=== PATIENT | female | born 1980 | race Caucasian/White ===

== ENCOUNTER 2023-08-22 11:44 | Outpatient (OUT) | payer OTHER, SELFPAY ==
[2023-08-22 12:19] LABS: Basophils Absolute Auto 0.1 10^3/uL (0.0-0.1); Basophils Percent Auto 0.6 % (0.2-2.0); Eosinophils Absolute Auto 0.2 10^3/uL (0.0-0.7); Eosinophils Percent Auto 1.7 % (0.9-7.0); Hematocrit 37.1 % (36.0-48.0); Hemoglobin 11.4 g/dL (12.0-16.0); Immature Granulocytes Abs Auto 0.02 10^3/uL (0.00-0.03); Immature Granulocytes Pct Auto 0.2 % (0.0-0.5); Lymphocytes Absolute Auto 2.8 10^3/uL (1.2-3.8); Lymphocytes Percent Auto 29.9 % (20.5-60.0); Mean Corpuscular HGB Conc 30.7 g/dL (29.9-35.2); Mean Corpuscular Hemoglobin 26.7 pg (26.7-34.0); Mean Corpuscular Volume 86.9 fL (81.0-99.0); Mean Platelet Volume 10.1 fL (9.5-13.5); Monocytes Absolute Auto 0.7 10^3/uL (0.3-0.8); Monocytes Percent Auto 6.9 % (1.7-12.0); Neutrophils Absolute Auto 5.7 10^3/uL (1.4-6.5); Neutrophils Percent Auto 60.7 % (43.0-75.0); Platelet Count 342 10^3/uL (150-450); Red Blood Count 4.27 10^6/uL (4.20-5.40); Red Cell Distribution Width 13.6 % (11.0-15.0); White Blood Count 9.4 10^3/uL (4.0-11.0)
[2023-08-22 13:02] LABS: INR 0.99; Partial Thromboplastin Time 27.8 sec (22.3-36.2); Prothrombin Time 10.5 sec (9.0-11.6)
[2023-08-22 13:21] LABS: Estimated Average Glucose 128 mg/dL; Glycohemoglobin A1C 6.1 % (4.5-6.2)
[2023-08-22 13:33] LABS: HCG Quantitative <1 mIU/mL; Thyroid Stimulating Hormone 1.654 uIU/mL (0.358-3.740)
[2023-08-22 13:54] LABS: Free T4 1.04 ng/dL (0.76-1.46)
== END 2023-08-22 11:45 | disposition home or self-care (01) ==
LOC: LAB 11:47
PROVIDERS: Visit Provider Obstetrics & Gynecology
DX: N92.0 Excessive and frequent menstruation with regular cycle (principal)
CPT/HCPCS: 36415; 83036; 84439; 84443; 84702; 85025; 85610; 85730

== ENCOUNTER 2023-08-27 10:10 | Outpatient (OUT) | payer OTHER, SELFPAY ==
--- OUTSIDE RECORDS SUMMARY | 2023-08-27 10:14 | XMS_ITS | CCD ---
Author Name Unknown Address [address] [place] [address] Organization [facility] Care Team Providers Care Chemical Engineer Name Role Phone Dia Wu Primary Care Physician [phone] TERESA, DR SRIVASTAVA Consulting Unavailable MISC, DR SAINZ Primary Care Unavailable TERESA, DR SRIVASTAVA Admitting Unavailable TERESA, DR SRIVASTAVA Attending Unavailable BELINDA ISLAS Consulting Unavailable SANAZ JEWELL Consulting Unavailable TERESA, DR SRIVASTAVA Admitting Unavailable MISC, DR SAINZ Primary Care Unavailable TERESA, DR SRIVASTAVA Attending Unavailable TERESA, DR SRIVASTAVA Attending Unavailable TERESA, DR SRIVASTAVA Admitting Unavailable MISC, DR SAINZ Primary Care Unavailable TERESA, DR SRIVASTAVA Consulting Unavailable SANAZ BELL Consulting Unavailable TERESA, DR SRIVASTAVA Admitting Unavailable MISC, DR SAINZ Primary Care Unavailable TERESA, DR SRIVASTAVA Attending Unavailable TERESA, DR SRIVASTAVA Consulting Unavailable TERESA, DR SRIVASTAVA Admitting Unavailable MISC, DR SAINZ Primary Care Unavailable TERESA, DR SRIVASTAVA Attending Unavailable TERESA, DR SRIVASTAVA Consulting Unavailable TERESA, DR SRIVASTAVA Consulting Unavailable TERESA, DR SRIVASTAVA Admitting Unavailable TERESA, DR SRIVASTAVA Attending Unavailable REQUEST, NONE LISTED Primary Care Unavaila ble TERESA, DR SRIVASTAVA Consulting Unavailable REQUEST, NONE LISTED Primary Care Unavaila ble TERESA, DR SRIVASTAVA Admitting Unavailable TERESA, DR SRIVASTAVA Attending Unavailable TERSEA, DR SRIVASTAVA Consulting Unavailable TERESA, DR SRIVASTAVA Admitting Unavailable TERESA, DR SRIVASTAVA Attending Unavailable REQUEST, DR NONE LISTED Primary Care Unavaila ble AGUBOSIM, CLARENCE Consulting Unavailable PRIYANK MILLER Consulting Unavailable LUIS Wu Primary Care Provider DO Ernie Vora Emergency Provider Dia Wu Primary Care Unavailable Ernie Vora Attending Unavailable Ernie Vora Admitting Unavailable Michael Jameson Unavailable Allergies Allergy Classification Reported Allergen(s) Allergy Type Date of Onset Reaction(s) Facility (3 sources) Penicillin; Translations: [penicillin] Drug Allergy hives, Unknown [facility] (1 source) Sulfonamides (Antibiotic); Translations: [sulfa drugs] Drug allergy hives [facility] (1 source) Sulfonamides (Antibiotic) Drug allergy (disorder) [facility] (2 sources) Penicillins; Translations: [Penicillins] Allergy to substance 05-28-20 Unknown Reaction [facility] (2 sources) Sulfonamides (Antibiotic); Translations: [Sulfa (Sulfonamide Antibiotics)] Allergy to substance 05-28-20 Unknown Reaction [facility] (1 source) Sulfacetamide Drug Allergy Unknown [facility] Other Medications Current Medications Medication Drug Class(es) Dates Sig (Normalized) Sig (Original) benzonatate 200 mg oral capsule (1 source) Non-narcotic Antitussive Start: 05-26-2022 take 1 capsule by mouth three times daily as needed for cough Benzonatate 200 MG 1 capsule Orally Three times a day as needed for cough for 7 day(s) May, Active Brompheniramine / Pseudoephedrine (1 source) alpha-Adrenergic Agonist Start: 11-20-2021 take 5 mL by mouth four times daily Bromfed DM oral syrup 5 mL, Oral, QID for cold symptoms, 120 mL, Refill(s) 0, [facility], cm, 11/20/21 10:28:00 EDT, Height/Length Dosing, 125, kg, 11/20/21 10:28:00 EDT, Weight Dosing Start Date: 11/20/21 Status: Ordered dicyclomine hydrochloride 10 mg oral capsule (1 source) Anticholinergic Start: 05-28-2022 take 10 mg by mouth twice daily Dicyclomine Active 10 MG PO Twice daily May 28, 2022 12:00am doxycycline hyclate 100 mg oral capsule (1 source) Tetracycline-class Drug Start: 11-20-2021 take 1 capsule by mouth twice daily doxycycline hyclate 100 mg Cap 100 mg = 1 cap(s), Oral, BID, # 20 cap(s), Refills(s) 0, Pharmacy: [facility] [id number], cm, 11/20/21 10:28:00 EDT, Height/Length Dosing, 125, kg, 11/20/21 10:28:00 EDT, Weight Dosing Start Date: 11/20/21 Status: Ordered escitalopram 10 mg oral tablet (2 sources) Serotonin Reuptake Inhibitor Start: 02-10-2021 take 10 mg by mouth once daily Escitalopram Oxalate Active 10 MG PO Daily February 09, 2021 11:00pm fluticasone propionate 0.05 mg/actuat metered dose nasal spray (1 source) Corticosteroid Start: 05-26-2022 take 1 spray(s) nasal route twice daily Fluticasone Propionate 50 MCG/ACT 1 spray in each nostril Nasally Twice a day for 14 days May, Active Hydrocortisone 1% In Absorbase topical ointment (1 source) Start: 10-10-2018 Hydrocortisone 1% In Absorbase topical ointment 1 bartolo, Topical, BID, 110 gram, Refill(s) 0 Start Date: 10/10/18 Status: Ordered irbesartan 75 mg oral tablet (1 source) Angiotensin 2 Receptor Eunice take 1 tablet by mouth every twenty-four hours Irbesartan 75 MG 1 tablet Orally Once a day Active lisinopril 10 mg oral tablet (1 source) Angiotensin Converting Enzyme Inhibitor Start: 02-10-2021 take 10 mg by mouth once daily Lisinopril Active 10 MG PO Daily February 09, 2021 11:00pm metFORMIN hydrochloride 500 mg oral tablet (1 source) Biguanide take 1 tablet by mouth once daily metFORMIN HCl 500 MG 1 tablet with a meal Orally Once a day Active montelukast 10 mg oral tablet (1 source) Leukotriene Receptor Antagonist take 1 tablet by mouth every twenty-four hours Montelukast Sodium 10 MG 1 tablet Orally Once a day Active naproxen 500 mg oral tablet (2 sources) Nonsteroidal Anti-inflammatory Drug Start: 05-07-2019 End: 02-10-2021 take 1 tablet by mouth twice daily as needed for pain Naprosyn 500 mg Tab 500 mg = 1 tab(s), Oral, BID, PRN for pain, # 20 tab(s), Refills(s) 0 Start Date: 12/05/19 Status: Ordered Nasacort Allergy 24HR nasal spray (1 source) Start: 11-20-2021 Nasacort Allergy 24HR nasal spray 1 spray(s), Nasal, Daily, 1 EA, Refill(s) 0, [facility], cm, 11/20/21 10:28:00 EDT, Height/Length Dosing, 125, kg, 11/20/21 10:28:00 EDT, Weight Dosing Start Date: 11/20/21 Status: Ordered omeprazole 20 mg delayed release oral capsule (1 source) Proton Pump Inhibitor take 1 capsule by mouth once daily Omeprazole 20 MG 1 capsule 30 minutes before morning meal Orally Once a day Active ondansetron 4 mg disintegrating oral tablet (1 source) Serotonin-3 Receptor Antagonist Start: 05-28-2022 take 4 mg by mouth every eight hours Ondansetron Active 4 MG PO Q8H 6 May 28, 2022 12:00am predniSONE 20 mg oral tablet (2 sources) Start: 02-10-2021 take 60 mg by mouth once daily Prednisone Active 60 MG PO Daily 12 February 09, 2021 11:00pm Start: 10-10-2018 predniSONE 20 mg Tab See Instructions, 60mg x 3 days 40mg x 3 days 20mg x 3 days then stop, # 18 tab(s), Refills(s) 0 Start Date: 10/10/18 Status: Ordered Problems Active Problems Problem Classification Problem Date Documented Da te Episodic/Chronic Chronic obstructive pulmonary disease and bronchiectasis (1 source) Bronchitis; Translations: [Bronchitis, not specified as acute or chronic] 02-10-2021 Episodic Immunizations and screening for infectious disease (1 source) Encounter for screening for human papillomavirus (HPV); Translations: [ENC SCREENING HUMAN PAPILLOMAVIRUS] Onset: 02-17-2022 Episodic Menstrual disorders (5 sources) Excessive and frequent menstruation with regular cycle; Translations: [EXCESS FREQ MENSTRUATION W/REG CYCL] Onset: 11-24-2021 Chronic Nausea and vomiting (1 source) Nausea; Translations: [Nausea] 05-28-2022 Episodic Other aftercare (1 source) [facility] (current) use of oral hypoglycemic drugs; Translations: [SENIOR NET DEVELOPER USE ORAL HYPOGLYCEMIC DX] Onset: 12-06-2021 Episodic Other aftercare (1 source) 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; Translations: [OTH SENIOR NET DEVELOPER CURRENT DRUG THERAPY] Onset: 12-06-2021 Episodic Other circulatory disease (1 source) Elevated blood-pressure reading, without diagnosis of hypertension Episodic Other connective tissue disease (1 source) Synovial cyst of knee; Translations: [Synovial cyst of popliteal space [[place]], unspecified knee] 05-07-2019 Episodic Other female genital disorders (1 source) Abnormal uterine and vaginal bleeding, unspecified; Translations: [ABNORMAL UTERINE VAGINAL BLEED UNS] Onset: 12-06-2021 Chronic Other gastrointestinal disorders (1 source) Diarrhea; Translations: [Diarrhea, unspecified] 05-28-2022 Episodic Other screening for suspected conditions (not mental disorders or infectious disease) (1 source) Abnormal findings on diagnostic imaging of other specified body structures; Translations: [ABNORML FIND DX IMG OTH BODY STRUC] Onset: 12-06-2021 Chronic Other screening for suspected conditions (not mental disorders or infectious disease) (4 sources) Encounter for screening for malignant neoplasm of cervix; Translations: [ENC SCREENING MALIG NEOPLASM CERV] Onset: 02-16-2022 Episodic Other upper respiratory infections (4 sources) Common cold; Translations: [Acute nasopharyngitis [common cold]] Onset: 11-20-2021 Episodic Unclassified (1 source) Diarrhea, unspecified; Translations: [Diarrhea, unspecified] Onset: 05-28-2022 Past or Other Problems Problem Classification Problem Date Documented Da te Episodic/Chronic Other female genital disorders (1 source) Polyp of corpus uteri; Translations: [POLYP OF CORPUS UTERI] Onset: 11-24-2021 Episodic Unclassified (1 source) Cough R05.9 Results Test Name Value Interpretation Reference Range Facility COVID/FLU RT-PCRon 2 SARS-CoV-2 (COVID-19) RNA EFRAIN+probe Ql (Unsp spec) Negative [facility] Other COVID/FLU RT-PCR Negative [facility] [place] Other Quick Strepon 05-26-2022 S. pyogenes Org specific cx Ql (Throat) Negative I-Pulse [facility] [place] Other Quick Strep [facility] [place] Other PAP ACOG PANEL 2: 30 to 65on 02-23-2022 . . Normal [facility] Comment on above: Result Comment: Perf ormed at: WB Performed By: #### P T, PTT #### [facility] [address] [address] [address] Kimberley Milan Age Gdln ACOG Testing 30-65 [facility] Comment on above: Performed By: #### P T, PTT #### [facility] [address] [address] [address] Kimberley Milan DIAGNOSIS: Comment Normal [facility] Comment on above: Result Comment: NEGA TIVE FOR INTRAEPITHELIAL LESION OR MALIGNANCY. Performed at: WB Performed By: #### P T, PTT #### [facility] [address] [address] [address] Kimberley Milan HPV Aptima Negative Normal Negative [facility] Comment on above: Result Comment: This nucleic acid amplification test detects fourteen high-risk HPV types (16,18,31,33,35,39,45,51,52,56,58,59,66,68) without differentiation. Performed at: =G Performed By: #### P T, PTT #### [facility] [address] [address] [address] Kimberley Milan Methodology: Comment Normal [facility] Comment on above: Result Comment: This liquid based ThinPrep(R) pap test was screened with the use of an image guided system. Performed at: WB Performed By: #### P T, PTT #### [facility] [address] [place] [address] Dr. Kimberley Milan Note: Comment Normal [facility] Comment on above: Result Comment: The Pap smear is a screening test designed to aid in the detection of premalignant and malignant conditions of the uterine cervix. It is not a diagnostic procedure and should not be used as the sole means of detecting cervical cancer. Both false-positive and false-negative reports do occur. . Performed at: WB Performed By: #### P T, PTT #### [facility] [address] [place] [address] Dr. Kimberley Milan Performed by: Comment Normal [facility] Comment on above: Result Comment: Deangelo Bach, Hr Analyst (ASCP) Performed at: WB Performed By: #### P T, PTT #### [facility] [address] [place] [address] Dr. Kimberley Milan Specimen adequacy: Comment Normal [facility] Comment on above: Result Comment: Sati sfactory for evaluation. Endocervical and/or squamous metaplastic cells (endocervical component) are present. Performed at: WB Performed By: #### P T, PTT #### [facility] [address] [place] [address] Dr. Kimberley Milan CBC AUTO DIFFon 12-02-2021 BASO # 0.1 103/ul Normal 0.0-0.1 [facility] Comment on above: Performed By: #### C BC #### [facility] [address] [place] [address] Dr. Kimberley Milan Basophils/100 WBC (Bld) 0.7 % Normal 0.2-2.0 [facility] Comment on above: Performed By: #### C BC #### [facility] [address] [place] [address] Dr. Kimberley Milan EO # 0.4 103/ul Normal 0.0-0.7 [facility] Comment on above: Performed By: #### C BC #### [facility] [address] [place] [address] Dr. Kimberley Milan Eosinophils/100 WBC (Bld) 3.6 % Normal 0.9-7.0 [facility] Comment on above: Performed By: #### C BC #### [facility] [address] [place] [address] Dr. Kimberley Milan Erythrocyte distribution width (RBC) [Ratio] 16.1 % Critically high 11.0-15.0 [facility] Comment on above: Performed By: #### C BC #### [facility] [address] [place] [address] Dr. Kimberley Milan Hematocrit (Bld) [Volume fraction] 33.7 % Critically low 36.0-48.0 [facility] Comment on above: Performed By: #### C BC #### [facility] [address] [place] [address] Dr. Kimberley Milan Hemoglobin (Bld) [Mass/Vol] 10.2 g/dL Critically low 12.0-16.0 [facility] Comment on above: Performed By: #### C BC #### [facility] [address] [place] [address] Dr. Kimberley Milan IG # 0.03 10e3/ul Normal 0.00-0.03 [facility] Comment on above: Performed By: #### C BC #### [facility] [address] [place] [address] Dr. Kimberley Milan IG % 0.3 % Normal 0.0-0.5 [facility] Comment on above: Performed By: #### C BC #### [facility] [address] [place] [address] Dr. Kimberley Milan LYMPH # 2.3 103/ul Normal 1.2-3.8 [facility] Comment on above: Performed By: #### C BC #### [facility] [address] [place] [address] Dr. Kimberley Milan Lymphocytes/100 WBC (Bld) 23.2 % Normal 20.5-60.0 [facility] Comment on above: Performed By: #### C BC #### [facility] [address] [place] [address] Dr. Kimberley Milan MANUAL DIFF REQ NO Normal [facility] Comment on above: Performed By: #### C BC #### [facility] [address] [place] [address] Dr. Kimberley Milan MCH (RBC) [Entitic mass] 24.8 pg Critically low 26.7-34.0 [facility] Comment on above: Performed By: #### C BC #### [facility] [address] [place] [address] Dr. Kimberley Milan MCHC (RBC) [Mass/Vol] 30.3 g/dL Normal 29.9-35.2 [facility] Comment on above: Performed By: #### C BC #### [facility] [address] [place] [address] Dr. Kimberley Milan MCV (RBC) [Entitic vol] 82.0 fL Normal 81.0-99.0 [facility] Comment on above: Performed By: #### C BC #### [facility] [address] [place] [address] Dr. Kimberley Milan MONO # 0.8 103/ul Normal 0.3-0.8 [facility] Comment on above: Performed By: #### C BC #### [facility] [address] [place] [address] Dr. Kimberley Milan Monocytes/100 WBC (Bld) 8.0 % Normal 1.7-12.0 [facility] Comment on above: Performed By: #### C BC #### [facility] [address] [place] [address] Dr. Kimberley Milan NEUT # 6.4 103/ul Normal 1.4-6.5 [facility] Comment on above: Performed By: #### C BC #### [facility] [address] [place] [address] Dr. Kimberley Milan Neutrophils/100 WBC (Bld) 64.2 % Normal 43.0-75.0 [facility] Comment on above: Performed By: #### C BC #### [facility] [address] [place] [address] Dr. Kimberley Milan Platelet mean volume (Bld) [Entitic vol] 9.9 fL Normal 9.5-13.5 [facility] Comment on above: Performed By: #### C BC #### [facility] [address] [place] [address] Dr. Kimberley Milan PLT 297 103/ul Normal 150-450 [facility] Comment on above: Performed By: #### C BC #### [facility] [address] [place] [address] Dr. Kimberley Milan RBC 4.11 106/ul Critically low 4.20-5.40 [facility] Comment on above: Performed By: #### C BC #### [facility] [address] [address] [address] Kimberley Milan WBC 10.0 103/ul Normal 4.0-11.0 [facility] Comment on above: Performed By: #### C BC #### [facility] [address] [address] [address] Kimberley Milan POINT OF CARE GLUCOSEon 11-23-2021 Glucose [Mass/Vol] 117 mg/dL Critically high 74-106 T [facility] Comment on above: Performed By: #### P OCGLUC #### [facility] [address] [place] [address] Dr. Kimberley Milan PREG QUANT HCGon 12-02-2021 HCG QUANT <1 Normal [facility] Comment on above: Performed By: #### P REGQNT #### [facility] [address] [place] [address] Dr. Kimberley Milan HCG RANGE SEE BELOW Normal [facility] Comment on above: Result Comment: 5-50 0-1 WEEK 40-300 1-2 WEEKS 100-1,000 2-3 WEEKS 500-6,000 3-4 WEEKS 5,000-200,000 1-2 MONTHS 10,000-100,000 2-3 MONTHS 3,000-50,000 2ND TRIMESTER 1,000-50,000 3RD TRIMESTER Performed By: #### P REGQNT #### [facility] [address] [place] [address] Dr. Kimberley Milan ED Note-Physicianon 12-02-19 ED Note-Physician Basic Information Time Seen: Dana Wong PA-C 11/20/2021 10:50 Chief Complaint pt states she woke up with a sore throat and stuffy nose yesterday. History of Present Illness This patient presents emergency department with chief complaint of stuffy nose and sore throat. She states this has been going on for the last 24 to 48 hours. She denies any fevers chills or sweats. She has no nausea vomiting. No shortness of breath or chest pain. She is a non-smoker. The patient denies any ear pain. She denies any cough. She has been vaccinated for COVID-19. Review of Systems Constitutional: Denies weight loss, fevers, chills, sweats, malaise Eyes: Denies visual changes, eye pain, double vision, scotomas, floaters ENT: Denies runny nose, epistaxis, sinus pain, ear pain, ringing in ears, tooth ache. +sore throat, pain with swallowing, stuffy nose Cardiovascular: Denies chest pain, shortness of breath, orthopnea, edema, palpitations, loss of consciousness, claudication Respiratory: Denies cough, sputum production, wheezing, hemoptysis, shortness of breath, dyspnea on exertion Gastrointestinal: Denies abdominal pain, unintentional weight loss, difficulty swallowing, indigestion, bloating, cramping, loss of appetite, nausea, vomiting, diarrhea, constipation, hematochezia, melena Genitourinary: Denies any incontinence of urine, dysuria, hematuria, nocturia, polyuria, hesitancy, frequency, urgency, burning Musculoskeletal: Denies joint pain, morning stiffness, joint swelling, decreased range of motion, crepitus Integumentary: Denies any pruritus, rashes, lesions, wounds, petechiae Neurologic: Denies any changes in sight, smell, hearing, taste, seizures, headache, paresthesia, numbness, weakness, balance disturbance Psychiatric denies any depression, change in sleep patterns, anxiety, difficulty concentrating, paranoia, anhedonia, lack of energy, vikas Hematologic/lymphati c: Denies any purpura, petechiae, excessive bleeding, bruising Physical Exam Vitals & Measurements T: 36.5 ?C(Oral) HR: 95(Peripheral) RR: 20 BP: 185/87 SpO2: 98% HT: 162.0 cm HT: 162 cm WT: 125.0 kg WT: 125 kg BMI: 47.63 Vital signs and nursing notes reviewed. General: Awake, alert, NAD. Obese. HEENT: Head is normocephalic, atraumatic. PERRL. EOMI. Sclerae are anicteric. External ears are normal. TMs are intact bilaterally. Canals are clear bilaterally. Nares are congested bilaterally. Oral mucosa is pink and moist. No lesions noted. Tongue protrudes in midline. Posterior pharynx is injected, no exudate. Uvula rises with phonation. Neck is supple, no no palpable adenopathy. No JVD. Trachea is midline. Thorax: Symmetrical rise and fall Lungs: Clear to auscultation throughout all milner, no wheezes, no crackles Heart: Regular rate and rhythm. No murmur, gallop, or rub Abdomen: No tenderness on palpation. Bowel sounds are present active and normal. No organomegaly. No palpable masses. No CVA tenderness. Extremities: Motor sensory pulses intact x4 extremities. No lower extremity edema. Skin: No lesions, rashes, ulcerations. No bruising or petechiae. Color appropriate, warm and dry Neuro: No oriented x3, no focal neuro deficits Psych: Mood and affect are normal Medical Decision Making Viral pharyngitis, bacterial pharyngitis, otitis media, environmental allergies, sinusitis, rhinitis Assessment/Plan 1. Acute rhinitis (J00: Acute nasopharyngitis [common cold]) 2. Pharyngitis (J02.9: Acute pharyngitis, unspecified) Orders: brompheniramine/dext romethorphan/PSE, 5 mL, Oral, QID for cold symptoms, 120 mL, Refill(s) 0, [facility], cm, 11/20/21 10:28:00 EDT, Height/Length Dosing, 125, kg, 11/20/21 10:28:00 EDT, Weight Dosing doxycycline, 100 mg = 1 cap(s), Oral, BID, # 20 cap(s), Refills(s) 0, Pharmacy: [facility], cm, 11/20/21 10:28:00 EDT, Height/Length Dosing, 125, kg, 11/20/21 10:28:00 EDT, Weight Dosing triamcinolone nasal, 1 spray(s), Nasal, Daily, 1 EA, Refill(s) 0, [facility], cm, 11/20/21 10:28:00 EDT, Height/Length Dosing, 125, kg, 11/20/21 10:28:00 EDT, Weight Dosing Patient was interviewed and examined. Rapid strep was negative. I discussed the discharge diagnosis, plan of care, home-going prescriptions. I stressed the need for close follow-up with primary care physician. The patient will be discharged home in stable condition. She is to return to the emergency department for any further problems or concerns. Disposition Plan Patient Discharge Condition Stable Discharge Disposition Home Discharge Prescription List Prescriptions Bromfed DM oral syrup, 5 mL, Oral, QID, PRN doxycycline hyclate 100 mg Cap, 100 mg= 1 cap(s), Oral, BID Nasacort Allergy 24HR nasal spray, 1 spray(s), Nasal, Daily Follow-up With When Contact Information Dia Wu In 3 days 11/23/2021 EDT [address] [place] [phone] Business (1) Additional Instructions: Patient Educatio (more content not included)... Normal [facility] Comment on above: Result Comment: Elec tronically Signed By: Dana Wong PA-C\.br\Date and Time Signed: 11/20/21 11:25 EDT\.br\Electronically Co-Signed By: Raghavendra Rodriguez MD\.br\Date and Time Co-Signed: 12/01/21 07:12 EDT Coding Summary.on 11-29-2021 Coding Summary. [id number] Gh0bWw+PGhlYWQ+PE1FV KIwV53idATmuV7PG0dRR V5JDDSFXOJNVI9JUI3vu OT1RMkrM3IqrfOk DbgsdTJlGW58NHn2TBL0 xUnlAWimqQ3atKBoC5t6 JiSbRD71pE54ZRsiSBOi MnJ3HfNhecbfcJDc W7jzYyOcmGWaQct+PHRh YmxlIHdpZHRoPScxMDAl EiAlnBnhAQ0dId2bXTLc LWNvbGxhcHNlOiBj s4lvHPJxSMvdIF4xoHct V9RobAO9TBQor0m3Sm10 dHI+SWTlRQO8xKfiCDjm z339FlXvs2iaUTJ3 jBQcVYhoZHJ7O74mo8D7 QKRlZXMlLDE5dQJ2pJ8t tPtytppmK4DngMYtEzL0 DDD1cFRzrV6kfCib xodpeN5qSqv+E67RJL4O RYBJYS4HZvg4B2RnMyff dHI+KO77EGZrRJ36kKGx bPRqb4qdaRj6GeBi XJCyBHA6jUsnRUadl2Au ZUCpY17kpSHeh4T4IHTv wNqscMCtBhEbgAK9uS1o WHbwlppvn7arzeoi Pqjcc7ojrz16xT06M55n MArzQPUuQMJ4YBYgVIFy gIupek8drE8tDh3+IDxj j7maw6sspSw1IvVe VPMwonXprCdwQSI1n6Uo Kc55V8WnbIdve8IfPau9 lt36jPEss1P4yNR9HAih CWHgrM6bJHbbIuX6 CLDsEaUwmZ07xVGjCWzy Zv7yvOmgiWgbQK9vRWYe dzsnQHKzkJ8rHBGcmZWi sEffUN5hBEYeygpd k153AbEnPKM2XNPweIOl S1FpmS1eRvKhOGFcVGMn K2YpaZUqJKkyN598UMoy EwO6BMSdebTfH1Qz YDPolUgxByR2y0S8Qj4B b4RfjvlbNSU2XLcqRUA4 TuS1UuHkMnG6H4JfScm7 EVCpzMexUN3oG9We CKZaayivcpnsiQX6EKLj YFZztP76eIAsNIrxSs9x b0X8o530QRPoARKfvU44 Xb7hgGzuUGEdyOLR bL1gqxggc8afnbihCpSz EPVsCYj4XJw2ORTykPta WpVbZQO1YvM0RMH3tEYg bY1ltAndikrjqU9w Oyc+L06anH4oMFX2VCF9 jnqgIMBbulJbRL31ON89 D0VwDrwrvMFnjRC+PGRp lfEmlBbeSZ5iDnJo t3bls6KnODhhL3NeHVUq OHmgNvo3RWAiAXL4zHC4 jP8eCFVnSLqfb1Y2dMM4 Y6AuvzJlvh6od7xy GQUmSIpdO41zgBJqq0A8 ZQBhbPG5ZMJgaAcrPrDu iB90Rtq+XQObeZmyv7Ic Pgxjb1zvw6jhdVx7 IjMwJSIgdmFsaWduPSJ0 s1FsHf69P08tNGyhVNGd GCEaBULmCVAkaGgdma2y bG9tLy2+PGNvbCB3 sWD7sK2vCBMqGmB5EXvn I942PnOesZJiYwrob2ko o6uicRc4XrKxEQScefMe uRgiINL5b5WnHa24 S53uWNlxWAEiNZWaDHGh IENctWolhw1ioT8aCb0+ VL2rg7nlwd70bV42yWZ+ FJPwCRY5gVqhKKar ZFSsnB7oDDypOcT6MPBd GcDtyW82iYBbWSigTi3s xOwiwWsiKK1dRXDkclmr p803DpLyz9lgCNGx jKGaWHeqPTC6E88ju4A3 ABLlJHTkICT0iXC4sT1x bGlnbjogbGVmdDsgdmVy xEycUKzzFIbcP878 IHRvcDsnPlBhdGllbnQg VtDcZWd0C3MtEzu6QORv rJbjUS8gwHNvOJlyIj2j fLvkuKbpIQ0yLSLj ogizq004WvNlh3mfRHKf aGIiMBtbRHZ1X18bd6B8 NCLxEKCyCYK7wNK2aC9o bGlnbjogbGVmdDsg agKntUrgOUifTDrwS361 IHRvcDsnPkJpcnRoIERh fUF0LU31ZO34eBTmj1K9 jMJ8R9BsUREuqepz iwtbaDH2TLBhTIMezO90 Ft6mtBezNr2vUHKsAOP9 SJHuvPWkH8HcdS9fHfCn VCHcSOWdU1OspFEk OIewW961OSgaWgD9MONz olIyP6YbOBBmwLejQpZ4 c1N4Lb0SO8Y5YF43WA84 iAYwb5P5wDG8D8Fi QYZcbjacnzgpnAF7CVYf PXOyfH29Ad5vpVimFz6m JTGeWEG3RQWqtHPcL0Nr aO7fNaBlJQWjVNFm Z9QplZXlCHqtX855WClw HbB7XAOexoHhU4KcIYEn sRzvSgT8v1L3Ct3PKUr7 AI48YP17eGYjv7L3 xND6S0DqGVQkqkzjnjvf wNK2TKSuHREvdK18Nk6z xIdyPv3lIOMcKCJ6KUWf iDIaX1HvwW7yRhAx XETiLJTvB9OfqVZlNOmy I465OEglOmA2TGJzioHs S8OwYWOxtBtsGyV8t0F2 Dy0SGGCtBS96BRD5 cWQ7AA34RZ48D1PkYtig dGFibGU+PHRhYmxlIHdp ZHRoPScxMDAlJyBzdHls IW7dYy8oINWjMMQm qXoulWVyUmCrx8lnZCTy IJajZT7phSkcO5TdsRK0 ULOat4g7Sh14Y85aC8Vq dXA+LKOujOY2cYQ4 zW5sOpZiVtY4USyoE559 AsCmsGVeQgrhz0hsa5en tDe1ZpA7QYThotKetUow DMI0k3KpUq36H72n IHdpZHRoPSIxNSUiIHZh rAcahn9ueZ8eIw5+PGNv sED1bVF9kK7zCzCrTwS1 KUsnQ923KnNvqZLn Gjcul3pya7soaIl7MqIx ZOKoduZbhQhnJUN0d9Of Ry41Q5QccFtyf6NtEpx8 zk24zDCvl3D9hRW3 Z4LlVKBqpxvyyPVfbPzo JH8lPXWrsltfVAUozZ8e WOPvL2q2QlOlXbF0FJkb U9VcrjG0LTTfiDFp MFsqBAR0U88ua5T6JWQs HCAeWMQ4sGO3oY7brBia bjogbGVmdDsgdmVydGlj KQzlJFkkB787MGXm mCeiBXYhsG4cTGEmuSJx dGmjCB2bLMJsfeleJoqV RVNTTUFOLCBTVEVQSEFO SUUgUjwvdGQ+PHRk FJF5oCjfUWisJVOggX8r BMCsL4g3VtLiQtU5CFdz M9IvMDMszxtwSq24tK6e CcMjQhI8ELhbB0Dn jjK0PWGvgIDvHXsjNCX9 R52rw9L3GPMzJWLrDUM3 hXN6hG0uqIdmnykpaFXl dDsgdmVydGljYWwt KCxfR458GMQogQacGoU1 YpE6TwY3Jak5L0QdWfg5 EZIarIulQV5qkPGvTTmy Ws6ofHixtZvgXH3o BEZbxwjjHFCyyJ6nUALn jWWmgDbnEM0iZWRyuuaa w111DbNrEWM5CMJegPCv I5LofK4zHxMrKFLt WTZlU2DplURsOVspL039 YYqaRsZ9CQBtkoMqX7Fi BAVloKxlLuO7b1W3Of24 MiBZZWFyczwvdGQ+ IPLkNIY5fTipXSllCHCw qW0aFUDmR9b4RzQcOlX4 SXqlX5LvQDFdndmuOn66 dO1hCdIeYjL5PQng B3UntoX3TXHgsTPrXLgg MGG1T36cy8R7OYRtZWVt QQE1gIA5fH6ocMuhzvhy bGVmdDsgdmVydGlj RHetRIzsN680MQXkgNhm PkZlbWFsZTwvdGQ+PHRk GEK3kTnyDZwjMZPzmI2b SEJoV7x5HuLjTjH3 PPulU0JtBYJxselfUo86 sO5cOdWkZtV7GLmfW2Kj xfO0KVSqvWEoMCucOWH4 B07al3F0JEBvWHOb DEU9eLL2rG1boEmdkamf bGVmdDsgdmVydGljYWwt ZXcsH784AHEqcMdiSaRl LLJjUO6hwEnuaOC+ SZ55yp16B8GzQjacMzg8 ZDEsOZF9bJF8nI1tDUPp MZpdf6M9kFF9I9OdubIs sm5vg3ynSBXlPYcl T61myGDtj3J3JBFohAD9 SMWqrZocXpUuoS15Eeh+ ZJBpnFinf4YuHpezc8ci g4khpEb2GfUxKPQj kzQlnSwlTKG9y3SlNw94 A40gNDaeBMPoYEAgVOFx ZDZdqAupcr4xdH3pAe2+ WXIuzNB9xGR2nI8w JaWeZyD5GRieF665VoXb aVAdRtqif5vlv8gbsJy4 IjIwJSIgdmFsaWduPSJ0 h4VjFb15C2XnqEpe h2BkCag0ve37iNAgf2Y1 xPN4V6EaXHMoybzxvVOo tPtdGU7iQKQcewehBUPf kB7uNUFtJ6m7EiVb PwJ7KFlfG9AgkbP3EQUe pNLpVDImkLMGmR7qvojs p3fxwsrnAyUsWKEwETj9 TAq1FUOjmSixRtOu YKB4LqA1AKI4wCWmpR1l sMpyslmqfV1rJfy+UGh5 l6muuHVdYO7cqKF7DM89 JH74xROnh3S7aEW3 E6CkERBkmkuztolxbDM7 TFKiIBMksI83Hb0bwQnl Kp2zJZWzOOZ2ZMYveFTr F5NnmC4wMtCqZNFd BYZeZ0CzsNQnFWqvB435 EMzaBrD4TKBbyrTvH3Vp GIDelSmiPtJ4x7B9Uq6L YH57OO63XS19wVKu u2N7gWC7L2LtQVRtbtow vsseyZA1KFRpYTHpwC85 Os4uwBlrVs6cPAWnFMK2 IFCegXGzS6ZtlO3v ZsNtJVIoAGWbU9OhgWNi ZMvkX393WTxmAbO9HDCm haFtP0PiCYKcwHxiQjD4 h1C9Sh4HEi99WW45 JU41dRXke2Q3ySG8S2Ah PRTcbkxmlgbhvVZ7TSSs XQCmpL00Ya0mxLtdFl9c EXZlMDX1ZAQhdTEx F0BucL0iObGmQRVqJGPc C4EtyGWeXZwiE475YDzc MbL6RXEfbnVkS5MvZZNo bJpcBlS2f6V2Nv4L ZEkwobg6U0AxShgrmDJ+ LJ77WEFyKX39dAVimNYm d2uzgDl8MbYzNFOpJEP7 pCrzQPapv2KnLVUj Y29s (more content not included)... Normal [facility] Consent for Treatmenton 10-24 Consent for Treatment [id number] #[id number]:127 Normal [facility] Discharge Instructionson Discharge Instructions [id number]#1.00CD:127 Normal [facility] ED Clinical Summaryon 2021 ED Clinical Summary [address] [address] ED Clinical Summary Person Information Name: DELILAH SANDOVAL [place] Age: 41 Years : 1980 Sex: Female Language: Danish PCP: Dia Wu CNP Marital Status: Single Phone: [phone] Visit Id: Visit Reason: Sinus Pain/Congestion; Throat pain - Adult; SORE THROAT, STUFFY NOSE Speciality: Acuity: 4 Enc Type: Emergency Med Service: Emergency Arrival: 11/20/2021 10:24:38 Discharge: 11/20/2021 11:30:56 LOS: 000 01:06 Checkin: 11/20/2021 10:24:38 Checkout: 11/20/2021 11:30:56 Dispo Type: Home (Routine DC) EVENTS: Event Name Event Status Request Date/Time Start Date/Time Complete Date/Time Arrive Complete 11/20/2021 10:24:38 11/20/2021 10:24:38 11/20/2021 10:24:38 Document Home Meds Request 11/20/2021 10:24:38 Triage Complete 11/20/2021 10:24:38 11/20/2021 10:28:16 11/20/2021 10:28:16 Bed Assign Complete 11/20/2021 10:25:42 11/20/2021 10:25:42 11/20/2021 10:25:42 Dr Exam Complete 11/20/2021 10:25:42 11/20/2021 10:50:49 11/20/2021 10:50:49 RN Exam Complete 11/20/2021 10:25:42 11/20/2021 10:30:15 11/20/2021 10:30:15 Registration Complete 11/20/2021 10:27:39 11/20/2021 10:27:39 11/20/2021 10:27:39 Reg Complete Request 11/20/2021 10:27:39 Reg Bed Request Complete 11/20/2021 10:27:39 11/20/2021 10:27:39 11/20/2021 10:27:39 Patient Care Request 11/20/2021 10:28:17 Patient Isolation Request 11/20/2021 10:28:17 Pending Labs Complete 11/20/2021 10:29:11 11/20/2021 10:43:55 Pending Labs Cancel 11/20/2021 10:43:55 11/20/2021 10:43:55 11/20/2021 10:56:09 Registration Complete 11/20/2021 10:50:49 11/20/2021 11:08:11 11/20/2021 11:08:11 Pending Labs Inlab 11/20/2021 10:56:42 11/20/2021 10:56:42 Lab Inlab 11/20/2021 10:56:42 11/20/2021 10:56:42 Discharge Complete 11/20/2021 11:10:23 11/20/2021 11:31:01 11/20/2021 11:31:01 Transfer Complete 11/20/2021 11:31:01 11/20/2021 11:31:01 11/20/2021 11:31:01 ADDRESS: [address] [place] [address] [address] [facility] [id number] PHYS DOC NOTES: MEDICAL INFORMATION: Prescriptions Given: New Medications [facility], [address] [place], [place] [id number], [phone] brompheniramine/dext romethorphan/PSE (Bromfed DM oral syrup) 5 Milliliter By Mouth 4 times a day as needed for cold symptoms. Refills: 0. doxycycline (doxycycline hyclate 100 mg Cap) 1 Capsules By Mouth 2 times a day. Refills: 0. triamcinolone nasal (Nasacort Allergy 24HR nasal spray) 1 Sprays Nasal Inhalation every day. Refills: 0. Medications to Continue with No Changes Other Medications hydrocortisone topical (Hydrocortisone 1% In Absorbase topical ointment) 1 Application Topical 2 times a day. Refills: 0. naproxen (Naprosyn 500 mg Tab) 1 Tablets By Mouth 2 times a day as needed for pain. Refills: 0. predniSONE (predniSONE 20 mg Tab) 60mg x 3 days 40mg x 3 days 20mg x 3 days then stop. Refills: 0. PATIENT EDUCATION INFORMATION: Instructions: Allergic Rhinitis, Adult, Uilp-uz-Hrqv; Pharyngitis, Aaim-mf-Ofit; Cough, Adult, Ovgm-kn-Aibd; Cool Mist Vaporizer Follow up: With: Address: When: Dia Norton Bert Haley, [facility] C, [facility] [address] [place] [phone] Business (1) In 3 days 11/23/2021 DIAGNOSIS: 1:Acute rhinitis; 2:Pharyngitis Normal [facility] ED Patient Education Noteon 11-20-2021 ED Patient Education Note ENT Allergic Rhinitis, Adult Allergic rhinitis is a reaction to allergens in the air. Allergens are tiny specks (particles) in the air that cause your body to have an allergic reaction. This condition cannot be passed from person to person (is not contagious). Allergic rhinitis cannot be cured, but it can be controlled. There are two types of allergic rhinitis: ? Seasonal. This type is also called hay fever. It happens only during certain times of the year. ? Perennial. This type can happen at any time of the year. What are the causes? This condition may be caused by: ? Pollen from grasses, trees, and weeds. ? House dust mites. ? Pet dander. ? Mold. What are the signs or symptoms? Symptoms of this condition include: ? Sneezing. ? Runny or stuffy nose (nasal congestion). ? A lot of mucus in the back of the throat (postnasal drip). ? Itchy nose. ? Tearing of the eyes. ? Trouble sleeping. ? Being sleepy during day. How is this treated? There is no cure for this condition. You should avoid things that trigger your symptoms (allergens). Treatment can help to relieve symptoms. This may include: ? Medicines that block allergy symptoms, such as antihistamines. These may be given as a shot, nasal spray, or pill. ? Shots that are given until your body becomes less sensitive to the allergen (desensitization). ? Stronger medicines, if all other treatments have not worked. Follow these instructions at home: Avoiding allergens ? Find out what you are allergic to. Common allergens include smoke, dust, and pollen. ? Avoid them if you can. These are some of the things that you can do to avoid allergens: ? Replace carpet with wood, tile, or vinyl jamey. Carpet can trap dander and dust. ? Clean any mold found in the home. ? Do not smoke. Do not allow smoking in your home. ? Change your heating and air conditioning filter at least once a month. ? During allergy season: ? Keep windows closed as much as you can. If possible, use air conditioning when there is a lot of pollen in the air. ? Use a special filter for allergies with your furnace and air conditioner. ? Plan outdoor activities when pollen counts are lowest. This is usually during the medical registrar or evening hours. ? If you do go outdoors when pollen count is high, wear a special mask for people with allergies. ? When you come indoors, take a shower and change your clothes before sitting on furniture or bedding. General instructions ? Do not use fans in your home. ? Do not hang clothes outside to dry. ? Wear sunglasses to keep pollen out of your eyes. ? Wash your hands right away after you touch household pets. ? Take jdnl-fxo-mgzmtke and prescription medicines only as told by your doctor. ? Keep all follow-up visits as told by your doctor. This is important. Contact a doctor if: ? You have a fever. ? You have a cough that does not go away (is persistent). ? You start to make whistling sounds when you breathe (wheeze). ? Your symptoms do not get better with treatment. ? You have thick fluid coming from your nose. ? You start to have nosebleeds. Get help right away if: ? Your tongue or your lips are swollen. ? You have trouble breathing. ? You feel dizzy or you feel like you are going to pass out (faint). ? You have cold sweats. Summary ? Allergic rhinitis is a reaction to allergens in the air. ? This condition may be caused by allergens. These include pollen, dust mites, pet dander, and mold. ? Symptoms include a runny, itchy nose, sneezing, or tearing eyes. You may also have trouble sleeping or feel sleepy during the day. ? Treatment includes taking medicines and avoiding allergens. You may also get shots or take stronger medicines. ? Get help if you have a fever or a cough that does not stop. Get help right away if you are short of breath. This information is not intended to replace advice given to you by your health care provider. Make sure you discuss any questions you have with your health care provider. Document Released: 10/11/2011 Document Revised: 09/30/2019 Document Reviewed: 12/31/2018 [employer] Patient Education ? 2019 [employer] Cough, Adult A cough helps to clear your throat and lungs. A cough may be a sign of an illness or another medical condition. An acute cough may only last 2?3 weeks, while a chronic cough may last 8 or more weeks. Many things can cause a cough. They include: ? Germs (viruses or bacteria) that attack the airway. ? Breathing in things that bother (irritate) your lungs. ? Allergies. ? Asthma. ? Mucus that runs down the back of your throat (postnasal drip). ? Smoking. ? Acid backing up from the stomach into the tube that moves food from the mouth to the stomach (gastroesophageal reflux). ? Some medicines. ? Lung problems. ? Other medical conditions, such as heart failure or a blood clot in the lung ( (more content not included)... Normal [facility] ED Patient Summaryon 022 ED Patient Summary [address] [address] Patient Discharge Instructions Person Information Name: DELILAH SANDOVAL Age: 41 Years Arrival Date: 11/20/2021 10:24:38 Discharge Diagnosis: 1:Acute rhinitis; 2:Pharyngitis Primary Care Physician: Dia Wu CNP Provider Information Primary Provider: Advanced Flying Instructor:None The exam and treatment you received in the Emergency Department were for an urgent problem and are not intended as complete care. It is important that you follow up with a doctor, nurse practitioner, or physician?s habilitation assistant for ongoing care. If your symptoms become worse or you do not improve as expected and you are unable to reach your usual health care provider, you should return to the Emergency Department. We are available 24 hours a day. DELILAH SANDOVAL has been given the following list of patient education materials, prescriptions and follow-up instructions: Follow-up Instructions: With: Address: When: Dia Wu [facility] Harriet Schaefer, [facility] [address] [place] [phone] Business (1) In 3 days 11/23/2021 In the event that this physician does not participate in your insurance network, please consult with your insurance company to find a nearby participating provider. Patient Education Materials: Allergic Rhinitis, Adult, Zesz-uq-Bwrr; Pharyngitis, Uefd-am-Yjwq; Cough, Adult, Oxvx-oj-Rlsq; Cool Mist Vaporizer A MESSAGE TO ALL PATIENTS REGARDING OPIOIDS PRESCRIPTION OPIOIDS: WHAT YOU NEED TO KNOW Prescription opioids can be used to help relieve dspborbp-ds-vhsoyw pain and are often prescribed following a surgery or injury, or for certain health conditions. These medications can be an important part of the treatment but also come with serious risks. It is important to work with your healthcare provider to make sure you are getting the safest, most effective care. WHAT ARE THE RISKS AND SIDE EFFECTS OF OPIOID USE? Prescription opioids carry serious risks of addiction and overdose, especially with prolonged use. An opioid overdose, often marked by slowed breathing, can cause sudden . The use of prescription opioids can have a number of side effects as well, even when taken as directed: ? Tolerance?meaning you might need to take more of the medication for the same pain relief ? Physical dependence?meaning you have symptoms of withdrawal when a medication is stopped ? Increased sensitivity to pain ? Constipation ? Nausea, vomiting, and dry mouth ? Sleepiness and dizziness ? Confusion ? Depression ? Low levels of testosterone that can result in lower sex drive, energy, and strength ? Itching and sweating RISKS ARE GREATER WITH: ? History of drug misuse, substance use disorder, or overdose ? Mental health conditions (such as depression or anxiety) ? Sleep apnea ? Older age (65 years and older) ? Avoid alcohol while taking prescription opioids. Also, unless specifically advised by your health care provider, medications to avoid include: ? Benzodiazepines (such as Xanax or Valium) ? Muscle relaxants (such as Soma or Flexeril) ? Hypnotics (such as Ambien or Lunesta) ? Other prescription opioids KNOW YOUR OPTIONS Talk to your health care provider about ways to manage your pain that don?t involve prescription opioids. Some of these options may actually work better and have fewer risks and side effects. Options may include: ? Pain relievers such as acetaminophen, ibuprofen, and naproxen ? Some medication that are also used for depression or seizures ? Physical therapy and exercise ? Cognitive behavioral therapy, a psychological, goal-directed approach, in which patients learn how to modify physical, behavioral, and emotional triggers of pain and stress. IF YOU ARE PRESCRIBED OPIOIDS FOR PAIN: ? Never take opioids in greater amounts or more often than prescribed. ? Follow up with your primary health care provider. o Work together to create a plan on how to manage your pain. o Talk about ways to help manage your pain that don?t involve prescription opioids. o Talk about any and all concerns and side effects. ? Help prevent misuse and abuse o Never sell or share prescription opioids. o Never use another person?s prescription opioids. ? Store prescription opioids in a secure place and out of reach of others (this may include visitors, children, friends, and family). ? Safely dispose of unused prescription opioids: Find your community drug take-back program or your pharmacy mail-back program, or flush them down the toilet, following guidance from the Food and Drug Administration (www.fda.gov/Drugs/R esourcesForYou). ? Visit www.cdc.gov/drugover dose to learn about the risks of opioids abuse and overdose. ? If you believe you may be struggling with addiction, tell your health children's zoo caretaker and ask fo (more content not included)... Normal [facility] MICRO OTHER TESTSOrdered By: Keyanna Nguyen on 11-20-2021 S. pyogenes Ag IA.rapid Ql (Throat) Negative (11/20/21 10:35 AM) Normal Negative [facility] Sero Rapid Strep w/rfxon 11-21-19 22 S. pyogenes Ag IA.rapid Ql (Throat) Negative Normal Negative [facility] Comment on above: Performed By: #### 2 [id number] ####[facility] [address] [place] [address] CBC AUTO DIFFon 11-18-2021 BASO # 0.1 103/ul Normal 0.0-0.1 [facility] Comment on above: Performed By: #### C BC #### [facility] [address] [place], [place] [address] Dr. Kimberley Milan Basophils/100 WBC (Bld) 0.6 % Normal 0.2-2.0 [facility] Comment on above: Performed By: #### C BC #### [facility] [address] [place] [address] Dr. Kimberley Milan EO # 0.3 103/ul Normal 0.0-0.7 [facility] Comment on above: Performed By: #### C BC #### [facility] [address] [place] [address] Dr. Kimberley Milan Eosinophils/100 WBC (Bld) 3.3 % Normal 0.9-7.0 [facility] Comment on above: Performed By: #### C BC #### [facility] [address] [place] [address] Dr. Kimberley Milan Erythrocyte distribution width (RBC) [Ratio] 16.5 % Critically high 11.0-15.0 [facility] Comment on above: Performed By: #### C BC #### [facility] [address] [place] [address] Dr. Kimberley Milan Hematocrit (Bld) [Volume fraction] 35.7 % Critically low 36.0-48.0 [facility] Comment on above: Performed By: #### C BC #### [facility] [address] [place] [address] Dr. Kimberley Milan Hemoglobin (Bld) [Mass/Vol] 10.7 g/dL Critically low 12.0-16.0 [facility] Comment on above: Performed By: #### C BC #### [facility] [address] [place] [address] Dr. Kimberley Milan IG # 0.02 10e3/ul Normal 0.00-0.03 [facility] Comment on above: Performed By: #### C BC #### [facility] [address] [place] [address] Dr. Kimberley Milan IG % 0.2 % Normal 0.0-0.5 [facility] Comment on above: Performed By: #### C BC #### [facility] [address] [place] [address] Dr. Kimberley Milan LYMPH # 2.2 103/ul Normal 1.2-3.8 [facility] Comment on above: Performed By: #### C BC #### [facility] [address] [place] [address] Dr. Kimberley Milan Lymphocytes/100 WBC (Bld) 27.2 % Normal 20.5-60.0 [facility] Comment on above: Performed By: #### C BC #### [facility] [address] [place] [address] Dr. Kimberley Milan MANUAL DIFF REQ NO Normal [facility] Comment on above: Performed By: #### C BC #### [facility] [address] [place] [address] Dr. Kimberley Milan MCH (RBC) [Entitic mass] 24.9 pg Critically low 26.7-34.0 [facility] Comment on above: Performed By: #### C BC #### [facility] [address] [place] [address] Dr. Kimberley Milan MCHC (RBC) [Mass/Vol] 30.0 g/dL Normal 29.9-35.2 [facility] Comment on above: Performed By: #### C BC #### [facility] [address] [place] [address] Dr. Kimberley Milan MCV (RBC) [Entitic vol] 83.0 fL Normal 81.0-99.0 [facility] Comment on above: Performed By: #### C BC #### [facility] [address] [place] [address] Dr. Kimberley Milan MONO # 0.7 103/ul Normal 0.3-0.8 [facility] Comment on above: Performed By: #### C BC #### [facility] [address] [place] [address] Dr. Kimberley Milan Monocytes/100 WBC (Bld) 8.6 % Normal 1.7-12.0 [facility] Comment on above: Performed By: #### C BC #### [facility] [address] [place] [address] Dr. Kimberley Milan NEUT # 5.0 103/ul Normal 1.4-6.5 [facility] Comment on above: Performed By: #### C BC #### [facility] [address] [place] [address] Dr. Kimberley Milan Neutrophils/100 WBC (Bld) 60.1 % Normal 43.0-75.0 [facility] Comment on above: Performed By: #### C BC #### [facility] [address] [place] [address] Dr. Kimberley Milan Platelet mean volume (Bld) [Entitic vol] 9.9 fL Normal 9.5-13.5 [facility] Comment on above: Performed By: #### C BC #### [facility] [address] [place] [address] Dr. Kimberley Milan PLT 341 103/ul Normal 150-450 [facility] Comment on above: Performed By: #### C BC #### [facility] [address] [place] [address] Dr. Kimberley Milan RBC 4.30 106/ul Normal 4.20-5.40 [facility] Comment on above: Performed By: #### C BC #### [facility] [address] [place] [address] Dr. Kimberley Milan WBC 8.3 103/ul Normal 4.0-11.0 [facility] Comment on above: Performed By: #### C BC #### [facility] [address] [place] [address] Dr. Kimberley Milan POINT OF CARE GLUCOSEon 10-24 Glucose [Mass/Vol] 125 mg/dL Critically high 74-106 T [facility] Comment on above: Performed By: #### P OCGLUC #### [facility] [address] [place] [address] Dr. Kimberley Milan PREG HCG QUALon 11-18-2021 , QUAL Negative Normal NEGATIVE [facility] Comment on above: Performed By: #### P T, PTT #### [facility] [address] [place] [address] Dr. Kimberley Milan US PELVIS TRANSVAGon 022 US PELVIS TRANSVAG EXAM: US PELVIS TRANSVAG HISTORY: Excessive and frequent menstruation COMPARISON: None Available TECHNIQUE: Pelvic sonography was performed utilizing both transabdominal and transvaginal techniques. NOTE: Under distended bladder limits evaluation. FINDINGS: LMP: Unknown per intake form. Anteverted uterus measures 8.9 cm in sagittal diameter x 4.3 cm in anteroposterior diameter x 4.9 cm in transverse diameter. Uterine endometrial stripe measurement appears increased (recorded as 2.4 cm), though endometrial stripe is poorly delineated. Heterogeneous myometrial echotexture. Nonspecific hypoechoic subcentimeter focus within the right uterine body, measuring up to 6 mm. Few nabothian cysts. Right ovary not discretely identified. A candidate left ovary measures 4.4 x 4.3 x 3.1 cm. Vascularity is measured at the peripheral margin of this structure. No sonographic evidence of free fluid within the pelvis. IMPRESSION: 1. Endometrial stripe appears thickened, but is poorly delineated on this exam, and this measurement may be exaggerated. 2. Hypoechoic myometrial focus, likely a subcentimeter intramural leiomyoma of the uterine body. 3. Nonvisualized right ovary. 4. Unremarkable sonographic appearance of the favored left ovary. Electronically authenticated by: SANAZ BELL Date: 2021-09-24 11:58 Normal [facility] CBC W MANUAL DIFFon 09-23-19 22 ATYPICAL LYMPH # Normal [facility] Comment on above: Performed By: #### P T, PTT #### [facility] [address] [place] [address] Dr. Kimberley Milan ATYPICAL LYMPH % Normal [facility] Comment on above: Performed By: #### P T, PTT #### [facility] [address] [place] [address] Dr. Kimberley Milan BAND # 0.0 103/ul Normal 0.0-0.3 [facility] Comment on above: Performed By: #### P T, PTT #### [facility] [address] [address] [address] Kimberley Milan BAND % 0 % Normal 0-5 [facility] Comment on above: Performed By: #### P T, PTT #### [facility] [address] [place] [address] Dr. Kimberley Milan BASOM # 0.00 103/ul Normal 0.00-0.10 [facility] Comment on above: Performed By: #### P T, PTT #### [facility] [address] [place] [address] Dr. Kimberley Milan BASOM % 0.0 % Critically low 0.2-2.0 [facility] Comment on above: Performed By: #### P T, PTT #### [facility] [address] [place] [address] Dr. Kimberley Milan BLAST # Normal [facility] Comment on above: Performed By: #### P T, PTT #### [facility] [address] [place] [address] Dr. Kimberley Milan BLAST % Normal [facility] Comment on above: Performed By: #### P T, PTT #### [facility] [address] [place] [address] Dr. Kimberley Milan CORRECTED WBC Normal 4.0-11.0 [facility] Comment on above: Performed By: #### P T, PTT #### [facility] [address] [place] [address] Dr. Kimberley Milan EOS # 0.12 103/ul Normal 0.00-0.70 [facility] Comment on above: Performed By: #### P T, PTT #### [facility] [address] [place] [address] Dr. Kimberley Milan EOS% 2.0 % Normal 0.9-7.0 [facility] Comment on above: Performed By: #### P T, PTT #### [facility] [address] [place] [address] Dr. Kimberley Milan HCT 33.9 % Critically low 36.0-48.0 [facility] Comment on above: Performed By: #### P T, PTT #### [facility] [address] [place] [address] Dr. Kimebrley Milan HGB 10.2 g/dl Critically low 12.0-16.0 [facility] Comment on above: Performed By: #### P T, PTT #### [facility] [address] [place] [address] Dr. Kimberley Milan LYMPHM # 1.51 103/ul Normal 1.20-3.80 [facility] Comment on above: Performed By: #### P T, PTT #### [facility] [address] [address] [address] Kimberley Milan LYMPHM% 26.0 % Normal 20.5-60.0 [facility] Comment on above: Performed By: #### P T, PTT #### [facility] [address] [address] [address] Kimberley Milan MCH 24.3 pg Critically low 26.7-34.0 [facility] Comment on above: Performed By: #### P T, PTT #### [facility] [address] [place] [address] Dr. Kimberley Milan MCHC 30.1 g/dl Normal 29.9-35.2 [facility] Comment on above: Performed By: #### P T, PTT #### [facility] [address] [place] [address] Dr. Kimberley Milan MCV 80.9 fL Critically low 81.0-99.0 [facility] Comment on above: Performed By: #### P T, PTT #### [facility] [address] [place] [address] Dr. Kimberley Milan METAMYELOCYTE # Normal [facility] Comment on above: Performed By: #### P T, PTT #### [facility] [address] [place] [address] Dr. Kimberley Milan METAMYELOCYTE % Normal [facility] Comment on above: Performed By: #### P T, PTT #### [facility] [address] [place] [address] Dr. Kimberley Milan MONOM# 0.58 103/ul Normal 0.30-0.80 [facility] Comment on above: Performed By: #### P T, PTT #### [facility] [address] [place] [address] Dr. Kimberley Milan MONOM% 10.0 % Normal 1.7-12.0 [facility] Comment on above: Performed By: #### P T, PTT #### [facility] [address] [place] [address] Dr. Kimberley Milan MPV 9.8 fL Normal 9.5-13.5 [facility] Comment on above: Performed By: #### P T, PTT #### [facility] [address] [place] [address] Dr. Kimberley Milan MYELOCYTE # Normal [facility] Comment on above: Performed By: #### P T, PTT #### [facility] [address] [place] [address] Dr. Kimberley Milan MYELOCYTE % Normal [facility] Comment on above: Performed By: #### P T, PTT #### [facility] [address] [place] [address] Dr. Kimberley Milan NRBC Normal [facility] Comment on above: Performed By: #### P T, PTT #### [facility] [address] [place] [address] Dr. Kimberley Milan PLT 346 103/ul Normal 150-450 [facility] Comment on above: Performed By: #### P T, PTT #### [facility] [address] [place] [address] Dr. Kimberley Milan RBC 4.19 106/ul Critically low 4.20-5.40 [facility] Comment on above: Performed By: #### P T, PTT #### [facility] [address] [place] [address] Dr. Kimberley Milan RDW 14.9 % Normal 11.0-15.0 [facility] Comment on above: Performed By: #### P T, PTT #### [facility] [address] [place] [address] Dr. Kimberley Milan SEG # 3.60 103/ul Normal 1.40-6.50 [facility] Comment on above: Performed By: #### P T, PTT #### [facility] [address] [place] [address] Dr. Kimberley Milan SEG % 62.0 % Normal 43.0-75.0 [facility] Comment on above: Performed By: #### P T, PTT #### [facility] [address] [address] [address] Kimberley Milan WBC 5.8 103/ul Normal 4.0-11.0 [facility] Comment on above: Performed By: #### P T, PTT #### [facility] [address] [place] [address] Dr. Kimberley Milan PREG QUANT HCGon 09-22-2021 HCG QUANT <1 Normal [facility] Comment on above: Performed By: #### T SH, PREGQNT #### [facility] [address] [place] [address] Dr. Kimberley Milan HCG RANGE SEE BELOW Normal [facility] Comment on above: Result Comment: 5-50 0-1 WEEK 40-300 1-2 WEEKS 100-1,000 2-3 WEEKS 500-6,000 3-4 WEEKS 5,000-200,000 1-2 MONTHS 10,000-100,000 2-3 MONTHS 3,000-50,000 2ND TRIMESTER 1,000-50,000 3RD TRIMESTER Performed By: #### T SH, PREGQNT #### [facility] [address] [place] [address] Dr. Kimberley Milan PROTIMEon 09-22-2021 INR Coag (PPP) [Relative time] 1.00 {INR} Normal [facility] Comment on above: Performed By: #### P T, PTT #### [facility] [address] [place] [address] Dr. Kimberley Milan INR GUIDELINES SEE BELOW Normal [facility] Comment on above: Result Comment: [place] RED INR: 2.0 - 3.0 CONDITIONS NOT LISTED BELOW 2.5 - 3.5 FOR PROSTHETIC HEART VALVE REPLACEMENT 2.5 - 3.5 RECURRENT THROMBOSIS Performed By: #### P T, PTT #### [facility] [address] [place] [address] Dr. Kimberley Milan PT Coag (PPP) [Time] 10.8 s Normal 9.0-11.6 [facility] Comment on above: Performed By: #### P T, PTT #### [facility] [address] [place] [address] Dr. Kimberley Milan PTTon 09-22-2021 aPTT Coag (Bld) [Time] 24.2 s Normal 22.3-36.2 [facility] Comment on above: Performed By: #### P T, PTT #### [facility] [address] [place] [address] Dr. Kimberley Milan TSHon 09-22-2021 TSH 1.697 uIU/mL Normal 0.470-4.680 [facility] Comment on above: Performed By: #### T SH, PREGQNT #### [facility] [address] [place] [address] Dr. Kimberley Milan TSH RANGE SEE BELOW Normal [facility] Comment on above: Result Comment: <0.3 4 UIU/ml HYPERTHYROID 0.34-5.60 UIU/ml EUTHYROID >5.60 UIU/ml HYPOTHYROID Performed By: #### T SH, PREGQNT #### [facility] [address] [place] [address] Dr. Kimberley Milan Coding Summary.on 06-10-2021 Coding Summary. CD:[id number] Gh0bWw+PGhlYWQ+PE1FV FHlG25grCFhfG9ZY1fCL Z9NDJANDOXPPP6ARF2gj DC8AScfJ7PiyuYe TqdghISnYZ05WSi9OAZ8 fAtkMHbqyN3bnBHlX7p4 FiOnCR37iF88QToaXQPv LsF6IbIdcouzgNPp E3wrTwXdwBNmViq+PHRh YmxlIHdpZHRoPScxMDAl HtVfmUsvGH6tGx5rISYx LWNvbGxhcHNlOiBj c8seBUXlWZeqWR3hpPpv L9VzoAZ5XYOkw3c9Of27 dHI+PAGiURN7yUtkBPfh s655XqNqf0lbUXH0 eGWjPMgbSSM6H51nv3D3 JXUiCDNkUVX3eZW3tU2f hUvrdrldF5YbqZUvKbA3 XRQ8qQDoiN1ndSzt ymkzcM9eFhn+C88LER8M RCRJTD7EMfo7Z4DtWqxy dHI+KC13DKApQM30eINc aUUac8xlpPs5FaTy LFSpHJG4oLsyEGdtv8Bs OAYcK66ctSBqg5B2NSXc vGvraUPkDtZiyFT8mQ5i FWfloevuv0eucynt Eoczn2eids08iD15J03p CDeuNHOxYEN4YKRiLCPq gTyznx6gtP6kVt1+IDxj g3zhg1lceVr0MeMe MYJkayZqxQziYPN3l1Fw Rp93L7JylJtxb4IyRhs3 lb04aWIhj6P0hXX5KKwu ERZezW7bJGqsInW9 RRNlDiIicN03gMBxSBad Qu5ewGofaQeuPR2tVTHa zxgcKQPfdT9cZWMauBPt hCqkNU3cWFIorbei l172SuNqCMH6NHAvbYZk P8ZtfB6uKqCwOZUnRGWh D1GrgEZgZInmH399PNfi SlM7VOAvgsXrL9Wx ZPEhlZjqMlL6m8A7Rb6J n7EruuiaTYE2QYleUJYh CcE8ZdAkAsN7Y2QeWbk9 EDRvyChyBS5nK5Iv MYWcnizbwbxouRG1ESGg JOEkqJ39jHIfVCvaQs7s w2P6a004KKCnGWNfwU35 Mz4vnOmbACTfxYNV fW4ftdbok3izqbidEyDh STEtSTs9YTm1SCEmzFlm FfMpCXQ8JyL3RDU9eATf mF5fbXbjvpuzoI2o Oyc+E61kgR7zJLT3DRN8 gcmwXTTpooTzUA88RH90 G4UrRhnxtPDslCZ+PGRp stJxkLljBB1iQiJf r2yys0IkMUgbX6UoIZOw UBcqJbo9TMXhLZH3iPZ2 kB9iKNRqEMllx8P2gLG1 N9DxidName3ai7kk PXEsENyaL51jsPPpd0P6 UWLubFO5NPIrtPtsKsYp gF26Yzq+QEClmSlkq3Cc Zisix8aiy2kryJb3 IjMwJSIgdmFsaWduPSJ0 s9XxPn73Z98eCAhmJELf URFdWZRhGKDkrWuwya7q nG7pZj4+PGNvbCB3 mYZ7vO4kZALpFqD5AFpz B064BsUazSIiCmicj8ag k5ciaEe3GzDbJVYrudPr kCvlWBK2n8YbLc99 D18fUCztUAEmKYXoWMDc TEXemYdcgu2rqL8vKa2+ WE2ni4biqe59sP31hJO+ VQWgRIU3sCowYRhz MJDriU5sLUzjEhB7GHUl PkYkpL93zBWeZWhwMs2n oFbayOdhLV3eEVPywizd d739QxCix0yzAUKs mWYxHVdiNIE1R73ze1Y1 PMHpCNBgZMH7lOS5lL0q bGlnbjogbGVmdDsgdmVy uDjqTTnhWFnsQ984 IHRvcDsnPlBhdGllbnQg LmNqASg0H7RpApq4LSNl hBbcKI6ynXIuARelTx9z dInroTzuGK5tWJKf jzsgw607XaKle0wcIPZp yUInKUrwWHB5Q22kr2L5 YORiLGQzBMX3vXP1bD5m bGlnbjogbGVmdDsg ufVklNfsWXpvMCcfG102 IHRvcDsnPkJpcnRoIERh zJM4QW66QN80sTCmp2R0 yYT0S9WtTEIeuomu quseuXH6VADiDVHpsP27 Ex4bmRqvUf9tONTxKGX2 VHRhkQUlJ9CvqM0qXhKy WZXmFQRrL5SppLOv HNaoN304FZtvOdS9QYQy yoEqY6YvYXQilMmuPcZ5 p1C0Sb9VN4C5DH10BN11 hQJrz9E3pTK3W0Gt XPUzujvjndasyEL2AZAd DFFhaB38Bz5jpTquDe8f XINnYTG0GDMvxQLuO6Qg sR5wIzMwHPWrPORe X7RloPQmBKmzO851PRdb AkV7DUOjdrFjD5ZmYHBw kPmuKcR9x4A6Uw6NNYg0 QS02UN00vGSzz8V3 oAX0H0CwQSVilvpnwlel oZX6WOEvPKVjmB12Le2k rOfhGj7mEYBnORD1ARSu jAMkY5NkmN3wWmWo NGGhGPScN5PbuLJcRFpj V597MXavInL8VTAjncGf M9KcOPVocFhiIiB9y3I8 Iw1JBHXvEB01TVO6 lZY7EB63DB48V7HdHszx dGFibGU+PHRhYmxlIHdp ZHRoPScxMDAlJyBzdHls MC1uDo8lRXPbPNOh yZnskIVvPwOap6ycVGZw TQhvLL6clWvcG8TrqSV3 JSAxz7w8Oj48O74aY8Jg dXA+GFXdvGM5tGE5 lA7yJdEkXaF5EYghQ740 KbCsaZCdXwzrm3svk9wt sXp1VaN3OLKmzbOvjVmb UVR2u1TxOj70S61j IHdpZHRoPSIxNSUiIHZh iSgopn2ggV3nXl9+PGNv vVA4nGR5qB5lUjFaSvV7 MLqmP945OuZzqQJk Dqvia8bcm9mlgZo8JqBd WWIhkrEecIylMYF3i8Zw Bu35B6HwyPcxa3ItMno7 zh83pNKoi1A1nIY1 A7VnUOJvrtcqtLBeeOhk KO6iPFSgwjlnCFSrdS5h YMIfZ5l3XqAhXdH4YRgz S6NemlX3GIQpjMRy JSipBPN3O92tj5K5EOSx YAIxCRX8lBD6sH9erFhl bjogbGVmdDsgdmVydGlj YTggNCdzT664MAVu qGwdDVBzgZ7fIYAqoYWm uMexLW8pEJPqzaspDeyN RVNTTUFOLCBTVEVQSEFO SUUgUjwvdGQ+PHRk ZPW7mFtdPQndQDZlmU6o PMBkV4y4MqOtCvW8BZtm H9JwQNEiwltvHd39fU7g DfArQjB1JQrtZ0Ey quD2VZIpuLRfSSyxBMM8 X78cb4X2TMRyDSNqNNP8 rJM9lA8ohEqvkxtbmQZw dDsgdmVydGljYWwt LEdcO012RTFvePjpNvL7 TfY3UgY4Tpr1H4ReKoy5 ENCtfAzyWT4bnOHbECcw Yi1syPdahTodRE4u EMTkpmorPKLxgY9wAXKv yJErsKamBA5dTOKrrybe o240TqChXFP8EOUrfIWn J3SdyL4kXjCnXFUu ZOHlQ2EqiPNxCMznU060 RHtlJiK7FXAcgbExE2Rt EUEunMqwNbA9m6N4Lp73 MiBZZWFyczwvdGQ+ XVCtONC4xTuuUEquHFMk aY6kFZRzC0t1IaWhViE2 BDmzS4HfGJUkgcvsRk61 tN0bYtPeViV0NGav B8YdibW7KQNdtBJfTUhn WNM4E40he9P5TDMuOBEe UTL2lBJ3qR5tjTmjcypx bGVmdDsgdmVydGlj FTaaCPfuP997HSXtpQlr PkZlbWFsZTwvdGQ+PHRk OTI9fIxsDPmzMPIapP6i YXRiW9t2WkWeReR5 ROsxY7IjRMVlmyinGr41 iY1hTcJsFxT4PObnB2Fk ezE6QPNnmVGkMDbpZMJ7 K32bh3H6PQXuNSKy UPG3xYN0kH5wmKajhfrt bGVmdDsgdmVydGljYWwt RRloS681QUBprRruKq73 wMWpoDvtewY9O1Gu PjwvdHI+SX36CJAaHF86 dBNumETvo3udkBy4RzYf QCXiANP0tEojWTstn0Sv WHQrA06emALkw3B6 IGNvbGxhcHNlOyBlbXB0 xM8pUKcyxpqjz3dtfpee Zklat4hzwt17uJ88K04r IHdpZHRoPSIzMCUi TBEqrDcyhw8nwC6sAj6+ DLNbnJW2wQV3mY9cYnZm MiP0HQpnF846JdAsgLEc Hrufc6aes0nqfMf0 IjIwJSIgdmFsaWduPSJ0 n1ZmOf72J23pCVzbHRBq XOQmAHTbTKOngMvcny9e kF9iLg9+UL8hn7xq ux19wI38kGL+PHRkIHN0 jCrgJHjbNWDtdO3aHYwl KhW5EOMpHfGbkY95tUMt AUteOv4dwOvemYlg DX1xBVCawcqeh469BsKc p1baSEPqyXTeVCmgBAN4 Y29qb5Z9DWIiWXDfKHW1 xGD3iO9djKxcxruh bGVmdDsgdmVydGljYWwt LUezS279PUYlhIepKtUt vTVxO1ajcxALBA8dTjry dGQ+DJDwDXU3hFle DCyyWDWrhY8aBIHaZ0e0 HgPoUrC2LMviL3VrmyL3 VKKgoMBzTRXtwKWKwS7d wdtqo4rnigavIlGo HOWeGEw0EJj4VTVtqKro PtCrBQN0UiN7MUC7qACb wX1wlDuklkninT5rZtr+ RklOOjwvdGQ+PHRk CYG6jDufBLglICMuxY3n LSSkM1f7PwVmDdD8HJvy N8UwmfZ3LEDpwLPuWVAi eOZTyQ0efaoiu7tv kcsrPyZaXCOaTZj5BKz9 SVLjbJtzSsJfNOW7JrC3 FID7pXWeaV6ryTdynpbi tB2gNse+TVJOOjwv dGQ+ISJyOQB5fYddUOjy PTHwaG7uNNNnR9x6PwPt PoN1SCmwF8StbiC4ESDo rWOfNFNwpGVQkO4x sciva1sqeysjRfZcRMXk RYk0JRj5OKXnlHtzCgKi YWC0ZjM3ZVJ6uJZyuV3k oUzmfvbcdW3rQgy+ WOB4HWS6NY23HE10P7Cx PjwvdGFibGU+PHRhYmxl IHdpZHRoPScxMDAlJyBz lVlyEE8aXl6kQIAc LWNv (more content not included)... Normal [facility] Pulmonary Function Studieson 05-28-2021 Pulmonary Function Studies PULMONARY FUNCTION TESTS: 05/23/2021 REFERRING PHYSICIAN: Dia Wu CNP REASON FOR TESTING: This is a 41-year-old female never smoked and pulmonary function test is performed to evaluate for cough variant asthma. Spirometry results were repeatable and ATS criteria were met. The patient has good effort. Spirometry shows normal FEV1 at 97% predicted, normal FVC at 94% predicted. The FEV1/FVC ratio is normal at 84%. Lung volume testing shows normal total lung capacity at 83% predicted. The residual volume is reduced at 53% predicted. RV/total lung capacity ratio is normal at 21%. The lung diffusion capacity is normal at 90% predicted. IMPRESSION: Spirometry is normal. Lung volume testing is normal. The lung diffusion capacity is normal. If asthma is suspected consider Methacholine challenge test. READ BY: Kenya Owen M.D. lr Dictated: 05/26/2021 [id number] Transcribed: 05/27/2021 cc:Dia Wu, MEDICAL RECORDS CLERK [facility] Comment on above: Result Comment: Elec tronically Signed By: Lexie PADILLA, [place] X\.br\Date and Time Signed: 05/28/21 08:32 EST Consent for Treatmenton 04-26 Consent for Treatment [id number] #1.00CD:127 [facility] Pulmonary Function Testson 07-23-2020 Pulmonary Function Tests [id number]#1.00CD:127 [facility] Physician Orderon 05-06-2021 Physician Order [id number] #1.00CD:127 [facility] Coding Summary.on 04-18-2021 Coding Summary. CD:[id number] Gh0bWw+PGhlYWQ+PE1FV YYdR34lhQWnyH7VT5iOL V5NBYYUIMYHND1MOW6jh NE8YCeyJ6MgbuXy PxenpQHwXI24LDp0HZR8 dIcjPXsgaX4wpVDpV6f3 CyRnGP54vD67TCkcXTJe ZiE9YyZurmpikFKc H7zyOpRdgYRdBws+PHRh YmxlIHdpZHRoPScxMDAl QxIlfHidOG2kCc4cVVXw LWNvbGxhcHNlOiBj c2inRVBtSAcgQG0juLhs Z0TefTN4JEGgn8t2Mv29 dHI+DWQmSGQ4uAvsUEya j738ZxFrl5ymKSB6 tIAfWFlaYXI8M45og7X7 ZFHyUTTrWWQ7zKC9mZ2t hCdfjcerY5JtgULmZhX6 LDA8dAEzbT3oiLpd zhkpcM4qTxl+Q90VOQ7S DRHGWI5QTfq0O9KwIrgk dHI+UG11IGRxTX88sAWw bZEvh5eimJj5HrKc KTGtSFY5xUczQNyzm9Hk PSJhP93maDXqm1V6SLTp zVgcxTLqVaImjVN3kS4r PUxlfgxqm4dcldqk Rdfny0ysqn09rW47A81g AUovNVOgVCM1TZSzSAGx hCbfre6ewW7oMl4+IDxj d2axx3uaaNa1EjRs ZWVjvkMfwTbpUXH1o8Kv Wj36L0FetZlrk4XaKyz9 om36zRUmx6G8nYQ2HKfk OUUtaA0pEBuuWlC2 HFUrNyDisY41vSPyQTsy Og0afQoatQpoSX2bOKLk wmqyNRHiaO1fINIhqERj bHwvEY5dUOKryqlx z749BlNgJHF7FBFvrGLe L7PqfG8gBuYlXKLiPKQw U3SynKScERfuW233ZYap DyN6FHTvtfFjP0Ch FGVjnApcEkZ6g7Y9Nb8Q w9AelejgZGJ0DAvgZRSo LgQ6UkQkIwN9R7DsIzi3 PEAftYopZB2kO7Wn BAQupxgcreiizHD2GNBz BXIclI71qIRrWXysRs4w j2L7r689GKToWZFfrW47 Hd4fgUkmRYKgpZFW kR4plzzdw0ojsulgKkGe GUAoTPy3BCz5QORsbGtg HcVnIIU2CvM3SJK3aISo uS2vcCysiloreW6f Oyc+G56mbY2hEHM3UOV1 nssiHXPggjRtRA54QE17 W0LmMouxlMAbgVD+PGRp tzWonHjhFQ4oPsXt s2ppl3BwMAexL4BiHPRv TLqfUzj9SGNoGVO5kOO6 yP9wEUIgARdmu8D5aMA4 S5AdgfBify9ho7qs BASfLKvtI86ifTWcg3O9 ZIZwzZK4THLcvCryJbIk tX54Kyb+MWVdcGkut5Eu Oafld6zbj8ukmBu9 IjMwJSIgdmFsaWduPSJ0 o6FhLb42O86gJMbjGQXf JDLqHMGfXQVmdDbxdh7y dL1bIu3+PGNvbCB3 sGK7aI5rLPLqPiU2ZHto Q175UrHvcAGhGvmrn9pu l7braIx6CcMaBWNaqdEc dQnuKJW9g2TtHi72 D94dKWenQEEpVTZyMAIh CCJyvIewhl0prL3aFv8+ KQ5ob8orec05hY13lZK+ GZEnHXU6bEpiPRqy YKYojT8vLQldJoL7UTIf JaAseH48wCFxPYtzDk7d oJmyuQzyST3hEJIbmtpc t430CtEdf7ptIJRy lCCiHUzdWRF8W98cd2O6 RSAoFIEsJTK4cSU9xK9r bGlnbjogbGVmdDsgdmVy zQzwJHtpUTjzI989 IHRvcDsnPlBhdGllbnQg EaQvRTs4L1KtTkc6WXJl oHqhIJ2tvEAtEPqeYm4t rWaufFcjAZ5eRANf adrjf839TxUnc8kvZFFa oUUoGRtlRDU0M62zx8B3 LCWrRIFaVDL5nSO5vM7k bGlnbjogbGVmdDsg pjGplCpsRMnyUQrvE961 IHRvcDsnPkJpcnRoIERh rJY5ID43HP09cSOev9L4 iHO6X3SxUBJgrumo yrvbbLS9MRMePUJbsB96 Nb4ksRbhKj7jMZHlENP9 DDYllAJeR2PvuM4cYlNj UJUiASCaQ6ZayEWz PIydR762IGgwJbD7URCy jiVgA4LtLQJewSwaKrQ6 c3X6Bl3GG7E0FK53LL46 yJWip3P3pIV7S5Gh XQVksdcwkztfxBR8HEFs CLGriD11Iu8tyBjzOl3p SPNoETL3BQFtnOIcN6Jy eC1xGkShKPPzHBUe K1HndUZmAZikJ750HOoe EoK7LLFbdsUtJ9DmSAOx dPpjDtJ1q5U4Na2QYGl0 VH29SI57mBKyu6D7 tPM2Z1GbXMRiougkaxmk xCA7TZDoIWYgzL09Ck3u mMqvQm2dHUJiMER8TAHg nOLeO7MgpL2wAtNk LBTaOOPyA3LogUKqPHop D763KMdqGuW8LFZtdqPu J3HbPBHqrPfuCrC0e6N2 Qr6VXXIqIT90DHX3 hNA7UE17LS15I7XqGwbk dGFibGU+PHRhYmxlIHdp ZHRoPScxMDAlJyBzdHls ST8lRw6pJWTiPYUi gIbmgUBtUjVju8neGWIf MZvbAB3klGnvC3ShbHD0 MVIwq6y9Nz20F86pU7Ey dXA+QNEgyLM4vBY0 mH4sGlGxQnF6YWgsT537 OmNoqBYmBawpu0kgp3xv uXo0TsB2ENYpaxFirZps XDR9m9FcOb60H52w IHdpZHRoPSIxNSUiIHZh kKoynn6oaK3oOl9+PGNv oHO9bEH7rD2eEpQiBoC9 JPpdM795LzAggRCc Cedrj4kbz7yruWo6TiGv BBXicjEtfVqrDHJ3b3Ej Tc78P6GajBebz6TfJht0 hk93mDXad8N8pIL8 L1NdHPWzyhktbIIxwOyq TH4aKFJumkmjXLGmkV9q XZGnG7w5WpQbHaZ9AKvg A1RzbxR9MXCgdZPb SFzbYRA5K06ur9D9ZMRs KQAzHKB6aYW2iC5qyGuw bjogbGVmdDsgdmVydGlj MBdkBDqsE321TCUc oJbvYTTvzW7zEYGskSDm mRgoED5dOOPnfbjrLjmZ RVNTTUFOLCBTVEVQSEFO SUUgUjwvdGQ+PHRk FPJ8yEppYVucRUYwoS5d DTRoL5u4KkAkBvA8ZCyn L9FaJLZcykzjQq12nN8f YoPjYcE1XIwwZ9Np pxV6LBLizJVxONgcLRZ2 D10pa1P7DUWwPTVkKCD4 xSY0uO6eiOwmdqgpmNCi dDsgdmVydGljYWwt PWuaZ907GBXjvRzpKqN7 LmD9PrI1Syo0M4EfTns8 UVTguYarYC1elOKfUWst Li2ejNzwjSzmYS5d HEJullvsLCOljX2jMWGr aNImiGykIN7kUPPzosnl u746OnLgDRW4LPUvzIBr T4ZbbC0pSuOrDSKj VVFpG6AwoDHeRRrdZ622 MLcyRmA9AAXzijJoG0Dp RRWdeSvxPlZ9q1I4Ds04 MiBZZWFyczwvdGQ+ JDRcKWP9sUszWUyvTRVg aA6bBTHpU5o0EjKxVgO8 FJsoW8AuHJRahfuyYj95 cK2gElWzDeJ4ZNuh Y3FoewS4AFYdsYCxDYin YXN2J37af0Z1MLKqGCJs CZD5jOD6uV9wqYxylcjv bGVmdDsgdmVydGlj GVjcTOycG656NZItyVuj PkZlbWFsZTwvdGQ+PHRk RSO8rZdzXXoiKSFdiD6w UOSiP4m9SxAaExF3 LMvkI0SpMHLnlzbkDy42 bP3lHsObAcG4VOmhZ1Py ixJ1XAVegDIlFLzlXDE5 G32wk4E0VABiUASu UEJ9gKB2vA5tqUrzngvw bGVmdDsgdmVydGljYWwt VRxqT009OVZjgLpnMb62 sVFpmCtlgmH8Y0Wl PjwvdHI+ZV96GDOiCZ95 wLBexYVeg0wmeBk5BuKj PLJzIHF4sTmgTVvqe6On TCCdK16rgETbp3Q5 IGNvbGxhcHNlOyBlbXB0 wU3rPMjlbewni9yffjdz Ssoxr2ivgd86nF48V41a IHdpZHRoPSIzMCUi EJRmgIifql1gaU0kDn7+ NGPggGU6vXM1vB3xAsJe AmU0XZccS845SsFohWXj Kypvp3lwb1yqgXt4 IjIwJSIgdmFsaWduPSJ0 o8DcZg11Q49tBAzxLMLx ABTsNHGsPAIhzReapf5l qJ8zYd8+WL8fe6fl ov36lH38sSR+PHRkIHN0 cKwjIYktSULjfJ8kETvq LiF8LRYiKdTkmP53kYPi GXvlPu2myVifcTkw TG8dOYUbtlhmq582EbJk z1gnDRYkaBGkSNygRSJ7 U30ei4E6LOKcZRJiYDI6 bLS9pU5ffCtusdqi bGVmdDsgdmVydGljYWwt OPlaG685OUJnjMdmXzKa xBHqP3xgszOFPL2lTmtv dGQ+RTOfDLC3tBsw KEteDKSkdJ2fWQAiB5k0 TxDdUrR1NHbcP5GkfhJ9 GTBrvGGbPXNtvZUDjN8k orlvk3aejkzrDzVv SZTsCIb1WOg4VBTclMvj UrCjJIV4ByN5KJH6yGTv mH6ioNdpaaiuiH2ySxs+ RklOOjwvdGQ+PHRk RVT6eCytIUfiRGZenW2v BVYrZ3g4KsQeHwR1TTsd K2OefyR8PJYfbVEnKPSe eJBNxR0astbvd9ls uqnpNxJjDLMgWQw4ONo4 UBSteCzkTaOeEIO7ApK9 WYY5pRQmkO0igCalyavz sW4jPtq+TVJOOjwv dGQ+EKQeOYS8dJnfELuc ASNmjQ8cWFEtE7x1CvDn DxI9BBwtM6KcpkZ4QDRv kVQwRFNxmPSObE8d hygsz2fnwgpoGiLiHPXp OTn7VCy5AFLyfSdoZiIk ZYR1WkN9CID7yLCzbS1s yVgopmqgzP2bAdx+ HPO7GGP9KP79LO68B9Eb PjwvdGFibGU+PHRhYmxl IHdpZHRoPScxMDAlJyBz mAdhAG3qIi1lATNz LWNv (more content not included)... [facility] Coding Summary.on 04-12-2021 Coding Summary. CD:[id number]:[id number] Gh0bWw+PGhlYWQ+PE1FV SItB54kuKMhmG6JW8sDE T4AEIEQTPTSEI5JIV1vd TG4PWnoF8UxazIj TyhafIDnCR38BUr0TKI5 aJpbDWuxpJ6esFWqS8o5 ZxUoOP95kM26SLhlQTNo HcF2ZxRzugovdVTg I6aaPsOkwQDaYff+PHRh YmxlIHdpZHRoPScxMDAl ZvVtpChsEP0mVs9tGQSg LWNvbGxhcHNlOiBj o4hjLBPyOZqrZG4xcRex U8MshUF3PTGpm1y8Gj68 dHI+UIJtDWF2uAvwMPfx h439XeHtc1qpYNQ2 fSXvAQqnVCT1L24ey9F6 FYHhLVOjJYX2tLY1eU7s gEzedhcaK8RfjGMkOzW2 IHS2rAQspA8okPod qrgqxX4wEka+H42NCR6L FLTURS9HYzp4Q8XyGxjp dHI+JD41ODSfZE28jUYz xVMvo1wibJc0YsVt ANHxAZC8dCchVYoky1Zh BCXlJ62rfGWtv9N3KTXi kDdpcNQmAiNrcJR3zQ5z QXzaevpun2iwfdoz Fqyvl8nbbf62rW86R69m AJceXVPiRTM2KYSdJSSt dZmbmk4kzN6gOi3+IDxj a6dnz6aucOe6AiCb DXLceuMrgLfdXNS4s1Ol Mg24G1VrwGcgj1QtIyr6 qb53dFIvc1D0qBX6JJql RXTnnL2yIJajFmO4 SBUcPiXinL57zQTfJZur Fq9xxPloqWpeOC1zESTa wskmZNMzwJ7zGFFvjZFn wHqzPE6aYKZejocm v306KoTrTAY2IMYawEAz Z6KkpN2gEwAaBQYkMJEn N5LgbCRcXLtxV998CNim OcG4JKCcnqZeA6Yn NPOzeLbgMjM4i8Y8Yx8I p2XkcmofRCB7NGesMLFo SiD5VkDnEiK0C3LsHxh1 NMYhyMzrZV8cY1Vy RSIifjyrdgersFC4WFOo ELKvrG19rIQpLZhfQd8q r2O1b889RJJxYMMewV44 Pf2qpBdlKISnqGWU lQ8wabzcp9rgxyeyAhQg QGPhSJr9MQx0JLBnqHkh CaDlVKX3UdS3FBB4hRTm aQ9xoFkokozjvF3w Oyc+T52ktK8hCYU3LIX3 rmisBPAzqwCbRW70TZ48 N0SwSircgNVanSA+PGRp mwWuoJyjWV2oHzJe w7vxw9BvXYfuD1QqQQKb DUlnBof1NTRjYKM4fZB6 jK8kVNArAKdst6Q9dGT4 L7ClgrVwmk4ov6te NLZzQNrqO75lwBEfq2R3 CXAnmTH6CNAsvUusSyEm yP69Xqh+GNFxwEoyp9Fo Plrtn5coc8ootDa1 IjMwJSIgdmFsaWduPSJ0 j1WdGk75J26eVLseCPPq QBXlPTCdXWNsgRusae1c qT8qFl2+PGNvbCB3 rFO6xY5lGXQmMnN4PUmi L985FqDcgFCeKtfvj3az g2pjhDu6FzRdXXGtblTy eDbxDGM9z8VhPu56 X82cEMasQMJpWBHuKUKl YMBbtNvnjn0pfT2rKf8+ RO4xf8rusr72bP25rWV+ NQEcRFX8qWrkCDdb FHQyjE9xNYpzVtV8BDNp JeLxxA12eSRyXEcaXa1t dXxnwYpuOT8oFZHywure s204WvMah7btBKAw bUJuQGwxYTE9A45ga9A7 FQDmITJdJSS4yYT8bA6s bGlnbjogbGVmdDsgdmVy gLwnVNssMQruM338 IHRvcDsnPlBhdGllbnQg JhLpGHq5W8KqLmg9NLOj fEsrDK1jbGQsIJmeTm2z sZqerVnwJC0qXKEf uvfmj049KvSfd2adJNPp kBVyKFezNGQ6F81tc5H3 ZRFeYVKnVLE3hHV4nH3d bGlnbjogbGVmdDsg xfRwyXmdLYqsCJfvG202 IHRvcDsnPkJpcnRoIERh hJB2OR28CB56gQHqo7V1 cQE6X4TpKMAnkrxp wyofrIS3FEOdOEZvnN54 Uy3jbSpzBn3nLDZsDDE5 FCEgfTRcW0RyjP0jNfJq MPRrSQEcZ1VviFKt ZZpwE397UQpbEaN4VTRl fmNyU9AzPQZxfAtuPsF7 v9J7Uz6AT2P2UG05MV90 kIRfq1F8nFO8A2Kk DHRhsouimsbctDX1OGVl PTGonK41Cv3ggYqdLu3p PKPoZBG4RXGsuJJfI9Zu oZ0zXeKgVSHlPEAk F1GlvSLcWQppR239LXyt JxU9ITVnlrLgL1OxEXSa nXtmOzN2y1M7By4WMOs7 WH48KX47cOCan8Y1 wBQ0F0XuTRYyimezcrie dBK6ARWeCNKijD97Hg4n dKztMu2fMSFbIAR7XDJa rMZxX0CcxO5bPxVs GLKeRGYcT8NjqGVzYUyt O153PXpjFnZ1PNWwqbOp Q7ZbUSEdxXywEqO6v5G1 Nt2ZLNPtST47FNK9 wZN6AG79WW02W7YiUpve dGFibGU+PHRhYmxlIHdp ZHRoPScxMDAlJyBzdHls ON0nWl0zYIZwLSIs fTxfcLXuMsVce7naZIHo SOlqRE1thHsaW1EgiZC1 MPTtr3t4Js58F42mR3Bn dXA+OBThdBK6vHD5 sV7wFoAcGdY8ICekQ636 TpGwbGDzQlpdl6spn0cg oMr1AsQ1PIQatyUrbCqq XTS4i2NfEp28V50h IHdpZHRoPSIxNSUiIHZh yAxxuz1gdQ1rSt8+PGNv aQR2kAM1jM1rXiCbOcC3 FTbjJ408KeEdrKMc Mbaio5adv8hboHa3LaFz PZPdtlAqxYmrNOR6h7Bq Ph69A2VrpZcuf4MeFyv4 rv08aQWak0U3qDO8 S7FgSCPfmaemrKMwcAud LA4jVDAwatpjKSFzyX6u QXBfV2e8QzUqExB3FGhq V3SxnaZ2KOBgiLKr OPxeJDZ5R16qz7B6VQYh PAYrEKJ4fBT2cZ4ufWkd bjogbGVmdDsgdmVydGlj CAycCBpoB243YUWu cSieNQKuhA0yMNHilVLv jRnpEZ5pRKHwbrkjTgnX RVNTTUFOLCBTVEVQSEFO SUUgUjwvdGQ+PHRk XPB6mOtzHLhsUHHzmB0x MNPnD1u6QmQmSxW4EAex W1BcLMAlqscjYr25kR3h QmUpBvU7ZXxmP1Qa dcF5BKLkfDReWHbaGDN6 H94qu3W2UCPkEAJeQBD8 rJA5lB8zuHnfzyteuJJa dDsgdmVydGljYWwt FOhkK051RPFhlIweZkY9 NtZ0QqA2Jth3S0JgGag8 AUFfzKzzPO4khQAnYIlj Cm3seGvnmClyJI6w AOFdhcofHSOzjN1gNWUl cQTekLwwTI1hDDWfetos c553BbBmESX0HCJvzGPu U0AieR6aMuAxXXYo LCAcP4LjgSBmOJbdQ760 GFsrLwI5CJDrnpTtT9St INUglZhkBrL8p4J2Cj63 MiBZZWFyczwvdGQ+ LBOpODE5uIsiBAleMACu rA8mAGLeF9d5GrBdYtP6 AIroV3GnNKAzyixbVs36 rU6qKjQlUlC1SPhp E4EhrnJ2QQKiyZOdSHuw IWJ6C33jy3L1YJAsPHOq PLK7fSZ5fV9xmWutucfd bGVmdDsgdmVydGlj YMagHXkiA413BLOwoNsb PkZlbWFsZTwvdGQ+PHRk FBE4kRbfJNqwFVVokA4f DNBnJ3d5CyXcBbV7 TEiqY3IvJHYjjogxCs88 kD3vSeQnLvP2DXerQ2Lv kaQ0FADkuAWyCIseTNL5 I54nx5W7VQOxRQFb HRE4bTR2kK3neRjddytf bGVmdDsgdmVydGljYWwt UBczD206PNJvlUfkIxJs HHZqMU4gbGukzWF+ MV69yv70D7KcQdchKqa1 JBSwHDQ4iKI4yM5vGRIj TNsrp9F4qJW6Q6VdsvQr ew5qn8vpIXHsFYeo R91hlPHko6R4MSQjnRM9 DWNqvAcmCtOskU04Dfk+ UCAelJeoa0RlSayzb0qz n2rocCz4NcLuMMSl goHguAdaJJE3d6GfXj89 H72iYCfoCNIpHAQnAEPg SCCgiUivqc3soA6pTo3+ LFHelCA6dBF6oG4x NyArRcR2XBijE564TxIr eTXiKjsti3zvf0yqvMu1 IjIwJSIgdmFsaWduPSJ0 v9NbZy61G0UyzXtj m6HpWxh4ef94sZKvl9T9 fHH0W2HiVKNtqdqxyUMr eHlrYV2jBJTtpqdsKSIx bN4yFCQcF4v4XzSu KiX8WRzeY0RoumX0PVCn wXZxDNDlgUVSzW0gnjrp b9tcyyeiBkAnSKGfQFe4 HHs7IHIbfEgfYeVv TQM2GfK3OMV8qEGcwZ4q gQyvdegfhF4cQuf+UGh5 h5xypUNbCD5riXF1EW06 RP94gSKpo3W4kFQ8 A5CuMEJcoxkqdygsiUB7 OHGiRIPyrU93Be5nnHcz Zc6lEOIwYUJ8QVJebESg W9UfmX8jZhXpAQAt PHTyQ7JzeNNbNJybH038 SCdkJgF1GPOzgsWuG7Dm HPBijBulAaO9a9X5Uv3F OA81IE75FX76hQTo h2P5xQT2R8PpYEKaqzgf ildzmIQ6WLSyXQWmhU94 Xy0lsNjiKg4sOTEbOAX1 XBYucCMkL3OsoZ5u LqRbOHBlJMEcV5SscWMe GZwlO084ATutFzI1KZAo eaIxM7SnJRVmrOvgMuC0 m1U6Re3UVt28ZR80 AJ55hWRik6F7zVD3B3Lr IMYtcoyscgqvfZQ8WOSj ISVbdS48Uj1ktFzyPv5f YTCkXOU0YOBlmRUu W7JhfL2aTmNfEGZdNIIl X9CiuREoFNocV211UNiq RoE4OVXyxhPqR5FgMJDw pFlbJwS6b9J7Rj6E KWsxadb0Z2PdJyjvyKO+ AN10VWJnLX97wDNkqSQo w7ilkJn6XzDpIYHgMPP4 xOhcSObxj0JhLPSa Y29s (more content not included)... Normal [facility] Coding Summary.on 04-07-2021 Coding Summary. CD:[id number] Gh0bWw+PGhlYWQ+PE1FV QSeX06plWHxbJ5HF2wWI R4HPGNSLGGGLY0WWM2pf KN4YLunW1NwqdVi ExpjhQZpWL22ONn0REX8 uFlhIXqpkZ7cwOGwS1j0 UjKzQB56fF71CIrkYZOd TnI1WbBrplbbbAVq O4ngXvLguHCgNvj+PHRh YmxlIHdpZHRoPScxMDAl VeLdaLgxNK5zPu6mHMIp LWNvbGxhcHNlOiBj x1acEYTaVZmwXN3pkVhn Q2VyeZL1EYXrk6p0Yj98 dHI+PQHoCMZ5yOzcVZdb j710BoMsz4evEET7 aJGcNEesHYK6R38tw8L0 ESLlCEAxZWJ0nFD3lF6d eRfipytiP6WjpEFdKeU2 RKX6uVOzoP4xfGpv ytthyB8vPrf+X83OHA3P QWOUTO0RRyd2N2BfEriz dHI+OV76TWWdKW75zTTl eKJtp0jsnJa3UqTd SKJgZHE6xPpsZDwih0Tt EPUsY42qdNWal5D1KAJa gIacgGAtBvIwqNE2vV5u LIuyklyxt6jkhiux Bpmmo1ebhn68cF27U13l PJoiCHZsMES0WECaGFTp jSxykn8szN3jEz0+IDxj f0qai6egkEp0SrIt BRHwgsXwxLiuQAG5k6Tc Or72M4PoiOvzq4MdYsg2 ke83jGFji6H1fPG1FLnp DLFadP2bJJsbCjX2 FVWxCmKoeY63gSReNRfh Is9hfZjcmYabJG2ePQPo ttabBDOwvN0fCUUxzUPs xCreSM2lVWJgxvpb o319XmDvMFS1EYRtrMLx X8CjgS6pDkKiNJKsZPEj P9KyxLNhYCsoE277WHrj DlV7JCXbxuRmH9Fg EBUbqJapBtL3j5O1Nr1Z h2UzndseFSM5AOzzQNKm NsL3JeTxRrS1K5VjWuv0 XXPceLwyTC2iL4Qp SRNeqagqfhvgoBZ9RCGr JNCzqC95lTVdCWkyIv3b u3W2b537BRDlARPvxM87 Bl7sdFtlDFBimRJZ eB8snzhbf3vztgmwUkGw QHEtNEv3DIv1BOOhxMcy QhDmSHH4XkC9NJX9nYZf dR5rqMazlrpwkB9n Oyc+H62gfO1fUUD3UMY3 bdysTMVspbVpDQ81CN46 Q6CjZclrkMOslUY+PGRp wbZdzMwvKR8yAnOp y7sla2WhMSepU9EtTRBm JUgcBok3GTIvYTE2iOG2 oV4qTVEmDEffa3S4dBV7 I8LlrmFxle7ej3ix ZPQqRYvpP20nlVFow9J2 BQMgrOO1NUEguZcgUxVg oJ37Vqu+ZHIchPpab9Fh Glnva7qcl5iklXz9 IjMwJSIgdmFsaWduPSJ0 d5UsOo34R93eEUfbLOSc XEDaWYVlTRTvfWekpd7n nR4nWm2+PGNvbCB3 gQS5qU9sTHFgZrX7YZwj A976CxJkgVHpMlwte5pl n8xmjPi5HbGkAGKbbzFj mVmaTSL1t0EuIa84 E20wDJajTYTaAJVwSUXc ZSPtaIdpvy5hqM5zMg2+ OQ5xt0ktaf24qG53vUI+ ZWHfYOF7qWidHZiq RZLyxF8jCCydJmG0WNPj IuDpqW53nHPiQNtcXy3h kRzsbUtlUJ1xVEHlklep u511RdUeb2sfLODc zUEzGFsjNXA7L15ip2E1 ATYqABHuEUI6rBP8lP1j bGlnbjogbGVmdDsgdmVy fOopQRisXJgeO098 IHRvcDsnPlBhdGllbnQg JxKuTXv6S2YtJhz0VOEx oAduOG1jbYQcYYgoLf3g uDpzpOycUB3rVUZq eiaac710ScBjf4wiTQUm tFNgERtjBDE6S19jc5G9 NKOsJLQtWEQ3kGS0dV1x bGlnbjogbGVmdDsg fiMvkAzxHAlrTOemN841 IHRvcDsnPkJpcnRoIERh wLT5WP77YN58wQGpv9P8 oDF6R3UuRMPfnvue qhkjxTE5LOZbMHUzlB60 Rd5bbRcrGt1mYQHyWZU8 ONScwKOlK9FcjU5pCpMx GIZaHGBrJ0VzsPLy WRbiU141SEzxSqR9PIEc nuYyR2JtXJJgpOmzPwA1 a1D8Dh0PA6N2HI01XT75 fDNby7C0jUC5G1Oy THKtfuhpoxrvaUQ8SSKl SBEjfC44Yi1giGyrHx3f IEUcMRN4KMSbaMEvZ0Va eJ8xZnBpRENjWWMd U4QaaQWnROgiE722AAjo XxX4AQKhzdQcC1JiZWSk sXkbXhL0p1S2Vy7NTMc0 RD33JE54lZCeq6G2 nZK6Q0CzFRCyzyomthis wGW1SCWyQRNfwK70Bz0l cTerVb7yCZCrQUE4FPAf tJYrM3HioM3jKtJj DAVpXZSvD9WpyHZmATwp E001AXtrJgM1YVLxkaDn H8VnYGNotPakHfY9d6W9 Xi9CHHDlSS49OEF6 tJB5ZA47QP38O3QnCulc dGFibGU+PHRhYmxlIHdp ZHRoPScxMDAlJyBzdHls JQ1sEv5qTCFlBQWv iGztnDEvUfRzw5xnHIFz GZylFG3iiFhjE9MmkKT6 ZTYpr9z0Bg90V66sI8Yj dXA+DEScpFP7uUQ9 aV3kZoEkDuS5XAyjW821 WwOvkZXsVorua6krc1bk jNt2GeP6IVLmahCdkLck APA4h2GzVt38R80f IHdpZHRoPSIxNSUiIHZh dHckht8wxA7eZn9+PGNv yYY1eWY1wL1bKvDrRyG2 ZNsqA814JxRyiGAc Xdsso2lrl1hphUl8OeYb BMZndlNoyTbgVQM0r3Gz Lc77V2BttCnkb2VkCkl8 gy40kHTht7K9xWR2 W5WqMDFpyfbobRWocGoo KX8jYDSmbtsdVXLrvS8x EDLtY1g0IfTsMqA7FXzv C8WikyS5RHEokKHj NMzpBSI5E00ib8M5OGJt KQIiHBH0hLT7kJ8sqNqu bjogbGVmdDsgdmVydGlj HBmeSRxqC470GJMq cYjvSHUpaP4rWMBqrWMk nFtaFM2mPXEyfixeCzuR RVNTTUFOLCBTVEVQSEFO SUUgUjwvdGQ+PHRk UPW6nXqaIUltVFYpoZ9w FCVqG0c0SoYwVyP4EYto V1SvEGUuuiiaRo79cU2j ZrZmTpW9WRdfB8Le hzE2QMPmePUxGEkkODN9 K11rr9T4MTJxZMYuKJN0 zFN5nI6upYajtkblmUTi dDsgdmVydGljYWwt XAxhX615YDTshKziNvD6 WtO0WoT3Wqi3T0VfRlw4 EIMwgGcwNF5qnJLmIKxh Uu9yjDqazYyiRI1s GGMczfalPLWucB9oMVEu jMSocYkbNT7fNWGrpiwh p023PeCqZAL7YOMsfSPf J8OwsO1mNsXoLJOq SWAfV6GehMQgBWqtO834 YLotAqH3OBZyptCgL1Wi MEDjjItsQjY9u9H6Sp98 MiBZZWFyczwvdGQ+ TRQkFQS0aYknJFdbRGCo iK3tMMSgL9r7HeFtOrA9 IFsxD1UbZQJlcabpMx37 pH5jMxQaXcX2BGle N8CuxaE4LJGrhHBiXAhc YRA7Y68lj6Y6YCFsRKEv EEH3eEM3cA5scXvkjztt bGVmdDsgdmVydGlj ZCqiJRdnE323UALdvMaa PkZlbWFsZTwvdGQ+PHRk DKD2dAwcRXwwQTKutO5c CWRwS2v0WiNqCnN4 TAreE3FfCQFxntpkMg55 jB5pRcXaYvN1SKwsM4Yb emW9CNBcuGMkMTnpWCC5 I61cp9D2EANqYDNq LTS1zJA7yT8rkCpsqhxe bGVmdDsgdmVydGljYWwt AHtaM392XVNauZmzQtvm XfRUjd8lRC1fSqyy dGQ+KR95rz73W0WxFrbp Ixb2KLUrKNF7bOH8zM9s PQQvFCuhl0O1kUJ9U0Cz foOoif0he9edXWVn DJeqY57fyLNsb5W9ASPm wTB7IDCmxWeiDnYncY06 Oyc+MEGawAdjt3QaQigj j0xyl1rmxVu4NaQz LQEjiuHjsIaxKWE2m0Ni Ay36Q58xZRtxPCDpICZr IDNiUFWoqZvjkk5sjE7k Ii8+BNSjjGB9iQG6 mT3aWgQrPuU2XUqmP849 ZbIaiVQlMddnp1bec3ih nVe3RyGiVZTewbRkrMmu HKS4l3TpAu69K0Nv zSded7FnOmy4xu40iDHm v8Q4kQR1H0RwLSDijwfp eTOftWddYL4zXRQcdfjq QQQbiE8yRUQdF2u4 CgSbUlK7ZUhoG3KnetR7 RBAasOBjQDBnkIVNqE6k syweb6nhovuiDtAjTKNp IGq2CEf3BHFabJwr IdYjMVH1GpK6RWK8vREt oM0aiOvthliyeM3cTgh+ MIh6d3lybNOkMT0yeDU3 KY34UM35mSQxp8R5 aNQ4R8AhUNUbganimbdu yCA9UQWeNWJyxQ64Fr0z zHdfDq7mCTKgZJC7WPWz iLZkM8VohT1sYqBn TBKbZFFbA8YgiGHjNJga N179QEwdUvG9BPXcimMp D5RcICMbiShjPeW2j0I1 Pm5WFL64XK87CM34 jPRbr7T9aIX8V7TvZMGh fpwfkiaexPP3APThZZCt nE08Kt1wrWhmUd7sGNUc VDU7LZKklDUbF0Lb nD6eQyLnJJRgNKApN1Jz nKNvQTifA994SOdsMlM7 RZPtecAjX4SfGASgcBje EgG5x2D7Az3MJw34 QT87JJ48nFFrm6T7bAL9 F0MzCYKqbgswrgpgkKI3 HHVfXIMjzZ33Rr0igMbe Cy7gTSDhQZL5ZRAs kIWdY3KksF3pGbXtJWVe QSXbI7WlkWPvAQekI332 UAajTxZ1JAOfmjGhK6Ef VMCncZkbEwX1p7R9 Qg4VPVksdjr4S3XcIeez dHI+YE25UJWdQF03jGGo zRVnk3xiuOo3DcLjFBDp SMP6uYnmAIgia5Qs ZXIt (more content not included)... [facility] Consent for Treatmenton 03-25 Consent for Treatment [id number] #1.00CD:127 [facility] Physician Orderon 04-05-2021 Physician Order [id number] #1.00CD:127 [facility] XR Chest 2 Viewson XR Chest 2 Views Exam Date/Time: 04/05/2021 12:49 EDT Reason for Exam: R05 Report IMPRESSION: NO EVIDENCE OF ACTIVE CHEST DISEASE. CLINICAL HISTORY: R05. Cough. COMPARISON: 11/10/2020. COMMENT: The heart is normal in size. The mediastinum is unremarkable. The lungs appear clear. No infiltration nor pleural effusion is evident. No significant change is noted when compared to the prior exam. FINAL REPORT Dictated: 04/05/2021 3:13 pm Romario Arce M.D. Signed (Electronic Signature): 04/05/2021 3:13 pm Signed by: Romario Arce M.D. Transcribed by: CALIN Technologist: TAYLOR [facility] C Urineon 04-04-2021 Bacteria identified Cx Nom (U) Microbiology PROCEDURE: Urine Culture [R1] SOURCE: U CleanCatch BODY SITE: COLLECTED DATE/TIME: 04/01/2021 22:54 EDT RECEIVED DATE/TIME: 04/02/2021 06:25 EDT START DATE/TIME: 04/02/2021 06:25 EDT FREE TEXT SOURCE: Aguilar Pino DO, DO, Noah S. FINAL REPORTS Final Report [] Verified Date/Time: 04/04/2021 10:14 EDT <10,000 cfu/ml Mixed skin contaminants Performing Locations R1: This test was performed at: [facility], [address] [place] [address], [facility] , , [facility] Comment on above: Performed By: #### 1 [id number] #### [facility] [address] [place] [address] Consent for Treatmenton Consent for Treatment [id number] #1.00CD:127 Normal [facility] Discharge Instructionson Discharge Instructions [id number]#1.00CD:127 Normal [facility] ED Clinical Summaryon 2020 ED Clinical Summary [address] [address] ED Clinical Summary Person Information Name: DELILAH [facility]ANDOVAL [facility] Age[facility] 41 Years : 1980 Sex: Female Language: Danish PCP: DIA HU Marital Status: Single Phone: [phone] Visit Id: Visit Reason: Cough; Dysuria; COUGH, DYSURIA Speciality: Acuity: 4 Enc Type: Emergency Med Service: Emergency Arrival: 04/01/2021 23:05:18 Discharge: 04/02/2021 00:42:31 LOS: 000 01:37 Checkin: 04/01/2021 23:05:18 Checkout: 04/02/2021 00:42:31 Dispo Type: Home (Routine DC) EVENTS: Event Name Event Status Request Date/Time Start Date/Time Complete Date/Time Arrive Complete 04/01/2021 23:05:18 04/01/2021 23:05:18 04/01/2021 23:05:18 Document Home Meds Request 04/01/2021 23:05:18 Triage Complete 04/01/2021 23:05:18 04/01/2021 23:22:58 04/01/2021 23:22:58 Bed Assign Complete 04/01/2021 23:10:23 04/01/2021 23:10:23 04/01/2021 23:10:23 Dr Exam Complete 04/01/2021 23:10:23 04/01/2021 23:12:51 04/01/2021 23:12:51 RN Exam Complete 04/01/2021 23:10:23 04/01/2021 23:26:14 04/01/2021 23:26:14 Registration Complete 04/01/2021 23:12:51 04/01/2021 23:29:43 04/01/2021 23:29:43 Reg Complete Request 04/01/2021 23:29:43 Reg Bed Request Complete 04/01/2021 23:29:43 04/01/2021 23:29:43 04/01/2021 23:29:43 Pending Labs Complete 04/01/2021 23:34:40 04/02/2021 00:16:40 Lab Complete 04/01/2021 23:34:40 04/02/2021 00:16:40 Urine Collect Complete 04/01/2021 23:34:40 04/02/2021 00:16:40 Pending Labs Collected 04/02/2021 00:13:11 04/02/2021 00:13:11 Lab Collected 04/02/2021 00:13:11 04/02/2021 00:13:11 Meds Admin Complete 04/02/2021 00:27:08 04/02/2021 00:35:28 Discharge Complete 04/02/2021 00:36:08 04/02/2021 00:42:41 04/02/2021 00:42:41 Transfer Complete 04/02/2021 00:42:41 04/02/2021 00:42:41 04/02/2021 00:42:41 ADDRESS: [address] [place] [address] [address] [facility] [id number] PHYS DOC NOTES: MEDICAL INFORMATION: Prescriptions Given: New Medications [facility], [address] [place], [place] [id number], [phone] cephalexin (Keflex 500 mg Cap) 1 Capsules By Mouth every 12 hours for 7 Days. Refills: 0. Medications to Continue with No Changes Other Medications hydrocortisone topical (Hydrocortisone 1% In Absorbase topical ointment) 1 Application Topical 2 times a day. Refills: 0. naproxen (Naprosyn 500 mg Tab) 1 Tablets By Mouth 2 times a day as needed for pain. Refills: 0. predniSONE (predniSONE 20 mg Tab) 60mg x 3 days 40mg x 3 days 20mg x 3 days then stop. Refills: 0. PATIENT EDUCATION INFORMATION: Instructions: Urinary Tract Infection, Adult Follow up: With: Address: When: DIA HU In 3 days DIAGNOSIS: Acute UTI Normal [facility] ED Note-Physicianon 04-02-20 ED Note-Physician Basic Information Time Seen: Aguilar Pino DOSadaf 04/01/2021 23:12 Chief Complaint pt c/o burning with urination. pt also c/o incontinence with coughing. pt states going through multiple pairs of underwear a day d/t incontinence when coughing. pt denies issues with coughing and urinating in the past. pt also states strong odor of urine History of Present Illness HPI: Patient is a 41-year-old female who presents the ED for burning with urination. Patient states that she has stress incontinence especially with coughing. She states that lately she has had a very mild dry cough. She denies any shortness of breath or fevers. She states that she has noticed that she is starting to have some burning when she has this leakage and occasionally when she urinates. She also notes that her urine has had a foul order. She denies abdominal or flank pain. She denies any nausea or vomiting. ROS: General: No fevers, chills, or malaise HEENT: No runny nose, congestion Neuro: No headache, numbness, or focal weakness Card: No chest pain or palpitations Resp: No shortness of breath, positive mild cough GI: No nausea, vomiting, or diarrhea MSK: No arthralgias or myalgias Skin: No rash or pallor Physical exam: General: nontoxic appearing and in no distress HEENT: Mucous membranes moist Neuro: awake and alert Neck: supple, trachea midline Card: Heart regular rate and rhythm no murmur Resp: Lungs clear to auscultation no wheeze or rhonchi Abd: Soft and nondistended. No tenderness with no rebound or guarding. Ext: No gross deformity or edema Physical Exam Vitals & Measurements T: 36.8 ?C (Oral) HR: 99(Peripheral) RR: 18 BP: 192/97 SpO2: 97% HT: 162 cm HT: 162.0 cm WT: 125 kg WT: 125.0 kg BMI: 47.63 Medical Decision Making Patient is well-appearing in no distress. She is having some burning and foul-smelling urine. Will obtain a urinalysis. Urinalysis is suspicious for acute UTI. We will start the patient on a course of Keflex. She will follow-up with her primary care physician. Patient states understanding agreement this plan was discharged in stable condition. Assessment/Plan Acute UTI (N39.0: Urinary tract infection, site not specified) Orders: cephalexin, 500 mg = 1 cap(s), Cap, Oral, Once, Stop date 04/02/21 0:26:00 EDT, STAT, Start date 04/02/21 0:26:00 EDT, 04/02/21 0:26:00 EDT cephalexin, 500 mg = 1 cap(s), Oral, q12hr, X 7 day(s), # 14 cap(s), Refills(s) 0, Pharmacy: [facility], 162, cm, 04/01/21 23:22:00 EDT, Height/Length Dosing, 125, kg, 04/01/21 23:22:00 EDT, Weight Dosing UA With Cult Reflex Urine Culture Medications Administered Given Keflex 500 mg Cap, 500 mg, Oral Disposition Plan Discharge Prescription List Prescriptions Keflex 500 mg Cap, 500 mg= 1 cap(s), Oral, q12hr Follow-up With When Contact Information DIA HU In 3 days Additional Instructions: Patient Education Urinary Tract Infection, Adult Problem List/Past Medical History Ongoing No qualifying data Historical No qualifying data Medications Inpatient No active inpatient medications Home Hydrocortisone 1% In Absorbase topical ointment, 1 bartolo, Topical, BID Naprosyn 500 mg Tab, 500 mg= 1 tab(s), Oral, BID, PRN predniSONE 20 mg Tab, See Instructions Allergies penicillin (hives) sulfa drugs (hives) Social History Alcohol - Denies Alcohol Use, 11/10/2020 Substance Abuse - Denies Substance Abuse, 11/10/2020 Tobacco - Denies Tobacco Use, 11/10/2020 Lab Results UA Spec Desc: Clean Catch (04/01/21 22:54:00) UA Color: Red2 Abnormal (04/01/21 22:54:00) UA Clarity: Cloudy2 Abnormal (04/01/21 22:54:00) UA Spec Grav: 1.025 (04/01/21 22:54:00) UA pH: 6.5 (04/01/21 22:54:00) UA Protein: 3+ Abnormal (04/01/21 22:54:00) UA Glucose: NEGATIVE1 (04/01/21 22:54:00) UA Ketones: Trace2 (04/01/21 22:54:00) UA Bili: 1+ Abnormal (04/01/21 22:54:00) UA Blood: 3+ Abnormal (04/01/21 22:54:00) UA Nitrite: Positive1 Abnormal (04/01/21 22:54:00) UA Urobilinogen: 0.2 (04/01/21 22:54:00) UA Leuk Est: Trace2 Abnormal (04/01/21 22:54:00) UA RBC: >75 Abnormal (04/01/21 22:54:00) UA Squam Epithelial: 0-2 (04/01/21 22:54:00) UA WBC: 0-5 (04/01/21 22:54:00) Diagnostic Results No qualifying data available. [facility] Comment on above: Result Comment: Elec tronically Signed By: Aguilar Pino DO\.br\Date and Time Signed: 04/02/21 00:49 EDT ED Patient Education Noteon 04-02-2021 ED Patient Education Note Obstetrics and Gynecology Urinary Tract Infection, Adult A urinary tract infection (UTI) is an infection of any part of the urinary tract. The urinary tract includes the kidneys, ureters, bladder, and urethra. These organs make, store, and get rid of urine in the body. Your health care provider may use other names to describe the infection. An upper UTI affects the ureters and kidneys (pyelonephritis). A lower UTI affects the bladder (cystitis) and urethra (urethritis). What are the causes? Most urinary tract infections are caused by bacteria in your genital area, around the entrance to your urinary tract (urethra). These bacteria grow and cause inflammation of your urinary tract. What increases the risk? You are more likely to develop this condition if: ? You have a urinary catheter that stays in place (indwelling). ? You are not able to control when you urinate or have a bowel movement (you have incontinence). ? You are female and you: ? Use a spermicide or diaphragm for control. ? Have low estrogen levels. ? Are . ? You have certain genes that increase your risk (genetics). ? You are sexually active. ? You take antibiotic medicines. ? You have a condition that causes your flow of urine to slow down, such as: ? An enlarged prostate, if you are male. ? Blockage in your urethra (stricture). ? A kidney stone. ? A nerve condition that affects your bladder control (neurogenic bladder). ? Not getting enough to drink, or not urinating often. ? You have certain medical conditions, such as: ? Diabetes. ? A weak disease-fighting system (immunesystem). ? Sickle cell disease. ? Gout. ? Spinal cord injury. What are the signs or symptoms? Symptoms of this condition include: ? Needing to urinate right away (urgently). ? Frequent urination or passing small amounts of urine frequently. ? Pain or burning with urination. ? Blood in the urine. ? Urine that smells bad or unusual. ? Trouble urinating. ? Cloudy urine. ? Vaginal discharge, if you are female. ? Pain in the abdomen or the lower back. You may also have: ? Vomiting or a decreased appetite. ? Confusion. ? Irritability or tiredness. ? A fever. ? Diarrhea. The first symptom in older adults may be confusion. In some cases, they may not have any symptoms until the infection has worsened. How is this diagnosed? This condition is diagnosed based on your medical history and a physical exam. You may also have other tests, including: ? Urine tests. ? Blood tests. ? Tests for sexually transmitted infections (STIs). If you have had more than one UTI, a cystoscopy or imaging studies may be done to determine the cause of the infections. How is this treated? Treatment for this condition includes: ? Antibiotic medicine. ? Dgqe-muk-ruolzul medicines to treat discomfort. ? Drinking enough water to stay hydrated. If you have frequent infections or have other conditions such as a kidney stone, you may need to see a health care provider who specializes in the urinary tract (urologist). In rare cases, urinary tract infections can cause sepsis. Sepsis is a life-threatening condition that occurs when the body responds to an infection. Sepsis is treated in the hospital with IV antibiotics, fluids, and other medicines. Follow these instructions at home: Medicines ? Take ydrp-hci-zeoyvlg and prescription medicines only as told by your health care provider. ? If you were prescribed an antibiotic medicine, take it as told by your health care provider. Do not stop using the antibiotic even if you start to feel better. General instructions ? Make sure you: ? Empty your bladder often and completely. Do not hold urine for long periods of time. ? Empty your bladder after sex. ? Wipe from front to back after a bowel movement if you are female. Use each tissue one time when you wipe. ? Drink enough fluid to keep your urine pale yellow. ? Keep all follow-up visits as told by your health care provider. This is important. Contact a health care provider if: ? Your symptoms do not get better after 1?2 days. ? Your symptoms go away and then return. Get help right away if you have: ? Severe pain in your back or your lower abdomen. ? A fever. ? Nausea or vomiting. Summary ? A urinary tract infection (UTI) is an infection of any part of the urinary tract, which includes the kidneys, ureters, bladder, and urethra. ? Most urinary tract infections are caused by bacteria in your genital area, around the entrance to your urinary tract (urethra). ? Treatment for this condition often includes antibiotic medicines. ? If you were prescribed an antibiotic medicine, take it as told by your health care provider. Do not stop using the antibiotic even if you start to feel better. ? Keep all follow-up visits as told by your health care provider. This is important. This in (more content not included)... [facility] ED Patient Summaryon 021 ED Patient Summary [place] [id number] Patient Discharge Instructions Person Information Name: DELILAH SANDOVAL Age: 41 Years Arrival Date: 04/01/2021 23:05:18 Discharge Diagnosis: Acute UTI Primary Care Physician: [facility] Provider Information Primary Provider: Aguilar Pino DO Advanced Flying Instructor:None The exam and treatment you received in the Emergency Department were for an urgent problem and are not intended as complete care. It is important that you follow up with a doctor, nurse practitioner, or physician?s habilitation assistant for ongoing care. If your symptoms become worse or you do not improve as expected and you are unable to reach your usual health care provider, you should return to the Emergency Department. We are available 24 hours a day. DELILAH SANDOVAL has been given the following list of patient education materials, prescriptions and follow-up instructions: Follow-up Instructions: With: Address: When: [facility] In 3 days In the event that this physician does not participate in your insurance network, please consult with your insurance company to find a nearby participating provider. Patient Education Materials: Urinary Tract Infection, Adult A MESSAGE TO ALL PATIENTS REGARDING OPIOIDS PRESCRIPTION OPIOIDS: WHAT YOU NEED TO KNOW Prescription opioids can be used to help relieve vewceiug-id-xhmfmf pain and are often prescribed following a surgery or injury, or for certain health conditions. These medications can be an important part of the treatment but also come with serious risks. It is important to work with your healthcare provider to make sure you are getting the safest, most effective care. WHAT ARE THE RISKS AND SIDE EFFECTS OF OPIOID USE? Prescription opioids carry serious risks of addiction and overdose, especially with prolonged use. An opioid overdose, often marked by slowed breathing, can cause sudden . The use of prescription opioids can have a number of side effects as well, even when taken as directed: ? Tolerance?meaning you might need to take more of the medication for the same pain relief ? Physical dependence?meaning you have symptoms of withdrawal when a medication is stopped ? Increased sensitivity to pain ? Constipation ? Nausea, vomiting, and dry mouth ? Sleepiness and dizziness ? Confusion ? Depression ? Low levels of testosterone that can result in lower sex drive, energy, and strength ? Itching and sweating RISKS ARE GREATER WITH: ? History of drug misuse, substance use disorder, or overdose ? Mental health conditions (such as depression or anxiety) ? Sleep apnea ? Older age (65 years and older) ? Avoid alcohol while taking prescription opioids. Also, unless specifically advised by your health care provider, medications to avoid include: ? Benzodiazepines (such as Xanax or Valium) ? Muscle relaxants (such as Soma or Flexeril) ? Hypnotics (such as Ambien or Lunesta) ? Other prescription opioids KNOW YOUR OPTIONS Talk to your health care provider about ways to manage your pain that don?t involve prescription opioids. Some of these options may actually work better and have fewer risks and side effects. Options may include: ? Pain relievers such as acetaminophen, ibuprofen, and naproxen ? Some medication that are also used for depression or seizures ? Physical therapy and exercise ? Cognitive behavioral therapy, a psychological, goal-directed approach, in which patients learn how to modify physical, behavioral, and emotional triggers of pain and stress. IF YOU ARE PRESCRIBED OPIOIDS FOR PAIN: ? Never take opioids in greater amounts or more often than prescribed. ? Follow up with your primary health care provider. o Work together to create a plan on how to manage your pain. o Talk about ways to help manage your pain that don?t involve prescription opioids. o Talk about any and all concerns and side effects. ? Help prevent misuse and abuse o Never sell or share prescription opioids. o Never use another person?s prescription opioids. ? Store prescription opioids in a secure place and out of reach of others (this may include visitors, children, friends, and family). ? Safely dispose of unused prescription opioids: Find your community drug take-back program or your pharmacy mail-back program, or flush them down the toilet, following guidance from the Food and Drug Administration (www.fda.gov/Drugs/R esourcesForYou). ? Visit www.cdc.gov/drugover dose to learn about the risks of opioids abuse and overdose. ? If you believe you may be struggling with addiction, tell your health children's zoo caretaker and ask for guidance or call [facility] National Helpline at 7-869-210-PANB. g Source: US Department of Health and Human Services/Center for Disease Control & Prevention [place] [facility] (more content not included)... Normal [facility] UA With Cult Reflexon 2020 Bilirubin Ql (U) 1+ Abnormal Negative [facility] Comment on above: Performed By: #### 1 [id number], [id number] #### [facility] [address] [place] [address] Clarity (U) CLOUDY Abnormal Clear [facility] Comment on above: Performed By: #### 1 [id number], [id number] #### [facility] [address] [place] [address] Color (U) RED Abnormal Yellow [facility] Comment on above: Performed By: #### 1 [id number], [id number] #### [facility] [address] [place] [address] Epithelial cells.squamous LM.HPF (Urine sed) [#/Area] 0-2 Normal 0-2 [facility] Comment on above: Performed By: #### 1 [id number], [id number] #### [facility] [address] [place] [address] Glucose Test strip (U) [Mass/Vol] Negative Normal Negative [facility] Comment on above: Performed By: #### 1 [id number], [id number] #### [facility] [address] [place] [address] Hemoglobin Ql (U) 3+ Abnormal Negative [facility] Comment on above: Performed By: #### 1 [id number], [id number] #### [facility] [address] [place] [address] Ketones (U) [Mass/Vol] TRACE Invalid Interpretation Code Negative [facility] Comment on above: Performed By: #### 1 [id number], [id number] #### [facility] [address] [place] [address] [place].plasma/Lit hium.RBC (Bld) [Mass ratio] >75 Abnormal 0-3 [facility] Comment on above: Performed By: #### 1 [id number], [id number] #### [facility] [address] [place] [address] Nitrite Ql (U) Positive Abnormal Negative [facility] Comment on above: Performed By: #### 1 [id number], [id number] #### [facility] [address] [place] [address] pH (U) 6.5 [pH] Invalid Interpretation Code 5.0-9.0 [facility] Comment on above: Performed By: #### 1 [id number], [id number] #### [facility] [address] [place] [address] Protein (U) [Mass/Vol] 3+ Abnormal Negative [facility] Comment on above: Performed By: #### 1 [id number], [id number] #### [facility] [address] [place] [address] Specific gravity (U) [Rel density] 1.025 Invalid Interpretation Code 1.005-1.030 [facility] Comment on above: Performed By: #### 1 [id number], [id number] #### [facility] [address] [place] [address] Type of Urine collection method Clean Catch Normal [facility] Comment on above: Performed By: #### 1 [id number], [id number] #### [facility] [address] [place] [address] Urobilinogen Qn (U) 0.2 {Yvonne'U}/dL Normal 0.0-1.0 [facility] Comment on above: Performed By: #### 1 [id number], [id number] #### [facility] [address] [place] [address] WBC Auto Ql (U) TRACE Abnormal Negative [facility] Comment on above: Performed By: #### 1 [id number], [id number] #### [facility] [address] [place] [address] WBC LM.HPF (Urine sed) [#/Area] 0-5 Normal 0-5 [facility] Comment on above: Performed By: #### 1 [id number], [id number] #### [facility] [address] [place] [address] [place] SARS-CoV-2 (COVID-19) RNA EFRAIN+probe Ql (Unsp spec) Not detected Normal Not Detected [facility] Comment on above: Result Comment: This test result should be correlated with clinical presentations and medical history by a healthcare provider to determine its clinical significance. This assay was performed by a reverse transcriptase real-time polymerase chain reaction (rt PCR) method on the i[employer] system. This test has been authorized only for the detection of nucleic acid from SARS-CoV-2, not for any other viruses or pathogens. This test has not been FDA cleared or approved. This test has been authorized by FDA under an Emergency Use Authorization (EUA). This test is only authorized for the duration of time the declaration on that circumstances exist justifying the authorization emergency use of in vitro diagnostic tests for detection and/or diagnosis of COVID-19 infection under section 564 (b) (1) of the Act, 21 U.S.C. 360 bbb-3 (b) (1), unless authorization is terminated or revoked sooner. Performed By: #### 2 [id number] ####[place] [id number] [place] [id number] SARS-CoV-2 (COVID-19) RNA EFRAIN+probe Ql (Unsp spec) Pass Normal Pass [facility] Comment on above: Performed By: #### 2 [id number] ####[place] [address] Specimen source Nom (Unsp spec) Nasal Normal [facility] Comment on above: Performed By: #### 2 [id number] ####[place] [id number] Consent for Treatmenton Consent for Treatment [id number]:127 Normal [facility] [place]-2021 Employed in Healthcare NO [facility] Comment on above: Performed By: #### 2 [id number] ####[place] [id number] First Test Unknown [facility] Comment on above: Performed By: #### 2 [id number] ####[address] [address] Hospitalized? NO [facility] Comment on above: Performed By: #### 2 [id number] ####[place] [id number] ICU NO [facility] Comment on above: Performed By: #### 2 [id number] ####[facility] [address] [place] [address] ? NO Normal [facility] Comment on above: Performed By: #### 2 [id number] ####[facility] [address] [place] [address] [facility] NO Normal [facility] Comment on above: Performed By: #### 2 [id number] ####[facility] [address] [place] [address] Symptomatic as defined by [facility] YES Normal [facility] Comment on above: Performed By: #### 2 [id number] ####[facility] [address] [place] [address] Vital Signs Date Time Vital Sign Value Performing Clinician Facility 05-28-2022 21:53-0500 Body height 162.56 cm [employer] Dia Wu Work Phone: [facility] 05-28-2022 21:53-0500 Body temperature 98.1 [degF] [employer] Dia Wu Work Phone: [facility] 05-28-2022 21:53-0500 Body weight 122.65 kg [employer] Dia Wu Work Phone: [facility] 05-28-2022 21:53-0500 Diastolic blood pressure 81 mm[Hg] [employer] Dia Wu Work Phone: [facility] 05-28-2022 21:53-0500 Heart rate 85 /min [employer] Dia Wu Work Phone: [facility] 05-28-2022 21:53-0500 Respiratory rate 24 /min [employer] Dia Wu Work Phone: [facility] 05-28-2022 21:53-0500 SaO2% (BldA) [Mass fraction] 95 % [employer] Dia Wu Work Phone: [facility] 05-28-2022 21:53-0500 Systolic blood pressure 161 mm[Hg] [employer] Dia Wu Work Phone: [facility] 05-26-2022 11:55-0500 Body height 162.56 cm Michael Jameson Other [facility] Other 05-26-2022 11:55-0500 Body mass index (BMI) [Ratio] 45.48 kg/m2 Michael Jameson Other [facility] Other 05-26-2022 11:55-0500 Body temperature 97.8 [degF] Michael Jameson Other [facility] Other 05-26-2022 11:55-0500 Body weight 120.2 kg Michael Jameson Other [facility] Other 05-26-2022 11:55-0500 Diastolic blood pressure 97 mm[Hg] Michael Jameson Other [facility] Other 05-26-2022 11:55-0500 SaO2% (BldA) [Mass fraction] 97 % Michael Jameson Other [facility] Other 05-26-2022 11:55-0500 Systolic blood pressure 143 mm[Hg] Michael Trino Other [facility] Other 11-20-2021 10:26-0400 Body temperature 97.7 [degF] Raghavendra Rodriguez [facility] 11-20-2021 10:26-0400 Diastolic blood pressure 87 mm[Hg] Raghavendra Rodriguez [facility] 11-20-2021 10:26-0400 Heart rate 95 /min Raghavendra Rodriguez [facility] 11-20-2021 10:26-0400 Respiratory rate 20 /min Raghavendra Rodriguez [facility] 11-20-2021 10:26-0400 SaO2% (BldA) [Mass fraction] 98 % Raghavendra Rodriguez [facility] 11-20-2021 10:26-0400 Systolic blood pressure 185 mm[Hg] Raghavendra Rodriguez [facility] Encounters Encounter Date Encounter Type Care Provider Facility Start: 05-28-2022 End: 05-29-2022 Emergency department patient visit Dia Wu Facility:[facility] Start: 05-28-2022 End: 05-28-2022 Emergency department patient visit [employer] Dia Wu Work Phone: [facility] Start: 05-26-2022 End: 05-26-2022 ambulatory Michael Trino Other [employer] Other Start: 05-26-2022 Office outpatient ne w 20 minutes Michael Trino [facility] Start: 02-16-2022 End: 02-16-[address] CAROLA LO Facility:[facility] Start: 12-02-2021 End: 12-02-[address] CAROLA LO Facility:[facility] Start: 11-29-[address] CAROLA LO Facility :[facility] Start: 11-20-2021 End: 11-20-2021 Emergency department patient visit Raghavendra Rodriguez [facility] Start: 11-18-2021 End: 11-18-[address] CAROLA LO Facility:[facility] Start: 11-15-[address] CAROLA LO Facility :[facility] Start: 11-11-2021 Encounter for preprocedural cardiovascular examination DR CAROLA LO [facility] Start: 11-07-2021 End: 11-08-[address] CAROLA LO Facility:[facility] Start: 11-07-2021 End: 11-08-2021 Encounter for preprocedural cardiovascular examination DR CAROLA LO Facility:[facility] Start: 09-23-2021 End: 09-24-[address] CAROLA LO Facility:[facility] Start: 09-22-2021 End: 09-23-[address] CAROLA LO Facility:[facility] Plan of Treatment Date Care Activity Detail Author Patient referral [facility] Work Phone: Payers Date Payer Category Payer Self-pay [id number] 2022 Unknown [id number] 2020 Unknown [id number] 1979 Unknown [id number] 2.16.84 [id number] 1979 Unknown [id number] 2.16.84 [id number] 1979 Unknown [id number] 2.16.84 [id number] 1979 Unknown [id number] 2.16.84 [id number] 1979 Unknown [id number] 2.16.84 [id number] 1979 Unknown [id number] 2.16.84 [id number] 1979 Unknown [id number] 2.16.84 [id number] 1979 Unknown [id number] 2.16.84 [id number] 1959 Self-pay [id number] Medicare Anthem MCR PFFS [id number] Unknown [id number] 2.16.8 [id number] Social History Date Type Detail Facility Tobacco [facility] Comment on above: Denies. Female [facility] Start: 05-28-2022 Tobacco smoking stat us NHIS Never smoked tobacco (finding) [facility] Start: 1980 Sex Assigned At Female F [facility] Evaluation note 05-26-2022 Note Date & Type Note Facility 05-26-2022 Evaluation note Encounter Date Diagnosis Assessment Notes May, Sore throat (ICD-10 - J02.9) May, Viral URI (ICD-10 - J06.9) Drink plenty of fluids and get plenty of rest. If symptoms worsen or do not improve in 4-5 days, return to urgent care if you can not get in to see your pcp. Take tylenol or ibuprofen for fever and or discomfort. Covid, influenza, and strep tests are all negative. Sign and symptoms consistent with viral uri. Will prescribe fluticasone and benzonatate. Given return precautions. She understands and agrees with the plan. May, Cough (ICD-10 - R05.9) May, Elevated blood pressure reading (ICD-10 - R03.0) Follow up with pcp. [facility] Other Clinical Note 12-02-2021 Note Date & Type Note Facility 12-02-2021 Note OPERATIVE NOTE OPERATION DATE: 12/02/2021 PROCEDURE: Diandra endometrial ablation. PREOPERATIVE DIAGNOSIS: Menorrhagia. POSTOPERATIVE DIAGNOSIS: Menorrhagia. ANESTHESIA: General. SURGEON: Carola Lo D.O. AUTOMOTIVE SERVICE TECHNICIAN: None. BLOOD LOSS: 5 mL. URINE OUTPUT: Yellow and clear. FINDINGS: Fluffy appearing endometrium. No gross evidence of polyps, fibroids, malignancy. PROCEDURE: The patient was taken back to the OR where she was prepped and draped in the normal sterile fashion after being placed in the dorsal lithotomy position, after being placed under general anesthesia without difficulty. A weighted speculum was placed into the vagina. The anterior lip was grasped with a single tooth tenaculum. The patient was then sounded to approximated 8 cm. The patient's cervix was gently dilated using Hegar dilators. The hysteroscope was passed through the cervix into the uterus where both ostia were seen. No gross evidence of polyps, fibroids or malignancy. The cervical length was noted to be 5 cm. The total cavity length is 4 cm. The Diandra ablation apparatus was set to approximately 4 cm in length. This was placed through the cervix and into the uterus. After the seal was tested, at that time the total ablation of 120 seconds was performed with the Diandra without difficulty. All instruments were removed from the vagina. Excellent hemostasis noted. Sponge and lap count correct times 2. Patient taken to recovery in stable condition. [facility] Signed and Approved by: DR CAROLA LO . 12/15/2021 10:48:00 [facility] Clinical Note 11-22-2021 Note Date & Type Note Facility 11-22-2021 Note Microbiology PROCEDURE: Strep Screen Culture [R1] SOURCE: Throat BODY SITE: COLLECTED DATE/TIME: 11/20/2021 10:32 EDT RECEIVED DATE/TIME: 11/20/2021 10:57 EDT START DATE/TIME: 11/20/2021 10:57 EDT FREE TEXT SOURCE: Michael PADILLA, Raghavendra Rodriguez MD, Raghavendra FINAL REPORTS Final Report [] Verified Date/Time: 11/22/2021 12:24 EDT No Pathogenic Streptococcus Isolated Performing Locations R1: This test was performed at: [facility], [address] [place] [address], [facility]- , , [facility] Comment on above: Performed By: #### 2 [id number] ####[facility] [address] [place] [address] Evaluation + Plan note 11-20-2021 Note Date & Type Note Facility 11-20-2021 Evaluation + Plan note Diagnostic Tests PendingStrep Screen Culture 11/20/21 [facility] Hospital Discharge instructions 11-20-2021 Note Date & Type Note Facility 11-20-2021 Hospital Discharg e instructions Patient Education 11/20/2021 11:31:01 Allergic Rhinitis, Adult, Rxel-ai-Vrpa Allergic Rhinitis, Adult Allergic rhinitis is a reaction to allergens in the air. Allergens are tiny specks (particles) in the air that cause your body to have an allergic reaction. This condition cannot be passed from person to person (is not contagious). Allergic rhinitis cannot be cured, but it can be controlled. There are two types of allergic rhinitis: Seasonal. This type is also called hay fever. It happens only during certain times of the year. Perennial. This type can happen at any time of the year. What are the causes? This condition may be caused by: Pollen from grasses, trees, and weeds. House dust mites. Pet dander. Mold. What are the signs or symptoms? Symptoms of this condition include: Sneezing. Runny or stuffy nose (nasal congestion). A lot of mucus in the back of the throat (postnasal drip). Itchy nose. Tearing of the eyes. Trouble sleeping. Being sleepy during day. How is this treated? There is no cure for this condition. You should avoid things that trigger your symptoms (allergens). Treatment can help to relieve symptoms. This may include: Medicines that block allergy symptoms, such as antihistamines. These may be given as a shot, nasal spray, or pill. Shots that are given until your body becomes less sensitive to the allergen (desensitization). Stronger medicines, if all other treatments have not worked. Follow these instructions at home: Avoiding allergens Find out what you are allergic to. Common allergens include smoke, dust, and pollen. Avoid them if you can. These are some of the things that you can do to avoid allergens: ?Replace carpet with wood, tile, or vinyl jamey. Carpet can trap dander and dust. ?Clean any mold found in the home. ?Do not smoke. Do not allow smoking in your home. ?Change your heating and air conditioning filter at least once a month. ?During allergy season: ?Keep windows closed as much as you can. If possible, use air conditioning when there is a lot of pollen in the air. ?Use a special filter for allergies with your furnace and air conditioner. ?Plan outdoor activities when pollen counts are lowest. This is usually during the medical registrar or evening hours. ?If you do go outdoors when pollen count is high, wear a special mask for people with allergies. ?When you come indoors, take a shower and change your clothes before sitting on furniture or bedding. General instructions Do not use fans in your home. Do not hang clothes outside to dry. Wear sunglasses to keep pollen out of your eyes. Wash your hands right away after you touch household pets. Take resm-mnn-bmzdtcu and prescription medicines only as told by your doctor. Keep all follow-up visits as told by your doctor. This is important. Contact a doctor if: You have a fever. You have a cough that does not go away (is persistent). You start to make whistling sounds when you breathe (wheeze). Your symptoms do not get better with treatment. You have thick fluid coming from your nose. You start to have nosebleeds. Get help right away if: Your tongue or your lips are swollen. You have trouble breathing. You feel dizzy or you feel like you are going to pass out (faint). You have cold sweats. Summary Allergic rhinitis is a reaction to allergens in the air. This condition may be caused by allergens. These include pollen, dust mites, pet dander, and mold. Symptoms include a runny, itchy nose, sneezing, or tearing eyes. You may also have trouble sleeping or feel sleepy during the day. Treatment includes taking medicines and avoiding allergens. You may also get shots or take stronger medicines. Get help if you have a fever or a cough that does not stop. Get help right away if you are short of breath. This information is not intended to replace advice given to you by your health care provider. Make sure you discuss any questions you have with your health care provider. Document Released: 10/11/2011 Document Revised: 09/30/2019 Document Reviewed: 12/31/2018 [employer] Patient Education 2020 [employer]. 11/20/2021 11:31:01 Pharyngitis, Bkzx-oo-Rdtc Pharyngitis Pharyngitis is a sore throat (pharynx). This is when there is redness, pain, and swelling in your throat. Most of the time, this condition gets better on its own. In some cases, you may need medicine. Follow these instructions at home: Take yife-dvx-mulivgx and prescription medicines only as told by your doctor. ?If you were prescribed an antibiotic medicine, take it as told by your doctor. Do not stop taking the antibiotic even if you start to feel better. ?Do not give children aspirin. Aspirin has been linked to Leti syndrome. Drink enough water and fluids to keep your pee (urine) clear or pale yellow. Get a lot of rest. Rinse your mouth (gargle) with a salt-water mixture 3 4 times a day or as needed. To make a salt-water mixture, completely dissolve -1 tsp of salt in 1 cup of warm water. If your doctor approves, you may use throat lozenges or sprays to soothe your throat. Contact a doctor if: You have large, tender lumps in your neck. You have a rash. You cough up green, yellow-brown, or bloody spit. Get help right away if: You have a stiff neck. You drool or cannot swallow liquids. You cannot drink or take medicines without throwing up. You have very bad pain that does not go away with medicine. You have problems breathing, and it is not from a stuffy nose. You have new pain and swelling in your knees, ankles, wrists, or elbows. Summary Pharyngitis is a sore throat (pharynx). This is when there is redness, pain, and swelling in your throat. If you were prescribed an antibiotic medicine, take it as told by your doctor. Do not stop taking the antibiotic even if you start to feel better. Most of the time, pharyngitis gets better on its own. Sometimes, you may need medicine. This information is not intended to replace advice given to you by your health care provider. Make sure you discuss any questions you have with your health care provider. Document Released: 11/27/2008 Document Revised: 05/24/2018 Document Reviewed: 07/17/2017 [employer] Patient Education 2020 [employer]. 11/20/2021 11:31:01 Cough, Adult, Qxnu-bi-Lxtn Cough, Adult A cough helps to clear your throat and lungs. A cough may be a sign of an illness or another medical condition. An acute cough may only last 2 3 weeks, while a chronic cough may last 8 or more weeks. Many things can cause a cough. They include: Germs (viruses or bacteria) that attack the airway. Breathing in things that bother (irritate) your lungs. Allergies. Asthma. Mucus that runs down the back of your throat (postnasal drip). Smoking. Acid backing up from the stomach into the tube that moves food from the mouth to the stomach (gastroesophageal reflux). Some medicines. Lung problems. Other medical conditions, such as heart failure or a blood clot in the lung (pulmonary embolism). Follow these instructions at home: Medicines Take jwqd-maf-dntzkpl and prescription medicines only as told by your doctor. Talk with your doctor before you take medicines that stop a cough (coughsuppressants). Lifestyle Do not smoke, and try not to be around smoke. Do not use any products that contain nicotine or tobacco, such as cigarettes, e-cigarettes, and chewing tobacco. If you need help quitting, ask your doctor. Drink enough fluid to keep your pee (urine) pale yellow. Avoid caffeine. Do not drink alcohol if your doctor tells you not to drink. General instructions Watch for any changes in your cough. Tell your doctor about them. Always cover your mouth when you cough. Stay away from things that make you cough, such as perfume, candles, campfire smoke, or cleaning products. If the air is dry, use a cool mist vaporizer or humidifier in your home. If your cough is worse at night, try using extra pillows to raise your head up higher while you sleep. Rest as needed. Keep all follow-up visits as told by your doctor. This is important. Contact a doctor if: You have new symptoms. You cough up pus. Your cough does not get better after 2 3 weeks, or your cough gets worse. Cough medicine does not help your cough and you are not sleeping well. You have pain that gets worse or pain that is not helped with medicine. You have a fever. You are losing weight and you do not know why. You have night sweats. Get help right away if: You cough up blood. You have trouble breathing. Your heartbeat is very fast. These symptoms may be an emergency. Do not wait to see if the symptoms will go away. Get medical help right away. Call your local emergency services (911 in the [place] Do not drive yourself to the hospital. Summary A cough helps to clear your throat and lungs. Many things can cause a cough. Take [id number] and prescription medicines only as told by your doctor. Always cover your mouth when you cough. Contact a doctor if you have new symptoms or you have a cough that does not get better or gets worse. This information is not intended to replace advice given to you by your health care provider. Make sure you discuss any questions you have with your health care provider. Document Released: 02/22/2012 Document Revised: 06/30/2019 Document Reviewed: 06/30/2019 [employer]. 11/20/2021 11:31:01 Cool Mist Vaporizer Cool Mist Vaporizer A cool mist vaporizer is a device that releases a cool mist into the air. If you have a cough or a cold, using a vaporizer may help relieve your symptoms. The mist adds moisture to the air, which may help thin your mucus and make it less sticky. When your mucus is thin and less sticky, it easier for you to breathe and to cough up secretions. Do not use a vaporizer if you are allergic to mold. Follow these instructions at home: Follow the instructions that come with the vaporizer. Do not use anything other than distilled water in the vaporizer. Do not run the vaporizer all of the time. Doing that can cause mold or bacteria to grow in the vaporizer. Clean the vaporizer after each time that you use it. Clean and dry the vaporizer well before storing it. Stop using the vaporizer if your breathing symptoms get worse. This information is not intended to replace advice given to you by your health care provider. Make sure you discuss any questions you have with your health care provider. Document Released: 03/08/2005 Document Revised: 06/28/2017 Document Reviewed: 09/09/2016 [employer] Patient [employer] 2020 [employer]. Follow Up Care 11/20/2021 10:25:19 With:Dia uW Address: [address] [place] [address] [facility] [address] [phone] [phone] Business (1) When:11/23/2021 11:10:20 [facility] Clinical Note 11-18-2021 Note Date & Type Note Facility 11-18-2021 Note OPERATIVE NOTE OPERATION DATE: 11/18/2021 PROCEDURE: D AND C, hysteroscopy with Myosure. PREOPERATIVE DIAGNOSIS: Menorrhagia, thickened endometrium. POSTOPERATIVE DIAGNOSIS: Menorrhagia, thickened endometrium. ANESTHESIA: General. SURGEON: Carola Lo D.O. AUTOMOTIVE SERVICE TECHNICIAN: None. SPECIMEN: Endometrial curetting. FINDINGS: Thickened endometrial lining, fluffy in appearance. No gross evidence of polyps, fibroids or malignancy. PROCEDURE: The patient was taken back to the Operating Room where she was prepped and draped in normal sterile fashion after being placed under general anesthesia without difficulty. She was also placed in the dorsal lithotomy position. A weighted speculum was placed in the patient's vagina. The anterior lip of the cervix was identified and grasped with a single tooth tenaculum. The patient's uterus was then sounded roughly to 9 cm. The patient was then gently dilated using Hegar dilators. The hysteroscope was passed through the patient's cervix into the uterus. Both ostia were identified. slightly thickened appearing endometrium. No gross evidence of malignancy. Please note that the MyoSure apparatus was placed through the hysteroscope under direct visualization. The apparatus was engaged and endometrial curettings were removed under direct visualization. The MyoSure was then removed from the scope. The hysteroscope was then removed from the patient's uterus. The endometrial curettings were sent out to pathology. The single tooth tenaculum was then removed from the patient's anterior lip of the cervix where excellent hemostasis was noted. All instruments were removed from the patient's vagina. The patient tolerated the procedure well. Sponge, lap and needle counts were correct times two. The patient was taken to the Recovery Room in stable condition. [facility] Signed and Approved by: DR CAROLA LO . 11/25/2021 08:14:00 [facility] Evaluation note Note Date & Type Note Facility Evaluation note No assessment information availa [facility] Work Phone: History general Narrative - Reported Note Date & Type Note Facility History general Narrative - Reported Type Medical History hypertension Medical History chronic depression Medical History acid reflux Medical History pre-diabetes Surgical History D&C 2006 Surgical History ablasion OQO Other Hospital course Narrative Note Date & Type Note Facility Hospital course Narrative No data available for this section [facility] Hospital Discharge instructions Note Date & Type Note Facility Hospital Discharge instructions Additional Instructions Take the Bentyl as needed for the diarrhea and abdominal cramping, use Zofran as needed for nausea Drink plenty of fluids and stay well-hydrated You can use Tylenol 1000 mg, and ibuprofen 600 mg every 8 hours for your sore throat and pain Follow-up with your regular doctor in the next week if you continue to have symptoms as this may be related to your metformin dose [facility] Work Phone: Summary Purpose Family History No Family History Records FoundNo Family History Records FoundNo Family History Records Found Advance Directives Advance Directive Response Recorded Date/ Time Advance Directives No April 7:37pm Chief Complaint and Reason for Visit Chief Complaint vomiting Additional Source Comments INFORMATION SOURCE (unrecogn ized section and content) DATE CREATED AUTHOR 12/01/2021 Ismael Tulio [facility] DATE CREATED AUTHOR AUTHOR'S ORGANIZ ATION 02/23/2022 [facility] DATE CREATED AUTHOR AUTHOR'S ORGANIZ ATION 06/15/2022 [facility] Care Teams (unrecognized sec tion and content) Team Status: Inactive Member Role Status Dates Dia Wu NP Primary Care Provider Active Ernie Vora DO Emergency Provider Active Team Status: Active Member Role Status Dates Dia Wu NP Primary Care Provider Active Goals (unrecognized section and content) Goals may be documented in a n alternate section REASON FOR VISIT (unrecogniz ed section and content) SORE THROAT FOR RECORDS PERTAINING TO PATIENTS WHO ARE OR HAVE BEEN ENROLLED IN A CHEMICAL DEPENDENCY/SUBSTANCEABUSE PROGRAM, SOME INFORMATION MAY BE OMITTED. This clinical summary was aggregated from multiple sources. Caution should be exercised in using it in the provision of clinical care. This summary normalizes information from multiple sources, and as a consequence, information in this document may materially change the coding, format and clinical context of patient data. In addition, data may be omitted in some cases. CLINICAL DECISIONS SHOULD BE BASED ON THE PRIMARY CLINICAL RECORDS. [facility]. provides no warranty or guarantee of the accuracy or completeness of information in this document.
--- NOTE | 2023-08-27 10:16 | US_ITS ---
The [address] [address] Patient Name: KERON SANDOVAL MRN: [id number] date: 1980 Sex: F Assigned Patient Location: [facility] Current Patient Location: [facility] Accession/Order Number: [id number] Exam Date: 08/27/2023 10:17 Report Date: 08/27/2023 11:15 At the request of: CAROLA MOORE Procedure: US pelvis w/ transvaginal EXAMINATION: US pelvis w/ transvaginal HISTORY: MENORRHAGIA COMPARISON: 09/23/2021 FINDINGS: The uterus is normal in size, contour and echotexture measuring 9.5 x 4.8 x 5.6 cm., Anteverted, anteflexed. The endometrium measures 6 mm, normal. Area of anechoic echogenicity measuring 8.3 x 5.2 x 5.1 mm, free fluid The right ovary measures 2.7 x 1.6 x 2.7 cm. Normal color Doppler flow. The left ovary was seen on transabdominal images measuring 3.1 x 2.4 x 3.0 cm. Normal color flow. Area of anechoic echogenicity measuring 2 cm, simple cyst Limited evaluation due to patient body habitus US/US pelvis w/ transvaginal IMPRESSION: 2 cm left ovarian simple cyst 8.3 mm area of anechoic echogenicity in the endometrial cavity, fluid versus cyst Electronically authenticated by: AIMEE MONTELONGO Date: 08/27/2023 11:15
== END 2023-08-27 10:11 | disposition home or self-care (01) ==
LOC: NOMS 10:11
PROVIDERS: Visit Provider Obstetrics & Gynecology
DX: N92.0 Excessive and frequent menstruation with regular cycle (principal); N83.292 Other ovarian cyst, left side
CPT/HCPCS: 76830; 76856

== ENCOUNTER 2023-09-04 08:31 | Outpatient (REF) | payer OTHER, SELFPAY ==
--- OUTSIDE RECORDS SUMMARY | 2023-09-07 08:35 | XMS_ITS | CCD ---
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 Name Role Phone Dia uW Primary Care Physician [phone] TERESA, DR SRIVASTAVA Consulting Unavailable MISC, DR SAINZ Primary Care Unavailable TERESA, DR SRIVASTAVA Admitting Unavailable TERESA, DR SRIVASTAVA Attending Unavailable BELINDA ISLAS Consulting Unavailable FANTA, SANAZ Consulting Unavailable TERESA, DR SRIVASTAVA Admitting Unavailable MISC, DR SAINZ Primary Care Unavailable TERESA, DR SRIVASTAVA Attending Unavailable TERESA, DR SRIVASTAVA Attending Unavailable TERESA, DR SRIVASTAVA Admitting Unavailable MISC, DR SAINZ Primary Care Unavailable TERESA, DR SRIVASTAVA Consulting Unavailable NARTYRELL, SANZA Consulting Unavailable TERESA, DR SRIVASTAVA Admitting Unavailable [...] Admitting Unavailable TERESA, DR SRIVASTAVA Attending Unavailable TERESA, DR SRIVASTAVA Consulting Unavailable TERESA, DR SRIVASTAVA Admitting Unavailable TERESA, DR SRIVASTAVA Attending Unavailable REQUEST, DR NONE LISTED Primary Care Unavaila ble AGUBOSIM, CLARENCE Consulting Unavailable PRIYANK MILLER Consulting Unavailable LUIS Wu Primary Care Provider DO Ernie Vora Emergency Provider [phone] Michael Jameson Unavailable CAROLA LO Attending Unavailable CAROLA LO Attending Unavailable Dia Wu Primary Care Unavailable Carola Lo Attending Unavailable Carola Lo Admitting Unavailable Allergies Allergy Classification Reported Allergen(s) Allergy Type Date of Onset Reaction(s) Facility (3 sources) Penicillin; Translations: [penicillin] Drug Allergy hives, Unknown [facility] (1 source) Sulfonamides (Antibiotic); Translations: [sulfa drugs] [facility] (1 source) Sulfonamides (Antibiotic) Drug allergy (disorder) [facility] (2 sources) Penicillins; Translations: [Penicillins] Allergy to substance 05-28-20 Unknown Reaction [facility] (2 sources) Sulfonamides (Antibiotic); Translations: [Sulfa (Sulfonamide Antibiotics)] Allergy to substance 05-28-20 Unknown Reaction [facility] (1 source) Sulfacetamide Drug Allergy Unknown [facility] Other (1 source) Sulfacetamide Drug Allergy 05-26-20 [facility] Repository Medications Current Medications Medication Drug Class(es) Dates [...] symptoms, 120 mL, Refill(s) 0, [facility], 162, cm, 11/20/21 10:28:00 EDT, Height/Length Dosing, [...] BID, # 20 cap(s), Refills(s) 0, [facility], 162, cm, 11/20/21 10:28:00 EDT, Height/Length Dosing, [...] Daily, 1 EA, Refill(s) 0, [facility], cm, 11/20/21 10:28:00 EDT, Height/Length [...] [Nausea] 05-28-2022 Episodic Other aftercare (1 source) residential (current) use of oral hypoglycemic drugs; Translations: [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 USE ORAL HYPOGLYCEMIC DX] Onset: 12-06-2021 Episodic Other aftercare (1 source) Other watermaster (current) drug therapy; Translations: [OTH 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 CURRENT DRUG THERAPY] Onset: 12-06-2021 Episodic Other [...] [Acute nasopharyngitis [common cold]] Onset: 11-20-2021 Episodic Past or Other Problems Problem Classification Problem Date Documented Da te Episodic/Chronic Other female genital disorders (1 source) Polyp of corpus uteri; Translations: [POLYP OF CORPUS UTERI] Onset: 11-24-2021 Episodic Unclassified (1 source) Cough R05.9 Results Test Name Value Interpretation Reference Range Facility [facility] 09-04-2023 L Specimen: [id number] Received: 09/05/23-1246 Status: GURJIT Andie Num: [id number] Spec Type: Surgical Subm Dr: Carola Lo Tissues: A Endometrium - Biopsy (EMB) Procedures: HE/2, Gross/Micro L4 Age/ Patient Sex Location Account Attending Physician JaimeDelilah Cosme 43/F LABELL [id number] Carola Lo SPEC NUM: [id number] RECD: 09/05/23 STATUS: GURJIT CHRISTENSEN NUM: [id number] MARCO ANTONIO: 09/04/23- SUBM DR: Carola Lo ENTERED: 09/05/23 [facility] DR: Litzy,Lab SPEC TYPE: Surgical DEPT: LARRY ORELLANA ORDERED: HE/2, Gross/Micro L4 ORDERED: HE/2, Gross/Micro L4 Pathological Diagnosis Endometrial biopsy: -Mucus exudate with a few admixed glandular strips of the endocervical and lower uterine segment portion without attached stromal portion, and is therefore limited for overall endometrial assessment, otherwise without any hyperplasia, atypia, or dysplasia identified in the examinations Clinical Information Menorrhagia Gross Description Received in formalin labeled with the patient's name, date of and endometrial biopsy per requisition is a 2.8 x 1.2 x 0.1 cm aggregate of hill mucus and tissue. Entirely submitted in one cassette labeled A1. CPT Codes 24447 Specimen: [id number] Received: 09/05/23 Status: GURJIT Andie Num: [id number] Spec Type: Surgical Subm Dr: Carola Lo Tissues: A Endometrium - Biopsy (EMB) Procedures: HE/2, Gross/Micro L4 Patient: Delilah Sandoval [id number] (Continued) Signed (signature on file) Chin-Phill Milan MD 09/06/23 [id number] [facility] COVID/FLU RT-PCRon 2 SARS-CoV-2 (COVID-19) RNA EFRAIN+probe Ql (Unsp spec) Negative [facility] Other COVID/FLU RT-PCR Negative TIME PLUS Q Vt [employer] Other Quick Strepon 05-26-2022 S. pyogenes Org specific cx Ql (Throat) Negative [facility] Other Quick Strep [facility] Other PAP ACOG PANEL 2: 30 to 65on 02-23-2022 . . Normal [facility] Comment on above: Result Comment: Perf ormed at: WB Performed By: #### P T, PTT #### [facility] [address] [place] [address] Dr. Kimberley Milan Age Gdln ACOG Testing 30-65 Normal [facility] Comment on above: Performed By: #### P T, PTT #### [facility] [address] [place] [address] [address] [address] Kimberley Milan DIAGNOSIS: Comment [facility] Comment on above: Result Comment: NEGA TIVE FOR INTRAEPITHELIAL LESION OR MALIGNANCY. Performed at: WB Performed By: #### P T, PTT #### [facility] [address] [place] [address] Dr. Kimberley Milan HPV Aptima Negative Normal Negative [facility] Comment on above: Result Comment: This nucleic acid amplification test detects fourteen high-risk HPV types (16,18,31,33,35,39,45,51,52,56,58,59,66,68) without differentiation. Performed at: =G Performed By: #### P T, PTT #### [facility] [address] [place] [address] Dr. Kimberley Milan Methodology: Comment Normal [facility] Comment on above: Result Comment: This liquid based ThinPrep(R) pap test was screened with the use of an image guided system. Performed at: WB Performed By: #### P T, PTT #### [facility] [address] [place] [address] Dr. Kimberley Milan Note: Comment Normal [facility] Comment on above: Result Comment: The Pap [...] Performed By: #### P T, PTT #### [facility] [address] [place] [address] Dr. Kimberley Milan Performed by: Comment Normal [facility] Comment on above: Result Comment: Deangelo Bach, Import Export Agent (ASCP) Performed at: WB Performed By: #### P T, PTT #### [facility] [address] [place] [address] Dr. Kimberley Milan Specimen adequacy: Comment Normal [facility] Comment on above: Result Comment: Sati sfactory for evaluation. Endocervical and/or squamous metaplastic cells (endocervical component) are present. Performed at: WB Performed By: #### P T, PTT #### [facility] [address] [place] [address] Dr. Kimberley Milan CBC AUTO DIFFon 12-02-2021 BASO # 0.1 103/ul Normal 0.0-0.1 [facility] Comment on above: Performed By: #### C BC #### [facility] [address] [place] [address] Dr. Kimberley Milan Basophils/100 WBC (Bld) 0.7 % Normal 0.2-2.0 [facility] Comment on above: Performed By: #### C BC #### [facility] [address] [place] [address] Dr. Kimberley Milan EO # 0.4 103/ul Normal 0.0-0.7 [facility] Comment on above: Performed By: #### C BC #### [facility] [address] [place] [address] Dr. Kimberley Milan Eosinophils/100 WBC (Bld) 3.6 % Normal 0.9-7.0 [facility] Comment on above: Performed By: #### C BC #### [facility] [address] [place] [address] Dr. Kimberley Milan Erythrocyte distribution width (RBC) [Ratio] 16.1 % Critically high 11.0-15.0 [facility] Comment on above: Performed By: #### C BC #### [facility] [address] [place] [address] Dr. Kimberley Milan Hematocrit (Bld) [Volume fraction] 33.7 % Critically low 36.0-48.0 [facility] Comment on above: Performed By: #### C BC #### [facility] [address] [place] [address] Dr. Kimberley Milan Hemoglobin (Bld) [Mass/Vol] 10.2 g/dL Critically low 12.0-16.0 [facility] Comment on above: Performed By: #### C BC #### [facility] [address] [place] [address] Dr. Kimberley Milan IG # 0.03 10e3/ul Normal 0.00-0.03 [facility] Comment on above: Performed By: #### C BC #### [facility] [address] [place] [address] Dr. Kimberley Milan IG % 0.3 % Normal 0.0-0.5 [facility] Comment on above: Performed By: #### C BC #### [facility] [address] [place] [address] Dr. Kimberley Milan LYMPH # 2.3 103/ul Normal 1.2-3.8 [facility] Comment on above: Performed By: #### C BC #### [facility] [address] [place] [address] Dr. Kimberley Milan Lymphocytes/100 WBC (Bld) 23.2 % Normal 20.5-60.0 [facility] Comment on above: Performed By: #### C BC #### [facility] [address] [place] [address] Dr. Kimberley Milan MANUAL DIFF REQ NO Normal [facility] Comment on above: Performed By: #### C BC #### [facility] [address] [place] [address] Dr. Kimberley Milan MCH (RBC) [Entitic mass] 24.8 pg Critically low 26.7-34.0 [facility] Comment on above: Performed By: #### C BC #### [facility] [address] [place] [address] Dr. Kimberley Milan MCHC (RBC) [Mass/Vol] 30.3 g/dL Normal 29.9-35.2 [facility] Comment on above: Performed By: #### C BC #### [facility] [address] [place] [address] Dr. Kimberley Milan MCV (RBC) [Entitic vol] 82.0 fL Normal 81.0-99.0 [facility] Comment on above: Performed By: #### C BC #### [facility] [address] [place] [address] Dr. Kimberley Milan MONO # 0.8 103/ul Normal 0.3-0.8 [facility] Comment on above: Performed By: #### C BC #### [facility] [address] [place] [address] Dr. Kimberley Milan Monocytes/100 WBC (Bld) 8.0 % Normal 1.7-12.0 [facility] Comment on above: Performed By: #### C BC #### [facility] [address] [place] [address] Dr. Kimberley Milan NEUT # 6.4 103/ul Normal 1.4-6.5 [facility] Comment on above: Performed By: #### C BC #### [facility] [address] [place] [address] Dr. Kimberley Milan Neutrophils/100 WBC (Bld) 64.2 % Normal 43.0-75.0 [facility] Comment on above: Performed By: #### C BC #### [facility] [address] [place] [address] Dr. Kimberley Milan Platelet mean volume (Bld) [Entitic vol] 9.9 fL Normal 9.5-13.5 [facility] Comment on above: Performed By: #### C BC #### [facility] [address] [place] [address] Dr. Kimberley Milan PLT 297 103/ul Normal 150-450 [facility] Comment on above: Performed By: #### C BC #### [facility] [address] [place] [address] Dr. Kimberley Milan RBC 4.11 106/ul Critically low 4.20-5.40 [facility] Comment on above: Performed By: #### C BC #### [facility] [address] [place] [address] Dr. Kimberley Milan WBC 10.0 103/ul Normal 4.0-11.0 [facility] Comment on above: Performed By: #### C BC #### [facility] [address] [place] [address] Dr. Kimberley Milan POINT OF CARE GLUCOSEon 11-23 Glucose [Mass/Vol] 117 mg/dL Critically high 74-106 [facility] Comment on above: Performed By: #### P OCGLUC #### [facility] [address] [place] [address] Dr. Kimberley Milan PREG QUANT HCGon 12-02-2021 HCG QUANT <1 Normal [facility] Comment on above: Performed By: #### P REGQNT #### [facility] [address] [address] [address] Kimberley Milan HCG RANGE SEE BELOW Normal [facility] Comment on above: Result Comment: 5-50 0-1 WEEK 40-300 1-2 WEEKS 100-1,000 2-3 WEEKS 500-6,000 3-4 WEEKS 5,000-200,000 1-2 MONTHS 10,000-100,000 2-3 MONTHS 3,000-50,000 2ND TRIMESTER 1,000-50,000 3RD TRIMESTER Performed By: #### P REGQNT #### [facility] [address] [address] [address] Kimberley Milan ED Note-Physicianon 12-02-19 22 ED Note-Physician Basic Information Time Seen: Marvin GOFF, Dana Valladares 11/20/2021 10:50 Chief Complaint pt states she [...] symptoms, 120 mL, Refill(s) 0, [facility], [address], cm, 11/20/21 10:28:00 EDT, Height/Length Dosing, 125, kg, 11/20/21 10:28:00 EDT, Weight Dosing doxycycline, 100 mg = 1 cap(s), Oral, BID, # 20 cap(s), Refills(s) 0, Pharmacy: [facility], [address], cm, 11/20/21 10:28:00 EDT, Height/Length Dosing, 125, kg, 11/20/21 10:28:00 EDT, Weight Dosing triamcinolone nasal, 1 spray(s), Nasal, Daily, 1 EA, Refill(s) 0, [facility], [address], cm, 11/20/21 10:28:00 EDT, Height/Length [...] 3 days 11/23/2021 EDT [address], Harriet C, [address] [place] [address]- [phone] Business (1) Additional Instructions: Patient Educatio (more content not included)... Normal [facility] Comment on above: Result Comment: Elec tronically Signed By: Dana Wong PA-C\.br\Date and Time Signed: 11/20/21 11:25 EDT\.br\Electronically Co-Signed By: Raghavendra Rodriguez MD\.br\Date and Time Co-Signed: 12/01/21 07:12 EDT Coding Summary.on 11-29-2021 Coding Summary. CD:[id number] Gh0bWw+PGhlYWQ+PE1FV FLmK92kkXMmzJ8DZ3hNA E8KBZNIKUGCUX8VID2ar OM8HLopH0RobuYe TobvyBAlLS94AHl1LEH1 zFrfIAyxkW3dbQDaT0t5 ExPpJL51tS43GZcnKOVe ThW9PwEdfnkqmBYu L6fwPvEagODfNyw+PHRh YmxlIHdpZHRoPScxMDAl ZtOwdAvdNV8pRw0qBYLr LWNvbGxhcHNlOiBj p4awEFFkIFcbAQ3lxTdr E2IkzYC6USBas5r1Ll13 dHI+LYWyTUD2gVrmPXyq r734MrKbp8xiRYR0 yWSzPQtfRHW1T87dn6A5 NPPiJIWcUXP8nRV6cY1h eQhvyduoM5TgyUYmTwN6 PIQ3xWBwhM8lmMta naujoR1tQja+N56EYA9R WZHVTZ6TIzf8L6GdCftu dHI+XN42DRWwZN20dXWd xYEet1xbpIm8ZmLo BXHaJWP4tBcdNPfgg6Vj KRTkL30nzIBle5T1KIBe sQhmjOPxIhYifMJ3aB7c ZPttxfpyt4sazret Plowq8vung02nI53T67c HQgsEZYqMUN9EAMrFXLp aHgbfu6tmA9uXi0+IDxj z5puo0mswSl3UnUf AURkqkJvjHmrVZR0c3Ny Me38Q1EolZrwt9ZcXwv3 om33yLIiu2I2fZI4DRcp ZFDegP9oRPutIwJ0 WQKaOmQqrG91oFMeKWxn Un9foHqtbQtdNZ8eQIAr zeiiYJYczV4xQLVbnUOe eBvoYU5rSFPxzgdh v967BvWoBAX0UWKagQOo S5IpwA7gHdWvGLXiFYBh T5CbwHLuIYxtC132QCff AuK4WZDlloDmJ4Jx CCVidXvpQlP1j5I3Ix4M a2FnxdwbHSA6DBilFYZ7 XrC6MjPlSuF5A8PtHln3 FCMnuIaaTR3vB8Me FZSnhcjddomtxWX7TVWf KUSqwD61tUKkMAapSs6s p0F3s986DMYtJEMthV99 Gb3laEvmVIBduKYO iZ7shkaio5pakpodKeBy QDSlSAz7RAy7BURrzIej TtBbRHF2BiZ6BBX9pCMy vS1wdAhrrrumvP2p Oyc+H56rvJ2zCMI1OJU5 qphdAWUyuaXzVW76DN85 C5TwKwubwHJnlIC+PGRp ysFwcWqaQF9sZkJo j5xvl7QtFMbzN0PqRKTd GMndXkj1BYPyPMZ6kTB7 iJ5bKWLcWUehq7H9iXM5 T0XlwcSqbl8ir9vz JRLiHAyjF84sjHEed9I0 YDVynPO5KJXkaOhvLgAa rH13Sds+APSzgSuhh6Ax Szamx8yae8vsrFt2 IjMwJSIgdmFsaWduPSJ0 r1IsNd64U23kXHjkFDYm SETrEDAbBMSikHqfyj7f lE4mAt0+PGNvbCB3 aFT7vL3uCVXnBuF7EOrt U022GnTaiVEaYmjnr9rt z0pjxDr7TcZrRVYehaBb eWcjMVH7h6IaWi03 A18dLTfuBUZoZEQqRXZg CFGzuMbtev3ewN9kSz2+ GM9lo8gaip05nN02aVD+ MVBkDCR3aScrCBwl LUBvbZ3rZQglRkO1QZMj QiTydL73cXItSHahCq5y kFpmfBdaKM4pIRWucdxv v982JuQqi3iaULZl aNRdRZtaNEB1P05xs2T0 DTDlMYVuRIB8mYI3cW2q bGlnbjogbGVmdDsgdmVy jOmxONkiJFtzC453 IHRvcDsnPlBhdGllbnQg OlLgRGa6D4BfNle6NYTl vNteLY7pxGMaGCrnAc5d ePflyGrjSK5yDNLw xcrel307WyKtg7srVBLx zQLgICxjBRG8N30af5G4 ZDBoOYQuPXF2sVL9cW3i bGlnbjogbGVmdDsg beSxnGpuBQfrRTdcO343 IHRvcDsnPkJpcnRoIERh vCA6TM13AW40sFIis5I5 mPP7W4DpHROcdmei vyukhBH2OWMdCLSekD96 Mi5xsDpsKw1tHAHuTZD6 LGWqdXAfH9GsxL0aFhHt JDDvAMTwN4QwyQZj LHthL363FRuvQiC2SFOg hgMpE6RgBBEgqRarWbW0 m9I3Lw7AH9K3ID28PA56 kWXfs9J4zLL6C2He KKRqfwherbxpwRI0XYOh VITglL02Ib1gmDtxZg8e QHQdHFF4APAvfSNeW1Hj zO0jFwWyCKIuONNp P5JzzWTyGBveG432GFcr YlB9KXMmenEnZ7PfZYKw pLeyXvD4b2K5Bo1MXSg2 IZ15DM37kAHaj6Z4 aFV7K2WcAKUmqeeaelqq qKV4ZYQgYNDqeO42Yq6u mZlkPf1pNBPkXQY1AWCz pGPtZ8FbnS0pHtUe QGBjFDUhD3UdjUVrYQsm E375YZroXiG3HSWvxlSx W9ShYUQzzEifBjX3j7P0 My8CUKQdGQ20WRX4 yZQ4EV59EF62W3CbJlgw dGFibGU+PHRhYmxlIHdp ZHRoPScxMDAlJyBzdHls DR8oLl5gSERcHZJr jWufqWJyEoHbh5hlYGRf RDfmES7zvKntJ9ZbmXU2 USIvo1p0Rz72N78zR1Af dXA+HEWrgQE6yUN7 nV6uGtMgRsJ8QKpvC441 DjDmaLQuOncso0rnx4mk wZy1VzA9BCWvpeCjzDlw KHY2g0XnMv27D20p IHdpZHRoPSIxNSUiIHZh hJauqq5gmD5uYl6+PGNv uJR3aYA6oJ7iIiDmGwG8 HPtxX867IuPwmNSj Ofitq8ane9mqtPv1EsYq YBUaraPieOobCPC7e9Uk Cs40H0EocErnb1FxQmq8 uk38gFBdi6Z5lNS3 J0ZbYAArchhkkKEtxQfa JT8kGXBqjsozATMjbK7d YEVzW2a7ToBsIgW7LYst L5UfacF9QURmiFFw LVznUBA3F29us0J6YFUg NEDjXUS5fHG2kC4avSni bjogbGVmdDsgdmVydGlj CJwdXSvxV863TJPi aYyrSNOorM4eJOYetEWt tYfmUP3aLLBacqsfTcvA RVNTTUFOLCBTVEVQSEFO SUUgUjwvdGQ+PHRk ACM2eBosJJquIHQoeD6a BMRhJ8h1OjOuZuB0JPwb X5PbYFItkhybWr99xO9c SbKcNuU1ZCsdH7Nl hgJ5YMIrwDQpQAwjFGB8 R35zw4F4IKVwXUNsTVV4 xMO7oU5ehDokailfeMOr dDsgdmVydGljYWwt OVfnC690FIOnqHqkLlD1 DoB5YeY7Mft1E8UqDtg9 YKFtbAmqIN6dnPUaKSvp Hi4fnMsswMwyDJ6c XQKvrmfuHAMwlX0nYQPd fIQfuXvnNW0kWRQptwya q071RoRvVHL0IBQrzTGu D6YbtX4qAkBzQDFy QYAvF4RgiIIlELogK889 MPdnEnQ6UPYcazQfS9Zi HKOjzYenHlD5i7G8Yn29 MiBZZWFyczwvdGQ+ LNWkEHE8mEtoCMgvGRKf yI5gTBJzE0h1QoLkFxA4 PGdoI5EnPUDuhpgrKo92 oE2dJlLoVpI0PDhi U3UliuC1UTXbtZQdZYiy LVS2W60zb8N8CCBpXFYy NXJ5jVN2bO0ulVaizpuj bGVmdDsgdmVydGlj AKieCZwrU966OUSjjBlp PkZlbWFsZTwvdGQ+PHRk DUA2tMqdGMdvJUDtlZ7p ESUuI7r0OyDsPyS6 VGrsO5OmWRJumzyoGv69 fT9tQmUgNzK8YKnsV3Pe zuN8QHSejEDoYCvsHLC9 B36ar2S2PGXtIHFe EOY3oJN3bO0dfEiptche bGVmdDsgdmVydGljYWwt JGqlI894ELSkzMlzPuXn ILKfRQ5dwLmjbBD+ NW55jd27O1LaYjecQiy5 TTIhVYL3lKL6kB5uOCVl YHekl9N8wRZ3L4UlqoLb wx5ht6hzGPEhAZgw W06udSYpz6G2SBEdeJV3 NIBadLahXbZlhT53Vka+ TPAmhIgzc0TpJhpoo4oh t0gmyKr2IxCiDHPk imFqhCoxSCU0x2TfVy41 F90hICogCGJdXUNtQDYx PGAyvCcyyx8tiZ0iHr7+ DYHerBZ0jQQ2wY5s BoOvXxK5YVgfY976YxPb lNNtOtjxo0ubn7ugyNt2 IjIwJSIgdmFsaWduPSJ0 m2XeEx78V2RvoTsb f9AwJia1bi57vIGbw9E8 jLE4R6MoHKRzqtizzDZs tUnuRU0pZIPjjynkTONy oZ2iCBVoP7o8JjEi BuN5WSddW6ZrxuB7ZMHp yLYeORVmoTUZyG8nafip e3iulxtnDxYzYXHdBVn8 XAs0OFQzpWhbBlSv NRA8FpP0FAZ2lWBixJ0d oKkrkagocD8qMdm+UGh5 c4lyhYYrVD3jyWR6DB25 OV99vUNjr8E6xPS8 E7YfCTKdlsrgssmifIC7 AMUuYOTrgF71So0nvYay Ii5wHZKgZWA0ISDykCLy I6NxuY6sVqIdHEYq JCUjB7SlgDClJJbnL971 ZEvsYvP3NEMmmxXhK9An NHDwyRvbSzO7i2G6Fk8B AF66GM88PA72uEQb s3Z4cRP4Z2ZeRJLlthsm wiaqfSY0HZGtPCCdcV02 Ka9ldFkoOb8iTKKlHJP3 LEJalGHbK7ArwF9q KuDfPYAgQFHjI2ClrQZu PMyqM128VQfhWoT2DXUx hhJzX4UqOESmgJpmWbP0 y2F5Wr9PMi61VS58 CO31cARnt9E7oEK6H6Pi KEZbstbofwdieAN0KDPn GYXrmJ31Po7cdNqfBf6c CFNeXRN6FFBghHMu V3KcdF9iPsNwLEOwXDNy X2TcaWYeXRziL544AHtq KqB2IEMrxxXxO7YySQMj pYtwTjE8k0V4Ks1Y OXihomc1Y5VdWjxdmBJ+ OH29AMRsXK66dDUrxNRh x7frlAf1TdZyGVBbXGU2 tTrpWXcgr3VeTJNo Y29s (more content not included)... Normal [facility] Consent for Treatmenton 10-24 Consent for Treatment [id number] #[id number]:127 Normal [facility] Discharge Instructionson Discharge Instructions [id number]#1.00CD:127 Normal [facility] ED Clinical Summaryon 2021 ED Clinical Summary [place] [id number] ED Clinical Summary Person Information Name: DELILAH SANDOVAL Danielle/[facility] Age: 41 Years : 1980 Sex: Female Language: [place] PCP: Dia Wu CNP Marital Status: Single Phone: [phone] Visit Id: Visit Reason: Sinus Pain/Congestion; Throat [...] 11/20/2021 11:31:01 11/20/2021 11:31:01 11/20/2021 11:31:01 ADDRESS: [address] [place] [address] [address] [facility] [id number] PHYS DOC NOTES: MEDICAL INFORMATION: Prescriptions Given: New Medications [facility], [address] [place], [place] [id number], [phone] brompheniramine/dext romethorphan/PSE (Bromfed DM oral syrup) 5 [...] PATIENT EDUCATION INFORMATION: Instructions: Allergic Rhinitis, Adult, Wplx-az-Hktr; Pharyngitis, Gvfz-ni-Huug; Cough, Adult, Liua-fd-Brqk; Cool Mist Vaporizer Follow up: With: Address: When: Dia Haley, Harriet , [facility] [address] [place] [phone] Business (1) In 3 days 11/23/2021 DIAGNOSIS: 1:Acute rhinitis; 2:Pharyngitis Normal [facility] ED Patient Education Noteon 11-20-2021 ED Patient [...] are lowest. 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 ? If you do [...] after you touch household pets. ? Take sxmv-arn-cghbxdw and prescription medicines only as told by [...] 10/11/2011 Document Revised: 09/30/2019 Document Reviewed: 12/31/2018 [employer] Patient Education ? 2020 [employer] Cough, Adult A cough helps to [...] lung ( (more content not included)... Normal [facility] ED Patient Summaryon 022 ED Patient Summary [address] [address] Patient Discharge Instructions Person Information Name: DELILAH SANDOVAL Age: 41 Years Arrival Date: 11/20/2021 10:24:38 Discharge Diagnosis: 1:Acute rhinitis; 2:Pharyngitis Primary Care Physician: Dia Wu CNP Provider Information Primary Provider: Advanced Custom Tailor Apprentice:None The exam and treatment you received in the Emergency Department were for an urgent problem and are not intended as complete care. It is important that you follow up with a doctor, nurse practitioner, or physician?s admin assistant for ongoing care. If your symptoms [...] Follow-up Instructions: With: Address: When: Dia Wu [address], [facility], [address] [phone] Business (1) In 3 days 11/23/2021 In the event that this physician does not participate in your insurance network, please consult with your insurance company to find a nearby participating provider. Patient Education Materials: Allergic Rhinitis, Adult, Dttt-et-Fuvo; Pharyngitis, Wwkl-ov-Folh; Cough, Adult, Azvf-no-Hudz; Cool Mist Vaporizer A MESSAGE TO ALL PATIENTS REGARDING OPIOIDS PRESCRIPTION OPIOIDS: WHAT YOU NEED TO KNOW Prescription opioids can be used to help relieve zrtftxnj-oe-bhvdwd pain and are often prescribed following a [...] be struggling with addiction, tell your health clinical care manager and ask fo (more content not included)... [facility] MICRO OTHER TESTSOrdered By: Keyanna Nguyen on 11-20-2021 S. pyogenes Ag IA.rapid Ql (Throat) Negative (11/20/21 10:35 AM) Normal Negative [facility] Man Sero Rapid Strep w/rfxon 11-21-19 S. pyogenes Ag IA.rapid Ql (Throat) Negative Normal Negative [facility] Comment on above: Performed By: #### 2 [id number] ####[facility] [address] [place] [address] CBC AUTO DIFFon 11-18-2021 BASO # 0.1 103/ul Normal 0.0-0.1 [facility] Comment on above: Performed By: #### C BC #### [facility] [address] [place] [address] Dr. Kimberley Milan Basophils/100 WBC (Bld) 0.6 % Normal 0.2-2.0 [facility] Comment on above: Performed By: #### C BC #### [facility] [address] [place] [address] Dr. Kimberley Milan EO # 0.3 103/ul Normal 0.0-0.7 [facility] Comment on above: Performed By: #### C BC #### [facility] [address] [address] [address] Kimberley Milan Eosinophils/100 WBC (Bld) 3.3 % Normal 0.9-7.0 [facility] Comment on above: Performed By: #### C BC #### [facility] [address] [place] [address] Dr. Kimberley Milan Erythrocyte distribution width (RBC) [Ratio] 16.5 % Critically high 11.0-15.0 [facility] Comment on above: Performed By: #### C BC #### [facility] [address] [place] [address] Dr. Kimberley Milan Hematocrit (Bld) [Volume fraction] 35.7 % Critically low 36.0-48.0 [facility] Comment on above: Performed By: #### C BC #### [facility] [address] [place] [address] Dr. Kimberley Milan Hemoglobin (Bld) [Mass/Vol] 10.7 g/dL Critically low 12.0-16.0 [facility] Comment on above: Performed By: #### C BC #### [facility] [address] [place] [address] Dr. Kimberley Milan IG # 0.02 10e3/ul Normal 0.00-0.03 [facility] Comment on above: Performed By: #### C BC #### [facility] [address] [place] [address] Dr. Kimberley Milan IG % 0.2 % Normal 0.0-0.5 [facility] Comment on above: Performed By: #### C BC #### [facility] [address] [place] [address] Dr. Kimberley Milan LYMPH # 2.2 103/ul Normal 1.2-3.8 [facility] Comment on above: Performed By: #### C BC #### [facility] [address] [place] [address] Dr. Kimberley Milan Lymphocytes/100 WBC (Bld) 27.2 % Normal 20.5-60.0 [facility] Comment on above: Performed By: #### C BC #### [facility] [address] [place] [address] Dr. Kimberley Milan MANUAL DIFF REQ NO Normal [facility] Comment on above: Performed By: #### C BC #### [facility] [address] [place] [address] Dr. Kimberley Milan MCH (RBC) [Entitic mass] 24.9 pg Critically low 26.7-34.0 [facility] Comment on above: Performed By: #### C BC #### [facility] [address] [place] [address] Dr. Kimberley Milan MCHC (RBC) [Mass/Vol] 30.0 g/dL Normal 29.9-35.2 [facility] Comment on above: Performed By: #### C BC #### [facility] [address] [place] [address] Dr. Kimberley Milan MCV (RBC) [Entitic vol] 83.0 fL Normal 81.0-99.0 [facility] Comment on above: Performed By: #### C BC #### [facility] [address] [place] [address] Dr. Kimberley Milan MONO # 0.7 103/ul Normal 0.3-0.8 [facility] Comment on above: Performed By: #### C BC #### [facility] [address] [place] [address] Dr. Kimberley Milan Monocytes/100 WBC (Bld) 8.6 % Normal 1.7-12.0 [facility] Comment on above: Performed By: #### C BC #### [facility] [address] [place] [address] Dr. Kimberley Milan NEUT # 5.0 103/ul Normal 1.4-6.5 [facility] Comment on above: Performed By: #### C BC #### [facility] [address] [place] [address] Dr. Kimberley Milan Neutrophils/100 WBC (Bld) 60.1 % Normal 43.0-75.0 [facility] Comment on above: Performed By: #### C BC #### [facility] [address] [place] [address] Dr. Kimberley Milan Platelet mean volume (Bld) [Entitic vol] 9.9 fL Normal 9.5-13.5 [facility] Comment on above: Performed By: #### C BC #### [facility] [address] [place] [address] Dr. Kimberley Milan PLT 341 103/ul Normal 150-450 [facility] Comment on above: Performed By: #### C BC #### [facility] [address] [place] [address] Dr. Kimberley Milan RBC 4.30 106/ul Normal 4.20-5.40 [facility] Comment on above: Performed By: #### C BC #### [facility] [address] [address] [address] Kimberley Milan WBC 8.3 103/ul Normal 4.0-11.0 [facility] Comment on above: Performed By: #### C BC #### [facility] [address] [address] [address] Kimberley Milan POINT OF CARE GLUCOSEon 05-2 Glucose [Mass/Vol] 125 mg/dL Critically high 74-106 T [facility] Comment on above: Performed By: #### P OCGLUC #### [facility] [address] [place] [address] Dr. Kimberley Milan PREG HCG QUALon 11-18-2021 , QUAL Negative Normal NEGATIVE [facility] Comment on above: Performed By: #### P T, PTT #### [facility] [address] [place] [address] Dr. Kimberley Milan US PELVIS TRANSVAGon 022 [...] SANAZ BELL Date: 2021-09-24 11:58 Normal [facility] CBC W MANUAL DIFFon 09-23-19 22 ATYPICAL LYMPH # Normal [facility] Comment on above: Performed By: #### P T, PTT #### [facility] [address] [place] [address] Dr. Kimberley Milan ATYPICAL LYMPH % Normal [facility] Comment on above: Performed By: #### P T, PTT #### [facility] [address] [place] [address] Dr. Kimberley Milan BAND # 0.0 103/ul Normal 0.0-0.3 [facility] Comment on above: Performed By: #### P T, PTT #### [facility] [address] [place] [address] Dr. Kimberley Milan BAND % 0 % Normal 0-5 [facility] Comment on above: Performed By: #### P T, PTT #### [facility] [address] [place] [address] Dr. Kimberley Milan BASOM # 0.00 103/ul Normal 0.00-0.10 [facility] Comment on above: Performed By: #### P T, PTT #### [facility] [address] [place] [address] Dr. Kimberley Milan BASOM % 0.0 % Critically low 0.2-2.0 [facility] Comment on above: Performed By: #### P T, PTT #### [facility] [address] [place] [address] Dr. Kimberley Milan BLAST # Normal [facility] Comment on above: Performed By: #### P T, PTT #### [facility] [address] [place] [address] Dr. Kimberley Milan BLAST % Normal [facility] Comment on above: Performed By: #### P T, PTT #### [facility] [address] [place] [address] Dr. Kimberley Milan CORRECTED WBC Normal 4.0-11.0 [facility] Comment on above: Performed By: #### P T, PTT #### [facility] [address] [place] [address] Dr. Kimberley Milan EOS # 0.12 103/ul Normal 0.00-0.70 [facility] Comment on above: Performed By: #### P T, PTT #### [facility] [address] [address] [address] Kimberley Milan EOS% 2.0 % Normal 0.9-7.0 [facility] Comment on above: Performed By: #### P T, PTT #### [facility] [address] [place] [address] Dr. Kimberley Milan HCT 33.9 % Critically low 36.0-48.0 [facility] Comment on above: Performed By: #### P T, PTT #### [facility] [address] [place] [address] Dr. Kimberley Milan HGB 10.2 g/dl Critically low 12.0-16.0 [facility] Comment on above: Performed By: #### P T, PTT #### [facility] [address] [place] [address] Dr. Kimberley Milan LYMPHM # 1.51 103/ul Normal 1.20-3.80 [facility] Comment on above: Performed By: #### P T, PTT #### [facility] [address] [place] [address] Dr. Kimberley Milan LYMPHM% 26.0 % Normal 20.5-60.0 [facility] Comment on above: Performed By: #### P T, PTT #### [facility] [address] [place] [address] Dr. Kimberley Milan MCH 24.3 pg Critically low 26.7-34.0 [facility] Comment on above: Performed By: #### P T, PTT #### [facility] [address] [place] [address] Dr. Kimberley Milan MCHC 30.1 g/dl Normal 29.9-35.2 [facility] Comment on above: Performed By: #### P T, PTT #### [facility] [address] [place] [address] Dr. Kimberley Milan MCV 80.9 fL Critically low 81.0-99.0 [facility] Comment on above: Performed By: #### P T, PTT #### [facility] [address] [place] [address] Dr. Kimberley Milan METAMYELOCYTE # Normal [facility] Comment on above: Performed By: #### P T, PTT #### [facility] [address] [place] [address] Dr. Kimberley Milan METAMYELOCYTE % Normal [facility] Comment on above: Performed By: #### P T, PTT #### [facility] [address] [place] [address] Dr. Kimberley Milan MONOM# 0.58 103/ul Normal 0.30-0.80 [facility] Comment on above: Performed By: #### P T, PTT #### [facility] [address] [place] [address] Dr. Kimberley Milan MONOM% 10.0 % Normal 1.7-12.0 [facility] Comment on above: Performed By: #### P T, PTT #### [facility] [address] [place] [address] Dr. Kimberley Milan MPV 9.8 fL Normal 9.5-13.5 [facility] Comment on above: Performed By: #### P T, PTT #### [facility] [address] [place] [address] Dr. Kimberley Milan MYELOCYTE # Normal [facility] Comment on above: Performed By: #### P T, PTT #### [facility] [address] [place] [address] Dr. Kimberley Milan MYELOCYTE % Normal [facility] Comment on above: Performed By: #### P T, PTT #### [facility] [address] [place] [address] Dr. Kimberley Milan NRBC Normal [facility] Comment on above: Performed By: #### P T, PTT #### [facility] [address] [place] [address] Dr. Kimberley Milan PLT 346 103/ul Normal 150-450 [facility] Comment on above: Performed By: #### P T, PTT #### [facility] [address] [place] [address] Dr. Kimberley Milan RBC 4.19 106/ul Critically low 4.20-5.40 [facility] Comment on above: Performed By: #### P T, PTT #### [facility] [address] [place] [address] Dr. Kimberley Milan RDW 14.9 % Normal 11.0-15.0 [facility] Comment on above: Performed By: #### P T, PTT #### [facility] [address] [place] [address] Dr. Kimberley Milan SEG # 3.60 103/ul Normal 1.40-6.50 [facility] Comment on above: Performed By: #### P T, PTT #### [facility] [address] [place] [address] Dr. Kimberley Milan SEG % 62.0 % Normal 43.0-75.0 [facility] Comment on above: Performed By: #### P T, PTT #### [facility] [address] [place] [address] Dr. Kimberley Milan WBC 5.8 103/ul Normal 4.0-11.0 [facility] Comment on above: Performed By: #### P T, PTT #### [facility] [address] [place] [address] Dr. Kimberley Milan PREG QUANT HCGon 09-22-2021 HCG QUANT <1 Normal [facility] Comment on above: Performed By: #### T SH, PREGQNT #### [facility] [address] [place] [address] Dr. Kimberley Milan HCG RANGE SEE BELOW Normal [facility] Comment on above: Result Comment: 5-50 0-1 WEEK 40-300 1-2 WEEKS 100-1,000 2-3 WEEKS 500-6,000 3-4 WEEKS 5,000-200,000 1-2 MONTHS 10,000-100,000 2-3 MONTHS 3,000-50,000 2ND TRIMESTER 1,000-50,000 3RD TRIMESTER Performed By: #### T SH, PREGQNT #### [facility] [address] [place] [address] Dr. Kimberley Milan PROTIMEon 09-22-2021 INR Coag (PPP) [Relative time] 1.00 {INR} Normal [facility] Comment on above: Performed By: #### P T, PTT #### [facility] [address] [place] [address] Dr. Kimberley Milan INR GUIDELINES SEE BELOW Normal [facility] Comment on above: Result Comment: [place] RED INR: 2.0 - 3.0 CONDITIONS NOT LISTED BELOW 2.5 - 3.5 FOR PROSTHETIC HEART VALVE REPLACEMENT 2.5 - 3.5 RECURRENT THROMBOSIS Performed By: #### P T, PTT #### [facility] [address] [place] [address] Dr. Kimberley Milan PT Coag (PPP) [Time] 10.8 s Normal 9.0-11.6 [facility] Comment on above: Performed By: #### P T, PTT #### [facility] [address] [place] [address] Dr. Kimberley Milan PTTon 09-22-2021 aPTT Coag (Bld) [Time] 24.2 s Normal 22.3-36.2 [facility] Comment on above: Performed By: #### P T, PTT #### [facility] [address] [place] [address] Dr. Kimberley Milan TSHon 09-22-2021 TSH 1.697 uIU/mL Normal 0.470-4.680 [facility] Comment on above: Performed By: #### T SH, PREGQNT #### [facility] [address] [place] [address] Dr. Kimberley Milan TSH RANGE SEE BELOW Normal [facility] Comment on above: Result Comment: <0.3 4 UIU/ml HYPERTHYROID 0.34-5.60 UIU/ml EUTHYROID >5.60 UIU/ml HYPOTHYROID Performed By: #### T SH, PREGQNT #### [facility] [address] [place] [address] Dr. Kimberley Milan Coding Summary.on 06-10-2021 Coding Summary. CD:[id number] Gh0bWw+PGhlYWQ+PE1FV QTpH84dnEQgeI9LC3cYB H5KIZRCDGEDIU7ZPT4ph ZP0VIgeZ2DakdIp ZqhqdUTgAS95NOg1SGA9 uRqtTUrrlW3zmLWiF3j0 PxXqEG40uD09SBlqSCHo VwI6HkLwosdfdDDt O4mpSpOrxQIwJke+PHRh YmxlIHdpZHRoPScxMDAl SxYvxSrzQW7hTk1fUNNx LWNvbGxhcHNlOiBj f0jtWHVhHYbcPP9evCdn V1AqbMP3TJHhr8d2Tt03 dHI+EQZdOLX3kPsmEPxd z665CgGuq6piHKI9 gAXtFIfePBJ3J32it2M6 LPRkBNSwFXB9xTS9mA3e lNteicmuS6RhaZVyVrL3 HCQ1hNStcQ9pqOfa fzttwO0tZvv+S84DWQ6A EGQPOK8HUcd8E9SsLcqn dHI+WI62UICcNQ86yIHy fTPon3dfyBk5OhPl FIRlOYS8kZbwGBstb1Ok YQGmM06cxKMjl4V5CWKa yAjkkAMuQcIgtTS6uT8s EOfmpsgxn5sqgxct Jbpir6wsvt50rC22I22b MWqcFQZuHIN4FDLlVULg dOvjha2boI3tFo5+IDxj i8ncm3bsrXc6GxWa QOHmqtLvgBpeCLO6o9Pv Bk24C2RrvMnqr2AvIjv3 yd58rDUlz1S2hSF3NQpi NVEgbF0hOMigJoW3 JTObKeUinU36pLEdKUgo Qg8qhHovhFfxDJ3xBKAf jyoeUNCvvS4jXZIvmLGk lVngXU5yNTAyaaha c759GnGpAAJ8UYSdqEFz Q8WsbB5gEhQzFQBpUSKl R1VeoTAnNRyuM798FCbq DoN7UUIqkvHqE2Tp GHEriCueBzH1v5Y1Au3G q0BplwduUKM4UMxqZIDp KdM1WtOwLuK0L1IxHfo0 FQFabOuaAU1pL9Dt GCPvlcftfhbqgEP9ELCp RSTaeI04oOByOSxmDy5l y3R7e472YQZdKSFskV38 Cq5vrWopXJNjiYDW yW9fifond3ikmhkbCaDk GLBtYXl5MLr5BVRtiCed HzTkRDO1MdO1HAM5vRRd vY5riBfrthedpW3c Oyc+B37jhQ1fDFT9LQW7 barpHOFuvqKyDP81EY26 Y3FpCkkztGVkqBM+PGRp qsTgvPpsQV2oKcZn f6god8ArQOedM0UbZSXo BVdbGvs2GZGnGKA8fRS9 fF4fWUCeVCcet9B0eCH5 R2JirrNmub9ot1ud ARYpBMnnP75fvBKwu9K6 QRMzgBU2OEZtvKlsYvYn tO02Ans+XNYudSmtg4If Emacz9kqx6fwkWl8 IjMwJSIgdmFsaWduPSJ0 i3BdSg51X90uKHyoBSVo QGDfABAlATXhvRiksh7k cM7gSx4+PGNvbCB3 yBJ0hX3nTGQqFdD8JCgw T367WsZubPHjUnqvd9oh l6khbLv2WoQaJHQcxtZy dHmtKTV1v8PlXe19 H66uGGduOSImQDPkEERz UBPiyUxsjd7yxU6tPf1+ OO9pl0fath80vM71zVC+ PYZmFLI0sNduBFof SCVntM2pHIotLrO8FWTo GkWkwV06bQSmCPqqRk8b kAhjuEzgVE6oKJLhmiur l941KkHdg6ejAKTe sZIrIQnyUXB8Q20tb8B6 ZKKcZBFlFDJ6zIN9zI5k bGlnbjogbGVmdDsgdmVy jSklNLojZCxjI176 IHRvcDsnPlBhdGllbnQg FkFyGFj1V9UiStq3WVYn dJmbYC4vgYTqSImkYs8t cOmvvFtrOJ8wEZDy cimcu834WnUlf0haDLWf qGQjKNttUJK3P74dj4C8 IBYzCNBlWMB1yOF6yH6q bGlnbjogbGVmdDsg cfAgsIjaLLezWOumQ524 IHRvcDsnPkJpcnRoIERh qJL3TM19BG03zQRnb3J3 vHH6U4SvRGDiqglf itcdvEU2IKFjNJKieK34 Vl7ybFmsLb1hCUGvFUZ7 YMXtzGHhO6KulX9rLsCq XEAtJRElR9WybSJi SRyyJ564AEltMhF3BBSt bnCzD1AyYSZrgMikIgA7 x4D2Oj5CO0L3IW40AY99 nWArd5Q9hVQ9A9Ps XFBvtupnwaeliDF4TVSw YEDzvF45Jm4rlKfdCe7b KGQcYQS9ZOHqkLFuH7Wx hT9qCpYbJVZvJSNx P4WlkKEoXSehB693MNjc KzI1NUHwldVbL9UpOKYp yGwtPbG0y9B4Ze7GEVn6 ZQ68ZA14cZQks8Y8 yGL8Q4QvDIYywovoaixf dYD3DXCrNFGkjR96Hu4k lOrcGz7sWLTwEVM4ACCo rNUcG4NypQ9tHdFk GQDzMRAuC3FpsBOmRWqd S799JMbxVdK8LFFqppXb E3QiHLFpvTleRmY5g2F7 Bo2XGQHqOE90UMA6 rVY3HG96UY84T5OfComg dGFibGU+PHRhYmxlIHdp ZHRoPScxMDAlJyBzdHls VY0rEd3qZRYhPVPm yKeltJGrHcJkn0ahHPAi EMvaWL4ryZvvN3WvdLD5 DTEmv0n2Rb90D32eC9Ce dXA+IKYpoTN2lSZ5 nL9yViIdBiT5IYetD217 QmInlPQsMknkv3ley6ku gEw7UsE6EZMxqbZolQdr LKX3l5UlKn89V33w IHdpZHRoPSIxNSUiIHZh cRrvzb0spK8oZe3+PGNv gGV4aHY3nJ8bJbGhJjT7 USbxS079UtZyfQAv Vbrfb0gxz2emqLp8YaOe NWOakcZpeRfzBMN9m4Gn Jj60P8JaeCxta1ZoWln0 el76zBGra9Z5zSI3 K3IyUGDxwvzyhMMwgLtt XZ2bOHRbpgahBIQjbZ5t WPIjK5c7PsWxGcM6GClq A9CudvH0HNNcmGWn RCaiGCR3K61aq4Y6XAMy UYIwCHU1rUX6xD8fePdw bjogbGVmdDsgdmVydGlj AOqlPWzcQ792PLOv aQmrMAEweY3lXNZdiGHu uAojJS3aOYBbgydjGplC RVNTTUFOLCBTVEVQSEFO SUUgUjwvdGQ+PHRk FON9dNwcCUlrCCTaiV5p HNGqO6y4GoXrXuA1XPmv Q5JzTEUixlrkJn14pW9s MgGlOiJ7VZqrA9Rl rzJ9QTToiUShJVzjZNX6 M17up7J3RTVlPVUxYAZ4 fBM3xT7ewSvsbkugiSPt dDsgdmVydGljYWwt NCihZ219UMRimPfwSpY1 BgC1MnD8Ggq1G2JbDxx7 QLAitZxnYM1jlURcUCql Hr3byPaxiAmtAQ0c ADCviakeLMKxiR1sDLGg fTEuvVlrCK1eORAxpyfa k456JjWfZPK9ZLDdaXHi H6LtaG3nBjJpQLNo FLQhD4TsbKMmIMrzG073 TMehVzS6SMUyhiRuP2Ut LXSeoJrdDuV5p4Z9Hl11 MiBZZWFyczwvdGQ+ QZBrBSK9gMinMPwtPWZb hE9qITTkH1a5BdXhGoP4 UUhyM8GiRJJmdgiyOw66 gO3yCfBbRbY2NPrl C7CsdsG5XWExkHUfTUyb TDU8K74rk3Z8TNXzEBGw PJV5wGE4mA5wyOsqvcir bGVmdDsgdmVydGlj PTqvTJsbY985RFNhiEbs PkZlbWFsZTwvdGQ+PHRk XSM1wIhzNRgaMCYngE2m APXeP4e1XkIwQmY6 MNfkP1JfRHFdiswqKl02 lW1nRlFkRlX7NIcyM0Oq yaN5NQZwbDKzPKbmABN8 X04rg5B6IBNtEPDq MNL2dBZ8bL9kfYbsbwsl bGVmdDsgdmVydGljYWwt YUevP265AZBwnYzaLg72 zVSslAmtyeN9A9Vn PjwvdHI+YQ91ONAgAL37 tCNqkVEwh2jkoGi8DwPm UJPbKUS9pLqjBUnzb1Gi WXAlL41tiKMxb4A0 IGNvbGxhcHNlOyBlbXB0 nU8fMNhogwwyt8dcsftp Yxvfr6hdek26zJ58A79i IHdpZHRoPSIzMCUi DNCvfPbqql1xyT7wIz5+ GMYgoGP0bKV3eP8cYxKp PdE4UYqdF273WlNzjVJz Xegrc1czu2kivCk9 IjIwJSIgdmFsaWduPSJ0 d9VxBc51X87yPWamBGNy AQVmVCUrPQCgaMnmna7l bA6kPo4+PP2ye9vw ha48gJ82cMM+PHRkIHN0 uPwcFHonPHJneR8kWGnf ZeL6FJNwBqYvvY02hYAz QLspSy0xjZmbtDhn NL0uBGKpeanfr254TeVd n6lrXRNssCRnAVukQSR2 H84tq6H0ZZOnVPVfBMK8 kCG9rW2xqKtdlxui bGVmdDsgdmVydGljYWwt NIppX448DNTeyVbwScSi qNZgU7rgqeUARG3lUoop dGQ+FFJgTPA0tTtc HDibMNUqgL2nGZFpY7u5 NsIdXzB9KQizF3MxzxO3 XVXlqUOmCSPncNBPyJ8i anfjs7yfemdiCuOa OVIfCTr0NQm8NBZivYft FmCyQIP2RlQ0TEM6lDQx xT4bvZzthqszlT5lGpf+ RklOOjwvdGQ+PHRk BSX2gJukKNobIKNziG4l MWAbT2t2KyMiBgD5VLev E3DwoiC3ZDXugOFlYPQa iULMoL0tvajdo1rr wrbqVxBgGSRwUXw8MKq4 SJQubWlwJsMiABT3UhR6 UBV0iLRgoB7bpCcfnfyd kQ5hCaq+TVJOOjwv dGQ+QCNsXXO9cXdlNTre QCUehZ9uZIFmZ2i3OvLs JqV5OPprB3NkvuH3WWHa sMRuVKDknMGPjG9u yqhyk5pgyoccCkLlJMBb RYk4FPt3FFBsjGyrVpSi MXA4QnF5DPM5sTUdwJ3g eJnjbfcfnQ4vJui+ XPK6HVM7FE14BM47C7Bw PjwvdGFibGU+PHRhYmxl IHdpZHRoPScxMDAlJyBz jPsuBY6vMy1sPHUm LWNv (more content not included)... Normal [facility] Pulmonary Function Studieson 05-28-2021 Pulmonary Function Studies [...] suspected consider Methacholine challenge test. READ BY: Soumya Mathews Dictated: 05/26/2021 [id number] Transcribed: 05/27/2021 cc:Dia Wu CNP [facility] Comment on above: Result Comment: Elec tronically Signed By: Lexie PADILLA, Keyna Macias\.br\Date and Time Signed: 05/28/21 08:32 EST Consent for Treatmenton 04-26 Consent for Treatment [id number] #1.00CD:127 Normal [facility] Pulmonary Function Testson 07-23-2020 Pulmonary Function Tests [id number] 0#1.00CD:127 Normal [facility] Physician Orderon 05-06-2021 Physician Order [id number] #1.00CD:127 Normal [facility] Coding Summary.on 04-18-2021 Coding Summary. CD:[id number]:[id number] Gh0bWw+PGhlYWQ+PE1FV OMxD35huDHqzK5HP0hCM Y7YWOQADITBKR1LPY1ce GY0XTgzR3SheqHl RnwcvCIzRF17PRh5EYW7 pWlxCPnrsO1isZNuO0p2 HjNyMF39sF25ZLwsVZBq YeC9CgDkvkqurBZj R8wpZfMyfHUaIcs+PHRh YmxlIHdpZHRoPScxMDAl NsFhvKgmDT4bLw2nXPGj LWNvbGxhcHNlOiBj e3qcPUFyVMqtWO5nrMvg Q9ZwdPW4QUPsa5q4Wo49 dHI+NXCpUFG8fUemZTkc p127TnBor7mqYQT8 bGNaUZmuNZR6F12jg7H5 DEBvBBMuPHX9iGD0rB0n pLrmckoiL3XtmKFiPsB2 KFK7aNCniP9nmXpn ogrofF7xBao+F17YBV3R WXLDHJ2ZEhb5G0KmTviv dHI+LQ42NOOtOX16cTVn mWZad8uruKn2UgXx BDSzOSM6zHnjNVela4Ny URCpR62dyYGtj6X6NMYo kUwykCFeKcFumRZ6hC6e XXrimceav3ldokog Aejld5itaf22bF14R62v AFhoAEObPIM4RPFjUBSi gGtlvy6hnS6hKl7+IDxj y0azj7lrdQx1HbBh NMLxwoGsoNoiVDF8l6Gy Bl83I2UcsWedw8QuOac8 ju12vJPbn1Y4iCI6XGgn OJFohT2wJKhsWkV6 UNPiMdBwvP37yJKdMGci Vt4aqUjdkEwoAQ7uALGi yupaEIEtsF3lZUEwuKEz dOvtBZ3sFXWqvexb v211QbHvFNJ6NUDscPCc T1SuqT2iPaDjJNIzUUKc J9NsyDCuKZqnR725TEor MyT4FHSupaKqK8If ERRqfBekWuI3q1J7Ji6S l5IiscatAEM6YTewXCCy XrM4QpCoHyZ9I6CkBtq1 IBHaxLwvQK0nR9Jc WNBtxvjeabsiqTK4SAVm YIXznQ45pIJzYDdjEy4m i6X9s701SFPwODKkuD51 Wc8reUftMUWokHSH eY7evgdud2yhvmciCpTe ZXFwOJq2AAy1YRZycTnr GgZuHHF4DkH9CMF2iEZi iA3vbIpsyzkvkC5d Oyc+Z92xyY0mLBB2QHB4 jqoiOLFkscPwBB11KM23 Q4KuNfsfpWNbxSW+PGRp yvPtuJtoVY7nSsNv y1ozc3WjCVdjT9DkXSUr GXrfXbk0QCDsBEY3kWL4 qM4eGIPaERkyz1K1wVP2 S2CgsmHqed3bw6jq VIXlUPqvW11ogEAxv7T7 WTLvtLK8JQUboPogZdNw kK73Erc+RMHkpTfgo2Cu Lmyye7hjt6pahOq2 IjMwJSIgdmFsaWduPSJ0 u9UkEw35F86hIVukKCRp PFMzCHAkOPRjjRncus2m sB7gRc6+PGNvbCB3 qCM4jM1hKKQvOlM5RZvw O776JaFubNViKzjnc3qo y0ygvYh9HvSnFYTxzlXa sQkcWHO3w1MvEy19 F24cXNabNYKsNGHhBRIe EEKvzQxarw8bfR8fMz7+ QN3zr1kwsl03pZ00iAN+ WIBdJRV6cIeaNXhg RZAxeH2tDCwnAmA0XNQw VpXbqZ48rNElJNtzTd4r nCanrGqbLX9qLRHzpncp t390AcJhs0fbEFTv bESgDCfrJZT8P01ed1R2 AFJlDDHdGQI5wXU8kD1v bGlnbjogbGVmdDsgdmVy ySmvKLltFRbgE565 IHRvcDsnPlBhdGllbnQg QvBhZKp3W1NpNnm6GFEi eYftEB5ewIWyZUncGi6n sUkolKteKB2iNTAe uspmh833EiMvs7cdUKCq tPCdUFwnDLW7U19bl9F2 XELaAIJhLXE0nCE3hA1l bGlnbjogbGVmdDsg lhOwkMutITsrWJbfV061 IHRvcDsnPkJpcnRoIERh lNW2WD09EK52vUXqj9J0 xOM1N7NuMZNirfkp pcuigDO3LFMuKMGiaU44 Ds3gwLpcNx0qZWVzBGU8 QOIcwAJcF0EmbD5yOlJs VPUwPYAcB1XzsOTm DNyfO093NUbvMaW8NHTs fvNoE5TrFVLnfMvxHsQ3 i8G3He9ZT0Y4HY63XZ04 yUTzi5M3bMN2S8Pp TALiwmtuoqizuYN0KYCd YSNkwZ15Ah0aoPynBk0g LKYuOAE4OYHzgRNnU6Yk wV1pBjHeHCPcUWRx C8OjdGGlLHylZ601MPyl JwY3JENgcmVgN4NtGHDd bYhvRaH2i3O0Cl9HEJg9 IP63WT55qCQoc6Q9 mSM3I3MkRRSbvxisdxlw vRC8QEDfEEUxoJ77Kb4x sJftTn7gFIApXKX2TJOq uCJhI9TpmJ3kAeGu WKPdYPCbG0OlkNNyMJop Q292WZtlWnZ7RNUuefRg H1UoEVCnqAodDxK3i3V6 Ux9MUACiSV11HKY4 sTU3OP77YI56X2TvIade dGFibGU+PHRhYmxlIHdp ZHRoPScxMDAlJyBzdHls KS9eOk2aWGUiTLPp sKrhfOWpDqGan2ltRPWt QYwmJA5maVgoO8ZzdBP8 XDRld5w3Ua47Z25iD4Av dXA+IVSndIB5lFO0 pD4lQsHcYnZ4MQbbQ837 VpCudEHeIbotr6asf9kl mXu0XtE8FHRlxwZfrNcn ATV0t1GzMy09Z00p IHdpZHRoPSIxNSUiIHZh aPwmyv2gxL1rEu3+PGNv aXP4iKG6rN5zRiBsZtL0 UKvgB231PdVnjMVa Imhlw6uae3ddrDu9UgXv BKFrffGbkMjdSNJ1h6Pp Cy23W4EefWdzp3VbJlv1 sd13wLAud7W6qDY4 V7SjJNLuvxvvsCYsuDgg DK0yCLHhtebiYAOkeL3x YMLrL1i2EzBsCjP1OVxa J8EvomO5ZLTqaAAt PFwsCTJ6D60wu0A7ZIFq VOAoCTJ8xVQ8hW5mjCuk bjogbGVmdDsgdmVydGlj TAvjQNhsV412SGTn mPhfMMBquH8uKMAtmYNi vDpiOJ6nYGDrscqkFxvT RVNTTUFOLCBTVEVQSEFO SUUgUjwvdGQ+PHRk RWP9dNjsLRthYGWpyU0h AVStO6h8IuAdCiD2DPyw F0HoEGGyepyjLv43qB1i StAgZgH5TVxdC2Pd nvI1COVuiRIvKHdcEGW3 N23vv2E7DMMuAGDnAHL3 cEK7hX8xvAwxmvwhtKFg dDsgdmVydGljYWwt GRdxQ100UQRjcNoiNcW6 BgX7DtF9Oyt3L9NxXog6 PCCquUqiZA4ueTCmBDaf Zx9rgVgtzKipZZ0h IZWkmwmpOBFvmM5pNIFh kPBswWvzRI7eZJHmylsn m907BtHnGIP1BMFixRVo Z9LcmU0eOuWiCJLg NHXvY8HeyTBfOUouQ775 NMvtNyJ6VGNibkXaA4Pg FDEfaUwuKaZ7e4M0Wv61 MiBZZWFyczwvdGQ+ QWYpHCB0nLfzGHccEUSw dM1rWTGvD2y4NkMbZrL7 TZomD3VkPWDdgzraEh50 zB3uLcGgMrH0ZQkg F9JalrU3SLHnsTFeLLic DVU3I63io2I7GQFgOQDa PDJ2jUK1gW9qsVosqisk bGVmdDsgdmVydGlj AOqeCKrmL276GVSqwFez PkZlbWFsZTwvdGQ+PHRk AFM6vShlMEehPWUoyQ8y KUXzV5z4DrZoEgB9 TMreQ4UiILAzutkpCi31 aO7bHyQwJqT7BCkwL4Vc jmY6BQFlnCIrAFxyYOK4 K79fo0Q7TJAtCWOm DKA8zYG6eP7vvUrvqrww bGVmdDsgdmVydGljYWwt PAipP482HKTuqAwmTb40 tNZcdRohtaA5F1Vw PjwvdHI+AN66YRShJW70 yHEatVTtl2xgmRt1TfVd ZFHzRJX2xUimVNyny7Nn MALaC91jvMKgz7V5 IGNvbGxhcHNlOyBlbXB0 hC6kRJojdnqty6xhezyu Vmymb2jozt67vM81H79v IHdpZHRoPSIzMCUi RBEbdUcwhq9vpA9dSw8+ FLRhlPL8bOC1uK2pOyPw InE9MWnhH677TxCbzTYy Mvexg1ktv0fldZj2 IjIwJSIgdmFsaWduPSJ0 z4HlEc63B64vDKlkQADh FHVsBJPyZFUtpZnheg8k dY5vKt6+FB6ii0wl fx11yK39zTI+PHRkIHN0 iSheZHhjERBjoP2iHPhz OcN4JRAfHxRugU38xRKq HJnjRm5ypUyurFtb AM2bBHCggvifs955LgFp h2uyXDGvvXWdSNgpKNZ7 Z49xz6N5FLNcJSNxLBF1 pSK1dI7riBvtalkz bGVmdDsgdmVydGljYWwt ZSnyW506YDPnxCxoPbKp zAMuT1jvgwKOJG7bCsrd dGQ+BBGdKLN3nHwn SZlaLTQfnY4bCKSiJ0l7 OtJrGcR5NZlsB9XvtbQ7 JPSncZFaZDParUNZhM2q vtkmw1qrpauwRoVt KJXiBVr1GFo7DAFsxVop KnQjNWP7LjT1FFE1xYFa aX5ccXhxwfzyiA3tMvk+ RklOOjwvdGQ+PHRk ARF5oIqzUJcgFBNrzD9e OJCvV1b7LrKpRhE6SDys E1OkvoX2PXAtnWYzKBPg ePAZcP6tuaaqe1fc cpmmRcXpYULuRPo7EQo8 PIEicRerLuEhWRC9ZhC9 IJY4pDRpxU8nkDfbzndx aB7cAmr+TVJOOjwv dGQ+HUTqKKB0yIifQSqg DZFfmP8nSQQcE6u0KwBd EzV1PQirP7XpzqE4IHJl aZLaALAzlRGXpL9p exhct8yehvxpGzCqHXMz OUf8HVw5RJKrzDwxUyQy PLA2VcG8RZC0cLAlzL9g kYhacyvsaP1iXcs+ DRF8POM2SR21EC83G3Gn PjwvdGFibGU+PHRhYmxl IHdpZHRoPScxMDAlJyBz cEuuPB9uDa1tKMRz LWNv (more content not included)... [facility] Coding Summary.on 04-12-2021 Coding Summary. CD:[id number]:[id number] Gh0bWw+PGhlYWQ+PE1FV YOaI21wcRXgaC6RA6pIS K7FELFOGNGCJS4CUM6vc GK9UXqyQ9UqgyGi KwkkaCWtFW02FFk0CTF2 wGywVIefcJ7sgGEgC1w2 BdDuIZ05dA41MWwoVXJq KfB8KhQkcpntpTQg Q7pjBbVbwUXfOdn+PHRh YmxlIHdpZHRoPScxMDAl UlLhlSpdIN7jUo8cAXWa LWNvbGxhcHNlOiBj e1tmCEEkBWvaLZ6hkTda C9TbfMN9EMWnv3e8Bb83 dHI+BXGgJKV5xHeuJZgr w664PiGsb8djDDE1 zIGnFKgbJSF4X10xx6W3 CDSrJCLqOEJ5fPX5vV8u lIxztzyrS1DmlHByAuU8 NMC2eAAdeH9eiScl pvgtpP9iQsq+S77CDD7J NGVGWW4RPah8Y9JiHubr dHI+LF78ALChCY23qIXy rALou6xybSn9IxVg SIRhJQT1zLbfKMqfq7Ti OSQcQ89kgGLre8I1EXAc kEdafGSiSfDliKO6uT8q OPjtyqoki2qevbcr Jlsgu6jmpv84bF34Y38o JYuqSSQgDGU2ZTGqWYHt xPtmvs1vnO7nRl4+IDxj h7vmg8ivsGj9PtHb FJAaulNdwRjyTIM1j2Kv Sa06V6SusMmqe2MaCmg0 kr71rIIco5L5rZP1MUih BUUsrI1iHRiuAwB3 JXBtBiKgiX24cHOzSAiw Op4drVmgoPuvOJ1lKAVd tmggDTDlaW8bWVVctVFj xOnaIV4mLHCvemqg g032LzYtCRI0CUGiwGLq S3ZkaU7bXfXoCGSdHDYq G6GbqUJqPZrlP055NJjt JoU9VVBxtqTnR7Hz SRHlcDwbLpT6d2P6Nw5G k1KfkybiXXD7RKuxKMIe WzA4ZwDdLsZ4Q7ExQia5 LNXivYmnVW7cF0Lr FHWyxvrdecwfgFU5ODFt QDCplO40vGQgOHbtWq7z m4H0h018NQNsLBBgiP79 Kw0plUooNIRedBWM vH5dbvdci9qfdrlzElYb TPXiUNp6FUq8NZKhuAfx VmGhLYA2YxP1MMT1cLKm dB0ksTtqdlxzlJ9b Oyc+Y05qbM3wBEH3TRJ4 srmyFGKnghFbNL91LS33 W8BtNfztsDBkcTY+PGRp rnLjjGgnXP4kUgEz w8jry8OzHEklE6OnSCHh YNjxRml1ZEOaZMV8eKK6 tV6zMASbXMlvw9I1kUV6 R5BmlnGkyb5co8xv SEPpSYopL52axBQsi4I7 NAXaeXT4ZTQnhPfsReJu eL31Ipk+EPDevNglv3Wz Bdxto1fpl6pwkKp1 IjMwJSIgdmFsaWduPSJ0 e7FkBs19A18mINdqUCOn RTQsUDEbHJSbtYlujc1y vA4kYl6+PGNvbCB3 wOV8jI2lGXBvOqG2XQbm G976EuFgrNDsOeuxh6ed k3xwdHo7HdDmHIKinaMt fEiuEQB6w2XaSn33 C85xDOgzMDNdETDbRJKw YZNrbYkvfk1ydA3zQx7+ QX0wh9wusa47oS42dAJ+ TOAwSZH0hMbpZOvt HUIrvU6fHBgoRtF6UDRv HtCfpU93wRNyEKszEu6x kPvuaFrlYG0uQFYtkunq c402EdHoz5upQMPz oFCmDHqdGVL5P49hc6S6 LTItYFPnQLJ7pGH7wA8p bGlnbjogbGVmdDsgdmVy rFbuMGgnOVkzE720 IHRvcDsnPlBhdGllbnQg AdFqLKk6L0KgAcq2ZDKg eAtcPC3idJDtTBwfGs2o bTyfeBgnNU7bXQYz fbxvw176CxJea0jvZYUx sHWnPVocFPP0B86nb7R9 LHUgYPGtYAI0pIO6vM0j bGlnbjogbGVmdDsg fuUzaIghAMaaRSauQ790 IHRvcDsnPkJpcnRoIERh vVN9QW82HG34nTEer6W5 mYZ8W1ArUCKewqqt ycytySC3YEOzGZLqsH92 Eb0krDgwEt7oWHAvIBZ6 MPJlkTXdI6QowG3qHuDb DXVzRQQtM8QzcQVo DTzyF445BMysVeI3AWBb dyIaR6VwBUMowVsyWsI3 w0J8Tz6ZR0Q4QF88JY27 wRJnn0M8fWZ1P6Ri SATxmazgpyfukCN8YEZg ZOEnhD22Rb9cpJmtUv8d BOXoFXF6DXIhnDNiG2Gb iV3tSsKrHEDlVZBh H2WszEPoNCmnB388PTfk MfT6AHBfasEtT3MmXLXc tHnbEwZ4b9H5Ub2OJPf5 IB22SI37rNChj1E7 vLY0G2OuHTCivzwzjasw pKU8YGCxTNGlqE16Nq8z oLcxNu0kXOUiYLX4CEZs dDVxK1LmeK7xAzYy EBHzNFByA4BjpAMdYXvw E154OPhvQhF7LVYxxlEh Z1YdXWBgnByoHrR9b4W6 Cn9ZJVVyFU93TZX3 jOS3UA73LN33I1HpZrjd dGFibGU+PHRhYmxlIHdp ZHRoPScxMDAlJyBzdHls JJ8nQn7dWQXkAIYw lGrvxJHhOkMgx8jzLSDb LFiaHL3jbNohR6IycCS4 DDThv9u1Vo34M74cW2Br dXA+STPvrKP1vMR7 yH5pHxRaSgB6TJavT686 IaQtdJOsWnuax8lxz8dl lDq2RoP7PXDlmfKgqZvf OKR9t3BcQh74T80x IHdpZHRoPSIxNSUiIHZh uAgjos4cxR3nWx9+PGNv vRF5lHW3eH2rDgErAvG2 TXgdC287LgXcqRMa Wasib2ylh0tfsPc7RiPt OUPxcxWuyJgeHXG7r4Rh Fu36O9RyrIxtz9JiQnx7 rn96nXLzn9A3mFF0 Y2HtTZAanwemuNMnrGzb LO1nSNJeofriZKNskH8b FDCyO0o9AcRbZkK9AQyp A4NhwpT1TTRywDKj WVjmAAE8L70cf6E1CNOr VRFrSTP1fWR2mG2rbIjz bjogbGVmdDsgdmVydGlj WOhnZQcoT396MMMx rGewDXXxvC8vFZEelOKf hUztRT3bYQGqllefBujP RVNTTUFOLCBTVEVQSEFO SUUgUjwvdGQ+PHRk LMU2dBtwHAhuMVEnrO6p TULkO2d4IbFiWcA7BPje D2RlQNLjylviVl39zD3z ElJgAaW8AFqlA6Yu jbB1YWAceEBlJIuuLXA6 L12on6I8KGNaMLSdOUE1 jOB1vB0exVjsdufbwQKr dDsgdmVydGljYWwt KTpiN270WIDuqQbzYkM1 BdP6IwJ1Pkv6N9LtZqa3 HPVokHnfJP1crCSbTOsw Sa9ihJympJtmFI0z UPTndggtBNSyzF3tVOVq uICyyAgsXE3cQZWmkdud u581NlQcFSG7FEBquZAn B4MncT9bQaTyEGRu YQTgZ3WdiYAwJUjcF906 WTnfVrV8NPQlhpMlW7Mg PUAnrPaeIjB8c9M9Fd81 MiBZZWFyczwvdGQ+ RAWnPPG6cTbzDLedXMYu eQ8lDWFsZ6b3RwKzLvS7 LSqeK5MiOJMacoekHq62 tD9hIoOpRdN7TKga Y0BozcR4DWSrlNWlDSoy UXI2O47nc1D3MAMuIMHf GXK2jPU2eP5mqFhosytb bGVmdDsgdmVydGlj CFrwTErcD312EWTseHab PkZlbWFsZTwvdGQ+PHRk WVD8yCftIUgeFTOicD9y OOEgS3k4HtZnXrV4 UDmsH7IqMVJcmtefIv65 vK1mIiZtGcJ8LJnrL9Gw zoA3JVJtxJCmWYjoVEZ3 G51ss0A2MBMuWMSs PMZ9dTB2jO8ahDjeoxph bGVmdDsgdmVydGljYWwt UDxvO184ANYajSarDsTy THQpVN6vtXoicAI+ QU83mg61Y5CwZethHsv5 MJWsCAR1eIL8tU6mFCHd VQzkh1F3eJL0V8CnqhQj ms3kg8yyLAFoLSbp N62uuOIvg9R9TITicNR2 RXXwcBksSdSjsW98Rmx+ OWSbrHsaw5GvNmshg1mx t2rnrQh4BrVsNQGi ioKcdCnbFRW5u1LdVc06 I72yVHbnOVRgGYIlVTRb PTWebHevvs0csU8dGb0+ RYJrnVF2oLX0tE8u MiMiBpZ2NNgjY906JtYi vNSwZljhx3fem9assDz2 IjIwJSIgdmFsaWduPSJ0 t6WbDk64P8DueMar m6LoOcq7zp93pFSoo1V3 iGS2L5QwGLVgjfalyCLo pBdzUP5aYWBqigdaDULc qB4fZOObE1h7IiJd QpD4KTplM7VlowA2SIXg cPDwEINxrHLNlJ5wbban y4kntsytOkIkIKVgFJa8 BEd2ERSqyUhlOrMz LTO3RoE3ZGX5cKGfjU9d sUmtnshusM5tCnr+UGh5 g2qndYGwBU7kkMI6TN22 BM73sEEui7X0tIY5 B0ZaXWVfjgpvkamctBO9 DJRnOOIrsR15Dm1crGhh Ch5yRAFrYVF4IGQcgUXj P7KwvD8cKsRiRTSv CMPdP6TsrCXvQCcdH573 XNwyOnJ3FCJxbyRbE6Rc WIJhiPtcHuO4h1X1Nz3R VG94LW84SZ60iTOl v6Q1dJP2U9QbSFIhtdea bltteTU7NTMvTLWtxP49 Od4lwNcqSj6vNCApONU0 MKNekWHuE8QaiU0w MvWoPRBpRVUkO4IakKMc EUylM502SXlvKvC0TFAj dkMjJ7YxCFXodNcwJhL1 s7U6Fn5THj41UC54 MB51eBHhu6Z8sNB3Z4Sg QGAzvjwqlgajkJU5UFSz ZEJwoN36Rq8phAbcOc9l PAYjGTC3TOOijKHd T6VylH2eEySlUMNyMVZr K6MedJDgZIyoO787IVkf CrN5QEQwehUiN3XkNZJn eTwuIbM0v3D8Bo2P ICaonay8T0VpTueaiNP+ NJ81QOLxOU48aCPtkBYj k4kdmVg9CdUuVEYaLDP5 bPdgNPgre2EhNYBl Y29s (more content not included)... [facility] Coding Summary.on 04-07-2021 Coding Summary. CD:[id number]:[id number] Gh0bWw+PGhlYWQ+PE1FV ZHfA79nvHMwmK0KQ4pBD D0GBTBDPHQSGX2CRE6nl GT0FDsxO1IotcZd ZmabbSTmYB28OVa6OPS0 vTzsSSjebH2bhHZaL3t7 LhKzXU31qT64YKlhCYZj YkF8JyFiigscjTUh B9azDrZlwSAsVtu+PHRh YmxlIHdpZHRoPScxMDAl QjTrqEwoDK3qRy7gOVGo LWNvbGxhcHNlOiBj z3xiVCFqNLrkNB0ozAxj U0FvnGF4GFLau3a0Av87 dHI+UWAkSIE0nOpfGHde m290OxSlt1ktFPL0 kRMqTUlvPYD2R54lq7Y5 CXDwJWEtTLZ0xYN0nI2m eDcvjwrzH6IxoTDuWjG8 MLI2hLSsxT4ziKhv glftaV0dCcf+J12UZN0G DUBCRD2WDzj3W4UdYefh dHI+VW70SQBuER61kHKm bGJbn7zvxLf2GmBx FEYfKTQ1oZwnUDawp1Sg NDNqM15yaIDfb0O6RMAm eHutkSBnRpXhlIY2eQ5v XGueqkbph3gafbve Pckib4mhgn85cP69M83a SJtgCQDaHKA7HUMfNKWh hDdzsc9yyI8aRs4+IDxj f8wmc8ddmJo7QcXz VNFeimJjmHouOYF2a8Ai Rf19W5OrhXsww8YzWxd6 xa24oWNmb3M2pFR7XNlh NXMbxE5nVSjcUoV5 SEOvByYwiE47xOOkYXsb Vr5lrFbqoZvyWA9nPOYw mpeeTPXzwJ2eLWKtkTQo iArjUI0jCTRenvsx d447DjAdCZR1CWBziWBw B3NchO5iMeFnGNPtSGQn P8TjqJTsBQfqC955SZwm MiT3HGDuvhJoQ7Ok NZFjiDzrIyP6k9F9Lw2F l4OwrqfuWZX5FWasFSRd RmE4IgYsHhL6C7YxDsl1 CQUoqApfBF9pG2Nv BNGhfvgilijcpND3OKVb IARluY68bCWuWLwaPl4p w6I5j713XIEjPAEbwS88 Xb7kyGcsIHFmvMAJ aP1zwwgqk9avicpeDaBy WVGdZSs7CTp7IIUhtCkm ItHwRZS4PzH7SXR4rLPs bL7ptWygboogeI0p Oyc+K08guF2zOAD4PLF0 iivvRHIcqaXmQE19JH99 T4BkSvxgkKDgoJL+PGRp rjLxlZehGY5wSwSb p1cej8FqGVypX4QrRRCp TMjaXsh3TGBwRDC3sJJ0 qT8bJXVhOWcqb1L1dCO3 L0QbjaUvcy5hu3gx YBGuSPipS99lcGNhu2W6 QPLdfCX3RUKlxJnzYaXu eB91Tyx+CTQdaNfpu8Iv Gketj6koo8gmdYk4 IjMwJSIgdmFsaWduPSJ0 r4MtMg77R64lYRqgZKLf SUFmBNYwAFSbfSrzrx0s uD1iYu8+PGNvbCB3 kGS3nZ0nWKFcYiF3GHbn K731EaSkwVIpRdulw9op s2uxqOk6ZlPmYIMnncKo nJjcUWI2z2EeLm90 U23xQAelWJPzVHPsUGOv WBKjdVjvyd3ciE5pMr2+ VA0ze2udlf93zI32mQT+ ZRFxPXI3rXrdQQqp JKCuxL6bIAhtQvX9TFNg UkXmjZ95qRXpAVeqXg1x dPdauUynFB9wRTNhzpzj e157ErEdf9zoMNQn fGOvJKjmQDN4F64iw3K9 HGFwYNYbMLU2dTA4jC6k bGlnbjogbGVmdDsgdmVy cTtjVHlkFTwpI307 IHRvcDsnPlBhdGllbnQg QnItJOz6W5BnPtz6FPAr ePnvAU7hrAZgTShkLi8r uSjyfTqaPL4hVNLg fykhi061NnAfd9kkYTMx fYLcAJxqETI7Y19ti3I9 IIQvJQWvAMI4cYE0bQ7w bGlnbjogbGVmdDsg skXusOboOJeyHMbkH416 IHRvcDsnPkJpcnRoIERh yLZ2MN96KU55tYUjf8L9 eBZ9G3QcMSOhkghh sxbmdZY6VUZcQDKgeT08 Sv6orIxtCv4vDONoPRA8 JDEvfNUrB8JiwH7nXyNz HGNzYRPkI0KhgRUr EOjgI291PWkyCaP8EXNa hgBdX4DvDRRbeCfpJsL5 u2F6Lr8TL7J2GI40YZ56 yDVnv6C9xXH3E0Tl GBDjbnuxodgnmAE2WKJb BTYnwK37Ue9ziEtrLr4g NCUbOAG6EUJfkURkV1Nx pM7pSyStRKKcGGRg E7UjgVUjLCemG326CQgl EmH6DGUwlgQgC5VsRHAz qLnzMuF1t4U9Mm7UDYh9 EZ60UL00cVStu6R9 mFE4D7OmSVIemntgydbz kCW3GHPvPSAgmZ51Bq5j vRkhQg2gVLTtNPC5HSYa lHMnI4SidB9qNhKd EWWxIKWfI0SxaXWyNVsu O202GQxxDgE8YXTjfwDv H0TqDMFidVapVcA4s5X4 Wd5VCSDrFN99XTV6 jXX0SK36RO68G4UdBtfx dGFibGU+PHRhYmxlIHdp ZHRoPScxMDAlJyBzdHls BT2eJu9wCVJdAMTk nBspmRPtAwIcv3qeVLJn AEgbMT7snRekQ1CcvMG1 VLYgg8b0Fd05I54nJ3Kr dXA+MBJyrFL3oDF5 uK4rImIsBwE3MAseR828 MwWtoQRxBulyy1tey3mu hHr9NyF3NQOkwnBzaKpt KWO4m5SaRo11X89f IHdpZHRoPSIxNSUiIHZh dLnxhu9xqL0rNd4+PGNv wOI6bQT2kW7kPaDbKcC3 QSddT702EbCfeWEq Zzbro2fzl8yegFd1GgPz JEObsrSacAnfRUT0j6Fu Hn22Q3UnqXxad0NmIov6 py92zNAcb6J6sHN0 I1SeYQKxnneevKDfuCwh RJ1fZMKowozrYRJacF3s QDQgX0q7DjApEaY8URcp T4OxzdM4GSVcaTAo XZizOOQ3D59mu1Y9MTYi GFFiXXM4tPD2sG5kqVxb bjogbGVmdDsgdmVydGlj NYdnSEsmI196IBDh lJnuMSWmcV1wAQImrMFb eSncMZ3sKYWgwbmwAmjY RVNTTUFOLCBTVEVQSEFO SUUgUjwvdGQ+PHRk IZC9nVgeSJgdECKtpK3k DFAcV0u9WjMrHlL4IIwh U9FzYOSsgdmtOr61rJ9u HcNdErL5GDalD2So ziU8TGRwaMJrOWnbXOT5 P30wb3K5AIJgDGWoLIT5 yNS7vH6yyOqblyqpgTQu dDsgdmVydGljYWwt FPhnC082CGPxcBxlWhI3 LcE0ChU8Yct8K6NnNip7 XXLunHzbOM5yuVLdGVlx Rh8mrJdfkMtlLK9n JVCcgmuvXWOjdY8qFXUw lQBynGdiCR8aRUSbzvhp u028NrMvRFR4RFExeNWu I6QtwT0sCfDiESJq NREdP3EoiPTwSSnfQ555 BEdaZrA2RNXpjiAmZ6Go CHUpeKmnYmP4o7L5Ft95 MiBZZWFyczwvdGQ+ DDGeBCV0fXwrXYobNRZc vF6tMYHfJ6x3SrChAuM5 SZzoY8DaDYHykgzuCy90 xD7tDhPdZfA2IWbi A5OkahH9MODsmNKdVGlx NEH8D75ns3J8GUZhURNm WKY4hZG7rZ7gnKhkeodh bGVmdDsgdmVydGlj FZgsTIbsG368WXCniPkh PkZlbWFsZTwvdGQ+PHRk QWB9uPryPNivJWLzlT1h VTBqJ4p1MiFpVeO0 CBnlW8FcDFSnrnzrXf19 iR2xZfMdRzH5WQrkB5Rt vfZ7RPPaeFQqZDsrHXO0 M92qf5T6EQBgIHOb QCN2oEI4jS8nhJnezhgu bGVmdDsgdmVydGljYWwt AYclJ643VAAmyRpvXsvk DoKPjg0qFX3rNlsj dGQ+IR19kx44L4ZdHtlt Tep6GIVtCIJ5yYP3iQ2p FJSqEUmub3M2oCE9E3Sv hwOwqp1so1mbKSKc GYblX00mcRIus4R4QIIs cPG0KQLdxIfwPnTtuL76 Oyc+XCEzmIxox9VrKkke v3guk5xuxOj6MjFa RSCxryHlhTgnYIS9i6Tb Dm21M67qGYgkMYJuVQYn QDTqQBMdcHhdys1eaR6c Ii8+BETcpFX1yCC0 hJ8cQkPgXoI9IMxvQ075 SzCviKYyFzotu7lgg0kq hWv6DkRjDSShqaIfmJxa KWP5k0SpMg67J9Ur vQfxx2KkBvc5qo67uOWc z1B9eWN5V4OhTLTlalgj jQAjkNoyEH5gBSUedero EDXdlD0bILPxH5n0 FsUjHxF1DIaeT5ZeryT5 HDXxuPBwBWYbvMBRaC9k syivi5drulkxPrIsIVFa KVf3TNt7HLTwbUxy WdBtIBZ1WeV4YNI5aAIu qZ4afBlarzpzrW7iKrv+ WWs8y2lovGYvGF8bhXL0 WM59QX78nFKab4F3 iUP5O1AmQHSuadwkqikj bMG4DPTgKTNlpF54Wk7a zWouUr5pQLCvHKU1YSCa dXHsA3TqwH8zTxAi PIFbHUYoM3RzxDEjGRif P285WZtuKzS0GPBobpFo U2UlCTFbcYmtUdM2i8C1 Bf1DNV85OB91UA82 yENke9N7eZH8A1JrYAUf xflkdnxviET9JQPvOIWf qW72Rq5hzUgyOf0gRZSi FNT4VOYayTWqF0Nb tD3mSkOmAZJxMTXnR3At pZNyREgdP459HExmZsM8 ZVLsdtZrG8OrPFMbyGrb TpH8t0H3Kc3JVc72 ZF78CG02iXRhh0A3xZQ5 P3IsJBNnsmxjcmrueVS6 WFHoDOMfdV35Ca5oxKqi Qr0tKCSqLUP6MNFk iYAnN4HdjA4yRsUkHWAo JNQpK9WoeLUnXXdxR212 QSgkUiJ8FJRurgHsW7Qu WHNwdNahPrM5z6J3 Nb5XEVbyzxi1H1SyRodu dHI+OM38YSUkKO88qGCh aSBma2mevTp7GwPtRVAi DBM0eEoxZWdiv0Pn ZXIt (more content not included)... Normal [facility] Consent for Treatmenton 03-25 Consent for Treatment [id number] #1.00CD:127 Normal [facility] Physician Orderon 04-05-2021 Physician Order [id number] #1.00CD:127 [facility] XR Chest 2 Viewson XR Chest 2 [...] Arce M.D. Transcribed by: CALIN Technologist: TAYLOR Normal [facility] C Urineon 04-04-2021 Bacteria identified Cx Nom [...] Locations R1: This test was performed at: [place], [address] [place] [address], [address] , , [facility] Comment on above: Performed By: #### 1 [id number], [id number] #### [facility] [address] [place] [address] Consent for Treatmenton Consent for Treatment [id number] #1.00CD:127 Normal [facility] Discharge Instructionson Discharge Instructions [id number] 8#1.00CD:127 Normal [facility] ED Clinical Summaryon 2020 ED Clinical Summary [address] [address] ED Clinical Summary Person Information Name: JOSE AUMERDELILAH/[facility] Age: 41 Years : 1980 Sex: Female Language: [place] PCP: DIA HU Marital Status: Single Phone: [phone] Visit Id: Visit Reason: Cough; Dysuria; COUGH, [...] 04/02/2021 00:42:41 04/02/2021 00:42:41 04/02/2021 00:42:41 ADDRESS: [address] [place] [address] [address] [facility] [id number] PHYS DOC NOTES: MEDICAL INFORMATION: Prescriptions Given: New Medications [facility] 1987, [address] [facility] [place], [place] [id number], [phone] cephalexin (Keflex 500 mg Cap) 1 Capsules [...] In 3 days DIAGNOSIS: Acute UTI Normal [facility] ED Note-Physicianon 04-02-20 ED Note-Physician Basic Information Time Seen: [place] Pino DO 04/01/2021 23:12 Chief Complaint pt c/o burning [...] day(s), # 14 cap(s), Refills(s) 0, Pharmacy: [facility] 1986, 162, cm, 04/01/21 23:22:00 EDT, Height/Length Dosing, [...] Diagnostic Results No qualifying data available. Normal [facility] Comment on above: Result Comment: Elec [...] this condition includes: ? Antibiotic medicine. ? Vdjt-nwo-qffeobw medicines to treat discomfort. ? Drinking enough [...] these instructions at home: Medicines ? Take wpyt-hqf-zggwzvr and prescription medicines only as told by [...] This in (more content not included)... Normal [facility] ED Patient Summaryon 021 ED Patient Summary [place] [id number] Patient Discharge Instructions Person Information Name: DELILAH SANDOVAL Age: 41 Years Arrival Date: 04/01/2021 23:05:18 Discharge Diagnosis: Acute UTI Primary Care Physician: DIA HU Provider Information Primary Provider: [place] Pino DO Advanced Custom Tailor Apprentice:None The exam and treatment you received in the Emergency Department were for an urgent problem and are not intended as complete care. It is important that you follow up with a doctor, nurse practitioner, or physician?s admin assistant for ongoing care. If your symptoms [...] opioids can be used to help relieve umuzfojr-uc-qpwxfp pain and are often prescribed following a [...] be struggling with addiction, tell your health clinical care manager and ask for guidance or call [facility]?S National Helpline at 2-006-696-EQCH. x Source: [place] Department of Health and Human Services/Center for Disease Control & Prevention [place] H (more content not included)... Normal [facility] UA With Cult Reflexon 2020 Bilirubin Ql (U) 1+ Abnormal Negative [facility] Comment on above: Performed By: #### 1 [id number], [id number] #### [facility] [address] [place] [address] Clarity (U) CLOUDY Abnormal Clear [facility] Comment on above: Performed By: #### 1 [id number], [id number] #### [facility] [address] [place] [address] Color (U) RED Abnormal Yellow [facility] Comment on above: Performed By: #### 1 [id number], [id number] #### [facility] [address] [place] [address] Epithelial cells.squamous LM.HPF (Urine sed) [#/Area] 0-2 Normal 0-2 [facility] Comment on above: Performed By: #### 1 [id number], [id number] #### [facility] [address] [place] [address] Glucose Test strip (U) [Mass/Vol] Negative Normal Negative [facility] Comment on above: Performed By: #### 1 [id number], [id number] #### [facility] [address] [place] [address] Hemoglobin Ql (U) 3+ Abnormal Negative [facility] Comment on above: Performed By: #### 1 [id number], [id number] #### [facility] [address] [place] [address] Ketones (U) [Mass/Vol] TRACE Invalid Interpretation Code Negative [facility] Comment on above: Performed By: #### 1 [id number], [id number] #### [facility] [address] [place] [address] [place].plasma/Lit hium.RBC (Bld) [Mass ratio] >75 Abnormal 0-3 [facility] Comment on above: Performed By: #### 1 [id number], [id number] #### [facility] [address] [place] [address] Nitrite Ql (U) Positive Abnormal Negative [facility] Comment on above: Performed By: #### 1 [id number], [id number] #### [facility] [address] [place], [place] [address] pH (U) 6.5 [pH] Invalid Interpretation Code 5.0-9.0 [facility] Comment on above: Performed By: #### 1 [id number], [id number] #### [facility] [address] [place] [address] Protein (U) [Mass/Vol] 3+ Abnormal Negative [facility] Comment on above: Performed By: #### 1 [id number], [id number] #### [facility] [address] [place], [place] [address] Specific gravity (U) [Rel density] 1.025 Invalid Interpretation Code 1.005-1.030 [facility] Comment on above: Performed By: #### 1 [id number], [id number] #### [facility] [address] [place], [place] [address] Type of Urine collection method Clean Catch Normal [facility] Comment on above: Performed By: #### 1 [id number], [id number] #### [facility] [address] [place] [address] Urobilinogen Qn (U) 0.2 {Yvonne'U}/dL Normal 0.0-1.0 [facility] Comment on above: Performed By: #### 1 [id number], [id number] #### [facility] [address] [place] [address] WBC Auto Ql (U) TRACE Abnormal Negative [facility] Comment on above: Performed By: #### 1 [id number], [id number] #### [facility] [address] [place] [address] WBC LM.HPF (Urine sed) [#/Area] 0-5 Normal 0-5 [facility] Comment on above: Performed By: #### 1 [id number], [id number] #### [facility] [address] [place] [address] COVID-19 ([facility])on 03-30-2021 SARS-CoV-2 (COVID-19) RNA EFRAIN+probe Ql (Unsp spec) Not detected Normal Not Detected [facility] Comment on above: Result Comment: This test result should be correlated with clinical presentations and medical history by a healthcare provider to determine its clinical significance. This assay was performed by a reverse transcriptase real-time polymerase chain reaction (rt PCR) method on the [employer] system. This test has been authorized only [...] or revoked sooner. Performed By: #### 2 [id number] ####[facility] [address] [place] [address] SARS-CoV-2 (COVID-19) RNA EFRAIN+probe Ql (Unsp spec) Pass Normal Pass [facility] Comment on above: Performed By: #### 2 [id number] ####[facility] [address] [place] [address] Specimen source Nom (Unsp spec) Nasal Normal [facility] Comment on above: Performed By: #### 2 [id number] ####[facility] [address] [place] [address] Consent for Treatmenton Consent for Treatment [id number] 0#1.00CD:127 Normal [facility] COVID-19 ([facility])on 03-29-2021 Employed in Healthcare NO [facility] Comment on above: Performed By: #### 2 [id number] ####[place] [address] [place] [address] First Test Unknown [facility] Comment on above: Performed By: #### 2 [id number] ####[facility] [address] [place] [address], [place] [address] Hospitalized? NO [facility] Comment on above: Performed By: #### 2 [id number] ####[place] [address] [place] [address] ICU NO [facility] Comment on above: Performed By: #### 2 [id number] ####[place] [address] [place] [address] ? NO [facility] Comment on above: Performed By: #### 2 [id number] ####[facility] [address] [place] [address] Resides in a Congregate Care Setting NO [facility] Comment on above: Performed By: #### 2 [id number] ####[facility] [address] [place] [address] Symptomatic as defined by CDC YES [facility] Comment on above: Performed By: #### 2 [id number] ####[facility] [address] [place] [address] Vital Signs Date Time Vital Sign Value Performing Clinician Facility 05-28-2022 21:53-0500 Body height 162.56 cm EQUIPMENT WASHER Dia Wu Work Phone: [facility] 05-28-2022 21:53-0500 Body temperature 98.1 [degF] EQUIPMENT WASHER Dia Wu Work Phone: [facility] 05-28-2022 21:53-0500 Body weight 122.65 kg EQUIPMENT WASHER Dia Wu Work Phone: [facility] 05-28-2022 21:53-0500 Diastolic blood pressure 81 mm[Hg] EQUIPMENT WASHER Dia Wu Work Phone: [facility] 05-28-2022 21:53-0500 Heart rate 85 /min EQUIPMENT WASHER Dia Wu Work Phone: [facility] 05-28-2022 21:53-0500 Respiratory rate 24 /min EQUIPMENT WASHER Dia Wu Work Phone: [facility] 05-28-2022 21:53-0500 SaO2% (BldA) [Mass fraction] 95 % EQUIPMENT WASHER Dia Wu Work Phone: [facility] 05-28-2022 21:53-0500 Systolic blood pressure 161 mm[Hg] EQUIPMENT WASHER Dia Wu Work Phone: [facility] 05-26-2022 11:55-0500 Body height 162.56 cm Michael Jameson Other [facility] Other 05-26-2022 11:55-0500 Body mass index (BMI) [Ratio] 45.48 kg/m2 Michael Trino Other [facility] Other 05-26-2022 11:55-0500 Body temperature 97.8 [degF] Michael Trino Other [facility] Other 05-26-2022 11:55-0500 Body weight 120.2 kg Michael Jameson Other [facility] Other 05-26-2022 11:55-0500 Diastolic blood pressure 97 mm[Hg] Michael Jameson Other [facility] Other 05-26-2022 11:55-0500 SaO2% (BldA) [Mass fraction] 97 % Michael Jameson Other [facility] Other 05-26-2022 11:55-0500 Systolic blood pressure 143 mm[Hg] Michael Jameson Other [facility] Other 11-20-2021 10:26-0400 Body temperature 97.7 [degF] Raghavendra Rodriguez [facility] 11-20-2021 10:26-0400 Diastolic blood pressure 87 mm[Hg] Raghavendra Rodriguez [facility] 11-20-2021 10:26-0400 Heart rate 95 /min Raghavendra Rodriguez [facility] 11-20-2021 10:26-0400 Respiratory rate 20 /min Raghavendra Rodriguez [facility] 11-20-2021 10:26-0400 SaO2% (BldA) [Mass fraction] 98 % Raghavendra Rodriguez [facility] 11-20-2021 10:26-0400 Systolic blood pressure 185 mm[Hg] Raghavendra Rodriguez [facility] Encounters Encounter Date Encounter Type Care Provider Facility Start: 09-04-2023 End: 09-04-2023 ambulatory Dia Wu Facility:[facility] Start: 09-04-2023 End: 09-04-2023 ambulatory CAROLA LO Not Available Start: 08-22-2023 End: 08-22-2023 ambulatory CAROLA LO Not Available Start: 05-28-2022 End: 05-28-2022 Emergency department patient visit EQUIPMENT WASHER Dia Wu Work Phone: [facility] Start: 05-26-2022 End: 05-26-2022 ambulatory Michael Jameson Other [facility] [employer] Other Start: 05-26-2022 Office outpatient ne w 20 minutes Michael Jameson [facility] [address] Start: 02-16-2022 End: 02-16-[address] CAROLA LO Facility:[facility] Start: 12-02-2021 End: 12-02-[address] CAROLA LO Facility:[facility] Start: 11-29-[address] CAROLA LO Facility :[facility] Start: 11-20-2021 End: 11-20-2021 Emergency department patient visit Raghavendra Rodriguez [facility] Start: 11-18-2021 End: 11-18-[address] CAROLA LO Facility:[facility] Start: 11-15-[address] CAROLA LO Facility :[facility] Start: 11-11-2021 Encounter for preprocedural cardiovascular examination DR CAROLA LO [facility] Start: 11-07-2021 End: 11-08-[address] CAROLA LO Facility:[facility] Start: 11-07-2021 End: 11-08-2021 Encounter for preprocedural cardiovascular examination DR CAROLA LO Facility:[facility] Start: 09-23-2021 End: 09-24-[address] CAROLA LO Facility:[facility] Start: 09-22-2021 End: 09-23-[address] CAROLA LO Facility:[facility] Plan of Treatment Date Care Activity Detail Author Patient referral [facility] Work Phone: Payers Date Payer Category Payer Self-pay [id number] 2020 Unknown [id number] 1979 Unknown [id number] 2.16.84 [id number] 1979 Unknown [id number] 2.16.84 [id number] 1979 Unknown [id number] 2.16.84 0.1.988514.3.579.2.593 1979 Unknown [id number] 2.16.84 0.1.602115.3.579.2.593 1979 Unknown [id number] 2.16.84 0.1.263064.3.579.2.593 1979 Unknown [id number] 2.16.84 0.1.132536.3.579.2.593 1979 Unknown [id number] 2.16.84 0.1.835456.3.579.2.593 1979 Unknown [id number] 2.16.84 0.1.557185.3.579.2.593 1979 Unknown [id number] 2.16.84 0.1.215327.3.579.2.1259 1979 Unknown [id number] 2.16.84 [id number] 1959 Self-pay [id number] Medicare Anthem MCR PFFS [id number] Unknown [id number] 2.16.8 [id number] Social History Date Type Detail Facility Tobacco [facility] Comment on above: Denies. Female [facility] Start: 05-28-2022 Tobacco smoking stat us HIIS Never smoked tobacco (finding) [facility] Start: 1980 Sex Assigned At Female F [facility] Evaluation note 05-26-2022 Note Date & Type [...] (ICD-10 - R03.0) Follow up with pcp. [facility] Other Clinical Note 12-02-2021 Note Date & Type Note Facility 12-02-2021 Note OPERATIVE NOTE OPERATION DATE: 12/02/2021 PROCEDURE: Diandra endometrial ablation. PREOPERATIVE DIAGNOSIS: Menorrhagia. POSTOPERATIVE DIAGNOSIS: Menorrhagia. ANESTHESIA: General. SURGEON: Carola Lo D.O. RESIDENTIAL SERVICE TECHNICIAN: None. BLOOD LOSS: 5 mL. [...] Patient taken to recovery in stable condition. [facility] Signed and Approved by: DR CAROLA LO . 12/15/2021 10:48:00 [facility] Clinical Note 11-22-2021 Note Date & [...] Locations R1: This test was performed at: [place], [address] [place] [address], [facility] , , [facility] Comment on above: Performed By: #### [id number] ####[facility] [address] [place] [address] Evaluation + Plan note 11-20-2021 Note Date & Type Note Facility 11-20-2021 Evaluation + Plan note Diagnostic Tests PendingStrep Screen Culture 11/20/[address] [facility] Hospital Discharge instructions 11-20-2021 Note Date & Type Note Facility 11-20-2021 Hospital Discharg e instructions Patient Education 11/20/2021 11:31:01 Allergic Rhinitis, Adult, Nglj-on-Smig Allergic Rhinitis, Adult Allergic rhinitis is a [...] are lowest. 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 ?If you do go [...] away after you touch household pets. Take kqoh-ubm-mnkzcuo and prescription medicines only as told by [...] 10/11/2011 Document Revised: 09/30/2019 Document Reviewed: 12/31/2018 [employer] Patient Education 2020 [employer]. 11/20/2021 11:31:01 Pharyngitis, Ysqd-cj-Vzui Pharyngitis Pharyngitis is a sore throat (pharynx). This is when there is redness, pain, and swelling in your throat. Most of the time, this condition gets better on its own. In some cases, you may need medicine. Follow these instructions at home: Take wpbi-dhp-nkgzzdo and prescription medicines only as told by [...] 11/27/2008 Document Revised: 05/24/2018 Document Reviewed: 07/17/2017 [employer] Patient Education 2020 [employer]. 11/20/2021 11:31:01 Cough, Adult, Mqvk-gb-Njze Cough, Adult A cough helps to clear [...] Follow these instructions at home: Medicines Take akfd-pbs-uniyuye and prescription medicines only as told by [...] Many things can cause a cough. Take kbca-stf-txpkeqe and prescription medicines only as told by [...] 02/22/2012 Document Revised: 06/30/2019 Document Reviewed: 06/30/2019 [employer] Patient Education 2020 [employer] 11/20/2021 11:31:01 Cool Mist Vaporizer Cool Mist [...] 03/08/2005 Document Revised: 06/28/2017 Document Reviewed: 09/09/2016 [employer] Patient Education 2020 [employer]. Follow Up Care 11/20/2021 10:25:19 With:Dia Wu Address: [address], [facility] [address] [place] [address]- [phone] Business (1) When:11/23/2021 11:10:[address] [facility] Clinical Note 11-18-2021 Note Date & Type Note Facility 11-18-2021 Note OPERATIVE NOTE OPERATION DATE: 11/18/2021 PROCEDURE: D AND C, hysteroscopy with Myosure. PREOPERATIVE DIAGNOSIS: Menorrhagia, thickened endometrium. POSTOPERATIVE DIAGNOSIS: Menorrhagia, thickened endometrium. ANESTHESIA: General. SURGEON: Carola Lo D.O. RESIDENTIAL SERVICE TECHNICIAN: None. SPECIMEN: Endometrial curetting. FINDINGS: [...] to the Recovery Room in stable condition. [facility] Signed and Approved by: DR CAROLA LO . 11/25/2021 08:14:00 [facility] Evaluation note Note Date & Type Note Facility Evaluation note No assessment information availa [facility] Work Phone: History general Narrative - Reported Note Date & Type Note Facility History general Narrative - Reported Type Medical History hypertension Medical History chronic depression Medical History acid reflux Medical History pre-diabetes Surgical History D&C 2006 Surgical History ablasion [facility] Other Hospital course Narrative Note Date & Type Note Facility Hospital course Narrative No data available for this section [facility] Hospital Discharge instructions Note Date & [...] may be related to your metformin dose [facility] Work Phone: Summary Purpose Family History No Family History Records FoundNo Family History Records FoundNo Family History Records FoundNo Family History Records Found Advance Directives No Advanced Directives Records Found Advance Directive Response Recorded Date/ Time Advance Directives No April 7:37pm Chief Complaint and Reason for Visit Chief Complaint vomiting Additional Source Comments INFORMATION SOURCE (unrecogn ized section and content) DATE CREATED AUTHOR 12/01/2021 [facility] DATE CREATED AUTHOR AUTHOR'S ORGANIZ ATION 02/23/2022 [facility] DATE CREATED AUTHOR AUTHOR'S ORGANIZ ATION 09/05/2023 [facility] EPIC DATE CREATED AUTHOR AUTHOR'S ORGANIZ ATION 09/06/2023 [facility] Care Teams (unrecognized sec tion and content) [...] BE BASED ON THE PRIMARY CLINICAL RECORDS. [employer] provides no warranty or guarantee of the accuracy or completeness of information in this document.
== END 2023-09-04 08:32 | disposition home or self-care (01) ==
LOC: LAB 08:31
PROVIDERS: Visit Provider Obstetrics & Gynecology
DX: N92.0 Excessive and frequent menstruation with regular cycle (principal)
CPT/HCPCS: 88305

== ENCOUNTER 2023-10-09 21:32 | Outpatient (REF) | payer OTHER, SELFPAY ==
--- OUTSIDE RECORDS SUMMARY | 2023-10-09 21:37 | XMS_ITS | CCD ---
Author Organization [facility] Care Team Providers Care Pv Design And Installation Technician Name Role Phone Dia Wu Primary Care Physician [phone] TERESA, DR SRIVASTAVA Consulting Unavailable MISC, DR SAINZ Primary Care Unavailable TERESA, DR SRIVASTAVA Admitting Unavailable TERESA, DR SRIVASTAVA Attending Unavailable BELINDA ISLAS Consulting Unavailable MCCORNACK, SANAZ Consulting Unavailable TERESA, DR SRIVASTAVA Admitting Unavailable MISC, DR SAINZ Primary Care Unavailable TERESA, DR SRIVASTAVA Attending Unavailable TERESA, DR SRIVASTAVA Attending Unavailable TERESA, DR SRIVASTAVA Admitting Unavailable MISC, DR SAINZ Primary Care Unavailable TERESA, DR SRIVASTAVA Consulting Unavailable NARTYRELL, SANAZ Consulting Unavailable TERESA, DR SRIVASTAVA Admitting Unavailable MISC, DR SAINZ Primary Care Unavailable TERESA, DR SRIVASTAVA Attending Unavailable TERESA, DR SRIVASTAVA Consulting Unavailable TERESA, DR SRIVASTAVA Admitting Unavailable MISC, DR SAINZ Primary Care Unavailable TERESA, DR SRIVASTAVA Attending Unavailable TERESA, DR SRIVASTAVA Consulting Unavailable TERESA, DR SRIVASTAVA Consulting Unavailable TERESA, DR SRIVASTAVA Admitting Unavailable TERESA, DR SRIVASTAVA Attending Unavailable REQUEST, DR STOCK LISTED Primary Care Unavaila ble TERESA, DR SRIVASTAVA Consulting Unavailable REQUEST, DR STOCK LISTED Primary Care Unavaila ble TERESA, DR SRIVASTAVA Admitting Unavailable TERESA, DR SRIVASTAVA Attending Unavailable TERESA, DR SRIVASTAVA Consulting Unavailable TERESA, DR SRIVASTAVA Admitting Unavailable TERESA, DR SRIVASTAVA Attending Unavailable REQUEST, DR STOCK LISTED Primary Care Unavaila ble AGUBOSIM, CLARENCE Consulting Unavailable PRIYANK MILLER Consulting Unavailable LUIS Wu Primary Care Provider [phone] DO Ernie Vora Emergency Provider Michael Jameson Unavailable CAROLA LO Attending Unavailable CAROLA LO Attending Unavailable Dia Wu Y Primary Care Unavailable Carola Lo Attending Unavailable Carola Lo Admitting Unavailable LUIS Wu Y Primary Care Provider Carola Lo Attending Provider Allergies Allergy Classification Reported Allergen(s) Allergy Type Date of Onset Reaction(s) Facility (3 sources) Penicillin; Translations: [penicillin] Drug Allergy hives, Unknown [facility] (1 source) Sulfonamides (Antibiotic); Translations: [sulfa drugs] Drug [facility] (1 source) Sulfonamides (Antibiotic) Drug allergy (disorder) [facility] (3 sources) Penicillins; Translations: [Penicillins] Allergy to substance 2 Unknown Reaction [facility] (3 sources) Sulfonamides (Antibiotic); Translations: [Sulfa (Sulfonamide Antibiotics)] Allergy to substance 2 Unknown Reaction [facility] (2 sources) Sulfacetamide Drug Allergy 2 [facility] (1 source) Sulfacetamide Drug Allergy 2 [facility] Repository Medications Current Medications Medication Drug [...] 120 mL, Refill(s) 0, [facility], 162, cm, 11/20/21 10:28:00 EDT, Height/Length Dosing, 125, kg, 11/20/21 10:28:00 EDT, Weight Dosing Start Date: 11/20/21 Status: Ordered dicyclomine hydrochloride 10 mg oral capsule (2 sources) Anticholinergic Start: 05-28-2022 take 10 mg by mouth twice daily Dicyclomine Active 10 MG PO Twice daily May 28, 2022 1:00am doxycycline hyclate 100 mg oral capsule (1 source) Tetracycline-class Drug Start: 11-20-2021 take 1 capsule by mouth twice daily doxycycline hyclate 100 mg Cap 100 mg = 1 cap(s), Oral, BID, # 20 cap(s), Refills(s) 0, Pharmacy: [address], [address], cm, 11/20/21 10:28:00 EDT, Height/Length Dosing, 125, kg, 11/20/21 10:28:00 EDT, Weight Dosing Start Date: 11/20/21 Status: Ordered escitalopram 10 mg oral tablet (3 sources) Serotonin Reuptake Inhibitor Start: 02-10-2021 take 10 mg by mouth once daily Escitalopram Oxalate Active 10 MG PO Daily February 10, 2021 12:00am fluticasone propionate 0.05 mg/actuat metered dose nasal [...] day Active lisinopril 10 mg oral tablet (2 sources) Angiotensin Converting Enzyme Inhibitor Start: 02-10-2021 take 10 mg by mouth once daily Lisinopril Active 10 MG PO Daily February 10, 2021 12:00am metFORMIN hydrochloride 500 mg oral tablet (1 source) Biguanide take 1 tablet by mouth once daily metFORMIN HCl 500 MG 1 tablet with a meal Orally Once a day Active montelukast 10 mg oral tablet (1 source) Leukotriene Receptor Antagonist take 1 tablet by mouth every twenty-four hours Montelukast Sodium 10 MG 1 tablet Orally Once a day Active Nasacort Allergy 24HR nasal spray (1 source) Start: 11-20-2021 Nasacort Allergy 24HR nasal spray 1 spray(s), Nasal, Daily, 1 EA, Refill(s) 0, [facility], 162, cm, 11/20/21 10:28:00 EDT, Height/Length Dosing, 125, kg, 11/20/21 10:28:00 EDT, Weight Dosing Start Date: 11/20/21 Status: Ordered omeprazole 20 mg delayed release oral capsule (1 source) Proton Pump Inhibitor take 1 capsule by mouth once daily Omeprazole 20 MG 1 capsule 30 minutes before morning meal Orally Once a day Active ondansetron 4 mg disintegrating oral tablet (2 sources) Serotonin-3 Receptor Antagonist Start: 05-28-2022 take 4 mg by mouth every eight hours Ondansetron Active 4 MG PO Q8H 6 May 28, 2022 1:00am predniSONE 20 mg oral tablet (3 sources) Start: 02-10-2021 take 60 mg by mouth once daily Prednisone Active 60 MG PO Daily 12 February 10, 2021 12:00am Start: 10-10-2018 predniSONE 20 mg Tab See Instructions, 60mg x 3 days 40mg x 3 days 20mg x 3 days then stop, # 18 tab(s), Refills(s) 0 Start Date: 10/10/18 Status: Ordered Completed/Discontinued Medications Medication Drug Class(es) Dates Sig (Normalized) Sig (Original) naproxen 500 mg oral tablet (3 sources) Nonsteroidal Anti-inflammatory Drug Start: 05-07-2019 End: 02-10-2021 take 500 mg by mouth twice daily Naproxen Discontinued 500 MG PO Twice daily May 07, 2019 1:00am February 10, 2021 9:54pm Problems Active Problems Problem Classification Problem Date Documented Da te Episodic/Chronic Chronic obstructive pulmonary disease and bronchiectasis (2 sources) Bronchitis; Translations: [Bronchitis, not specified as acute or chronic] 02-10-2021 Episodic Immunizations and screening for infectious disease (1 source) Encounter for screening for human papillomavirus (HPV); Translations: [ENC SCREENING HUMAN PAPILLOMAVIRUS] Onset: 02-17-2022 Episodic Menstrual disorders (5 sources) Excessive and frequent menstruation with regular cycle; Translations: [EXCESS FREQ MENSTRUATION W/REG CYCL] Onset: 11-24-2021 Chronic Nausea and vomiting (2 sources) Nausea; Translations: [Nausea] 05-28-2022 Episodic Other aftercare (1 source) terminal gauger (current) use of oral hypoglycemic drugs; Translations: [[facility] USE ORAL HYPOGLYCEMIC DX] Onset: 12-06-2021 Episodic Other aftercare (1 source) Other halfway (current) drug therapy; Translations: [OTH DEPARTMENT MGR CURRENT DRUG THERAPY] Onset: 12-06-2021 Episodic Other circulatory disease (1 source) Elevated blood-pressure reading, without diagnosis of hypertension Episodic Other connective tissue disease (2 sources) Synovial cyst of knee; Translations: [Synovial cyst of popliteal space [[place]], unspecified knee] 05-07-2019 Episodic Other female genital disorders (1 source) Abnormal uterine and vaginal bleeding, unspecified; Translations: [ABNORMAL UTERINE VAGINAL BLEED UNS] Onset: 12-06-2021 Chronic Other gastrointestinal disorders (2 sources) Diarrhea; Translations: [Diarrhea, unspecified] 05-28-2022 Episodic Other [...] Results Test Name Value Interpretation Reference Range [facility] 09-04-2023 L Specimen: [id number] Received: 09/05/23-1246 Status: [facility] Num: [id number] Spec Type: Surgical Subm Dr: Carola Lo Tissues: A Endometrium - Biopsy (EMB) Procedures: HE/2, Gross/Micro L4 Age/ Patient Sex Location Account Attending Physician EsashaylaannikaDelilah 43/F LABELL [id number] Carola Lo SPEC NUM: [id number] RECD: 09/05/23 STATUS: GURJIT CHRISTENSEN NUM: [id number] MARCO ANTONIO: 09/04/23- SUBM DR: Carola Lo ENTERED: 09/05/[address]: Litzy,Lab SPEC TYPE: Surgical DEPT: LARRY [...] in one cassette labeled A1. CPT Codes 90315 Specimen: [id number] Received: 09/05/23 Status: GURJIT Andie Num: [id number] Spec Type: Surgical Subm Dr: Carola Lo Tissues: A Endometrium - Biopsy (EMB) Procedures: HE/2, Gross/Micro L4 Patient: Delilah Sandoval [id number] (Continued) Signed (signature on file) Chin-Phill Milan MD 09/06/23 2790 [facility] COVID/FLU RT-PCRon 2 SARS-CoV-2 (COVID-19) RNA EFRAIN+probe Ql (Unsp spec) Negative [employer] Other COVID/FLU RT-PCR Negative [employer] Other Quick Strepon 05-26-2022 S. pyogenes Org specific cx Ql (Throat) Negative [employer] Other Quick Strep [employer] Other PAP ACOG PANEL 2: 30 to 65on 02-23-2022 . . Normal [facility] Comment on above: Result Comment: Perf ormed at: WB Performed By: #### P T, PTT #### [facility] [address] [place] [address] Dr. Kimberley Milan Age Gdln ACOG Testing 30-[address] [facility] Comment on above: Performed By: #### P T, PTT #### [facility] [address] [place] [address] Dr. Kimberley Milan DIAGNOSIS: Comment Normal [facility] Comment on above: Result Comment: NEGA TIVE FOR INTRAEPITHELIAL LESION OR MALIGNANCY. Performed at: WB Performed By: #### P T, PTT #### [facility] [address] [place] [address] Dr. Kimberley Milan HPV Aptima Negative Normal Negative [facility] Comment on above: Result Comment: This nucleic acid amplification test detects fourteen high-risk HPV types (16,18,31,33,35,39,45,51,52,56,58,59,66,68) without differentiation. Performed at: =G Performed By: #### P T, PTT #### [facility] [address] [place] [address] Dr. Kimberley Milan Methodology: Comment Normal [facility] Comment on above: Result Comment: This liquid based ThinPrep(R) pap test was screened with the use of an image guided system. Performed at: WB Performed By: #### P T, PTT #### [facility] [address] [place] [address] Dr. Kimberley Milan Note: Comment Normal [facility] Comment on above: Result Comment: The [...] Performed By: #### P T, PTT #### [facility] [address] [place] [address] Dr. Kimberley Milan Performed by: Comment Normal [facility] Comment on above: Result Comment: Deangelo Bach, Feed In Worker (ASCP) Performed at: WB Performed By: #### P T, PTT #### [facility] [address] [place] [address] Dr. Kimberley Milan Specimen adequacy: Comment Normal [facility] Comment on above: Result Comment: Sati sfactory for evaluation. Endocervical and/or squamous metaplastic cells (endocervical component) are present. Performed at: WB Performed By: #### P T, PTT #### [facility] [address] [address] [address] Kimberley Milan CBC AUTO DIFFon 12-02-2021 BASO # 0.1 103/ul Normal 0.0-0.1 [facility] Comment on above: Performed By: #### C BC #### [facility] [address] [place] [address] Dr. Kimberley Milan Basophils/100 WBC (Bld) 0.7 % Normal 0.2-2.0 [facility] Comment on above: Performed By: #### C BC #### [facility] [address] [place] [address] Dr. Kimberley Milan EO # 0.4 103/ul Normal 0.0-0.7 [facility] Comment on above: Performed By: #### C BC #### [facility] [address] [place] [address] Dr. Kimberley Milan Eosinophils/100 WBC (Bld) 3.6 % Normal 0.9-7.0 [facility] Comment on above: Performed By: #### C BC #### [facility] [address] [place] [address] Dr. Kimberley Milan Erythrocyte distribution width (RBC) [Ratio] 16.1 % Critically high 11.0-15.0 [facility] Comment on above: Performed By: #### C BC #### [facility] [address] [place] [address] Dr. Kimberley Milan Hematocrit (Bld) [Volume fraction] 33.7 % Critically low 36.0-48.0 [facility] Comment on above: Performed By: #### C BC #### [facility] [address] [place] [address] Dr. Kimberley Milan Hemoglobin (Bld) [Mass/Vol] 10.2 g/dL Critically low 12.0-16.0 [facility] Comment on above: Performed By: #### C BC #### [facility] [address] [place] [address] Dr. Kimberley Milan IG # 0.03 10e3/ul Normal 0.00-0.03 [facility] Comment on above: Performed By: #### C BC #### [facility] [address] [place] [address] Dr. Kimberley Milan IG % 0.3 % Normal 0.0-0.5 [facility] Comment on above: Performed By: #### C BC #### [facility] [address] [place] [address] Dr. Kimberley Milan LYMPH # 2.3 103/ul Normal 1.2-3.8 [facility] Comment on above: Performed By: #### C BC #### [facility] [address] [place] [address] Dr. Kimberley Milan Lymphocytes/100 WBC (Bld) 23.2 % Normal 20.5-60.0 [facility] Comment on above: Performed By: #### C BC #### [facility] [address] [place] [address] Dr. Kimberley Milan MANUAL DIFF REQ NO Normal [facility] Comment on above: Performed By: #### C BC #### [facility] [address] [place] [address] Dr. Kimberley Milan MCH (RBC) [Entitic mass] 24.8 pg Critically low 26.7-34.0 [facility] Comment on above: Performed By: #### C BC #### [facility] [address] [place] [address] Dr. Kimberley Milan MCHC (RBC) [Mass/Vol] 30.3 g/dL Normal 29.9-35.2 [facility] Comment on above: Performed By: #### C BC #### [facility] [address] [place] [address] Dr. Kimberley Milan MCV (RBC) [Entitic vol] 82.0 fL Normal 81.0-99.0 [facility] Comment on above: Performed By: #### C BC #### [facility] [address] [place] [address] Dr. Kimberley Milan MONO # 0.8 103/ul Normal 0.3-0.8 [facility] Comment on above: Performed By: #### C BC #### [facility] [address] [place] [address] Dr. Kimberley Milan Monocytes/100 WBC (Bld) 8.0 % Normal 1.7-12.0 [facility] Comment on above: Performed By: #### C BC #### [facility] [address] [place] [address] Dr. Kimberley Milan NEUT # 6.4 103/ul Normal 1.4-6.5 [facility] Comment on above: Performed By: #### C BC #### [facility] [address] [place] [address] Dr. Kimberley Milan Neutrophils/100 WBC (Bld) 64.2 % Normal 43.0-75.0 [facility] Comment on above: Performed By: #### C BC #### [facility] [address] [place] [address] Dr. Kimberley Milan Platelet mean volume (Bld) [Entitic vol] 9.9 fL Normal 9.5-13.5 [facility] Comment on above: Performed By: #### C BC #### [facility] [address] [place] [address] Dr. Kimberley Milan PLT 297 103/ul Normal 150-450 [facility] Comment on above: Performed By: #### C BC #### [facility] [address] [place] [address] Dr. Kimberley Milan RBC 4.11 106/ul Critically low 4.20-5.40 [facility] Comment on above: Performed By: #### C BC #### [facility] [address] [place] [address] Dr. Kimberley Milan WBC 10.0 103/ul Normal 4.0-11.0 [facility] Comment on above: Performed By: #### C BC #### [facility] [address] [place] [address] Dr. Kimberley Milan POINT OF CARE GLUCOSEon 11-23 Glucose [Mass/Vol] 117 mg/dL Critically high 74-106 T [facility] Comment on above: Performed By: #### P OCGLUC #### [facility] [address] [place] [address] Dr. Kimberley Milan PREG QUANT HCGon 12-02-2021 HCG QUANT <1 Normal [facility] Comment on above: Performed By: #### P REGQNT #### [facility] [address] [address] [address] Kimberley Milan HCG RANGE SEE BELOW Normal [facility] Comment on above: Result Comment: 5-50 0-1 WEEK 40-300 1-2 WEEKS 100-1,000 2-3 WEEKS 500-6,000 3-4 WEEKS 5,000-200,000 1-2 MONTHS 10,000-100,000 2-3 MONTHS 3,000-50,000 2ND TRIMESTER 1,000-50,000 3RD TRIMESTER Performed By: #### P REGQNT #### [facility] [address] [address] [address] Kimberley Milan ED Note-Physicianon 12-02-19 ED [...] [address], Harriet [address], [address] [place] [address] [phone] Business (1) Additional Instructions: Patient Educatio (more content not included)... Normal [facility] Comment on above: Result Comment: Elec tronically Signed By: Dana Wong PA-C\.br\Date and Time Signed: 11/20/21 11:25 EDT\.br\Electronically Co-Signed By: Raghavendra Rodriguez MD\.br\Date and Time Co-Signed: 12/01/21 07:12 EDT Coding Summary.on 11-29-2021 Coding Summary. CD:[id number] Gh0bWw+PGhlYWQ+PE1FV GJrU45ihKTraJ0LP6gSK V6YAUBIGNAVLZ5IYU8yr NR3VQcwE6JrouPs AlyzeLXdWK90MSx5LTX9 xZioSLvvxS8ecKCqV8l0 OpRvGH07kB83SUtnNOIn MzJ0QmQxfhcubITn A8ghFqCbiZCuNln+PHRh YmxlIHdpZHRoPScxMDAl PuPqiJcbPO6mFq5yPSVt LWNvbGxhcHNlOiBj x0ehRUAkBPmeIO8opUlv R8UuzMX2BTJro0v4Ra18 dHI+TGLmMUG7kXhkKEbf x883EoUsv6zxHBV9 hYWqVGjoNCU2D88za9B2 SBMgNUVtKBE8wCA7eK4z rQvngtywT1JhlUFkEhZ4 RYR1qAEmsW2kzMqu eengvA6kClv+H68ZWB5V BHAEJC9QJle9F0FqVzkh dHI+DR12QFGbLK73cZCx gJXli5jqaJw5LtLg CLRhZLG2fMhgOUuah1Se SNAlL98hrMXtx9Z3VDPe kGsohSHtPsDldYO0tC6a LHuhngctl2cgykms Ilgbp7xpld94lT16P91k JWjrMLCfIHQ3ZTChDIFv gQoulo4tcP2uEq4+IDxj j4mof8wfxBk1LsFr JVGaefXdhNecDHD4d4Fb Eq13S3PdaXpko4KxDpk2 um67cEQyn4C4uAP7BFwf OZElhT4qEDgeSkQ2 EVPaUjFzsQ87lLRnSWfx Ej7piGuafXxkNK7hXGRy xnlhMKUnpF8aCATjnVOm dBjtYU6pQLIgnhpj u881LmWwLIQ0HZDslCMc P7XwwU9vXvJdQWMhKNAo V0TkxEQmAUimT610LIbq DrU2WBJldwZqR4Nf EWAesPhfEkP9o7Z8Km0O f2XrgjtfDGZ5SBwsLQE6 AzG7HeVcOaC1Q9JkHjx7 IHPaiUvvSQ1vN8Fm JVPsiirgfldzyAV1SVKa GHXcsL38sGReKBmeDc6o t3F8q972YZArZVEpnE76 Ko7taHbgZEIsuWJR sE1nnkjqh9zrdzklReEx CZEqHLe4AEk2CUZqsIce LwKdUSZ1RcT1YWG7aVZt gJ5xqGtbgqhbmJ4t Oyc+B72ouC1hFQI5JGC2 clbrZALekeViAM07WU19 E6KhTcfhtPHqcIF+PGRp zwHalGplNK5iLbGf l0ger7VsRHqbB8QkMOPg IPavZmt8KCCoTIX0xVE4 hZ4oCHHpZIjqg6P3lKK2 S1ZiiiMsri1ml6zy AQQjVLfnN79wjAWje6N9 RDDrhMK3EZDocLlnGhUz yG63Kyx+FMPtbWlxq2Ie Mqqoo1uby6cahQy5 IjMwJSIgdmFsaWduPSJ0 f8XjTt22P61cFKglPITj ZTZpCLLsFRZbfVjwng8b uP2pNm9+PGNvbCB3 bYN3wF6hLVHkBoR1JMil S325CxWmdZNaAldaw9mv i6czrSr6OiUfXFCdlvAc fKdaJVY0d2BwEt96 W08iJQxlIUVeWTYzWKBx BFTbtMnuoc3weR1oGr3+ LL1rc7pseo76kD36wNX+ RCSkGOJ0dKgmIRcf LPDznT9nAVmcPdJ0HBBi ZrJpuK29fHEkAUhnPb7r qNbpnGvdBS1eOMHeqaam u874OdWqi0qlKRLr rTPzQIcdOBL9Z85eb1C4 VWZhOCLdQNU2xTK0uA1k bGlnbjogbGVmdDsgdmVy jBjlKOukZYdhK237 IHRvcDsnPlBhdGllbnQg TgGsDVs3O6JaWzm9TZCn wPhtSO8bsHUiDOkkMy2d lXswzKlfGB3yFBTy sinsa034XzXxb1xoYLOw hICmZZazTDS2T34wd4X7 QFUnFCGbUJT5lMA5oC4e bGlnbjogbGVmdDsg lkGotRbkIPymNAmnF573 IHRvcDsnPkJpcnRoIERh jVV2AX04SY60nLSfq7Y8 nUN4Y3GyZLKbcpxa rflrjMQ4HAYeSIPdfC38 Yq3usEkuFa4iVDVdDOK7 OXPtzBShZ1JmjD0fOfRj KEIcMQUgM0TbzLAf ROacD843JWsjAtH1QFHv rqSoT3YzTQHrpOrmVqZ6 m7W5Yd2UT5C8KU98YO44 eDLjs6L8rQI5J5Rk TPTaoeykhpjfcDT7NXSc WNHsaV63Mw8orXnvTu2o EMVeKDJ7VMNjrPQhX2Xm cR4dOnOvFHQpNVSw N2DmbYRdCPfuU887ZNwb LcQ9ASLjqkWdK7MyBYIh uVewRgM7a2A8Io7DUVs9 RH23IK54mQAuu5V8 jLI8P5WiFVSgeoleesfj yHB8XOBdQWIlyC13Xa9r wOxsBh1sCGAnTIT5LJIu jUJzA3QwzV8zMvYf FZYhFZSyH0MwoRSjESrq F021RXeiPaY8UOYwmvQi E3OqPQJprDudTwL3v7N4 Jq8RFKDiWC74LNS8 kTH9OO42FW09L6IqVxoq dGFibGU+PHRhYmxlIHdp ZHRoPScxMDAlJyBzdHls BO7gTq3pLFUySAPh kZkstYKpNvAet9dnVTRx XDzlXM7txPvtE9YlkGH0 WTMsz0k3Sq77A28eR4Jo dXA+CLRbkPD4sNM4 aB0jSbToFvP8CFydF805 MgAqxGBcYwdav1fcd0jp zUy4IxT4AJYpdjWxfLps HQV8d2AuGg40V58p IHdpZHRoPSIxNSUiIHZh aEduan7ccZ6aVi2+PGNv tCA1bIR9nU0tHtJhSyI6 RVkdT909FsAajGCb Meqaa4orj0cdkCa6HbTg RWYtaiHxxBoiIER8x1Yx Ov12Z3ZnuEsyt8KlNqb5 gi16eUIrd2J1uQN3 K3IfUIYyhslrgOBkyXpx DT2zOJPscpqlLLKxaR4z KHRiM6u8IoOlTtN6HJqn K0AmnjD0XHRuoHFf OTveZJY1Q95cx5J7XRVk ELAqSTO0bVK3uV9zsCyv bjogbGVmdDsgdmVydGlj CTlsJXjxA079NZDd kPgiLCNisQ8bHIOwlDGd lXobKZ2oBVFpgjikAbxH RVNTTUFOLCBTVEVQSEFO SUUgUjwvdGQ+PHRk RSY5vKtxWGpuVTHxwP5z AHCsH8j7NgIqKhG6GBvx F8SwSFEocpfhUt22sT8y SjJvAqW7FOczB1Jz hjO9FPRhyBYoCAjrISF2 L09gu5R0FNCdJLPuVGD8 jPY4mS0sjNznrohvdULz dDsgdmVydGljYWwt FWvrY643MIRkjLcgYnQ9 GzL4GsR9Inv7K4MkVzi4 LZUhgHpeVB9avCErPTcb Yn1geDfojSijZZ9y CGHvyymjKOSdbZ0cYCXm aMZlnHynXA1cHFQkiunq y727TzQnUBT4YHVshFNx B4ZwdU1kAqQyRQVv WHBzZ8KleWIjPElqQ037 HYegMtE3ASRbjnOnP2Ml KKTogFvxKcD5l6Y0Eh50 MiBZZWFyczwvdGQ+ DXRyHYS2aZnmQUpxOOXz qB0kEANxW3j4DxZuPwZ2 EZsmQ2IqGIBudoyfGi80 kV7tJzPbClX5IYox H7XssuU6YODvbPFaIDwa FUU1Q96qu2T3XCDeQNAf AWH5sWG9dO1agEfscoki bGVmdDsgdmVydGlj MGasUGzyG485GXQkoHgd PkZlbWFsZTwvdGQ+PHRk EKL2uYgaYUvtKFOleG1j INBvC5f2EpAjJgP3 PQqvZ4LsZCQdsnclHg50 pR0oNyHbAcS8OOcpO9Wz ghN3KRGllARvAXuhNWC5 N07ru7L6SGLxMJNc USK1hPH2sT7xhYihihrs bGVmdDsgdmVydGljYWwt TTapX720GHMoaMsxHfXs LMTiTF9nlKhusAZ+ AT06wp51G8BwJomtOok1 FNOlHPM9uAD7gB6aBWGd ZBdam4N3qMM9O8FopwYl dp3ga7vrEXMpNHrh J46xmSKwg8B8NCRlbJF2 USJftTccGmRqiD61Gzv+ KIFmvQzgq6WxSqcki5oa f4dclRf4EpAfOXJx ckFyvTjlCTF4v6IxTm86 Y39nAUysCVHxOTDtMFHn JPLtjDcdqh4zwQ3tLg7+ VYMkuAX2pHK2fJ2y HpXwEtI9XGqlQ107ViWe sTJdTdhjb5shc0syvLh3 IjIwJSIgdmFsaWduPSJ0 c3ZhNy59F2BbrDfq h2CwXxl8jz48iNEyc9H1 bTS1D7NyQQJmwjyuzFMg oZzlDA1xKBLnejefUXId kH4eCOXgV2m4QrUv TvF8JYmyP8BefmJ4NXJb xQXuYDErfIUVdV7etkki d0iipsgwQyLpNHPpZEl5 HSy9DSUipIxoWnTb KNZ2PbZ2XTR9fKAtwS2v fTntcenrkH4kKkb+UGh5 g0ygyZNuXM1zcJK1WJ22 AO12bTLcl0F3zCD4 G6FeQQGzvuhtevuduVA7 TWNgODTpeT19Bz4roMrs Xz2fIDCjBGZ1DEBiqQDu R5QwmP1lNlYyIRGq SHDiJ0IrmRYfXWztX245 LCfyOhE0FOVqpaPuC3Bl ATPwbDseGyX7p5W4Dn3N SJ75XC44BR96rPPx k9P8xMH5C1PuAEQsfigg fitopEN3EDWpSBQhzP86 Qw1kqTuzMo0lMILuMYV3 DBKcjMRrR8AtuM6q RnKqRMFmOXPpQ7QaqSLe TAhiT153DThpGhJ0BLUz avKhI1GeEWXzgXjiKhS3 h1E0Bl5PJi82AF68 EK35xAKdc9X2uMC6E5Zm YHZjvwyqflulmON1BBQf WYAqiH13Wg9wbXfsOj5q RAMqKIF2TXAdvLOr E8JwdS2aLdPaLKMhUTXp G6QarVTtPVxhU647WYnb MaW6ODNpszRdL3RmKBKv dWynTzD7q3W5Ta3B VFvberr7O3YgOvdszGA+ DY77IRXtVM97xFRbzFIr b9qqfAp8OlSiWTQmXNR5 lNiyYKaho6ZqIXZb Y29s (more content not included)... Normal [facility] Consent for Treatmenton 10-24 Consent for Treatment [id number] #1.00CD:127 Normal [facility] Discharge Instructionson Discharge Instructions [id number] 8#1.00CD:127 Normal [facility] ED Clinical Summaryon 2021 ED Clinical Summary [place] [id number] ED Clinical Summary Person Information Name: DELILAH SANDOVAL Danielle/[facility] Age: 41 Years : 1980 Sex: Female Language: Puerto Rican PCP: Dia Wu CNP Marital Status: Single Phone: [phone] Visit Id: Visit Reason: Sinus Pain/Congestion; Throat [...] 11/20/2021 11:31:01 11/20/2021 11:31:01 11/20/2021 11:31:01 ADDRESS: [address] [place] [address] [address] [facility] [phone] PHYS DOC NOTES: MEDICAL INFORMATION: Prescriptions Given: New Medications [facility], [address] [place], [place] [id number], [phone] brompheniramine/dext romethorphan/PSE (Bromfed DM oral syrup) 5 [...] PATIENT EDUCATION INFORMATION: Instructions: Allergic Rhinitis, Adult, Wxpm-ly-Uoen; Pharyngitis, Qkii-lm-Ghxc; Cough, Adult, Dybb-po-Pijc; Cool Mist Vaporizer Follow up: With: Address: When: Harriet Rosado, [facility] [address] [place] [phone] Business (1) In 3 days 11/23/2021 DIAGNOSIS: 1:Acute rhinitis; 2:Pharyngitis Normal [facility] ED Patient Education Noteon 11-20-2021 ED [...] are lowest. This is usually during the vest front presser or evening hours. ? If you do [...] after you touch household pets. ? Take cjpd-ujm-nrdgegi and prescription medicines only as told by [...] 10/11/2011 Document Revised: 09/30/2019 Document Reviewed: 12/31/2018 [employer] Patient Education ? 2020 [employer] Cough, Adult A cough helps to [...] lung ( (more content not included)... Normal [facility] ED Patient Summaryon 022 ED Patient Summary [address] [address] Patient Discharge Instructions Person Information Name: DELILAH SANDOVAL Age: 41 Years Arrival Date: 11/20/2021 10:24:38 Discharge Diagnosis: 1:Acute rhinitis; 2:Pharyngitis Primary Care Physician: Dia Wu CNP Provider Information Primary Provider: [employer] Dealer:None The exam and treatment you received in the Emergency Department were for an urgent problem and are not intended as complete care. It is important that you follow up with a doctor, nurse practitioner, or physician?s certified surgical first assistant for ongoing care. If your symptoms [...] Instructions: With: Address: When: Dia Wu [address], [facility], [place] [id number] [phone] Business (1) In 3 days 11/23/2021 In the event that this physician does not participate in your insurance network, please consult with your insurance company to find a nearby participating provider. Patient Education Materials: Allergic Rhinitis, Adult, Ynvj-ek-Toth; Pharyngitis, Krkb-kq-Fksp; Cough, Adult, Wnig-ig-Fbce; Cool Mist Vaporizer A MESSAGE TO ALL PATIENTS REGARDING OPIOIDS PRESCRIPTION OPIOIDS: WHAT YOU NEED TO KNOW Prescription opioids can be used to help relieve udzqemfi-jd-vjpoim pain and are often prescribed following a [...] be struggling with addiction, tell your health health care marketing manager and ask fo (more content not included)... Normal [facility] MICRO OTHER TESTSOrdered By: Keyanna Nguyen on 11-20-2021 S. pyogenes Ag IA.rapid Ql (Throat) Negative (11/20/21 10:35 AM) Normal Negative [facility] Man Sero Rapid Strep w/rfxon 11-21-19 S. pyogenes Ag IA.rapid Ql (Throat) Negative Normal Negative [facility] Comment on above: Performed By: #### 2 [id number] ####[facility] [id number] [place] [address] CBC AUTO DIFFon 11-18-2021 BASO # 0.1 103/ul Normal 0.0-0.1 [facility] Comment on above: Performed By: #### C BC #### [facility] [address] [place] [address] [address] Kimberley Milan Basophils/100 WBC (Bld) 0.6 % Normal 0.2-2.0 [facility] Comment on above: Performed By: #### C BC #### [facility] [address] [place] [address] Dr. Kimberley Milan EO # 0.3 103/ul Normal 0.0-0.7 [facility] Comment on above: Performed By: #### C BC #### [facility] [address] [place] [address] [address] Kimberley Milan Eosinophils/100 WBC (Bld) 3.3 % Normal 0.9-7.0 [facility] Comment on above: Performed By: #### C BC #### [facility] [address] [place] [address] Dr. Kimberley Milan Erythrocyte distribution width (RBC) [Ratio] 16.5 % Critically high 11.0-15.0 [facility] Comment on above: Performed By: #### C BC #### [facility] [address] [place] [address] Dr. Kimberley Milan Hematocrit (Bld) [Volume fraction] 35.7 % Critically low 36.0-48.0 [facility] Comment on above: Performed By: #### C BC #### [facility] [address] [place] [address] Dr. Kimberley Milan Hemoglobin (Bld) [Mass/Vol] 10.7 g/dL Critically low 12.0-16.0 [facility] Comment on above: Performed By: #### C BC #### [facility] [address] [place] [address] Dr. Kimberley Milan IG # 0.02 10e3/ul Normal 0.00-0.03 [facility] Comment on above: Performed By: #### C BC #### [facility] [address] [place] [address] Dr. Kimberley Milan IG % 0.2 % Normal 0.0-0.5 [facility] Comment on above: Performed By: #### C BC #### [facility] [address] [place] [address] Dr. Kimberley Milan LYMPH # 2.2 103/ul Normal 1.2-3.8 [facility] Comment on above: Performed By: #### C BC #### [facility] [address] [place] [address] Dr. Kimberley Milan Lymphocytes/100 WBC (Bld) 27.2 % Normal 20.5-60.0 [facility] Comment on above: Performed By: #### C BC #### [facility] [address] [place] [address] Dr. Kimberley Milan MANUAL DIFF REQ NO Normal [facility] Comment on above: Performed By: #### C BC #### [facility] [address] [place] [address] Dr. Kimberley Milan MCH (RBC) [Entitic mass] 24.9 pg Critically low 26.7-34.0 [facility] Comment on above: Performed By: #### C BC #### [facility] [address] [place] [address] [address] Kimberley Milan MCHC (RBC) [Mass/Vol] 30.0 g/dL Normal 29.9-35.2 [facility] Comment on above: Performed By: #### C BC #### [facility] [address] [place] [address] Dr. Kimberley Milan MCV (RBC) [Entitic vol] 83.0 fL Normal 81.0-99.0 [facility] Comment on above: Performed By: #### C BC #### [facility] [address] [place] [address] Dr. Kimberley Milan MONO # 0.7 103/ul Normal 0.3-0.8 [facility] Comment on above: Performed By: #### C BC #### [facility] [address] [place] [address] Dr. Kimberley Milna Monocytes/100 WBC (Bld) 8.6 % Normal 1.7-12.0 [facility] Comment on above: Performed By: #### C BC #### [facility] [address] [place] [address] Dr. Kimberley Milan NEUT # 5.0 103/ul Normal 1.4-6.5 [facility] Comment on above: Performed By: #### C BC #### [facility] [address] [place] [address] Dr. Kimberley Milan Neutrophils/100 WBC (Bld) 60.1 % Normal 43.0-75.0 [facility] Comment on above: Performed By: #### C BC #### [facility] [address] [place] [address] Dr. Kimberley Milan Platelet mean volume (Bld) [Entitic vol] 9.9 fL Normal 9.5-13.5 [facility] Comment on above: Performed By: #### C BC #### [facility] [address] [place] [address] Dr. Kimberley Milan PLT 341 103/ul Normal 150-450 [facility] Comment on above: Performed By: #### C BC #### [facility] [address] [place], [place] [id number] Dr. Kimberley Milan RBC 4.30 106/ul Normal 4.20-5.40 [facility] Comment on above: Performed By: #### C BC #### [facility] [address] [address] [address] Kimberley Milan WBC 8.3 103/ul Normal 4.0-11.0 [facility] Comment on above: Performed By: #### C BC #### [facility] [address] [place] [address] [address] Kimberley Milan POINT OF CARE GLUCOSEon 10-24 Glucose [Mass/Vol] 125 mg/dL Critically high 74-106 T [facility] Comment on above: Performed By: #### P OCGLUC #### [facility] [address] [place] [address] Dr. Kimberley Milan PREG HCG QUALon 11-18-2021 , QUAL Negative Normal NEGATIVE [facility] Comment on above: Performed By: #### P T, PTT #### [facility] [address] [place] [address] Dr. Kimberley Milan US PELVIS TRANSVAGon 022 [...] favored left ovary. Electronically authenticated by: SANAZ MIGUELTYRELL Date: 2021-09-24 11:58 Normal [facility] CBC W MANUAL DIFFon 09-23-19 22 ATYPICAL LYMPH # Normal [facility] Comment on above: Performed By: #### P T, PTT #### [facility] [address] [place] [address] Dr. Kimberley Milan ATYPICAL LYMPH % Normal [facility] Comment on above: Performed By: #### P T, PTT #### [facility] [address] [place] [address] Dr. Kimberley Mlian BAND # 0.0 103/ul Normal 0.0-0.3 [facility] Comment on above: Performed By: #### P T, PTT #### [facility] [address] [place] [address] Dr. Kimberley Milan BAND % 0 % Normal 0-5 [facility] Comment on above: Performed By: #### P T, PTT #### [facility] [address] [place] [address] Dr. Kimberley Milan BASOM # 0.00 103/ul Normal 0.00-0.10 [facility] Comment on above: Performed By: #### P T, PTT #### [facility] [address] [place] [address] Dr. Kimberley Milan BASOM % 0.0 % Critically low 0.2-2.0 [facility] Comment on above: Performed By: #### P T, PTT #### [facility] [address] [place] [address] Dr. Kimberley Milan BLAST # Normal [facility] Comment on above: Performed By: #### P T, PTT #### [facility] [address] [place] [address] Dr. Kimberley Milan BLAST % Normal [facility] Comment on above: Performed By: #### P T, PTT #### [facility] [address] [place] [address] Dr. Kimberley Milan CORRECTED WBC Normal 4.0-11.0 [facility] Comment on above: Performed By: #### P T, PTT #### [facility] [address] [place] [address] Dr. Kimberley Milan EOS # 0.12 103/ul Normal 0.00-0.70 [facility] Comment on above: Performed By: #### P T, PTT #### [facility] [address] [place] [address] Dr. Kimberley Milan EOS% 2.0 % Normal 0.9-7.0 [facility] Comment on above: Performed By: #### P T, PTT #### [facility] [address] [place] [address] Dr. Kimberley Milan HCT 33.9 % Critically low 36.0-48.[address] [facility] Comment on above: Performed By: #### P T, PTT #### [facility] [address] [place] [address] Dr. Kimberley Milan HGB 10.2 g/dl Critically low 12.0-16.[address] [facility] Comment on above: Performed By: #### P T, PTT #### [facility] [address] [place] [address] Dr. Kimberley Milan LYMPHM # 1.51 103/ul Normal 1.20-3.80 [facility] Comment on above: Performed By: #### P T, PTT #### [facility] [address] [place] [address] Dr. Kimberley Milan LYMPHM% 26.0 % Normal 20.5-60.0 [facility] Comment on above: Performed By: #### P T, PTT #### [facility] [address] [place] [address] Dr. Kimberley Milan MCH 24.3 pg Critically low 26.7-34.[address] [facility] Comment on above: Performed By: #### P T, PTT #### [facility] [address] [place] [address] Dr. Kimberley Milan MCHC 30.1 g/dl Normal 29.9-35.2 [facility] Comment on above: Performed By: #### P T, PTT #### [facility] [address] [place] [address] Dr. Kimberley Milan MCV 80.9 fL Critically low 81.0-99.[address] [facility] Comment on above: Performed By: #### P T, PTT #### [facility] [address] [place] [address] Dr. Kimberley Milan METAMYELOCYTE # Normal [facility] Comment on above: Performed By: #### P T, PTT #### [facility] [address] [place] [address] Dr. Kimberley Milan METAMYELOCYTE % Normal [facility] Comment on above: Performed By: #### P T, PTT #### [facility] [address] [place] [address] Dr. Kimberley Milan MONOM# 0.58 103/ul Normal 0.30-0.80 [facility] Comment on above: Performed By: #### P T, PTT #### [facility] [address] [place] [address] Dr. Kimberley Milan MONOM% 10.0 % Normal 1.7-12.0 [facility] Comment on above: Performed By: #### P T, PTT #### [facility] [address] [place] [address] Dr. Kimberley Milan MPV 9.8 fL Normal 9.5-13.5 [facility] Comment on above: Performed By: #### P T, PTT #### [facility] [address] [place] [address] Dr. Kimberley Milan MYELOCYTE # Normal [facility] Comment on above: Performed By: #### P T, PTT #### [facility] [address] [place] [address] Dr. Kimberley Milan MYELOCYTE % Normal [facility] Comment on above: Performed By: #### P T, PTT #### [facility] [address] [place] [address] Dr. Kimberley Milan NRBC Normal [facility] Comment on above: Performed By: #### P T, PTT #### [facility] [address] [place] [address] Dr. Kimberley Milan PLT 346 103/ul Normal 150-450 [facility] Comment on above: Performed By: #### P T, PTT #### [facility] [address] [place] [address] Dr. Kimberley Milan RBC 4.19 106/ul Critically low 4.20-5.40 [facility] Comment on above: Performed By: #### P T, PTT #### [facility] [address] [place] [address] Dr. Kimberley Milan RDW 14.9 % Normal 11.0-15.0 [facility] Comment on above: Performed By: #### P T, PTT #### [facility] [address] [place] [address] Dr. Kimberley Milan SEG # 3.60 103/ul Normal 1.40-6.50 [facility] Comment on above: Performed By: #### P T, PTT #### [facility] [address] [place] [address] Dr. Kimberley Milan SEG % 62.0 % Normal 43.0-75.0 [facility] Comment on above: Performed By: #### P T, PTT #### [facility] [address] [place] [address] Dr. Kimberley Milan WBC 5.8 103/ul Normal 4.0-11.0 [facility] Comment on above: Performed By: #### P T, PTT #### [facility] [address] [place] [address] Dr. Kimberley Milan PREG QUANT HCGon 09-22-2021 HCG QUANT <1 Normal [facility] Comment on above: Performed By: #### T SH, PREGQNT #### [facility] [address] [place] [address] Dr. Kimberley Milan HCG RANGE SEE BELOW Normal [facility] Comment on above: Result Comment: 5-50 0-1 WEEK 40-300 1-2 WEEKS 100-1,000 2-3 WEEKS 500-6,000 3-4 WEEKS 5,000-200,000 1-2 MONTHS 10,000-100,000 2-3 MONTHS 3,000-50,000 2ND TRIMESTER 1,000-50,000 3RD TRIMESTER Performed By: #### T SH, PREGQNT #### [facility] [address] [place] [address] Dr. Kimberley Milan PROTIMEon 09-22-2021 INR Coag (PPP) [Relative time] 1.00 {INR} Normal [facility] Comment on above: Performed By: #### P T, PTT #### [facility] [address] [place] [address] Dr. Kimberley Milan INR GUIDELINES SEE BELOW Normal [facility] Comment on above: Result Comment: [place] RED INR: 2.0 - 3.0 CONDITIONS NOT LISTED BELOW 2.5 - 3.5 FOR PROSTHETIC HEART VALVE REPLACEMENT 2.5 - 3.5 RECURRENT THROMBOSIS Performed By: #### P T, PTT #### [facility] [address] [place] [address] Dr. Kimberley Milan PT Coag (PPP) [Time] 10.8 s Normal 9.0-11.6 [facility] Comment on above: Performed By: #### P T, PTT #### [facility] [address] [place] [address] Dr. Kimberley Milan PTTon 09-22-2021 aPTT Coag (Bld) [Time] 24.2 s Normal 22.3-36.2 [facility] Comment on above: Performed By: #### P T, PTT #### [facility] [address] [place] [address] Dr. Kimberley Milan TSHon 09-22-2021 TSH 1.697 uIU/mL Normal 0.470-4.680 [facility] Comment on above: Performed By: #### T SH, PREGQNT #### [facility] [address] [place] [address] Dr. Kimberley Milan TSH RANGE SEE BELOW Normal [facility] Comment on above: Result Comment: <0.3 4 UIU/ml HYPERTHYROID 0.34-5.60 UIU/ml EUTHYROID >5.60 UIU/ml HYPOTHYROID Performed By: #### T SH, PREGQNT #### [facility] [address] [place] [address] Dr. Kimberley Milna Coding Summary.on 06-10-2021 Coding Summary. CD:[id number] Gh0bWw+PGhlYWQ+PE1FV DWlY11yfWTfpC7HI6jAO W4FQCDVHEJFMX2CQV6so BB7MFntN2XachUe AbwbfKWjIR71RVd8CAD9 nYxwCGmusM2kfQEzG0l6 HwDfOC81nQ77YCldPMMs VnY4KoDygsxisSFh R9ahReTipLYiYoc+PHRh YmxlIHdpZHRoPScxMDAl NgCbmXnaBB2lLf0nCRWq LWNvbGxhcHNlOiBj o4xhDHMrLCvtSL3hwDzt B6MwlSI5QJYlc3m3Pk14 dHI+LHAePWD5gOcyETvv f916QjJtk1dfVFL9 zCBjJUwiRUX8U77je8W5 UEYzGZUvXCM9jSD9wJ6j lZxypnacB4XwtFWwZfT0 ZSO4hJMrrU0pcAzp iiaihY4zTaa+E67TLN4N RNFGAP5DRys5S2KtFfyg dHI+NY86TAIdPA26pPHa oKGov5gipBf6JjXg ZVIfKKI1hNwbHBtaq7Vh TEDmP09raMGhq4N0NRTa yCrzlQYuJwEfmXA5iD9i MAvvwbnmw1dbupmo Scrah3alcn49dZ96I15r BWjoBGPtHBC2UPVjOHBy vTwsvu8vnH0vFm5+IDxj a4zzv3pezOr8TcPj KFNutnVivCluXLP8p6Ai Pb55O5CodZnxt0UrSch7 nc05cJPvb6H7eVN0VHym RWVrbQ5sDGdgWiK3 IDBoLuPjvA19wWKqNItc Zn2szMkogXrdVI6nHWUw hixnAYAcpO5wDLPzdHWa bWjfQN1tSBHhbykx x878IhKaHGV4KTUfvZQt G7BvmK4nDwCaNHMxYUYt G4PdkBSiWHwbW848DFfz EhT9QUNoobTjH1Ru WKElkPubAaS3q7F9Dd3M v2RpimluSZN6BPmcPXEd TeG6ApErWwH7B7QmUdl5 NNVtxEaeDE7rU7Uc XPEjzrfsisjxgLL9VMVc NZQlwV19jJMrKQkpIu5o x5L0e795HLImLWXgnR00 Ks2laBiqJZAwgWJC cH1xvpmtn7zbibdqSjMy YSVeUBi6QWb4GAVlfRlz HrDcEPR7NdG1NLJ0tRBy cK3zyLaifacybU3c Oyc+M18pnP9zEYP6FNE1 zefgQTAshjTfXS99TR48 Y8MkRybuuIGvrZG+PGRp nfTpjCtuEO1eBhTq v4sal1XcXNcyI1ChAELm JZjsKrp8JUUhPEQ0oMU5 iD5dFYVlMDzlb8C1xXL2 C4VkajZjnp5bn8hm LSGsIEquS89fvIYzr4T9 QXAsgSF4GXBuqViuVcXe qZ47Sou+BNXkeCwik1Qi Lgfre5yvn9jmaDb7 IjMwJSIgdmFsaWduPSJ0 u7TqLv03Z66qTSeqQPLd RKUnEBOjYFXgaTqlwv5u vE0iNm2+PGNvbCB3 cZZ0wG3aNTMiUkY4QUlt Y364TxHjbHOzYqdjr4tb p2yadSs2YqTkDMPcctFr wVwnEEB8s5GrBi34 N54qDCsnDGLmRMYxWXRm FFIrmCoerc3ueF4vXl5+ XZ9ue4gmdu65wZ73pXH+ MLLpBHY0lZiqVEqg XHQyqE5hRBinKhW5AIBk BxPruT40bZRgVRbbFl2n wZiyeKrjSD3xFHZicshv v185OwOsl0mzNDGk zNMbRNvcZZM5B70ck5B6 NZSyYUOsZPR3yRV6tD1i bGlnbjogbGVmdDsgdmVy rIxxBAekNEftO778 IHRvcDsnPlBhdGllbnQg PuOmDVn3N7EzJoz1CDQi tTjgZO8pfGAgOVotJj4g hDrleTmlSS5lPPTq fvvdj797DqDmf9caEAJc zEOpBZfkPJO6F27ga1T1 JJSoXFSlVZY2nJM9qU9r bGlnbjogbGVmdDsg iuTvaLrfDNyjRZrxZ568 IHRvcDsnPkJpcnRoIERh kXV5IP31CN70oOKiy3I6 nRB0L0SzKHFwedkt ntmihJV0FTBkPZHwlB22 Ij7hsUrrAv3nUCOfDSH5 DESweAOcQ7NypI3oOrZn OBZbUTCtY4FdhPKd DZoqN262SPkdGzB6XHLs geBtF2NwINDlxRnyVhM4 o1L3Dh7MH3P0JK17TZ39 xWPou0W9yLR5B8Zn RHZwfkhfxxrzrHM1UMNm CUFkyF73Gs2afTrcCp1b RNCoTUK3VTTksYPeI4Bh hJ4bTpPtBOZjBWWu V2KpaVEnNUefM240HWzc OpT6FFFqrtMhV4WdUHMv wNdrVcN3n2F6Wv3SSKg6 ZR85KK49jJDkr5R9 mZT1Y1PtTRViohbfisry rEU1CFRoZKYkkM84Lv7s zJoxXi3lTFAlZZV9IVOr gCOuA4MqfD7fNtEd GRNrDJMuW6ErnYTuFSse S629NXraRyQ0FAPvikFo L9JkSJPfyMuiDvB8b9K4 Fr1ATWNhLD57XBH1 oMZ7JL25WS20Q4RoXoov dGFibGU+PHRhYmxlIHdp ZHRoPScxMDAlJyBzdHls LS9aXz3yHBJbSYOa zEmfwSGtPuYdi7krGNDj KFwvJZ5sgAhgL1MndLP7 JKSwg1l7Wi32K80pB8Xi dXA+ZIHsaRW6tMK7 zX4lKwCyJiB3SVsiZ164 FeShhJFdWwbca3gzg3dj wYk6KyE2XCIwzgNtnVxn PFP8m2MiIk29R43p IHdpZHRoPSIxNSUiIHZh vZaidm9akW2nOt7+PGNv lEX5tCH3tZ0yZhFjOyM6 JNgtX833LvUbsWLv Pvwyq1ylo8pogJf5RtIo XJXavmRsxMpeTXA6v8Da Ye28W6FpiRdod8ZxYox4 tv56aKAds6C9nPR9 K7XdGAOvmqrtlESkvEhp DF9kGJUddojkDVMpuS0e EFNeW7b6YfKhPlN8FYcd X4XztiK0XFPxvDGv EObsEPW8V00np3A7XIPb ALTtERA6dBN2bZ9rfSuu bjogbGVmdDsgdmVydGlj ZYqpSSuoY456EOIm jDqcYWAtqQ1iRGFxlJTo xKykTY3oXNOyvtxdOplC RVNTTUFOLCBTVEVQSEFO SUUgUjwvdGQ+PHRk UYF1qShoAJdnXOAhkT3p FAIeE0g3TkXiObB5RYsf T5BgPQSvtbpzRn57qL4z JqLjAqW4UYiqM7Ne hfX5SMVpwSOpVKhdTVC8 D69zw9A6UVViTUOuJIM9 rBY6eM4ihZjqaxusuKUh dDsgdmVydGljYWwt UEqjG291GWNlxTzvCvZ2 GzE2VuJ3Oit2K6MfOvs9 RZHvdWwfQY0seHLqUHhe Os2cmUdnpNxnLQ7i RUAipekbLSEaxK4mVGUw bAWywJllXO4aPUSycpyp e123ZfOsSFF8ANOcmFJz U4VcsI7mLgGwWDCh EGBkB1RbhYQqVVzxR402 YHxlTqG2AXUxbjQwY0Gx RLWrsUjiKsJ7q6N9Mn60 MiBZZWFyczwvdGQ+ CJTfJLE4aIkyQWscCGDl oP5yQXGyH6n9KpFoLoX3 ROqyT0SkZYTrnvbiPb06 jL2iZxAfWyK9MYbz I9EvpfD2QPSzsBKpVKiy AUC8N21hf1I0WZNbXTXx ASA9wNT0cU0uzZdsjkcb bGVmdDsgdmVydGlj WVvcFDphT502NFXriYsd PkZlbWFsZTwvdGQ+PHRk STL5aOwgPDbqCQThyS5w CVIlD4n9ZiYyYzV1 JCcpA2AvNRLexsdcCd03 uL6jSvLqGkG6AAadH2Pj bbG4ZJVdyGEbZZztBFW4 L17cd1W4JKNwIFWr GAA2lKE6cZ0ezQuzjluy bGVmdDsgdmVydGljYWwt CHmpV113UULbtFzgYx13 fNFrvAhudqZ3I4Ak PjwvdHI+DX16OUOtPW17 mUInyZScs6lekQp8QtSt MEEdPZF8iCldRFxrv2Om ZMCoM02bbXPow0J5 IGNvbGxhcHNlOyBlbXB0 xO0pURafrbswh3cddvhg Yican4udgd46sB80P31r IHdpZHRoPSIzMCUi WVRdzHumsn2jfW6rHz5+ KCCghQE9qUI7lZ1xWjGg GqV7ORnxD663UtGalFSq Gxuxt6hxl5idfOh4 IjIwJSIgdmFsaWduPSJ0 o3LjQy58I99hVBnjWZIk KDQqEMUrSWKmbZehhs5s pZ8rTg8+TC7in7ya sg70lQ69sFK+PHRkIHN0 kYvbADrgUMBabX8aHMxk PeT9LXPsXnUdiT59yQTm XVitNo3saPgwuLop SO0eZXSxghudc132JvCd k8erEGSoxLNzAKcoDGR8 S73lw9L5TIJaEEBsDLZ1 fGZ6vQ7otFjafqci bGVmdDsgdmVydGljYWwt QXadI740GCAecTpoJrTh kKHiW9mcyyRUTI8lCvhl dGQ+SARnZWK7lEnb PTejCCFttV9tPCKsN1m5 GqXsXoW6TJwcA2MhzvP8 XRAdeUQmSQTfnLPTaO6v pqpso2cotrphAyHt ETRmMKf4UUn8FYAmjLkr IwVbQZN2HwU3YMM2cMQn zM1lzTpnurnowY1kQkj+ RklOOjwvdGQ+PHRk NOP0hRcsOXopXJXpmK4s DFAjC9k0ApPcFiX4KVeq B2IsecK9UJShoQJpCAAe ySYCtC7geqmum7lj kqgmLeYxFZSnKWh9EEi6 RMRgiEjkQeMsRJY5MmM3 OOT3xHEoiO5bfPwaklef vC8mItt+TVJOOjwv dGQ+TJJoKXQ1fWdoXEzt ARObuC8vRWWsP0i0UoYg YrH0XYlzC8RdujA6NCJq wKNeTZPlvAFYcY5i fudne9ujycjdUvFmGMAk TIl0BZf5HJHfyKqwGyOu ZRR2WuH6QER5aQNknK0m qNphfcmblT0cSdc+ XLM8YNG3JL27JI96G1Ov PjwvdGFibGU+PHRhYmxl IHdpZHRoPScxMDAlJyBz uVujVO0jNk4pWUGd LWNv (more content not included)... Normal [facility] Pulmonary Function Studieson 05-28-2021 Pulmonary Function [...] test. READ BY: Soumya Mathews Dictated: 05/26/2021 [id number] Transcribed: 05/27/2021 cc:Dia Wu CNP [facility] Comment on above: Result Comment: Elec tronically Signed By: Lexie PADILLA, [place] Macias\.br\Date and Time Signed: 05/28/21 08:32 EST Consent for Treatmenton -2 Consent for Treatment [id number] #1.00CD:127 Normal [facility] Pulmonary Function Testson 07-23-2020 Pulmonary Function Tests [id number] 0#1.00CD:127 [facility] Physician Orderon 05-06-2021 Physician Order [id number] #1.00CD:127 [facility] Coding Summary.on 04-18-2021 Coding Summary. CD:[id number]:[id number] Gh0bWw+PGhlYWQ+PE1FV OUkP47zyRMfeG4CD0sEM I3EOGZZCVOPBS3PDX5jb PN5UFvuM7IuxiUi ExmskTVhCF88OWp1DVR7 bBblOFkncB0leBZaK6b5 HcMyNE08aQ05ZKkhVOKo ZfC9EjXadltguHCw A7guPkDnbMBhWiv+PHRh YmxlIHdpZHRoPScxMDAl WbLaoTsvFM3yPu5sCDQj LWNvbGxhcHNlOiBj h9ygZRXdIMwhXM9kuQgq A5GxcER4GAKwm6p9Qc74 dHI+FAQmBIS6qWroAAfb a249ViFoh7qbLSA0 tZYpDXumRRC0K22ze9G3 FXCdJQZcMNJ5kNL1cO5f jJuyyhtfC5TlhWYwSmX0 FLK5qAGwtD0gfRft bridyV8pTbn+P84VVY5A IWSEBE9NEpr4Q7TgOngb dHI+JA01BMObYU29pUPl wJFgw0moeOu8TkAx ETDiJXA3lGtiAQmrw6Lb TAChP06unUPvk4B7QQTk tJyhmIJyPgRglBU4lD5p TVuukeqju3mboohf Ypzpv4jrlo34nV84U50r DMzzDNOwTPY5HGBdBEQi bZgobu7chH9kYj0+IDxj l4ayc8qqkIv5QxEc GGCiryRzlJhtGRF2s4Jx Np67U2MkeWsfy8FgXcd4 qu96eOXfr7X9bDM9GEqb FDQqyL7yTVofXjI7 FZYnWrBwjZ72gBTxFSlx Ei7qaZalhGdyQZ0qZORh xkxvFWXnmN1xAKKmlWAn cHfdGV8zGDCtzvau i483YeKbRTT4HYGivYTu O2GaaN1dFkQjQKHtBIIj Q4MuoABjAMkoN845DBfv KqG2EFYcdlNeF2Og BHPmrDsnUqO1n7H6Ta6Y m3MdqonpFBY3OYajAWIa OzD4EcMfPaX3N7ZyGzo0 ZJQstNkiXS5aD9Zg YAJhykfepuynsIK2DORp TPLltW81hTMwLIhbEn4k t1H2q395VTUxZCBpfR65 Nv4ghGpzOCFcrZQI oA4qhfctj0kauogcRmRz YYIoIIc2GIm2VDTjwHxa ApGcTVN6MbA6IHA8jQGy oR5jkBmrcfpchK7d Oyc+G79itF7rSNB0HZT0 aaciNNSrqmTfQS25LW77 T8BbZqhxoRJaoUZ+PGRp lyOfiRxvZN9zMfIj r9jvu0HsQOifQ2JfNJAx DFgbAxh2FTUaHEK3vLV1 kK8zGNKyCDxis0P8yNQ2 P8JopjUdzm9xy5bq XIGnXNqiR00azHIip1H5 GDXjhJS3OERsjFweDnWp bG69Viu+SAKslWdfg2Ev Olwii7bwi7dgoYl4 IjMwJSIgdmFsaWduPSJ0 c7UoXo79K23mZIerBKRi LXQrDSRyVRZnzCstjb7f eT5qAp0+PGNvbCB3 mID3jV6uIOTcMoL9CCso D410RqHfmBEwMjfov4zv n6gbaJx7BqAlEDHeccVu tGncKEL2a9MqDt00 K96pDYpcBUKtGJTeINQt BVRnxBbvpy2qkI0rTa6+ JK6if9bwts51kC91qDY+ XPTgXOF3jLuqCQtu ZEFpfQ8kSSckCqM2FSAl LbHqgG18ePQrRQewMv6a aKkyyIvrCS6mDNLyrqlv k545UeYgr0qnJJYa wIQdLWuzXFK7A63su8H7 VNGmRVGnORT5mSC8zZ7r bGlnbjogbGVmdDsgdmVy bEklTBzjGMwvZ358 IHRvcDsnPlBhdGllbnQg XtZuLSy8E1SxDhk2NWMa kZteOD4qlTNnRAocMc5z tZypwAtxDW9vMHAb vsfpq057DbThj2zgUYYu qCVoNQctLED6X72yc6U7 ZXJyWPPvLNB5iXZ3iC0w bGlnbjogbGVmdDsg rwGtsMzmBLxpWYpkF291 IHRvcDsnPkJpcnRoIERh xYH5JS48NA45xTPat7R3 oLG9N2IpXSLdreyg cmrkvBZ4PDNnLMHrvS87 Ns5olBjgNz0jYSPqTYX7 TFHbyZQbP2NtoV9aXsHz OUHrCVHpJ9OpjXZd GNijL587CQfyLbM3FJCr pfDyZ3TsPKYfwYufKkP8 l5O4Bm6JE0N4KD15AV11 oXCau1B7oZY3C6Td GQSrfrehclgbcOZ1OTGk DPBduH26Yg9htAdtNi5q DJQuBGK4DBUhoANeM1Ug xN9bZxCkAYCiKZXt U5DleNKuBRfqQ473JDml IsF8RNQgrhYnO9BzBSOr vOlxXfU4g2R1Dc0DRDt3 WA32OE85fXKsj4M0 mEN5C5KdNZYzmoisfusc xQD6IDYaVRUehR82Kt0z dZgrPf2yCVHhQDE4KYVj jJAhZ4HbrN2dIhRz KLUqYWAfU9LeqUSeZTqn K647PObcCnV2MOBluuPi W5LgUFVvdLulEoQ9k2W7 Tl2SEBZvGG52XWK7 jBF0RI12AK27L7RuFyuy dGFibGU+PHRhYmxlIHdp ZHRoPScxMDAlJyBzdHls JH1kKa1oXSKuPLIx oYiosTLsNuXit3idNORs TZxbFO1osIydN4TcjRA1 UGWei5g3Kd07P32iX6Ai dXA+EFSuuVN9cRJ5 sR0aBlZvNuD1SEqtI241 SnSpbUMtOpkjn3lfv2ft bGo8NwO7IQMaarXvjGiv EKD4j6EtHv59I07q IHdpZHRoPSIxNSUiIHZh vJluzn8edT2uKq3+PGNv dCE4pPP1rM5tGnUqXpQ8 JGedK370LfJcpQIc Tgabh1beo6egtRa5PpVm ENFyxvLijLrqRBH0z0Vr Fq44H2RopEnzg4OcDpd8 jt91oULig5R1aET0 P3BuFVGhnfkecHXwdPwr VJ9qOSJfmamwZNIsgN7m DCRoZ3i7OqFgPbD5PZlz M3SehjV5UBWqhYNy TAkaTNK8I09rh6J0DDVr XKQcMSI2iVJ0bW7fgXvf bjogbGVmdDsgdmVydGlj GXdeUFuvB418QYOq mAprDUHnoA6wHSRtbYNy mDxfPM7zWEVdojhgTzpB RVNTTUFOLCBTVEVQSEFO SUUgUjwvdGQ+PHRk FHI7xJgmDTdlTWFexY2y VVCnG3i6SsCiEzP8DOcb A4HdDFWafahaQn72zY0d JwUbNoO6ZCodX7Ox soW9HNMilLJwBQmkLMC6 R18if7T7DPCiCYTvGUZ9 vFU5lV9ojMnrtqrscCGl dDsgdmVydGljYWwt MYopO151NTRbxCvgKnL7 ZnC6RdP6Cvb6T5HlCvl5 RUDjtVfsFA0mmEYmVOwg Qr8ztWjadUmxJG7v QCMhdjapHSZrxW9nBNIm rZBysOooKB5uCMDcunjk r237GkXeYCU0DFEagURu R8YqmW5cLxZhPQPa OWZzJ1SbrHJaNJskU496 RXwwVrS2PNBswyBuJ7Qu AABdcTecReT9i4J8Lq85 MiBZZWFyczwvdGQ+ IYZkTCR7mDjcHZcvILKr oN6kGOXdQ3s5JpBaZbH8 EKaoE0ZxGAOerxenLx12 wW4fVeWsQdO7ODzk W0XzhoI4AWFuvKQmVPat XLT5N73nd5F3LWCdEKAl UEX2tVA0hJ6dbViprmop bGVmdDsgdmVydGlj JFajAXboF821DWOmbKzj PkZlbWFsZTwvdGQ+PHRk PKN9dVtqLKqwKRRotL0k XOUmZ5m5BiIuJjD0 JKviX5JdLHPfhiacIx40 xG6yKgObLbB5MBvnE2Je sgZ0DHXrgUKiDJgbUJL5 U15ra8Q2UGShBCSr FMR8xTW9xO9drTjuqrwd bGVmdDsgdmVydGljYWwt JEmzO503BTKsqNctQx24 nXMfdRcgtlO6Z7Xi PjwvdHI+EL39XLIfGA43 jWTzzXGkn3wokFh7NsBp UMLlFRJ9iWspTHhtt5Sy XNLdZ11otBZyn5D2 IGNvbGxhcHNlOyBlbXB0 gT3fGBkmsksyj2wvsmmg Zekgt1lroe73aA62E08d IHdpZHRoPSIzMCUi LUSwrLjcya2iwP4cLt2+ KEZfoZD6mXN3qT2yZbLz AgC9EXsjR027HjPgfAOr Qmzof8qlp2uvwYy7 IjIwJSIgdmFsaWduPSJ0 e1YfIl65H10rNBksTQOg ANBsSIUpSSYndUynxo7n nS7vTm3+AP1fz4me mp60dT53lPU+PHRkIHN0 sOdxCGenVJQnmH6uKRgz YfQ1MJRpEfAenC26nAWw YTgxRq3hdYvceQgt JB0gURQcvzthm865AuRj x2ksWZTsqIGgSHvgBZU1 O46fc9C9QQVtYPQxLKU3 eZC8uV4vuZrhbgfg bGVmdDsgdmVydGljYWwt MZxlH394MJPcqIdzQqTe iYZkD4avdgPJMF9rUlss dGQ+JFPaWDS2jJvb UHgfDBJypV6rINTlX1w9 XsYkLjD4IZweI7XnytA4 ZCGlqLTwNERdeJIMzR4j aslsh3zawquaFgFl WUBhWJe1VPc0JXMwkIam SmMhSNX5YdV7YRS6bSJw xP7zeOqsdptliJ1qPgt+ RklOOjwvdGQ+PHRk MLM4tTnxSIdlPSLftA9j EWDbS4o8BoNgHxX9ICza G4XplgL9EXGfzYAvLTLs oRCZdO6yfygwi4di opwkCfLwXASqSXd2WKa0 YBSkkPjcGeTfEVN9AeW8 VOV2zFKpdX4qxQdpayjk hT2gBls+TVJOOjwv dGQ+YZImZJG8eTtyUVvb KWLnfH4xJAQzU5k2SlBu JfE4QZifM3QjuuI4YLOm xEMoMSDxbPLJvL3e hdoya2czmqzbSyKqCAVz KZb4OQi3DASfkLlvJsMo WIN7UwP5QGG8iCBwaW7c rOcueiruuF9nEal+ AKY2RPT9RE52FW18O4Bq PjwvdGFibGU+PHRhYmxl IHdpZHRoPScxMDAlJyBz yQntGF8jQb0aTTLg LWNv (more content not included)... Normal [facility] Coding Summary.on 04-12-2021 Coding Summary. CD:[id number]:[id number] Gh0bWw+PGhlYWQ+PE1FV ZYrU43qiEKmgT9DE7oVP U8HPNTFWPBGVV4EWV4wd TY6VYupA1HesdBv PwzibSIzKI14XEn2RLZ9 fNmxNHpayJ6vlQHsI0f3 GiWjCQ96pD13XCykDQZr FdS0QlDfhsigdONk W9olCgIxmJZkXgu+PHRh YmxlIHdpZHRoPScxMDAl NxAllImiYC0wRu8pJSSa LWNvbGxhcHNlOiBj i1emNABjSNhgIB6zjTis K0BmdWO3VZPco4d4Wm49 dHI+XLTwCUT6hZsdZGse r672GiEdo2tqQAF4 qTXyFOruKMY4R04we6D7 WOVsMTDeLOZ0iBB7wV3s nFbrhdrrN4RkrXHyNlI7 IQD2yOTkvZ7puAmx pqgonT4jPgp+O71FOB2D MGJSOB9YYyh5Y8RaIlsy dHI+AI67WEXbSP63aXKs cAIel6ozmRp0SbRi PBYlXXG2tHbcXSrxz9Xq KNXxR01ywYVqp7K7JEUy cGzjvHCfSaUzlDP9pO4g FTcgjldam4ceahcq Cghdf2cydh58nO10O90x SQdvVDYjNFK4EULiBGMw iCufaz6izR3kUe2+IDxj k4btk3xynBz5HlBa HPLgbyZghDweDCE6c1Eb Dm38A7KiyJmkg7DoOvp9 qu53aNQkc8Y5xQT4UVhm HJSxiC7rYOyjErA9 TPSmAeEhnI12tGXaAAoh Nl3pqKnahHfmLR9wLJBo zhsgNJFqyO3tPYWkkWLn fOnaDG5rJEFzvsle d125PiFuUFQ1YIAxmSFb M1MaeB2qCvCdGFMwZKMk C5FstWEzHVeiR289HRxi WqF0UHEukhIiI5Ct TBUxjXelJmJ2k5X3Yw3C k1YzmvpfPDQ0KDrvXLYp LuK1LzWbDrE0I4FaHlo1 KTNmiDeqMQ8bY3Pe PEWrivbezoshyVB9WUZw OUGjeC67rNGxKRmxWs8z z2G4o384RBQxUCHfmZ93 Sa2haBvxOFIalXYO bX2rxscii3pubgotFcFp MBSiYVp3VCd5HZQxvIwk LaXwXPL6UvU8LOY1zWJe sV1euNepbulziK4i Oyc+B46mdD5qQAL2GFP1 zhchOXCsgsLiSY52UJ31 R6TjScvimITayXP+PGRp odDcjGkqCJ0pCnAv f3rmu3QwGRqbY4XwKLUj FUseIpc8KJNrAYD5dUR7 xJ3pYBXcJPiib4J0jET1 Q2DuucOuol9sf7hz HVBiFSlhI49icLZah4T9 RJRvdDQ4GSQjkSdzWcGm iA60Auo+CURwvSubp8Nw Agxjy6mpn5ayaOm1 IjMwJSIgdmFsaWduPSJ0 q9YhXp48S10pMDegTRDo OJKxICNqVSYauIuihd8e aM2hMi1+PGNvbCB3 dBM1nD3lCEIvMcZ0XGya S106XyElwJAlRspub7hh j5cwsKe4XtEbXTRuszNq uPpiGSY3i7OnUb26 J41sKRbqJHFmLYAhOWCx LJPscIfajv7hdM8vIm8+ RK2oo8wxgl20yY45oKI+ FYUfZXL9gUeyPVqu VHBnwW9aWZexXeJ4MVYx XiUnzQ90jYBsKAccBw3e aEtitEenYG5aUXRojhec b326IcOor8dyTIHb nIPjRKipMBK2Q06bb4H8 ZQMwCVTtDLM5yTM3lP3p bGlnbjogbGVmdDsgdmVy sBdyAYofRAvfH445 IHRvcDsnPlBhdGllbnQg SnKsPKt4J9XzFle2CUPu nInmGC0enHWmGZirGs8o jFzdsSzpCA3cZECh kmxmt522GsHzr4adNFPj zPFwHGugPHU7J45vh1X0 RPBlGLMxSUC4yOX1aK2j bGlnbjogbGVmdDsg cyAyyCniHCrcDTrfU655 IHRvcDsnPkJpcnRoIERh kOM8VL27QJ89xMXpv6M0 fNJ6T1SaHNQpltfo ydnrnSE3IYAdWCCdyL00 Pg4wyUjpUb9oERCyRXF8 XLSdhFCwX0GiiI1eMwAy NQUhEELyX5ArpTWh HMjbP982OKplPrY3ZQQb sbNxN0OiRWXraQbyHqH4 z4F2Un2EI3Z3RQ11YI37 nORll9T7hRY0D0Rz TJBythglqykfdEX1SSQg VCJoxA35Yr5waRazHg1w ATSlSWA0GHZsaQRrZ3Xk mJ5eNpDbBKZwGLEn L8SkhEDjQHpaW047FBji VnE9RDXvidKiV0IiRLTa dJdyEbZ6x3N0Qf1BTRv8 MP33RH87rYMix4R8 uWP0N7XjQIBvuxiyzvjg zMM2SSAqCWAqxH20Cq9x pHwoQl3jHQDdGQZ8SENe pSVlY0WheT0kVbQe NCUzEVVwB5FfaJNhDKln K442YLukFbN4ZVSdpjIu W4LjEHOdkDfeItJ4x5W5 Ze4OCOYkMX08BRY9 vPH2HX85CF94F0SaSrlc dGFibGU+PHRhYmxlIHdp ZHRoPScxMDAlJyBzdHls GP2cCz7fWRSuHNLi iMbsnOEnLuWwm4piWIXd LVhcPV0hhCinT0ZqkHY4 MFJri8k2Fl08I07pP9Ju dXA+LHZwgKD8gXV2 aQ7kDeVzYlF9SYcrT163 XiGcuBAiHvdsx1tkj7pj jJi3FqM3QMKcttDhhHou UTA8b2LqRp22C39a IHdpZHRoPSIxNSUiIHZh yNxmdl6nyH1zAd7+PGNv sDU9oTY3rC0kJjPsDkW2 XKrlF884YdQmeWJx Ttcjm2bqz4pooSl0QePz QYLrwbTdrBmvDOI6k1Bg Ko77J7XhhUgdt7QkLmq3 rt42sZJnn7E7hAM8 U7JoWJDzfklxkMPzbDtc OW3tICFaqjisUDMjpR5h TMJrT6l4EnVpGhZ2QKsi Q9ZtzcD4FJAitFWo TEmmSQP7N52ad8O0WEEp QZCmEOC6gNH7oM3yrNnd bjogbGVmdDsgdmVydGlj OJjbOUngW294YWNi iHvuDYYblF4fZAAtwIJc pUmuLG4xIWRmixjqAqjJ RVNTTUFOLCBTVEVQSEFO SUUgUjwvdGQ+PHRk VUS1ySryBJynGILjeW3a RSAkF6d9VtVuEhT7LMhp T7LzURVyzqxtYw97mE3i YcJiRvL8HWgxM8Ek mzA5XTEqmECgUCkcEGG4 K69yz1B3KBAuZJKhMAA0 nEP6qF1tyNahvmhtlXRr dDsgdmVydGljYWwt FGefG189AQDarAcxFyL1 FkN5LmS5Pnq6Y1RyUne0 SQCrsEweUU7mwCLmIMkm Bd5igSrynIolKV7j GPFtejsdBBDpgB1xMRPx dCRfvYtgQV4mOYRlmrra c412EvTwHHN2SLNjhVPp Z9AspD6uGxPkEBIn HKJfZ0YtrHHzDKvxO935 SUcvQoY9IKXsbuOkP6Yc NFXouIckUqL7x2F9Qu11 MiBZZWFyczwvdGQ+ FDTaJIA9iYaoLMccCUZt dS4tCFEuO1n1CbJwNtX2 EGhtW2NpRJZsguwiPh28 uF5yCrYyEsM9YPwf S6IakcN0HZQssMYsYMrz LTY8X31rw2T0GYSlRBTx JWE3gQA7oA7jkDholrjx bGVmdDsgdmVydGlj WYmwFDovC221NBSugDiu PkZlbWFsZTwvdGQ+PHRk DYL3zQpsVIkmXDFdlU1p LXMbX6u6ZrGtEnB3 ODriC5ZuQHJhuarzYz52 dS9rUaEzDvC4JJjjC0Ix npC5POPycHLdWWtdTOS5 N97up0F5TGRvNGEf OHF1eXX0xV0tuPsplsqu bGVmdDsgdmVydGljYWwt IPbzP512SSFsiSqwNqSb PQXaBF9iwEildDM+ RA23ve45J1PsOhnrXac0 TVSnITV5kQJ9uP5nFRXa XMbws7A4oJG9G2PugtPe jv2ug5cfGNCjQIip J98jhVZas7Q4RMCumUX6 KGJgeYgtLiDdkU42Dat+ NMBidMnwc5PoYtbbg0pv m7ygbEs9AjSfERVe ynRqwHgyKLJ3h2RwJt28 X32qQLsnKHPoGGUeDNYj PKTyyOeeun5tdX4yHa8+ DTEcgYH8hWI0xS6g HrAwTnI6ECefI847IzJi bHNpPzfyn1rqz8lnlSw3 IjIwJSIgdmFsaWduPSJ0 q6CyOx57V5KdpPse v3AcFzk0uk88rGJyd7W9 gEP7F8IlMMKyatqbjMJd aYqfVP7wORLuohvpJSCa dB9cIFDjJ5x4ZlYy WiG0INutL2SlqcU5WTLn rWEcDRXbcOYDcJ8dczlf m1zilrlpBrXfPHLkKMr0 GFp0SZIqcPoqSdDp BOU6VpP4BWQ3fMGzkJ2c mVnexqrbtV7ePbw+UGh5 f5ilxRTlYV4ibZU8SH78 JG87hIDpn5G2lZE8 P8YuTXWqgmhhscgzlNN8 ZTObAXPpfV26Oh6uoMpx Yb7iIBQhFVR0DLXcwBNb L2MjpZ6xDlEiBBRf VRZvH9XfzLXoQFfnS595 OJdnGcL2FXGtqaGxB6Pw NJLxcZezZnV0p1P4Ow9T GN82YB03FK42gZOn g4Q3yNO9G2IyYOUzhysr prwbcNO6GMNdQMRuzK43 Lx6qlFvtUy4iUIXfFNJ7 AYXtcMLhG1ElgF8y GqRbMEOeOXMrS3EyyUQn JRicQ516KAqcGyY4OQOc wbRsK6PhJLKiqVigAsQ3 p3F9Rk1FHj62CS76 KJ38qNYcc7W6bGN2C2Rq QBBnagtagwwbgCS8CVGk ZOJqsG37Tj9apIwvPm9k WATuOQN0GKLegESc R0WktJ8hZmPmZSSkGFZu I0VdcXZfXYjpT057PFfi AfF9MGYaybTiQ8ZlPLYg fSfmOxR6l6B8Mg4S YYmbmed3C4FgPwsguMX+ XX13RPWwMW93iUHsdJFq q9dypUk8RbZqPHGyEVA4 pNiaLYbty3BvABAx Y29s (more content not included)... Normal [facility] Coding Summary.on 04-07-2021 Coding Summary. CD:[id number]:[id number] Gh0bWw+PGhlYWQ+PE1FV ZUiU39yrBNzhH1FH4uXO O2CLYBURTZVQI1DKW4co LA3UVygT4BffrJe FighgJErJW01PTc1YHH3 gDuiLVnspW9doZJhC9p3 OsXvGO49fI18TBaiMPZq HsO0IzDvkrnelFWf M2hwWoZctKTyUlt+PHRh YmxlIHdpZHRoPScxMDAl FqTftKdaZL0pWg5dMDKf LWNvbGxhcHNlOiBj k8npLSSoZTuaLM3txObf A4VpvDN6EPSrj3t0Ht30 dHI+SLMsIZN3jBurHLgp s322GtFyo9qxIZH8 lJHqRGkqSNN4X49yk7W7 ZLWyUODnFLS7qLW2tI6s wQobjbujR6IetVYeOyR7 HHL9jBFliW0bhTxk oicmdN2wFqb+O97HXQ2A BOTRYP0ODmo5M8PfJjgt dHI+BR71YDUaWX15jZHx wAPlo2pcrFn7YiBs WJBpXHQ7iRkcHXsfn5Xz NILdA18fgKMse4G5RZIy iZsmbGWpPpRlqCO9hL3z SLjqjfsvf5skhkfc Cfmht8gkki57pH25E64r JPlcXDTuWSC1IPGdLNUw jMiknd2zoY5qWs9+IDxj f3ilq2ildGk3DsHn BROlvhRxoVawKLJ3a6Az Ve12G6FjjGovn8RyLrc8 ba43tTNjj5E3tTN4QVbq FYGrjO7kLDxaTcT8 RVIcNlEbbZ13zELqEXhy Ud5vmPmayZzkGW9vQPUv hjbgBKQpgV4sEDRhpICb qMpeJQ8uAETsljhl p392BsRlEPT1ZOHnuUMh T9KquA9aFmHrGLVgZLEk R1TgkQRjFRykB822YNlo RrN4HSVjsvIxW1Uz YNKdaJsoLkD5l5J7Rk5J o2VizkulJHQ0JTjfNRIz UiK8YgYmAzP3D6JoBzl6 OTGciBhbWY1qH1Bs ANMezjhsayqlzEV6PSLr GJVetS79yOGhUInuEx9r c6K1b598NBDiOTEdiX06 Du8nqOrpIHWbmPTR wX9zjvppf9zphvcmFaKu RRPtSHg2ULw5ZRKuuEvs KaReBUY3KiW1XTX6kYDy kZ6wbVuzflgvuX2q Oyc+E28kyS7rFMM9HYK2 bvivZBQblhGiMO13AA28 S9SlCfyfnCAqmQG+PGRp rbVqyOraKC7qNiSl s4ejn7OvDCuxD1XkOKGc EXgtHou2UMBtNGF8oEZ8 jM5eTVYxGGywf0E0gNS8 H1CyiuTldm6vk9lq ESOuARavV02eiKOlt5D5 DFBksRU6AMIwpSrwZnFz eN98Lhq+GFUdvDmhm0By Hflxk1leu8dijUz4 IjMwJSIgdmFsaWduPSJ0 g4JiEp07B24sVEwlABOx BHBoCBZyVYCtlLkqdx1x aK5oPi2+PGNvbCB3 bXD6yK8vQBUcVaZ3XDae C565HbIqvURtMbfin8bw q3woiLh3KcPzYLYgxuNl gRgkUAM6a8KjFc31 W53kAIgeWPEdBDWmQKFk ELWtmSgezn2waV3kSo6+ XH4hm3lpmc10fG78xHO+ CECyBIP7eZppZHfv UGGlzC7jCAhyBrR1HZCv MpNjhW79cDQmSHrbEy0t yUgbdFflMC8aVPUtftou i043MiPcg3hwVKWe bZAsITcsECJ0P85bt6K7 JSSbLIJwIUC4mPB7zG4e bGlnbjogbGVmdDsgdmVy zFloOVjkMLbfS267 IHRvcDsnPlBhdGllbnQg LlOjEPd2F9ZxDoj4WBOb jAtmAY9deWInBWyqBx1i eTvhkOtuFU4nRLDk dgjmm321TbIff4ucFOGz dDUdTFsbELU4P96fi6B6 RNWuFFXuGUV3cIV3yO4s bGlnbjogbGVmdDsg tcNasWdyGJxlNPbdA975 IHRvcDsnPkJpcnRoIERh eVA4GI39PN40iWZea6L8 uST7U6XwHMAbtray dfxklZZ1ONYoKBTpmN76 Zc7ijTbgMp2vOXFeDIR1 OWSsvDFiW1FnsU1jMnHc GBSoQHFkF6JdtTXp XZzjZ330GJleClI9GHVm bbClA9JjNEXvtKfbWvP1 d3A7Pi7AP2J4ST65JH45 mYDvr1N8cEM0O1Yo DBHxmotajozocIU9NSBx NJBttD06Ud1wuXigHj6b AXYqJIA7LKQzaNUzD6Rm lS1pTeNwXWKwLSZf G6ScpKYoKZjgB188BRcn XyS0CVSqsaWqJ7ToTVLp gPvbAzQ3r3Q3Lt9WIAd2 EW71JX29fANqx7M6 hZL9T5MyJPPfmtivzeof zFA9DOLiAWLduZ59Ix3d xFvdUa5wZKRkGYO4URUz zXHsU5CzvX8rEzPn BSEpQEEkF1BcfIQrFFdw N207QIaxEzV2NLTlkyLe U9ShJQFseWyvSmG9d9L9 If5ULSRaOL73FQR0 yZA5NC14FW70N6OvQiiy dGFibGU+PHRhYmxlIHdp ZHRoPScxMDAlJyBzdHls BX7qNu7bTDPhOYHx hUohjDDjUwIoy6laYGZz WXibOJ0raDfgF5CjdFE5 JTTmh5e7Vi47C43vH4Dz dXA+KPTnqBN2tNC5 eC4qZsIjZwB5EMgxJ370 MuKilZCrVtqks4naw5fx nVx4HzK4PCKvizPklArn XDT5i4GgEe51X47w IHdpZHRoPSIxNSUiIHZh rKhuic1cqI6cUs6+PGNv aLG7qHH2cZ1oRlSqYxP4 LSqxW693GyQcgVYw Jounm1ivo6vmsAy4WuOx IEBtehXhnOlzKLH3c5Nn Wc79G4FspDncr8ByOdb9 xz90aIXbr8R9nKP3 Q6ZdLGAbdehnbSBhnHdw GN0sQGMmxpmvZRLbrQ8i SPFiW5p7DxSpIlS5WGrz O7SliuX8APQfdMNe LHlvZDP3U61sr3P0SHEf YGIdKYS5iOW3zX9tdGho bjogbGVmdDsgdmVydGlj CUahOFzqT470NTQt xOkyKNVmbP7qMCRrsPMf kPtiPH5fVLEzhobxAvsZ RVNTTUFOLCBTVEVQSEFO SUUgUjwvdGQ+PHRk ULL4rNudZHhtGFAlfF4v XIEtF1l0DdWlXqG9OWlx U9XkBRRijinkCy80zO6w WwMiCuI4AVemM9Ai ekS8ZPBpzIPpHQdyCOM6 D87np3M3PCDjNFBxTII6 fTE6sJ0cpTwyrjguaIIg dDsgdmVydGljYWwt OSjlD606CPOplHxmDsQ9 CaN2PfF2Quy0O4DgIrq4 IYUtjJrlIN4vvJMmEMup Rq5xoLxujZkdHB2a NLHiubtoXROiyM6aMLRj bTHpyGgfZO2aANCsthmr c088AwOmMOG9DUFpkJBh P0ZrsK6kXqXgFREy JGTgF5NhsVGaVUjtJ068 CFdcAyS5AEYzifCoM4Vk UWEemKjoTrW0o4S9Ks42 MiBZZWFyczwvdGQ+ SOJjWJF2fVawFCirJAVi cG7uVLAcJ6m7GnFxIzD5 TTydQ5HyXTVxdqsiEm12 eY5tGcWsSpJ2OJqf P3ZnshS1EATzoZMtDXae DQK0L70yh3P3PPSeEMUb EIQ7fKI7sP0yhBbraqpo bGVmdDsgdmVydGlj LQzyYKhuZ013INBcvTft PkZlbWFsZTwvdGQ+PHRk MIY9sLgtJBxdMSUyrZ9y NDGxR5g5JlJnNnA0 GBrfP7RjUOVzseqtVw51 qB5gKjExUpH5PJxzL5Jp ngI8QRIqeJZpWHseBBH8 K48vi3K7IHAkTWOu CJE8qOK5hG6ttRebryir bGVmdDsgdmVydGljYWwt EWknA002VIFypChbZfka EpZYpj4wIA4kLnzf dGQ+SV77ed59E9CxLesi Sog5TFSoZMP4wQK6mA7g FTIeNGmxh5L6vQE9S5Rn ruGvfk4my4mqYIJk KZiuQ15iyUJpd1I9CYTs xGS5HVMlfCszNxAsvC52 Oyc+INTnyCysg4CoHjjy d8kyw8iadRn0OfVk KCZvdtOshQfwRXW9b7Fw Do45L48cVGutKGHpUMAy IULxBQMszTzvze0ckP2r Ii8+ZBCxnWN0eRT5 dK3eJhAhThA5IEndE405 TdWtfBCjUbbyy1ngc5hn uDh8FnCaMZXdjrNssWgi XOL3b6JoSn66E8Um bRvkt5UdTuy8qc89cHEx k9D3hOR3C7OgEJLmunbc pGAdoJwzBQ0rMERstwne UODwrS1sXSZgN4m1 CtJuFsX1TIiiE6IehbF5 BJWfsCWhZINszIHHqD2a thucv7cyxdvjWkLwGUKr UQa6HBv6RAUxjTjt CeRvZJR0WgP9EPN6vTOl pF7mqOgtchtirR5fQce+ WTd6h6enxOByQH8mfJP5 NJ81BS02mUBka6J5 hCG7O6IxBUJqemglcgwj iCV1NZQgFMGavI82Kp2v sGrrOh2sKLGpFWU8SPWy lSMyG8RybE5gYaJh RQYkFVYdS9GkfEFsSCen J999EBbmNsQ4BPGwnjLa U7UmOGUveOduSyN3k3Z6 Mw9KLT84SQ01UA31 gYIxz8F2iOG4V9OaXOQv wqpkidholUY4YLWjFNYq eC61Xw2mmMwdHx1vKZKp VKZ2TTCgfHWsR3Gm bV1cNlJfXWSxXEZcY9Ld kATdTOuoX524RXlpZtY7 DBXjdeQhO7QvXOAilIck HlF9j4W1Jt6RBu43 UJ27XN17gJPxj0Z5mPW8 E0BoYZUhljbkwrrisJT1 EVLbEMQctU18Bp8htJrz Et0zIXJiJHU9YBSp fXXyX5CjnJ3mHrBjCATv ZEKuI0RdrXZzQNviL378 UJeqKbA0OEOqbiToZ4Ps ZVLldQazJiU4f9A1 Hd2TSZnfaso1Q2PgEsms dHI+PI83AKAsHZ43jZOo kBNae4kfzFr5HwYaVNMr XZQ6wJogUSwng0Sp ZXIt (more content not included)... Normal [facility] Consent for Treatmenton 03-25 Consent for Treatment [id number] #1.00CD:127 Normal [facility] Physician Orderon 04-05-2021 Physician Order [id number] #1.00CD:127 Normal [facility] XR Chest 2 Viewson XR Chest 2 [...] M.D. Transcribed by: CALIN Technologist: TAYLOR Normal [facility] C Urineon 04-04-2021 Bacteria identified Cx [...] Locations R1: This test was performed at: [facility], [address] [place] [address], [address]- , , [facility] Comment on above: Performed By: #### 1 [id number] #### [facility] [address] [place] [address] Consent for Treatmenton Consent for Treatment [id number] #1.00CD:127 Normal [facility] Discharge Instructionson Discharge Instructions [id number]#1.00CD:127 Normal [facility] ED Clinical Summaryon 2020 ED Clinical Summary [address] [address] ED Clinical Summary Person Information Name: DELILAH SANDOVAL/[facility] Age: 41 Years : 1980 Sex: Female Language: Puerto Rican PCP: DIA HU Marital Status: Single Phone: [phone] Visit Id: Visit Reason: Cough; Dysuria; COUGH, [...] 04/02/2021 00:42:41 04/02/2021 00:42:41 04/02/2021 00:42:41 ADDRESS: [address] [place] [address] [address] [facility] [id number] PHYS DOC NOTES: MEDICAL INFORMATION: Prescriptions Given: New Medications [facility], [address] [facility] [place], [place] [id number], [phone] cephalexin (Keflex 500 mg Cap) 1 Capsules [...] In 3 days DIAGNOSIS: Acute UTI Normal [facility] ED Note-Physicianon 04-02-20 ED Note-Physician Basic [...] day(s), # 14 cap(s), Refills(s) 0, Pharmacy: [facility], 162, cm, 04/01/21 23:22:00 EDT, [...] Diagnostic Results No qualifying data available. Normal [facility] Comment on above: Result Comment: Elec tronically [...] this condition includes: ? Antibiotic medicine. ? Vgfh-dkv-ajuoqlo medicines to treat discomfort. ? Drinking enough [...] these instructions at home: Medicines ? Take wtcl-sxf-trlskmd and prescription medicines only as told by [...] This in (more content not included)... Normal [facility] ED Patient Summaryon 021 ED Patient Summary [place] [id number] Patient Discharge Instructions Person Information Name: DELILAH SANDOVAL Age: 41 Years Arrival Date: 04/01/2021 23:05:18 Discharge Diagnosis: Acute UTI Primary Care Physician: DIA HU Provider Information Primary Provider: Aguilar Pino DO [employer] Dealer:None The exam and treatment you received in the Emergency Department were for an urgent problem and are not intended as complete care. It is important that you follow up with a doctor, nurse practitioner, or physician?s certified surgical first assistant for ongoing care. If your symptoms [...] opioids can be used to help relieve pylsehcd-dg-hozemi pain and are often prescribed following a [...] be struggling with addiction, tell your health health care marketing manager and ask for guidance or call [facility] National Helpline at 9-869-537-GVIW. z Source: [place] Department of Health and Human Services/Center for Disease Control & Prevention English H (more content not included)... Normal [facility] UA With Cult Reflexon 2020 Bilirubin Ql (U) 1+ Abnormal Negative [facility] Comment on above: Performed By: #### 1 [id number], [id number] #### [facility] [address] [place] [address] Clarity (U) CLOUDY Abnormal Clear [facility] Comment on above: Performed By: #### 1 [id number], [id number] #### [facility] [address] [place] [address] Color (U) RED Abnormal Yellow [facility] Comment on above: Performed By: #### 1 [id number], [id number] #### [facility] [address] [place] [address] Epithelial cells.squamous LM.HPF (Urine sed) [#/Area] 0-2 Normal 0-2 [facility] Comment on above: Performed By: #### 1 [id number], [id number] #### [facility] [address] [place] [address] Glucose Test strip (U) [Mass/Vol] Negative Normal Negative [facility] Comment on above: Performed By: #### 1 [id number], [id number] #### [facility] [address] [place] [address] Hemoglobin Ql (U) 3+ Abnormal Negative [facility] Comment on above: Performed By: #### 1 [id number], [id number] #### [facility] [address] [place] [address] Ketones (U) [Mass/Vol] TRACE Invalid Interpretation Code Negative [facility] Comment on above: Performed By: #### 1 [id number], [id number] #### [facility] [address] [place] [address] [place].plasma/Lit hium.RBC (Bld) [Mass ratio] >75 Abnormal 0-3 [facility] Comment on above: Performed By: #### 1 [id number], [id number] #### [facility] [address] [place] [address] Nitrite Ql (U) Positive Abnormal Negative [facility] Comment on above: Performed By: #### 1 [id number], [id number] #### [facility] [address] [place] [address] pH (U) 6.5 [pH] Invalid Interpretation Code 5.0-9.0 [facility] Comment on above: Performed By: #### 1 [id number], [id number] #### [facility] [address] [place] [address] Protein (U) [Mass/Vol] 3+ Abnormal Negative [facility] Comment on above: Performed By: #### 1 [id number], [id number] #### [facility] [address] [place] [address] Specific gravity (U) [Rel density] 1.025 Invalid Interpretation Code 1.005-1.030 [facility] Comment on above: Performed By: #### 1 [id number], [id number] #### [facility] [address] [place] [address] Type of Urine collection method Clean Catch Normal [facility] Comment on above: Performed By: #### 1 [id number], [id number] #### [facility] [address] [place] [address] Urobilinogen Qn (U) 0.2 {Yvonne'U}/dL Normal 0.0-1.0 [facility] Comment on above: Performed By: #### 1 [id number], [id number] #### [facility] [address] [place] [address] WBC Auto Ql (U) TRACE Abnormal Negative [facility] Comment on above: Performed By: #### 1 [id number], [id number] #### [facility] [address] [place] [address] WBC LM.HPF (Urine sed) [#/Area] 0-5 Normal 0-5 [facility] Comment on above: Performed By: #### 1 [id number], [id number] #### [facility] [address] [place] [address] COVID-19 ([facility])on 03-30-2021 SARS-CoV-2 (COVID-19) RNA EFRAIN+probe Ql (Unsp spec) Not detected Normal Not Detected [facility] Comment on above: Result Comment: This test result should be correlated with clinical presentations and medical history by a healthcare provider to determine its clinical significance. This assay was performed by a reverse transcriptase real-time polymerase chain reaction (rt PCR) method on the [employer] system. This test has been authorized only [...] or revoked sooner. Performed By: #### 2 [id number] ####[facility] [address] [place] [address] SARS-CoV-2 (COVID-19) RNA EFRAIN+probe Ql (Unsp spec) Pass Normal Pass [facility] Comment on above: Performed By: #### 2 [id number] ####[facility] [address] [place] [address] Specimen source Nom (Unsp spec) Nasal Normal [facility] Comment on above: Performed By: #### 2 [id number] ####[facility] [address] [place] [address] Consent for Treatmenton Consent for Treatment [id number] 0#1.00CD:127 Normal [facility] COVID-19 ([facility])on 03-29-2021 Employed in Healthcare NO [facility] Comment on above: Performed By: #### 2 [id number] ####[facility] [address] [place] [address] First Test Unknown [facility] Comment on above: Performed By: #### 2 [id number] ####[facility] [address] [place] [address] Hospitalized? NO [facility] Comment on above: Performed By: #### 2 [id number] ####[place] [address] [place] [address] ICU NO [facility] Comment on above: Performed By: #### 2 [id number] ####[facility] [address] [place] [address] ? NO [facility] Comment on above: Performed By: #### 2 [id number] ####[facility] [address] [place] [address] Resides in a Congregate Care Setting NO [facility] Comment on above: Performed By: #### 2 [id number] ####[facility] [address] [place] [address] Symptomatic as defined by CDC YES [facility] Comment on above: Performed By: #### 2 [id number] ####[facility] [address] [place] [address] Vital Signs Date Time Vital Sign Value Performing Clinician Facility 05-28-2022 21:53-0500 Body height 162.56 cm INSTALLATION SUPERINTENDENT Dia Wu Work Phone: [facility] 05-28-2022 21:53-0500 Body temperature 98.1 [degF] INSTALLATION SUPERINTENDENT Dia Wu Work Phone: [facility] 05-28-2022 21:53-0500 Body weight 122.65 kg INSTALLATION SUPERINTENDENT Dia Wu Work Phone: [facility] 05-28-2022 21:53-0500 Diastolic blood pressure 81 mm[Hg] INSTALLATION SUPERINTENDENT Dia Wu Work Phone: [facility] 05-28-2022 21:53-0500 Heart rate 85 /min INSTALLATION SUPERINTENDENT Dia Wu Work Phone: [facility] 05-28-2022 21:53-0500 Respiratory rate 24 /min INSTALLATION SUPERINTENDENT Dia Wu Work Phone: [facility] 05-28-2022 21:53-0500 SaO2% (BldA) [Mass fraction] 95 % INSTALLATION SUPERINTENDENT Dia Wu Work Phone: [facility] 05-28-2022 21:53-0500 Systolic blood pressure 161 mm[Hg] INSTALLATION SUPERINTENDENT Dia Wu Work Phone: [facility] 05-26-2022 11:55-0500 Body height 162.56 cm Michael Jameson Other [employer] Other 05-26-2022 11:55-0500 Body mass index (BMI) [Ratio] 45.48 kg/m2 Michael Jameson Other [employer] Other 05-26-2022 11:55-0500 Body temperature 97.8 [degF] Michael Jameson Other [employer] Other 05-26-2022 11:55-0500 Body weight 120.2 kg Michael Jameson Other [employer] Other 05-26-2022 11:55-0500 Diastolic blood pressure 97 mm[Hg] Michael Jameson Other [employer] Other 05-26-2022 11:55-0500 SaO2% (BldA) [Mass fraction] 97 % Michael Jameson Other [facility] [employer] Other 05-26-2022 11:55-0500 Systolic blood pressure 143 mm[Hg] Michael Jameson Other [facility] [employer] Other 11-20-2021 10:26-0400 Body temperature 97.7 [degF] Raghavendra Rodriguez [facility] 11-20-2021 10:26-0400 Diastolic blood pressure 87 mm[Hg] Raghavendra Rodriguez [facility] 11-20-2021 10:26-0400 Heart rate 95 /min Raghavendra Rodriguez [facility] 11-20-2021 10:26-0400 Respiratory rate 20 /min Raghavendra Rodriguez [facility] 11-20-2021 10:26-0400 SaO2% (BldA) [Mass fraction] 98 % Raghavendra Rodriguez [facility] 11-20-2021 10:26-0400 Systolic blood pressure 185 mm[Hg] Raghavendra Rodriguez [facility] Encounters Encounter Date Encounter Type Care Provider Facility Start: 09-04-2023 End: 09-04-2023 ambulatory Dia Wu Facility:[facility] Start: 09-04-2023 End: 09-04-2023 ambulatory CAROLA LO Not Available Start: 09-04-2023 End: 09-04-2023 Departed Referred INSTALLATION SUPERINTENDENT Dia Bryce Work Phone: [facility] Start: 08-22-2023 End: 08-22-2023 ambulatory CAROLA LO Not Available Start: 05-28-2022 End: 05-28-2022 Emergency department patient visit INSTALLATION SUPERINTENDENT Dia Wu Work Phone: [facility] Start: 05-26-2022 End: 05-26-2022 ambulatory Michael Jameson Other [facility] Other Start: 05-26-2022 Office outpatient ne w 20 minutes Michael Jameson [facility] Ur[facility] Care [facility] Start: 02-16-2022 End: 02-16-[address] CAROLA LO Facility:[facility]1 Start: 12-02-2021 End: 12-02-[address] CAROLA LO Facility:[facility] Start: 11-29-[address] CAROLA LO Facility :[facility] Start: 11-20-2021 End: 11-20-2021 Emergency department patient visit Raghavendra Rodriguez [facility] Start: 11-18-2021 End: 11-18-[address] CAROLA LO Facility:[facility] Start: 11-15-[address] CAROLA LO Facility :[facility] Start: 11-11-2021 Encounter for preprocedural cardiovascular examination DR CAROLA LO [facility] Start: 11-07-2021 End: 11-08-[address] CAROLA LO Facility:[facility] Start: 11-07-2021 End: 11-08-2021 Encounter for preprocedural cardiovascular examination DR CAROLA LO Facility:[facility] Start: 09-23-2021 End: 09-24-[address] CAROLA LO Facility:[facility] Start: 09-22-2021 End: 09-23-[address] CAROLA LO Facility:[facility] Plan of Treatment Date Care Activity Detail Author Patient referral [facility] Work Phone: Payers Date Payer Category Payer Self-pay [id number] 2020 Unknown [id number] 1980 Unknown [id number] 2.16.84 [id number] 1979 Unknown [id number] 2.16.84 0.1.113605.3.579.2.593 1979 Unknown [id number] 2.16.84 0.1.811748.3.579.2.593 1979 Unknown [id number] 2.16.84 0.1.719840.3.579.2.593 1979 Unknown [id number] 2.16.84 0.1.372297.3.579.2.593 1979 Unknown [id number] 2.16.84 0.1.438339.3.579.2.593 1979 Unknown [id number] 2.16.84 0.1.810864.3.579.2.593 1979 Unknown [id number] 2.16.84 0.1.078844.3.579.2.593 1979 Unknown [id number] 2.16.84 0.1.965704.3.579.2.1259 1979 Unknown [id number] 2.16.84 0.1.960998.3.579.2.1259 1959 Self-pay [id number] Medicare [employer] M[employer] PFFS [id number] Unknown [id number] 2.16.8 [id number] Unknown HCAP/HFA/FAP Active [id number] Social History Date Type Detail Facility Tobacco [facility] Comment on above: Denies. Female [facility] Start: 05-28-2022 End: 05-28-2022 Tobacco smoking status NHIS Never smoked tobacco (finding) [facility] Start: 1980 Sex Assigned At Female F [facility] Evaluation note 05-26-2022 Note Date & Type [...] (ICD-10 - R03.0) Follow up with pcp. [employer] Other Clinical Note 12-02-2021 Note Date & Type Note Facility 12-02-2021 Note OPERATIVE NOTE OPERATION DATE: 12/02/2021 PROCEDURE: Diandra endometrial ablation. PREOPERATIVE DIAGNOSIS: Menorrhagia. POSTOPERATIVE DIAGNOSIS: Menorrhagia. ANESTHESIA: General. SURGEON: Carola Lo D.O. INSURANCE SALES REPRESENTATIVE: None. BLOOD LOSS: 5 mL. URINE OUTPUT: [...] Patient taken to recovery in stable condition. [facility] Signed and Approved by: DR CAROLA LO . 12/15/2021 10:48:00 [facility] Clinical Note 11-22-2021 Note Date & [...] Locations R1: This test was performed at: [facility], [address] [place] [address], [facility] , , [facility] Comment on above: Performed By: #### 2 [id number] ####[facility] [address] [place] [address] Evaluation + Plan note 11-20-2021 Note Date & Type Note Facility 11-20-2021 Evaluation + Plan note Diagnostic Tests PendingStrep Screen Culture 11/20/21 [facility] Hospital Discharge instructions 11-20-2021 Note Date & Type Note Facility 11-20-2021 Hospital Discharg e instructions Patient Education 11/20/2021 11:31:01 Allergic Rhinitis, Adult, Utdv-ub-Xyvn Allergic Rhinitis, Adult Allergic rhinitis is a [...] are lowest. This is usually during the vest front presser or evening hours. ?If you do go [...] away after you touch household pets. Take sbpt-elr-srccsmn and prescription medicines only as told by [...] 10/11/2011 Document Revised: 09/30/2019 Document Reviewed: 12/31/2018 [employer] Patient Education 2020 [employer]. 11/20/2021 11:31:01 Pharyngitis, Tyyd-ob-Kmnl Pharyngitis Pharyngitis is a sore throat (pharynx). This is when there is redness, pain, and swelling in your throat. Most of the time, this condition gets better on its own. In some cases, you may need medicine. Follow these instructions at home: Take wams-trj-pgjyhyq and prescription medicines only as told by [...] 11/27/2008 Document Revised: 05/24/2018 Document Reviewed: 07/17/2017 [employer] Patient Education 2020 [employer] 11/20/2021 11:31:01 Cough, Adult, Akpo-kj-Vmgx Cough, Adult A cough helps to clear [...] Follow these instructions at home: Medicines Take mwnu-ciz-uqrllid and prescription medicines only as told by [...] Many things can cause a cough. Take bgcm-dyy-prgazig and prescription medicines only as told by [...] 02/22/2012 Document Revised: 06/30/2019 Document Reviewed: 06/30/2019 [employer] Patient Education [employer]. 11/20/2021 11:31:01 Cool Mist Vaporizer Cool Mist [...] 03/08/2005 Document Revised: 06/28/2017 Document Reviewed: 09/09/2016 [employer] Patient Education 2020 [employer]. Follow Up Care 11/20/2021 10:25:19 With:Dia Wu Address: [address], [address] [address]- [phone] Business (1) When:11/23/2021 11:10:20 [facility] Clinical Note 11-18-2021 Note Date & Type Note Facility 11-18-2021 Note OPERATIVE NOTE OPERATION DATE: 11/18/2021 PROCEDURE: D AND C, hysteroscopy with Myosure. PREOPERATIVE DIAGNOSIS: Menorrhagia, thickened endometrium. POSTOPERATIVE DIAGNOSIS: Menorrhagia, thickened endometrium. ANESTHESIA: General. SURGEON: Carola Lo D.O. INSURANCE SALES REPRESENTATIVE: None. SPECIMEN: Endometrial curetting. FINDINGS: Thickened endometrial [...] to the Recovery Room in stable condition. [facility] Signed and Approved by: DR CAROLA LO . 11/25/2021 08:14:00 [facility] Evaluation note Note Date & Type Note Facility Evaluation note No assessment information availa [facility] Work Phone: History general Narrative - Reported Note Date & Type Note Facility History general Narrative - Reported Type Medical History hypertension Medical History chronic depression Medical History acid reflux Medical History pre-diabetes Surgical History D&C 2006 Surgical History ablasion [employer] Other Hospital course Narrative Note Date & Type Note Facility Hospital course Narrative No data available for this section [facility] Hospital Discharge instructions Note Date & [...] may be related to your metformin dose [facility] Work Phone: Summary Purpose Family History Relationship Condition Age at Onset Recorded Date/T ledy father Unknown Not Specified Unknown Advance Directives Advance Directive Response Recorded Date/ Time Advance Directives No April 7:37pm Advance Directive Response Recorded Date/ Time Advance Directives No April 8:37pm Chief Complaint and Reason for Visit Chief Complaint vomiting Chief Complaint Unknown Additional Source Comments INFORMATION SOURCE (unrecogn ized section and content) DATE CREATED AUTHOR 12/01/2021 [facility] DATE CREATED AUTHOR AUTHOR'S ORGANIZ ATION 02/23/2022 [facility] DATE CREATED AUTHOR AUTHOR'S ORGANIZ ATION 09/05/2023 [facility] EPIC DATE CREATED AUTHOR AUTHOR'S ORGANIZ ATION 09/06/2023 [facility] Care Teams (unrecognized sec tion and content) Team Status: Inactive Member Role Status Dates Dia Wu NP Primary Care Provider Active Ernie Vora DO Emergency Provider Active Team Status: Active Member Role Status Dates Dia Wu NP Primary Care Provider Active Team Status: Inactive Member Role Status Dates Dia Wu NP Primary Care Provider Active Start: September 04, 2023 End: September 04, 2023 Carola Lo Attending Provider Active Start: [facility] 2023 End: September 04, 2023 Goals (unrecognized section and content) Goals may [...] BE BASED ON THE PRIMARY CLINICAL RECORDS. [facility]. provides no warranty or guarantee of the accuracy or completeness of information in this document.
[2023-10-13 00:08] LABS: Age Gdln ACOG Testing Note (.); HPV Aptima Negative (Negative); IGP, Aptima HPV, rfx 16/18,45 Note (.)
== END 2023-10-09 21:33 | disposition home or self-care (01) ==
LOC: LAB 21:32
PROVIDERS: Visit Provider Obstetrics & Gynecology
DX: Z01.419 Encounter for gynecological examination (general) (routine) without abnormal findings (principal)
CPT/HCPCS: 87624; G0145

== ENCOUNTER 2023-10-25 11:12 | Outpatient (OUT) | payer OTHER, SELFPAY ==
--- NOTE | 2023-10-25 12:03 | ECG_ITS ---
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
[2023-10-25 13:03] LABS: Basophils Percent Auto 0.4 % (0.2-2.0); Eosinophils Absolute Auto 0.2 10^3/uL (0.0-0.7); Eosinophils Percent Auto 2.4 % (0.9-7.0); Hematocrit 35.7 % (36.0-48.0); Hemoglobin 11.3 g/dL (12.0-16.0); Immature Granulocytes Abs Auto 0.02 10^3/uL (0.00-0.03); Immature Granulocytes Pct Auto 0.2 % (0.0-0.5); Lymphocytes Absolute Auto 2.6 10^3/uL (1.2-3.8); Lymphocytes Percent Auto 31.2 % (20.5-60.0); Mean Corpuscular HGB Conc 31.7 g/dL (29.9-35.2); Mean Corpuscular Hemoglobin 26.9 pg (26.7-34.0); Mean Platelet Volume 10.2 fL (9.5-13.5); Monocytes Absolute Auto 0.6 10^3/uL (0.3-0.8); Monocytes Percent Auto 7.3 % (1.7-12.0); Neutrophils Absolute Auto 4.8 10^3/uL (1.4-6.5); Neutrophils Percent Auto 58.5 % (43.0-75.0); Platelet Count 364 10^3/uL (150-450); Red Cell Distribution Width 14.3 % (11.0-15.0); White Blood Count 8.2 10^3/uL (4.0-11.0)
[2023-10-25 13:20] LABS: INR 1.01; Partial Thromboplastin Time 27.6 sec (22.3-36.2); Prothrombin Time 10.7 sec (9.0-11.6)
[2023-10-25 13:55] LABS: Alanine Aminotransferase 24 U/L (14-59); Albumin Globulin Ratio 0.8; Albumin Level 3.4 g/dL (3.4-5.0); Alkaline Phosphatase 64 U/L (46-116); Anion Gap 13.7; Aspartate Amino Transferase 20 U/L (15-37); BUN Creatinine Ratio 14.9; Bilirubin Direct 0.1 mg/dL (0.0-0.2); Bilirubin Total 0.2 mg/dL (0.2-1.0); Calcium 9.2 mg/dL (8.5-10.1); Chloride 103 mmol/L (98-107); Estimated GFR (African America >60 (>=60); Estimated GFR (Non-African Ame >60 (>=60); Globulin 4.2 g/dL; Glucose 134 mg/dL (74-106); Potassium 3.7 mmol/L (3.5-5.1); Sodium 139 mmol/L (136-145); Total Protein 7.6 g/dL (6.4-8.2)
== END 2023-10-25 11:13 | disposition home or self-care (01) ==
LOC: PST 11:12
PROVIDERS: Visit Provider Obstetrics & Gynecology
DX: Z01.810 Encounter for preprocedural cardiovascular examination (principal); Z01.812 Encounter for preprocedural laboratory examination; Z12.31 Encounter for screening mammogram for malignant neoplasm of breast; N94.10 Unspecified dyspareunia; N92.0 Excessive and frequent menstruation with regular cycle; R10.2 Pelvic and perineal pain; N94.6 Dysmenorrhea, unspecified; D64.9 Anemia, unspecified
CPT/HCPCS: 77063; 77067; 80048; 80076; 85025; 85610; 85730; 86850; 86900; 86901; 93005

== ENCOUNTER 2023-10-25 11:20 | Outpatient (OUT) | payer OTHER, SELFPAY ==
--- NOTE | 2023-10-25 13:28 | MM_ITS ---
Patient Name: KERON SANDOVAL MR#: [id number] : 1980 Exam Date: 10/25/2023 Ordering Doctor: DR Anatoliy Lo . RADIOLOGY REPORT PROCEDURE: MM TOMOSYNTHESIS SCREENING BI COMPARISON: None. INDICATIONS: screening Calculator Name NCI Breast Cancer Risk Assessment Tool 5 Year Breast Cancer Risk 0.80% Lifetime Breast Cancer Risk 9.80% Personal Breast Cancer No Personal Ovarian Cancer No Treatments None Family Cancers None LOCATION: [facility] BREAST COMPOSITION: There are scattered areas of fibroglandular density. FINDINGS: DIAGNOSTIC CATEGORY 1--NEGATIVE. NO CHANGE FROM COMPARISON ASSESSMENT. RIGHT BREAST: No significant suspicious finding. LEFT BREAST: No significant suspicious finding. RECOMMENDATIONS: ROUTINE MAMMOGRAM AND CLINICAL EVALUATION IN 12 MONTHS. PLEASE NOTE: A NORMAL MAMMOGRAM DOES NOT EXCLUDE THE POSSIBILITY OF BREAST CANCER. A CLINICALLY SUSPICIOUS PALPABLE LUMP SHOULD BE BIOPSIED. Dictated by: Nicko Granda MD on 10/25/2023 at 14:35 Approved by: Nicko Granda MD on 10/25/2023 at 14:36
== END 2023-10-25 11:21 | disposition home or self-care (01) ==
LOC: MAMMO 11:20
PROVIDERS: Visit Provider Obstetrics & Gynecology
DX: Z12.31 Encounter for screening mammogram for malignant neoplasm of breast (principal)
CPT/HCPCS: 77063; 77067

== ENCOUNTER 2023-11-07 06:01 | Day surgery (SDC) | payer OTHER, SELFPAY ==
[2023-10-25 12:46] VITALS: BP 128/80; PULSE 73; TEMP 36.2; O2SAT 97; BMI 42.2
[2023-11-07] VITALS (17 sets, daily range): BP systolic 115–164; BP diastolic 63–108; PULSE 70–87; TEMP 36.3–36.8; O2SAT 91–100; BMI 42.8; BMI 41.3
--- OUTSIDE RECORDS SUMMARY | 2023-11-07 06:04 | XMS_ITS | CCD ---
Author Organization [facility] Care Team Providers Care Cart Driver Name Role Phone Dia Wu Primary Care Physician [phone] TERESA, DR SRIVASTAVA Consulting Unavailable MISC, DR [...] Care Provider DO Ernie Vora Emergency Provider [phone] Michael Jameson Unavailable Dia Wu Y Primary Care Unavailable Carola Lo Attending Unavailable Craola Lo Admitting Unavailable LUIS uW Primary Care Provider Carola Lo Attending Provider [phone] CAROLA LO Attending Unavailable CAROLA LO Attending Unavailable CAROLA LO Attending Unavailable Allergies Allergy Classification Reported Allergen(s) Allergy Type Date of Onset Reaction(s) Facility (3 sources) Penicillin; Translations: [penicillin] Drug Allergy hives, Unknown [facility] (1 source) Sulfonamides (Antibiotic); Translations: [sulfa drugs] Drug [facility] (1 source) Sulfonamides (Antibiotic) Drug allergy (disorder) [facility] (3 sources) Penicillins; Translations: [Penicillins] Allergy to substance 2 Unknown Reaction [facility] (3 sources) Sulfonamides (Antibiotic); Translations: [Sulfa (Sulfonamide Antibiotics)] Allergy to substance 2 Unknown Reaction [facility] (2 sources) Sulfacetamide Drug Allergy 2 [facility] (1 source) Sulfacetamide Drug Allergy 2 [facility] Repository Medications Current Medications Medication Drug [...] 20 cap(s), Refills(s) 0, Pharmacy: [facility], 162, cm, 11/20/21 10:28:00 EDT, Height/Length Dosing, [...] 1 EA, Refill(s) 0, [facility], 162, [...] [Nausea] 05-28-2022 Episodic Other aftercare (1 source) [facility] (current) use of oral hypoglycemic drugs; Translations: [ELECTRONIC NEWS GATHERING [employer]ER[employer] PERSON USE ORAL HYPOGLYCEMIC DX] Onset: 12-06-2021 Episodic Other aftercare (1 source) Other [facility] [employer] (current) drug therapy; Translations: [OTH ASSISTED CURRENT DRUG THERAPY] Onset: 12-06-2021 Episodic Other [...] Test Name Value Interpretation Reference Range Facility [facility] 09-04-2023 L Specimen: [id number] Received: 09/05/23-1246 Status: SOUT Remerlyn Num: [id number] Spec Type: Surgical Subm Dr: Carola Lo Tissues: A Endometrium - Biopsy (EMB) Procedures: HE/2, Gross/Micro L4 Age/ Patient Sex Location Account Attending Physician Delilah Sandoval 43/F LABELL [id number] Carola Lo SPEC NUM: [id number] RECD: 09/05/23 STATUS: GURJIT CHRISTENSEN NUM: [id number] MARCO ANTONIO: 09/04/23- SUBM DR: Carola Lo ENTERED: 09/05/23 [facility] DR: Litzy,Lab SPEC TYPE: Surgical DEPT: [...] in one cassette labeled A1. CPT Codes 50004 Specimen: [id number] Received: 09/05/23 Status: GURJIT Andie Num: [id number] Spec Type: Surgical Subm Dr: Carola Lo Tissues: A Endometrium - Biopsy (EMB) Procedures: HE/2, Gross/Micro L4 Patient: Delilah Sandoval [id number] (Continued) Signed (signature on file) Chin-Phill Milan MD 09/06/23 3033 [facility] COVID/FLU RT-PCRon 2 SARS-CoV-2 (COVID-19) RNA EFRAIN+probe Ql (Unsp spec) Negative Cause.it Other COVID/FLU RT-PCR Negative [facility] Other Quick Strepon 05-26-2022 S. pyogenes Org specific cx Ql (Throat) Negative Cause.it Other Quick Strep Cause.it Other PAP ACOG PANEL 2: 30 to 65on 02-23-2022 . . Normal [facility] Comment on above: Result Comment: Perf ormed at: WB Performed By: #### P T, PTT #### [facility] [address] [place] [address] Dr. Kimberley Milan Age Gdln ACOG Testing 30-65 Normal [facility] Comment on above: Performed By: #### P T, PTT #### [facility] [address] [address] [address] Kimberley Milan DIAGNOSIS: Comment Normal [facility] Comment on above: Result Comment: NEGA TIVE FOR INTRAEPITHELIAL LESION OR MALIGNANCY. Performed at: WB Performed By: #### P T, PTT #### [facility] [address] [place] [address] Dr. Kimberley Milan HPV Aptima Negative Normal Negative [facility] Comment on above: Result Comment: This nucleic acid amplification test detects fourteen high-risk HPV types (16,18,31,33,35,39,45,51,52,56,58,59,66,68) without differentiation. Performed at: =G Performed By: #### P T, PTT #### [facility] [address] [place] [address] Dr. Kimberley Milan Methodology: Comment Normal [facility] Comment on above: Result Comment: This liquid based ThinPrep(R) pap test was screened with the use of an image guided system. Performed at: WB Performed By: #### P T, PTT #### [facility] [address] [place] [address] Dr. Kimberley Milan Note: Comment Normal [facility] Comment on above: Result Comment: The [...] Performed By: #### P T, PTT #### [facility] [address] [place] [address] Dr. Kimberley Milan Performed by: Comment Normal [facility] Comment on above: Result Comment: Deangelo Bach, Cotton Feeder (ASCP) Performed at: WB Performed By: #### P T, PTT #### [facility] [address] [place] [address] Dr. Kimberley Milan Specimen adequacy: Comment Normal [facility] Comment on above: Result Comment: Sati sfactory for evaluation. Endocervical and/or squamous metaplastic cells (endocervical component) are present. Performed at: WB Performed By: #### P T, PTT #### [facility] [address] [address] [address] Kimberley Milan CBC AUTO DIFFon 12-02-2021 BASO # 0.1 103/ul Normal 0.0-0.1 [facility] Comment on above: Performed By: #### C BC #### [facility] [address] [place] [address] Dr. Kimberley Milan Basophils/100 WBC (Bld) 0.7 % Normal 0.2-2.0 [facility] Comment on above: Performed By: #### C BC #### [facility] [address] [place] [address] Dr. Kimberley Milan EO # 0.4 103/ul Normal 0.0-0.7 [facility] Comment on above: Performed By: #### C BC #### [facility] [address] [place] [address] Dr. Kimberley Milan Eosinophils/100 WBC (Bld) 3.6 % Normal 0.9-7.0 [facility] Comment on above: Performed By: #### C BC #### [facility] [address] [place] [address] Dr. Kimberley Milan Erythrocyte distribution width (RBC) [Ratio] 16.1 % Critically high 11.0-15.0 [facility] Comment on above: Performed By: #### C BC #### [facility] [address] [place] [address] Dr. Kimberley Milan Hematocrit (Bld) [Volume fraction] 33.7 % Critically low 36.0-48.0 [facility] Comment on above: Performed By: #### C BC #### [facility] [address] [place] [address] Dr. Kimberley Milan Hemoglobin (Bld) [Mass/Vol] 10.2 g/dL Critically low 12.0-16.0 [facility] Comment on above: Performed By: #### C BC #### [facility] [address] [place] [address] Dr. Kimberley Milan IG # 0.03 10e3/ul Normal 0.00-0.03 [facility] Comment on above: Performed By: #### C BC #### [facility] [address] [place] [address] Dr. Kimberley Milan IG % 0.3 % Normal 0.0-0.5 [facility] Comment on above: Performed By: #### C BC #### [facility] [address] [place] [address] Dr. Kimberley Milan LYMPH # 2.3 103/ul Normal 1.2-3.8 [facility] Comment on above: Performed By: #### C BC #### [facility] [address] [place] [address] Dr. Kimberley Milan Lymphocytes/100 WBC (Bld) 23.2 % Normal 20.5-60.0 [facility] Comment on above: Performed By: #### C BC #### [facility] [address] [place] [address] Dr. Kimberley Milan MANUAL DIFF REQ NO Normal [facility] Comment on above: Performed By: #### C BC #### [facility] [address] [place] [address] Dr. Kimberley Milan MCH (RBC) [Entitic mass] 24.8 pg Critically low 26.7-34.0 [facility] Comment on above: Performed By: #### C BC #### [facility] [address] [place] [address] Dr. Kimberley Milan MCHC (RBC) [Mass/Vol] 30.3 g/dL Normal 29.9-35.2 [facility] Comment on above: Performed By: #### C BC #### [facility] [address] [place] [address] Dr. Kimberley Milan MCV (RBC) [Entitic vol] 82.0 fL Normal 81.0-99.0 [facility] Comment on above: Performed By: #### C BC #### [facility] [address] [place] [address] Dr. Kimberley Mialn MONO # 0.8 103/ul Normal 0.3-0.8 [facility] Comment on above: Performed By: #### C BC #### [facility] [address] [place] [address] Dr. Kimberley Milan Monocytes/100 WBC (Bld) 8.0 % Normal 1.7-12.0 [facility] Comment on above: Performed By: #### C BC #### [facility] [address] [address] [address] Kimberley Milan NEUT # 6.4 103/ul Normal 1.4-6.5 [facility] Comment on above: Performed By: #### C BC #### [facility] [address] [place] [address] Dr. Kimberley Milan Neutrophils/100 WBC (Bld) 64.2 % Normal 43.0-75.0 [facility] Comment on above: Performed By: #### C BC #### [facility] [address] [place] [address] Dr. Kimberley Milan Platelet mean volume (Bld) [Entitic vol] 9.9 fL Normal 9.5-13.5 [facility] Comment on above: Performed By: #### C BC #### [facility] [address] [place] [address] Dr. Kimberley Milan PLT 297 103/ul Normal 150-450 [facility] Comment on above: Performed By: #### C BC #### [facility] [address] [place] [address] Dr. Kimberley Milan RBC 4.11 106/ul Critically low 4.20-5.40 [facility] Comment on above: Performed By: #### C BC #### [facility] [address] [place] [address] Dr. Kimberley Milan WBC 10.0 103/ul Normal 4.0-11.0 [facility] Comment on above: Performed By: #### C BC #### [facility] [address] [place] [address] Dr. Kimberley Milan POINT OF CARE GLUCOSEon 11-23-2021 Glucose [Mass/Vol] 117 mg/dL Critically high 74-106 T [facility] Comment on above: Performed By: #### P OCGLUC #### [facility] [id number] Kimberley Milan PREG QUANT HCGon 12-02-2021 HCG QUANT <1 Normal [facility] Comment on above: Performed By: #### P REGQNT #### [facility] [address] [address] [address] Kimberley Milan HCG RANGE SEE BELOW Normal [facility] Comment on above: Result Comment: 5-50 0-1 WEEK 40-300 1-2 WEEKS 100-1,000 2-3 WEEKS 500-6,000 3-4 WEEKS 5,000-200,000 1-2 MONTHS 10,000-100,000 2-3 MONTHS 3,000-50,000 2ND TRIMESTER 1,000-50,000 3RD TRIMESTER Performed By: #### P REGQNT #### [facility] [id number] Kimberley Milan ED Note-Physicianon 12-02-19 ED [...] [address], [address], [address] [place] [phone] Business (1) Additional Instructions: Patient Educatio (more content not included)... Normal [facility] Comment on above: Result Comment: Elec tronically Signed By: Dana Wong PA-C\.br\Date and Time Signed: 11/20/21 11:25 EDT\.br\Electronically Co-Signed By: Raghavendra Rodriguez MD\.br\Date and Time Co-Signed: 12/01/21 07:12 EDT Coding Summary.on 11-29-2021 Coding Summary. CD:[id number] Gh0bWw+PGhlYWQ+PE1FV YZwJ24zoQVxvV3FD7fTM O2OUGGSTSZTVV1QQT0ba AQ3RXxiW8KfoeQn YwwzlWBvRS04OCg2BIA5 tUtlAByzoB0naCPpU4o6 JrCcRP73uW12CCmkTQWr ElJ6DiHxorlalXBq V2xtUcDhtFWuMoe+PHRh YmxlIHdpZHRoPScxMDAl EoRgqLivBO8sTh9tPQDc LWNvbGxhcHNlOiBj y1gmSOVkPZfuXJ8viBqr I5DnhIK3GNRxx7d6Le46 dHI+WRKeTBG4hOtpZCsm u390AlFco1ymLOU4 rACfURzjBTL3F62jd7P2 QCEwRIBnZEH9xKY8nH5w hUvmavcsZ5CykOXdRyI5 GTE5nQLqvZ0djQjd frzejT9xJvl+J56YRL0O NBDPLT2FFwr0B2VrRpgn dHI+ES58DQCuBS88mSRy oEEuw6dzbCv0XlUz KLKdIOG7jPhwQRiek9Qs DKPrT72uiEHcg4P2XHNs zKydmHCmFnHvaKU7lC7l WEpdkhabk6jhxufx Txlsw6vxoa23yI25O73q WRrqXRYsGWT8TNCvOKYd mCdfsq7krJ3zVc7+IDxj z5fel3fhiTp2OvZh HFGvehNetPyzVXJ0m6Kp Se57N3BonAmin4TlGvi8 ql23cFIyr9H4yUF0KIcb UVIpeD4pINclEuC5 SKSbVyOyxO21kSThLWtx Up0oyOnnwPvyJU7gLWAy jzacMSCkmT4qDYGxpTFi rVsuQV7lAYIkjbwm z262JfMeLTQ3DLLkmIUt R7AlfL0oKtHtYMKuCHEi A3RolHLyRSodX009SIfm ZlS9GTZaldEfU2Kp EJDriUafCiI2k8L9Ur8X k7LdswjiDXZ2PNstYAJ8 UqQ4PiQtSjY0S7SuJzp9 DMUeuOtxBY1cP9Qx PGGzesykylvnxKI3DQTc CFPqzX57zOAdZZoeWl0v n8O8h972ZTLuCBSejS82 Yc1ctVwmTGSjqIJB dK1lmlpog9kjalleNpNk CLOdKLi7QTh0ZEZxtDse VqCjHTB6UpD2CEU9uEQw oL2djYmydnfioY6x Oyc+D79hkM7pNYW7DTO7 wsfqJFCxfwNaWB82EY58 E1JiYwvlyNMspOM+PGRp umIsiVjuWD7aOzMj i1xqg5AyHNjxM9ApWJKo WErdNux3LHAoSTL2eJI3 bI0aGRKlYUvbq5A6xDE9 G6RaklUrap6gx9ec FVSkFQmjL40kiQKtp1K6 CFEnyVK4LFYxxWqqAcHv nE91Icj+OYCjoYypd2Oy Xeipk5cgb2rmmJl7 IjMwJSIgdmFsaWduPSJ0 g9TdUj34Y29qACwqUKVq KMOoBFIfIEYsgEbijo7n qE0kUa9+PGNvbCB3 iLH8lT0xWOKkEpA9ZAan V969SfQdaQSnHohva6zj i4waxQe7WcOtYUTatfBp aGfmVRE3b0IcPr05 M23wVTitFCHqZXThPBDn THYbwLddqj4wxK4nRr1+ EK4za8xzce97vU76mUE+ OILxBGH5rQgiWVtr QVOspO9pZMpfZeS4LBCo CwUnfN55lHHhITugDg8f vQensYtfPS2hMJArgsxi j160LkHcy6leWGAc xGSsTJjeESU5K14xd9P1 UGMxLAUxDEU6bHI0vA6n bGlnbjogbGVmdDsgdmVy wSbcERmrCEvdG312 IHRvcDsnPlBhdGllbnQg QdJmIOw1I0CwEpt2AMIf lVfpTR6xjIRcZMkgNh6f jToidXrqEH9bIAKb luplp892BjTcc5vmTPWx mSTkGKymPNQ4B26hn6K4 KKYcNZAyYWX4sIU3gU9p bGlnbjogbGVmdDsg tmRhaCngQFmvDKzmV052 IHRvcDsnPkJpcnRoIERh xVT3JY58AN45cQOyn2W1 mGQ4K7JdGGWxhvdo otabkHX2ZOQhLLChfE54 Ev5dpGocIq8qWZGgRLN2 YZAgvTAeW5TokP2qOyUm TVAtWCWeI3InnZHs YGzbQ742SImkPwU0EWTh feBrO0LdQKGfrVwyFmD2 k7D6Aq1UE4K3RS65DS74 gZJzx2Z8wTS0R5Rv LUYsucizyiqvzXF8DGCx MGYrdM27Du1ndIwbUi9c VJDpVON2BFMojXYhF5Al tN7fNyEiATBlBDOq D0IbrFSxCNsjC951ZWgp YjO4NTIvdnTtK9ZoOFIc xJbdZqL9f9A8Xp5ZEDy1 JN77KS56fQIaq3L8 vEP7Q0OvNLTsrxdvfjaj hJM3ZDLlEHMvxC28Li8d pXpmVz1aMKOyZUB1QOLv zLLbB0MfeR4lXkHe FSVqLZSjK1DbkAWmGMuz H514FRpyLvM6DBAdlbWm M5NmXYXokXodSvD6a6K0 Jd6VTKMvJC53HDJ3 vWR2NG15RK73U6KuIemf dGFibGU+PHRhYmxlIHdp ZHRoPScxMDAlJyBzdHls RX7oXs4jKECpUZRx tRyykWCnRzJaz0pfSUDy EIhcJI3fvJpsO5QnqSX0 OQFge4h3Hw02E65jS1Oe dXA+OGLrkOG2sMG5 tZ5oZsPsOyI2IWixK817 VwNznNCbBkqzm8wcd3xw jVh7NcR5GBJsesEdkZna FIH7r9ZlZm69X74b IHdpZHRoPSIxNSUiIHZh vVcvin5loW0aYw8+PGNv oEF0mIV2xH9uUpGmVsC7 SCqvP824AmCpmIYz Fxuws3ine4nywQa5HkYb WBNfvlXoaOikGMR4r1Sm Yy12C8StdCvke7XlAqj2 bj35iJQck6Y7lIO1 X1SnWLFsfvhyiXNtuThd EQ5yWUHqginkPIGtnN9i XYXsZ9l1ApAuNyZ9DHej S9KsxwV7UARnlNGa TGtcKWD3O19gc0X6INYo URDbSLF2bDV8oV0uqSlf bjogbGVmdDsgdmVydGlj PEipMQirA115QWYx aIboRQJemM5aZBGziOWl mXmlPJ1aQUHhswnnXvjS RVNTTUFOLCBTVEVQSEFO SUUgUjwvdGQ+PHRk WWY1fPnwAVzpWIOoaL8t RORxX1d9OhOhEvM2DLwr S6BnYOZxbyabNh13kX8f WzNhZhC4KRdfO4Pi dxR3EBSwvGDnREkcOPS6 K05cl0I3WWWfWJPePCH4 pTH7jZ8pnDlbmpjxbKEe dDsgdmVydGljYWwt SQbpY024DOHjmTstSvF9 TxK4HkH0Fqg6R1PzZdp4 NJHsuHqlOF9puOYzRJfb Yn7zdPyqlGgvPX0t NJEnyajlSCCyvR1wZXLb jUSgnUbzXU4iQMIsyicq y010KmOkBKD4GIDmfGCf J4QjnV5gUiGiWOMi AHPsB3SvfTZwYQzbA489 ZJiiDbE4ELVjayZlY6Ru FEYoxXssIqH0x3Z2Eo32 MiBZZWFyczwvdGQ+ NJZgSYK2vNdePOpbAICe zU9zGEKpK2e9UvRzBwA9 MBkwH6EdMWGstfffDm25 zQ3rFyXnBiA0BEux X0ZvdqV2ODNeuPQwSPbh PZG5I14pa5S9HMGpHDQp UOI8cJP5kI8jgLqlugup bGVmdDsgdmVydGlj DVyeXQtjG474OHFbjTbq PkZlbWFsZTwvdGQ+PHRk TDX9jRakXHelSHNkfL3c WCKaH1a1TwOmPcR1 XMqdC5WhRTIdpyejEb27 jA5mAcGbEgD6ZZhtX8Oh pfQ8WNMvhUNxBEuuDMX1 J65ty4V0AVSyYVVw PPP2mXZ9aX8nfYofulme bGVmdDsgdmVydGljYWwt NOoyI544ETKboNcnEfFg LFLcTG8bnJffoNR+ LO70ih52F8BaWkvcTyg8 RRBdIWJ3mRR1eE8fPBNb LOhbq8X4lOP9T1VmrrDl kg1ri9znKHZeBUae N44kdCVdi5H9KEVovEN1 IRAdaQziKuUxyJ50Jdd+ VIFnsJjvy2OaEarst6rb h3jcpJl9MhLkOWCa rpSsqTaaTNS1j1WzUx08 Z66lSUsiFLRsBLNeOXRu NKKohFwnyn6nbB9zEg6+ UNTxlHC0nLP8bK8z IdPqEhP7OPubF158VjOx hZMaDhhsg3ttv6vgnHa7 IjIwJSIgdmFsaWduPSJ0 y3GvUo25E1OzgKxx d6VrPio3rr04zVYor3I2 lJN0G8YbPZFmhktjeLGa yWwuPX1yTVAsnvlfSNVz vT9fXCClV5o1UxBm VpD8DMdpE0XjjqP6VXSa oRCjVSCgdINVgH3fbhao y7pvxqzjGwBwOXUsFBl7 UHq5SLRqfQhuFxWv JQS7TrB2UVF2jYJubZ0s uUkrmktvzJ9sPhe+UGh5 h4xeoMCzJM2okZF7OI68 AB27cJOgw7H7hLT2 Y9HvHEMigoaarpsqyCL4 JNXkLCLzmM07Sw0gyYfj Pi8mEGVmAGE0ILIieJRo E9CkfL7zQgGdFSLb RPJrC5LquGJoGAftB920 TQmfAiT6AJQcjwGrI6Rw ZZXwuWtaZuU0y3G1Qa3V DA50KT69HG04eNOe d2O8cEK2T4GoKLSnxuoh hrropSE8GJBuAUEzqX85 Pi7zyLfeLv6aZKKoPHD0 YEHjmFWmM6WvhF2q GkVpZIQkMPMlG3JezHBm FPwmP707JHfjQnN6WPQu ofGaS8VeJJCibWljAzR3 f2W8Pn3DYe29MV01 PI08vHFiq3S9gXQ6V3Xy QZVyinklrvnpyND2KUWv JVOilO24Zv9baRxjOy9l LWPiVMU2NJBwyDBp A4BpoQ2iTvCiTWIcQCUy P4IwqXApGVllW990DVvn QyP1MXRuojRfC0LtNHQq hJpcQgM3o9R1Qr7J HQawewq9E0JkNswvgUW+ IW08HTGaAR50sUMjlROa q9phuAy8KwRaMENbUUS1 dKxkWXbkv9NtAGWa Y29s (more content not included)... Normal [facility] Consent for Treatmenton 10-24 Consent for Treatment [id number] #[id number]:127 Normal [facility] Discharge Instructionson Discharge Instructions [id number]#1.00CD:127 Normal [facility] ED Clinical Summaryon 2021 ED Clinical Summary [place] [id number] ED Clinical Summary Person Information Name: DELILAH SANDOVAL Danielle/[facility] Age: 41 Years : 1980 Sex: Female Language: Scottish PCP: Dia Wu CNP Marital Status: Single Phone: [phone] Visit Id: Visit Reason: Sinus Pain/Congestion; Throat [...] 11/20/2021 11:31:01 11/20/2021 11:31:01 11/20/2021 11:31:01 ADDRESS: [address] [facility] [id number] PHYS DOC NOTES: MEDICAL INFORMATION: Prescriptions Given: New Medications [facility], [address] [place], [place] [id number], [phone] brompheniramine/dext romethorphan/PSE (Bromfed DM oral syrup) 5 [...] PATIENT EDUCATION INFORMATION: Instructions: Allergic Rhinitis, Adult, Nxtw-qf-Fbhh; Pharyngitis, Hcza-cn-Qcyr; Cough, Adult, Fplj-dz-Wevm; Cool Mist Vaporizer Follow up: With: Address: When: Dia Haley, Harriet , [facility] [address] [place] [phone] Business (1) In 3 days 11/23/2021 DIAGNOSIS: 1:Acute rhinitis; 2:Pharyngitis Normal [facility] ED Patient Education Noteon 11-20-2021 [...] are lowest. This is usually during the agricultural consultant or evening hours. ? If you do [...] after you touch household pets. ? Take ywad-kyn-tzybxtm and prescription medicines only as told by [...] 10/11/2011 Document Revised: 09/30/2019 Document Reviewed: 12/31/2018 [employer] Patient Education ? 2020 [employer] Cough, Adult A cough helps to [...] lung ( (more content not included)... Normal [facility] ED Patient Summaryon 022 ED Patient Summary [address] [address] Patient Discharge Instructions Person Information Name: DELIALH SANDOVAL Age: 41 Years Arrival Date: 11/20/2021 10:24:38 Discharge Diagnosis: 1:Acute rhinitis; 2:Pharyngitis Primary Care Physician: Dia Wu CNP Provider Information Primary Provider: Advanced Compressed Yeast Supervisor:None The exam and treatment you received in the Emergency Department were for an urgent problem and are not intended as complete care. It is important that you follow up with a doctor, nurse practitioner, or physician?s photography assistant for ongoing care. If your symptoms [...] Instructions: With: Address: When: Dia Wu [address], [facility], [place] [id number] [phone] Business (1) In 3 days 11/23/2021 In the event that this physician does not participate in your insurance network, please consult with your insurance company to find a nearby participating provider. Patient Education Materials: Allergic Rhinitis, Adult, Yvuu-fo-Bnif; Pharyngitis, Smbf-dz-Xnli; Cough, Adult, Bmja-ah-Dmoj; Cool Mist Vaporizer A MESSAGE TO ALL PATIENTS REGARDING OPIOIDS PRESCRIPTION OPIOIDS: WHAT YOU NEED TO KNOW Prescription opioids can be used to help relieve cjodffks-kw-yexxsp pain and are often prescribed following a [...] be struggling with addiction, tell your health resident care spec and ask fo (more content not included)... Normal [facility] MICRO OTHER TESTSOrdered By: Keyanna Nguyen on 11-20-2021 S. pyogenes Ag IA.rapid Ql (Throat) Negative (11/20/21 10:35 AM) Normal Negative [facility] Man Sero Rapid Strep w/rfxon 11-21-19 S. pyogenes Ag IA.rapid Ql (Throat) Negative Normal Negative [facility] Comment on above: Performed By: #### 2 [id number] ####[facility] [address] [place] [address] CBC AUTO DIFFon 11-18-2021 BASO # 0.1 103/ul Normal 0.0-0.1 [facility] Comment on above: Performed By: #### C BC #### [facility] [address] [address] [address] Kimberley Milan Basophils/100 WBC (Bld) 0.6 % Normal 0.2-2.0 [facility] Comment on above: Performed By: #### C BC #### [facility] [address] [address] [address] Kimberley Milan EO # 0.3 103/ul Normal 0.0-0.7 [facility] Comment on above: Performed By: #### C BC #### [facility] [address] [address] [address] Kimberley Milan Eosinophils/100 WBC (Bld) 3.3 % Normal 0.9-7.0 [facility] Comment on above: Performed By: #### C BC #### [facility] [address] [address] [address] Kimberley Milan Erythrocyte distribution width (RBC) [Ratio] 16.5 % Critically high 11.0-15.0 [facility] Comment on above: Performed By: #### C BC #### [facility] [address] [place] [address] Dr. Kimberley Milan Hematocrit (Bld) [Volume fraction] 35.7 % Critically low 36.0-48.0 [facility] Comment on above: Performed By: #### C BC #### [facility] [address] [place] [address] Dr. Kimberley Milan Hemoglobin (Bld) [Mass/Vol] 10.7 g/dL Critically low 12.0-16.0 [facility] Comment on above: Performed By: #### C BC #### [facility] [address] [place] [address] Dr. Kimberley Milan IG # 0.02 10e3/ul Normal 0.00-0.03 [facility] Comment on above: Performed By: #### C BC #### [facility] [address] [place] [address] Dr. Kimberley Milan IG % 0.2 % Normal 0.0-0.5 [facility] Comment on above: Performed By: #### C BC #### [facility] [address] [place] [address] Dr. Kimberley Milan LYMPH # 2.2 103/ul Normal 1.2-3.8 [facility] Comment on above: Performed By: #### C BC #### [facility] [address] [place] [address] Dr. Kimberley Milan Lymphocytes/100 WBC (Bld) 27.2 % Normal 20.5-60.0 [facility] Comment on above: Performed By: #### C BC #### [facility] [address] [place] [address] Dr. Kimberley Milan MANUAL DIFF REQ NO Normal [facility] Comment on above: Performed By: #### C BC #### [facility] [address] [place] [address] Dr. Kimberley Milan MCH (RBC) [Entitic mass] 24.9 pg Critically low 26.7-34.0 [facility] Comment on above: Performed By: #### C BC #### [facility] [address] [place] [address] Dr. Kimberley Milan MCHC (RBC) [Mass/Vol] 30.0 g/dL Normal 29.9-35.2 [facility] Comment on above: Performed By: #### C BC #### [facility] [address] [place] [address] Dr. Kimberley Milan MCV (RBC) [Entitic vol] 83.0 fL Normal 81.0-99.0 [facility] Comment on above: Performed By: #### C BC #### [facility] [address] [place] [address] Dr. Kimberley Milan MONO # 0.7 103/ul Normal 0.3-0.8 [facility] Comment on above: Performed By: #### C BC #### [facility] [address] [place] [address] Dr. Kimberley Milan Monocytes/100 WBC (Bld) 8.6 % Normal 1.7-12.0 [facility] Comment on above: Performed By: #### C BC #### [facility] [address] [place] [address] Dr. Kimberley Milan NEUT # 5.0 103/ul Normal 1.4-6.5 [facility] Comment on above: Performed By: #### C BC #### [facility] [address] [place] [address] Dr. Kimberley Milan Neutrophils/100 WBC (Bld) 60.1 % Normal 43.0-75.0 [facility] Comment on above: Performed By: #### C BC #### [facility] [address] [place] [address] Dr. Kimberley Milan Platelet mean volume (Bld) [Entitic vol] 9.9 fL Normal 9.5-13.5 [facility] Comment on above: Performed By: #### C BC #### [facility] [address] [place] [address] Dr. Kimberley Milan PLT 341 103/ul Normal 150-450 [facility] Comment on above: Performed By: #### C BC #### [facility] [address] [address] [address] Kimberley Milan RBC 4.30 106/ul Normal 4.20-5.40 [facility] Comment on above: Performed By: #### C BC #### [facility] [address] [place], [place] [address] Dr. Kimberley Milan WBC 8.3 103/ul Normal 4.0-11.0 [facility] Comment on above: Performed By: #### C BC #### [facility] [address] [address] [address] Kimberley Milan POINT OF CARE GLUCOSEon 10-24 Glucose [Mass/Vol] 125 mg/dL Critically high 74-106 [facility] Comment on above: Performed By: #### P OCGLUC #### [facility] [address] [address] [address] Kimberley Milan PREG HCG QUALon 11-18-2021 , QUAL Negative Normal NEGATIVE The [facility] Comment on above: Performed By: #### P T, PTT #### [facility] [address] [address] [address] Kimberley Milan US PELVIS TRANSVAGon 022 [...] SANAZ BELL Date: 2021-09-24 11:58 Normal [facility] CBC W MANUAL DIFFon 09-23-19 22 ATYPICAL LYMPH # Normal [facility] Comment on above: Performed By: #### P T, PTT #### [facility] [address] [place] [address] Dr. Kimberley Milan ATYPICAL LYMPH % Normal [facility] Comment on above: Performed By: #### P T, PTT #### [facility] [address] [place] [address] Dr. Kimberley Milan BAND # 0.0 103/ul Normal 0.0-0.3 [facility] Comment on above: Performed By: #### P T, PTT #### [facility] [address] [place] [address] Dr. Kimberley Milan BAND % 0 % Normal 0-5 [facility] Comment on above: Performed By: #### P T, PTT #### [facility] [address] [place] [address] Dr. Kimberley Milan BASOM # 0.00 103/ul Normal 0.00-0.10 [facility] Comment on above: Performed By: #### P T, PTT #### [facility] [address] [place] [address] Dr. Kimberley Milan BASOM % 0.0 % Critically low 0.2-2.0 [facility] Comment on above: Performed By: #### P T, PTT #### [facility] [address] [place] [address] Dr. Kimberley Milan BLAST # Normal [facility] Comment on above: Performed By: #### P T, PTT #### [facility] [address] [place] [address] Dr. Kimberley Milan BLAST % Normal [facility] Comment on above: Performed By: #### P T, PTT #### [facility] [address] [place] [address] Dr. Kimberley Milan CORRECTED WBC Normal 4.0-11.0 The [facility] Comment on above: Performed By: #### P T, PTT #### [facility] [address] [address] [address] Kimberley Milan EOS # 0.12 103/ul Normal 0.00-0.70 [facility] Comment on above: Performed By: #### P T, PTT #### [facility] [address] [address] [address] Kimberley Milan EOS% 2.0 % Normal 0.9-7.0 [facility] Comment on above: Performed By: #### P T, PTT #### [facility] [address] [address] [address] Kimberley Milan HCT 33.9 % Critically low 36.0-48.0 [facility] Comment on above: Performed By: #### P T, PTT #### [facility] [address] [address] [address] Kimberley Milan HGB 10.2 g/dl Critically low 12.0-16.0 [facility] Comment on above: Performed By: #### P T, PTT #### [facility] [address] [address] [address] Kimberley Milan LYMPHM # 1.51 103/ul Normal 1.20-3.80 [facility] Comment on above: Performed By: #### P T, PTT #### [facility] [address] [address] [address] Kimberley Milan LYMPHM% 26.0 % Normal 20.5-60.0 [facility] Comment on above: Performed By: #### P T, PTT #### [facility] [address] [address] [address] Kimberley Milan MCH 24.3 pg Critically low 26.7-34.0 [facility] Comment on above: Performed By: #### P T, PTT #### [facility] [address] [address] [address] Kimberley Milan MCHC 30.1 g/dl Normal 29.9-35.2 [facility] Comment on above: Performed By: #### P T, PTT #### [facility] [address] [place] [address] Dr. Kimberley Milan MCV 80.9 fL Critically low 81.0-99.0 [facility] Comment on above: Performed By: #### P T, PTT #### [facility] [address] [place] [address] Dr. Kimberley Milan METAMYELOCYTE # Normal [facility] Comment on above: Performed By: #### P T, PTT #### [facility] [address] [place] [address] Dr. Kimberley Milan METAMYELOCYTE % Normal [facility] Comment on above: Performed By: #### P T, PTT #### [facility] [address] [place] [address] Dr. Kimberley Milan MONOM# 0.58 103/ul Normal 0.30-0.80 [facility] Comment on above: Performed By: #### P T, PTT #### [facility] [address] [place] [address] Dr. Kimberley Milan MONOM% 10.0 % Normal 1.7-12.0 [facility] Comment on above: Performed By: #### P T, PTT #### [facility] [address] [place] [address] Dr. Kimberley Milan MPV 9.8 fL Normal 9.5-13.5 [facility] Comment on above: Performed By: #### P T, PTT #### [facility] [address] [place] [address] Dr. Kimberley Milan MYELOCYTE # Normal [facility] Comment on above: Performed By: #### P T, PTT #### [facility] [address] [place] [address] Dr. Kimberley Milan MYELOCYTE % Normal [facility] Comment on above: Performed By: #### P T, PTT #### [facility] [address] [place] [address] Dr. Kimberley Milan NRBC Normal [facility] Comment on above: Performed By: #### P T, PTT #### [facility] [address] [address] [address] Kimberley Milan PLT 346 103/ul Normal 150-450 [facility] Comment on above: Performed By: #### P T, PTT #### [facility] [address] [address] [address] Kimberley Milan RBC 4.19 106/ul Critically low 4.20-5.40 [facility] Comment on above: Performed By: #### P T, PTT #### [facility] [address] [place] [address] Dr. Kimberley Milan RDW 14.9 % Normal 11.0-15.0 [facility] Comment on above: Performed By: #### P T, PTT #### [facility] [address] [place] [address] Dr. Kimberley Milan SEG # 3.60 103/ul Normal 1.40-6.50 [facility] Comment on above: Performed By: #### P T, PTT #### [facility] [address] [place] [address] Dr. Kimberley Milan SEG % 62.0 % Normal 43.0-75.0 [facility] Comment on above: Performed By: #### P T, PTT #### [facility] [address] [place] [address] Dr. Kimberley Milan WBC 5.8 103/ul Normal 4.0-11.0 [facility] Comment on above: Performed By: #### P T, PTT #### [facility] [address] [place] [address] Dr. Kimberley Milan PREG QUANT HCGon 09-22-2021 HCG QUANT <1 Normal [facility] Comment on above: Performed By: #### T SH, PREGQNT #### [facility] [address] [place] [address] Dr. Kimberley Milan HCG RANGE SEE BELOW Normal [facility] Comment on above: Result Comment: 5-50 0-1 WEEK 40-300 1-2 WEEKS 100-1,000 2-3 WEEKS 500-6,000 3-4 WEEKS 5,000-200,000 1-2 MONTHS 10,000-100,000 2-3 MONTHS 3,000-50,000 2ND TRIMESTER 1,000-50,000 3RD TRIMESTER Performed By: #### T SH, PREGQNT #### [facility] [address] [place] [address] Dr. Kimberley Milan PROTIMEon 09-22-2021 INR Coag (PPP) [Relative time] 1.00 {INR} Normal [facility] Comment on above: Performed By: #### P T, PTT #### [facility] [address] [place] [address] Dr. Kimberley Milan INR GUIDELINES SEE BELOW Normal [facility] Comment on above: Result Comment: [place] RED INR: 2.0 - 3.0 CONDITIONS NOT LISTED BELOW 2.5 - 3.5 FOR PROSTHETIC HEART VALVE REPLACEMENT 2.5 - 3.5 RECURRENT THROMBOSIS Performed By: #### P T, PTT #### [facility] [address] [place] [address] Dr. Kimberley Milan PT Coag (PPP) [Time] 10.8 s Normal 9.0-11.6 [facility] Comment on above: Performed By: #### P T, PTT #### [facility] [address] [place] [address] Dr. Kimberley Milan PTTon 09-22-2021 aPTT Coag (Bld) [Time] 24.2 s Normal 22.3-36.2 [facility] Comment on above: Performed By: #### P T, PTT #### [facility] [address] [place] [address] Dr. Kimberley Milan TSHon 09-22-2021 TSH 1.697 uIU/mL Normal 0.470-4.680 The [facility] Comment on above: Performed By: #### T SH, PREGQNT #### [facility] [address] [place] [address] Dr. Kimberley Milan TSH RANGE SEE BELOW Normal [facility] Comment on above: Result Comment: <0.3 4 UIU/ml HYPERTHYROID 0.34-5.60 UIU/ml EUTHYROID >5.60 UIU/ml HYPOTHYROID Performed By: #### T SH, PREGQNT #### [facility] [address] [place] [address] Dr. Kimberley Milan Coding Summary.on 06-10-2021 Coding Summary. CD:[id number] Gh0bWw+PGhlYWQ+PE1FV MEkD97nfXOfgG8XD1qFC Y7WWKPULFPNQX2MOK2co XS9QQalB8FopfNe AbmodGNuUA50GZl0ZZO8 wYzoCHtgjT3qcIRzQ9n2 ZvEdBS33eP73QMewIUUj IeI1CsXknaxxeOEi P2bdDxIqjGFuXff+PHRh YmxlIHdpZHRoPScxMDAl XeKtaHrqFX6wXe3gNDDk LWNvbGxhcHNlOiBj t0gbYROnDUggAI0uzAhv K2IgiJU8HHGyr8b6Zo44 dHI+ZTRsYGO5uDzdANgm x494EpNrc3jqSTZ1 zQTrREmvZDF2X43jj0U5 RAQiGPCbEPJ8cWR0mC6u xAddppytJ3DsmXOxQeA6 DBN8sNXhqU6hcSeu cpemtA8cJbb+W01OGC0H KBVLVI5RQjn9B4HcHsyb dHI+NE15KCBvQF17vNXb wPDsm5rxvCm8NvKp GCEcEGY0yCozFXjzl1Jg KZEvU42jlUBkx8S0GTNx tEwwlUKsWhWzqOZ9dG2c TCvjqslzj8erbury Vszho9sldi11bX96A16r WEzpSEVaAGX3BPCdRFWh iVhgcl9cdR7zSj4+IDxj z9zaq6vsiTf4OhXq ZUQmpdPasCdbJYB3s6Rv Kq67B6OzuVadf6HfYjd4 kw79cTLij8W2mXK7FWit DEUduT4tGLupDyY2 IIQvYaHqeG98pUEjPYfp Oa7eoOjjhJsdRC5rJLOj imzrNTAgwG1qIQCzsIFg tDdiEH1yUHWvgcgi e399JxQvROZ1EBMxzNKf G2HwfX5xPoDaWIViOPRx F0NxvQFkUByiS419FCdh ZeB8TFJdvpQyL4Wj BRDnvLjeQdV1y1R8Ea7M z3BdgswtVNT7PZdyFTBr KrM9IhAhQlZ4O3RwNoo6 NTDuvWmaDZ9eH6Eh CAXhcrhcdvldlZW1ROAw YYNemA11yMXiYZskYn0f d3X7s120AHFqWXUjmX43 Ls4ovAduSGOssOLD zV0bywigm7ygpssbFzFi YQMdDDa7EDw9TNPgeSmo UcUaOPC3QkX3GOT1rJZn sX8naKdanriodC1o Oyc+O11qzJ3dARX3TFY3 qmgqFRYaeqBxMT30CN78 K9LgOvfssCFlrLG+PGRp udHliJdrXL6eXiIr k1iqz9RhOOjiV0JxWWMq DGhcLce8IOIqHEP8yWF6 eJ1pWNEmGUjyx2V6sWH7 O7HdkcGpsr6ji2kn WMWoSVrkD61byHKqw9S0 OHYqiVS3PQLxzAaoJfZc yM72Ayv+EQMwqPgzb3Jd Hevtl1ftk1wysCn5 IjMwJSIgdmFsaWduPSJ0 k9HqNw61S64nZZgkKWIn ZFPpPGLrWLSqzAnzos3x oX5pAt6+PGNvbCB3 tDT7jN9hBCHqYsF6ZIhm N416BdMfxEGhLshhh9rn r3wpwOt9SxDzQYJnoeIs gHxoJLM6d5HxGo51 N98wHWroRNWuGZFaEILk UUXlyFwfxb8itD4rEj4+ CM6ar7btrq23lG96nAH+ WKLcEGV5pXemSPff RZIfaN7hXHnrUiH5WWCn QpWusF38oLRrHZfuTa6b zFdxrPafIF9eOIUyhzja p565SlIuu6mlGYEq sBFnKIbaYJI4U05ij2M0 XPGsJBJiQTK0eWE1aW8r bGlnbjogbGVmdDsgdmVy xOsyABrdCVcaT071 IHRvcDsnPlBhdGllbnQg LzZsSGn1L6MoFad1VCLz qNrnSE4mkOOzOWnsUp9w fOvpyIbeLF7cULNn yehnh945GeSag1evEIMw oWLvFSfmRHF6B08dv8E3 HIDaHDVhWTF4hIB3kJ5i bGlnbjogbGVmdDsg bkEbwFspCEqsSVewL467 IHRvcDsnPkJpcnRoIERh mQX4BX78AS10vNGwe1S6 bVN2X6PoSKFsgzul zpkfgEE0LPOuGJGmcE06 Dk7tbGeiDn9wNGLnUIS5 QZAtcDDwO0ZeyN0wYzKt XJYkDRStT2IbkMGk MZoyU975ACtaGxU7SMWi kjTzW6EhWVLoxSzwPsY1 b5F1In5ZA1K2IL43FL83 gFFgw7L0cCJ0C8Cx ISZdfcrsdhdqwBU7OBTx MNIkgV03Tm4vxCuuVj1g IIWpVZO0MUTpjYVvM8Cm fY8gEdQbFMRdZYMa P9JtxBCdAJsxP251JLob SbY3RYTiztLeD3YqBGMh oDhjYeO3b7K8Bu1CWEo6 AM61QI64qSLhj9P9 yOF9X0ScVNFuomzylxwk gPE6QHCnWRUjgU86Ga8z zSyfIp8yEYSkUHH7TNOs tGCnF9ZmxM3zBcIl IAEqNGNhW4IexTMvYZmt Q127VSidHkU9THKmccPs H8HxWGYggRgoEvM6z0E2 Vg6CSLIkUE68NDH1 wLS2GZ33EU96G1XzLpig dGFibGU+PHRhYmxlIHdp ZHRoPScxMDAlJyBzdHls EY2sKm5oSVVlDKVz hZyreQSnWvBjs8ngRXNc SGrqER5udTdjA3PpkJL6 KKIiq5c2Kj36W92iP0Pa dXA+HHZviFG5cYC7 hI5jTdWaZkW1SGlpW621 OcIblPPiYghsi7gwn8uz dKi5AaC0KBNcahFiyAjd WYC7w7CsBv58Z63h IHdpZHRoPSIxNSUiIHZh eGzbvv8gjB9gXy5+PGNv kFC3qPH4cZ9qNeCeTjV3 IGkiK333FcNvzRQh Shpyq2bqe1qhyRi0GsEf RXMuvhGxlIjsFES5k1Yg Yq01R9UdsHjgn2TiKwj5 mu11rVBdp7D6rLI9 G5UcJSRdkufheHVcbMdm MN2yEJNufurtHZEwyI5m CZCcJ9u6RdPlJkA1XSbq E3YaooG4KXUatUKm RIiyIAV7H25ui1F4PHMm LPKrKAV8cWH9cM5eyFvf bjogbGVmdDsgdmVydGlj GRhbYUylT313ZSTn tDhmBLWovM5pHIAxxGLm kInjSZ6wZJQreqdaFbyL RVNTTUFOLCBTVEVQSEFO SUUgUjwvdGQ+PHRk PSU2lGntHAmwTEZgwX2v PEAkE7p4BoTqWaF5FWff W5CuZJYcpvluTt39fX7q DtTaUrD7LZfeK9Qg plS4RHSrdVFhSJncOOT0 X80at9I3UHAfFGHbMYP0 nBQ9aW0ddTuainnsjDMb dDsgdmVydGljYWwt HPjvU775IOPjqBjqPvT8 WoI4XaH6Zul4H5RvNnj1 PHKykVabXI5daKBnBGat Dk0xdXijjZzpSL9h EEWmvklqMWVfuN1uWGKs sVTjnFlxWC7gXIFqxqvu m113LpChZPG2RLHnqOSs G7KdkT2oOdSlJOTa FHHzS1RzjMZkKXpuH739 GHnhFrC6JGRueyCxG8Xi KRKnmIljKzB3x2Y5Ja17 MiBZZWFyczwvdGQ+ ZSEoDNK0oNtfUFbnAESw wE8kNKJhU4b3FrCvHtB8 NWkvW4IgDTRxwrlqRw45 fM0vOqRaVnL5BShu F2SzozG0HZTupMDlGGsp LTW2K40lp4S4KSEiBZLn IIX1vBW7hF2lfTlrmctv bGVmdDsgdmVydGlj EGlqWCagP804TKTvwGlj PkZlbWFsZTwvdGQ+PHRk VAE8fKnqPIelQEAhfV5j NLEkD1f4FlSuJiQ8 IOidU6OnMOKpmpzdUk95 tD7hViTnSlL4REgwL1Bx qcQ2PHMlgCFrEQlxDHF7 X87za2S6YXXyWPVq ZXU6oTD9mV4vtSjijphz bGVmdDsgdmVydGljYWwt YIppN044ZVEmiCheLq02 aPFqqGsgduM3Q1Bq PjwvdHI+QZ51NSPiOM18 vGGejIGmw1kfjDg4ItEw RPNhGGI6vBawPPljx1Gp SXAzP60bkWNwc4L5 IGNvbGxhcHNlOyBlbXB0 mL6fPLhuewdoe8vqgqfz Tkovd3mhho95qP54T21o IHdpZHRoPSIzMCUi ZPCeaBwqgv6uiN4sKi5+ PWPwwVO3aHC0iF5lVdFd WkV1FQbtF253ZeXcnHMh Gsvzy2nuv4kbmHo3 IjIwJSIgdmFsaWduPSJ0 b5UhBg39M35uVUtcUJMd ABAjGMHyGSDwkCcgya8y mW7kGe4+OZ9rb2tl ax12oT64sSZ+PHRkIHN0 iUpaGWgyJJIewE2pKVgz UuK8TOYfBiKzqK73dOSq REdpAy4hbOlmbCpq ET8vYOWmjmtaa568TuHu u2ppJNMouGTwRZfqESZ9 Q75sc8O9JMLbLRFgQIR6 rUQ3fN6ggRxucjwe bGVmdDsgdmVydGljYWwt LEvjW786UAZutSozTzXu mSFpS0elgbCFWY7lJukr dGQ+JWZfNIU7iRbd DBfxZZSqkE7qZWHnX1a0 LjPwYtT5CUrzJ7JevzA0 JYKbnHDpNAHltKNIbH2o nvyeh1jmbeabYkEo QWVcCFd2NOc8QXSozVgd CiMdPZD5DrI6MAJ4zKYn xG0zyYjvdhfpiA6tXoz+ RklOOjwvdGQ+PHRk WVF9qGxeBGylVGEijR0g VZScT7o7PhKaPiX7RZns K6QcsaK1KRMekSCbKJUs nBQRiG8gujuzb0tm fgjeMiFmVDIyXVn3YBw6 HSDxhYsuFmXhPGM6JgC9 ONZ0uHLftC2pjPnnjzqf iK9gYqf+TVJOOjwv dGQ+CMMjRHF9wOhbUNks VAShoX3eOSTmQ1q4VmHg FrG8JQszJ8KixoD8QOSy qJZxCXVezBTAhU4t vjebp0dzyziqYpLpKPTj JJj7ZAu8PLAydSepVdTa JLQ5LbK3PEV0aIQadR9d tAzcpovxeG7hBms+ KXK9VOR1GO55QV49O5Xe PjwvdGFibGU+PHRhYmxl IHdpZHRoPScxMDAlJyBz sVmhFB0lBj6iMXXw LWNv (more content not included)... Normal [facility] Pulmonary Function Studieson 05-28-2021 Pulmonary [...] test. READ BY: Soumya Mathews Dictated: 05/26/2021 [id number] Transcribed: 05/27/2021 cc:Dia Wu CNP [facility] Comment on above: Result Comment: Elec tronically Signed By: Lexie PADILLA, [place] Macias\.br\Date and Time Signed: 05/28/21 08:32 EST Consent for Treatmenton 04-26 Consent for Treatment [id number] #1.00CD:127 Normal [facility] Pulmonary Function Testson 07-23-2020 Pulmonary Function Tests [id number]#1.00CD:127 Normal [facility] Physician Orderon 05-06-2021 Physician Order [id number] #1.00CD:127 [facility] Coding Summary.on 04-18-2021 Coding Summary. CD:[id number] Gh0bWw+PGhlYWQ+PE1FV CFxN81zrGNbhA9YI6oUD L4QGFKBJMTNZC8YGV9xa KR6YLisD7JbeiLz XcbhaLRxAW52WXk8ZCM6 rOljOVljnX9vhMXaC6h3 XtCyQG31mZ02RSffCFAm IwJ4CmZmmcqzgQUm U7llXkWtsNXhFze+PHRh YmxlIHdpZHRoPScxMDAl EbBhtTthFB0hOa7xLCYe LWNvbGxhcHNlOiBj d5ezWCQiVQxzPW2tgLob O9ZvgZF2KUEpd8g0Gq29 dHI+ZNZiFCT6zDjfLEtu f356GkPlq2yhJXX4 xKMmGEqlSYJ6Y06as1E7 ACZkKEZzXAB1zKN6qL0u jLnisxlaL2XwhHVkOxV4 BXK3eXEctD9blRto xzypoB2qGdj+Y23GNH0C PQYCYX0WVwu1E6HsWkqs dHI+IX81MDFcDE49fKYo rGKqk0hebIq9DoOc FPDgMTN8zXxfEEisf3Qb ZKBrS53tbXTxy4P3ZGVn rFzbcPDtUwPzfAQ0qA7z OOpksxbhe4hrjstt Fcckn8qcgm45oS93W60u CBopFXQxDXU3KCLzRDFi mXnxys9rsJ1mCh0+IDxj x6wqb4wjpVz4VdMf XYIgyuCchQipCOH3u9Rh It23G0DeeXzgd7ZgKvq4 vf74tDRid6A1aXN5OQhb ZVXnsN4gZYrsKqN3 QKLvLrWftT51qDWvHDzq Uy9gfKbyzQlkLN6wVGVk jjlnTNXhlZ4rWEYqaHWm cHjjQV0nOYDlxuex s069CoCdKJK4RNRgrYQc C1GduC8kBqIrBWOrZGFl C3CadYEcIYiiA881CHre LdV0ZEJmocMbH1Ob HKQqzZjmVrY2l0P3Ci6W e6AimospMOL1TYybRVGu KxT3PvZkNoG1D4WwYyr6 IQEdjDdaPV5xP8Ew UCWzsbegrowkzLJ1DNDr KNNkxL44jOCoGUjwIl3i y3L5x524ELQdTEKurC62 Xe0edYllEKJikRVD dQ9tsuwyl4bohghiOoEc CMEiRTd6MBi1FVOllGhq UnBmAON5HrO4WRO4bKRi jA4ohPfmzcgoeN1i Oyc+Q45elU8mUHO7XJC6 wwrpEGSeacHrBW37MC68 Y2SeUdwihXFknDP+PGRp bcXeiAziXR3eXpBw b2lbu0JoWPwfD4KtPJXn REqdHkr2JTLfIIU4zMK5 vI8pVKGiMPfkr6E5cDX6 U6KiilQlfn4nq4oz EOIbPRgkK79djAMhg3S9 EIUffPP4PXOkbRtbQcYp nN91Ibr+NWGycXfqa3Pm Fvoyf3vby0agfOr9 IjMwJSIgdmFsaWduPSJ0 v8PgXz97V28lPRsiWQEc VAInPFVrUAOgnPaynm9h jL6bWb2+PGNvbCB3 iOA9wZ0xIBPfRjY8WTcs G761CqVffGIyKcrgm4sn f2fmmGo4NmTcLFBourBr kEwrUQU5r4MpFs44 U42gYFpyOKCcRCCbHHSm EYYxlXbxyd8vzG3qCq3+ LD9ke3pcie02fH98eRL+ DFDcPCJ7tOkyZTjs CVGnmO8jLOutCzJ6YXCd DtItfF00lFFhWStxAc8t fPkmjQgkBO8mXYNmrakx u018GqMfi9krBIRt lXJnKUegKNX6S63ck1Y9 ZVJyTIGnPJH3kOB7aH4g bGlnbjogbGVmdDsgdmVy mNflQQpkFRqzX161 IHRvcDsnPlBhdGllbnQg EvWrBUo4Z9AfVph4JLZl xFvwDD3ocIHsNKghTf6x wCzpzIjuEN2wGKUq mnfzr874HgDfc6tvISWl bOKaHNbwJUU0L95xz4W6 ZFAqLYQcGJF7fVK5cL7w bGlnbjogbGVmdDsg koQcgEwiXUurBLuaS489 IHRvcDsnPkJpcnRoIERh wWJ3YK06IX65cMUmg2L5 xOE9B8TuHNExfeyu jbpcdOY4MRFpSZVxtB38 Sy2huRpmXz7sZCDwBAT2 CHVosIMwZ1ScrC8yFtFy STEvYVKgF9PydJWz TLwtR293XKbwRhH1SQDy rnSkI4RdJPRuoOrwXoI5 y8Z0Kr7ZJ6I7ZY28JX01 nWApo1T5cYA5Q9Wr ZXNqgsxwzkapzJH7NIXt AIEtoC33Ny7pvCuoAb5s VMSeFEL7MSNclVPrT4Tc xA0aGwIwBNDmHWBh B8RtsPXyTEtmL175GJcp OwV8IBAexrUuA4EpJGVo jWmzTyR2n0S1Rt1FOIq1 KN03BE46eJRvj4S5 tXR2A1TaMQUdmhyqbuil kDN0AAJvOVLeiR91Yz3a rGdsEy0pGNPdBJX5OZOn vNDrY5WwkW3tRwPp HDYeJCJdN1NaqNUmKUah S286MWxiWjV2THLtblJl Q2MfPSVdkKpfTxD0r0M0 Kt1NRNDrVS49SWC2 tFJ1KW02NJ53A7RjSbja dGFibGU+PHRhYmxlIHdp ZHRoPScxMDAlJyBzdHls MM0jVe3qJMQsUUXi dAermNUyMsOsx8yqFITc ACxsDI0aiNypH5ClqHN9 TLUte4t8Yf98A41tV8Gi dXA+DLQnyKH6hVU2 hD9nZrFmUlZ8XSqhV715 VuGybFYfFzbxm2vwa6un gEh2DiJ5JGTgqjBsfZky LEQ0p6RzPx48Y12y IHdpZHRoPSIxNSUiIHZh oSpvro8hrT4cRe3+PGNv fEO6qIG5lD5yPiIsZjX3 BCjmU112JhTljAYu Rznyu9hwq8dvdTf8TkTk RTEhwkDbrPkgQNL7d5Ty Lg85V9KiiUsos0RmPlu5 px91aBGjl7P7sYG0 I5IuLYKgebfuxXZvrAkl ZX0cVPIanptkESJmhJ7q GSGpJ9g7QnPmHaT2ETlt X4JzvoS1PCSzpGEk AEglLJW8R63kx4C6AEZc KLDmKCG3zRX4qO3ggZhn bjogbGVmdDsgdmVydGlj ABoxKFvkT175UAEf eCxaOWNinN0hYYJmaVPc tWlyHN7cTIHxguqeRgtC RVNTTUFOLCBTVEVQSEFO SUUgUjwvdGQ+PHRk AIZ1lPulTTgyTTJxxM8u JPLhZ8g3AwVyNcZ0CDai T9AqSMLunnbaLx76rP4m JfTySaJ7KIgxH4Fr txD6CWJmtAInNIjyYQL8 O01je5V7OUBkXKLvMYU0 qJE2gQ8evXwjdceizWLg dDsgdmVydGljYWwt BUkwR343CZBxdPxnIpZ8 WyX7JiN0Kyw5R6EqDdy6 XYXoxEwqLN6ouUTtLEoy Qz6rqWcffSajFB1s MVHvguevFTAycL6fBHSf aEZddWzfEX4jVKShqhus x231PcMwUJG5XUEeiMYz M5LdoI1wWkNvPWWf BXQyC2TldJKxDPfyJ634 QSliLyU7CVOhnaYwN0Rc XNGtjFuhGwS7h2P0Un65 MiBZZWFyczwvdGQ+ FSMoVIB6qKdwFMqeAVSb eC0jXNDgV4k0ZuKwTpX4 VIckV2HuTMMmtrmbHy34 fR2pKzPbMbE2EBwb W8EgjlV4WAXtgOKbGWvl KXI7C54ym9J6FSOsHDHj XCO0xHY6gX8dzZataiii bGVmdDsgdmVydGlj CYjuAZvsA777LZMziVjz PkZlbWFsZTwvdGQ+PHRk FXG7aQibJMvmLNIbdA1p UGRoL3y4JxMdQkS0 OJtwE3JrQSHxcejwZt66 tU9nZbPcXgX7WBpbL3Oq xqF0TNThwILyTOtrKRV3 F47gq8V4AXCrHFMy TSB4jWE8jN9otRayyjwp bGVmdDsgdmVydGljYWwt VApmV955PTJwrYejJf03 cFYpoKkrzlG4F3Ep PjwvdHI+KQ44PBEcDX36 oAAptFHfr2mqrVu7UdXt CCIdPDM5oNljNHdzh7Zt OSRcS95lfLLba1B0 IGNvbGxhcHNlOyBlbXB0 jR3jCVqgemenv3fxsbbg Nbbxy3ejjm33yG01J91x IHdpZHRoPSIzMCUi QHXyzQhdoy5dfT2xMo1+ PVPpeTJ3dSK2jL1pTsVt LsF1KTfgQ715TzAqoCYa Fmyab9kcn3izkEx2 IjIwJSIgdmFsaWduPSJ0 h2OoXi92S72kJJjcSAOf MSNcIKHnAZZsfLdpgv7w cC3tQt0+RL4rz5uy qi73jA27mTH+PHRkIHN0 uMauYAmeSCAhdS3bHYdx TlY3OKVbVfRymG07yTEx FOktUv6fhDbstAjs UM7gFSNiyyozf710XsLm v1qiEFXqeKXiKYyeFKS4 J59rs5X8TSKaUALpGIB0 aEJ2qI9qcEacihzd bGVmdDsgdmVydGljYWwt BHduC360KBXecPwxNpSl xDSaO4fekwQDLO5kEpcf dGQ+RCSyMIJ1qBnu HMhzZRRefI6pEDJmW8x0 GeNoGqK0GSofJ5YwshI2 XSQhlIOaVCWlqCNAdE4j ldieu6oqpfguDjEm QSViNJp2PPi4RNAcyEzh KeCvDUE1ItB3CWA8nBFs yW7pgEbgxvzciI9eScp+ RklOOjwvdGQ+PHRk HEN6bObqGWpiBQKmnS3b OJBoF6v4BfYuSxL1NVly H2XtdwF0HBUkaJEqKTOs vIOEsJ3gstryu8ig fwglWhKyBAGxTHv3FFn4 LINkjYtyVxIcPIF4HaN8 FTU6iANxdK6czVdgcxin zT4aCwq+TVJOOjwv dGQ+UVErMBG4qPpxZBar LHAxlL0qDNNyQ9i4XjKp NhE4IWnrO1NbbhG7GXMw xAVzUKBtoMVMjA0g hvftm6exfawjAmFlKSCs XGz3YNf5WDKuiPpzUpQg KFU0YfN7QOO8pDCbpK8g zEcucqfijI2mQoc+ TYL9PFE5OM31WQ02J5Tp PjwvdGFibGU+PHRhYmxl IHdpZHRoPScxMDAlJyBz yPkzXT9zXw4gHSSc LWNv (more content not included)... Normal [facility] Coding Summary.on 04-12-2021 Coding Summary. CD:[id number] Gh0bWw+PGhlYWQ+PE1FV ALtQ61xzCPoiW4OJ5oFX T3HLYWILAXHLH6FBE5ui PG8MGreI9PmzqLf YiutcQZjUA27SMz7BCK3 fZcyMFzqiD2qjYWiX5b8 NlQlXM33rR75LQrtKGCc WvI3QsLyyiuwiBDa V8xeOgLddTEzXvm+PHRh YmxlIHdpZHRoPScxMDAl BbBpeRezPJ6fUm2mDVKt LWNvbGxhcHNlOiBj r5abKKUdWUpdRE0ctXwv Y6ImaSY0WPBrc8j0Kh80 dHI+ASGrXFX4tQptHFmr v573YnIum1zxZIN1 rTVoBFspVWV3B00wo9R5 GUItSBYjOXS1hOI4lO2o kRrbuoiwB1BjqIMfEkY1 ULO4zBVccM4nwDzc fjqzjV4tRza+J25GCQ2V WHUIBG1IEjk9Q3ErWtmw dHI+MA99VLBeUT93nGZy tQGri7kdkZh2OuNg VNGsCLJ6pWhiHEdio5Ql GJCiA45xsWKha2Q5XCTz iVcvaFKhOjVyhDL0rI5u HNcwtnpqh7vryxia Ifsha8zurh90mS91Y00k CJeiZBGlSXJ8FNXcLEOm oUufkb5xbO5bBh8+IDxj b8plx4esmVn5OaQe QUEufmCzhRcxXQS8z9Iy Gm45K7HrgSvwz5RtIkz5 jp60xMEmt4G5wIL8XQnx LSLkjV9ySIthVhO0 TDXmXbHmhR46lUZyLTrh Ef1fpPespQpxOY1zJINy pbnzICEjaQ9vYEAlaKKb dPedEY3pXXNurilf b593SkPuYLM9LICynUZt N1FueD9jPgSqEQDkEZLx C6ZwjBQgSOveJ988LZmy MgI2WSLudeLgU8Kv PSEynIegIjI8r7P8Ua6A k4BosaefKIZ1NWgrTBKy NcD4MeIbBrN2R0WvNev6 KDKezOsyNU8aQ7Za VESbtvmhghqgbJT1AFOf OLYemZ12zLLrTCdxKv8c v0H8u734OWDoAAZjqE02 El7vpEcxFLKkuSSC lV0lvmdrq0rhxwnaJxBm XTHtQTc6MMc4NIKaeTdv CwNwPFA1HnU8BVR7aDBc hN7wdFczhvlkaA0m Oyc+B64veG2aGKX1KLB6 ckwyKKXnjsEdVM39LR88 B3PuFrwhzDZakDF+PGRp icKsnTisJP2zVzXh b0dcx6HpUOfpK1OtYXYe CFetXif7SLSuYPW3xXE4 sV7uURFuKDach6G2dSG3 G9WdbcPvdt1ks3ii TDDgJYkmM29qkRPpk3I7 DQYwkQF3FWJeeYwrCpKl xV83Doe+SPJxtQycv7Is Krzvv7eai1pkmEm2 IjMwJSIgdmFsaWduPSJ0 l4LuNy99F37lWHcrYSJp ZEFaGMTwKGZqgTfrxr5y iP8nYq6+PGNvbCB3 lBG0nR1wHDOtEcH5EWcu U130MqAdoPSaKyfxc5ke q5uqzTs9YpJdKGEtuoJg eAvjHHR3h4BmQp80 K07dKIryBDMnQMAoUNOk KGUiaTilsy2qtM9nFd3+ NU8ga6nifi84gD04uOF+ KJXgNTS3pMbvWVid YCQwnJ1nEAyrEuE0XBHo ZyOkzM93rEArBEkvDd9g wYhpnOddEC8iEIUlaofv t196QuMps5roCYXb uMBpAJhyLTX6O23xf4A5 FROaSRUgLDM4zXZ9nZ0y bGlnbjogbGVmdDsgdmVy kZdeRSpeFQljS472 IHRvcDsnPlBhdGllbnQg YmYsPAm1X5UkJkx2BCJd dEbdOC7ndMLdXZkiVq8z bApdeCgtVP9xSGHd awawy515MsAmp5vnVGBu iJQtIYqiQCP7F43ue0J6 OFVtNZVkHZL9wJX9nH0x bGlnbjogbGVmdDsg qbJaaIynNTdxGCdrU196 IHRvcDsnPkJpcnRoIERh zAK0OP18SY04uPQai4W4 dJP9L5QiUHBbdjuy pbuguQZ2QAEmNURojA30 Wt1wpZhyVt2aZQHlMTC8 VAIgmZDkX2BhpL4vJyYe DZDnZINbN7FzuKRn KZioJ981NOkgCoN3YHSi sbZoW8HpYANjrKfnDoQ6 o5V0Dy0NW7J1LC05YH43 mGQkq7J7tSM6Q4Qv IYWyvywfiwnskHD6ZMNo CRYxhU53Ao4asQuvBz8n WWNhNJG3RSXjdWBwT6Ip kF5oSmAnJTMwOPDq U7ReaYQdDDeyU955RZeu XyH4OSFkvwUeI4YcDNDc sXaqGaQ7g7N4Sl2SSWs0 TB86KU55dQStx4D0 bGP2W7EhACGzlsrykkml kNL9YODsYGAusR97Zg5o mLklGf3aVUFnKVL5BKWi sWRfT2CahY7vNbDd HBRgQYPzD5VjgINlUEhi D496LXvpAtW0NNFpiaHi I8HlNXSxhMpwThR9y2Q9 Du2HRFSvWB07CWM3 sPA1GH28LO80A2TdUbkb dGFibGU+PHRhYmxlIHdp ZHRoPScxMDAlJyBzdHls FT7dJb7nSTJzWQEy rTtgmRHoXdEki8eoFHSt LPjuXR0ddJniL3EtdVG5 BHHqe8o6Bn44D18iG7Tu dXA+MQZhiYM0hOT1 nX5uAfSuJuW1MZqoI635 DfCvzDErJebgw6uvp5kb hKr3ZcN8AMYldwQsrPin MVL1z8HnEn36N90n IHdpZHRoPSIxNSUiIHZh iUpahd9kwD7nGw8+PGNv xLY7aTE7lI9wAtXhEhX6 EQnwV292PpQxeCPg Fwrln3vzp4mbeDg4UqUn GFYwurYppDfzAQP4g1Qr Rx67G9MepQwps9KzMyx7 kq45jXJfn8C7oSX5 P2JrUVZcekmajAUdvDlt XJ0uNAArbepbAAIypK2q IBUvR9m4UiTtOoB4UNze J5AufsO8FRRoaOSn WPrkEQJ8K24se1L1QVRh ATXyKKB5uQG1aY9fvTro bjogbGVmdDsgdmVydGlj JAslGZtwW308PZDw uTqtCRAylV7qXAOxpUVv lPpiSZ8mCZWhzfqzSjiT RVNTTUFOLCBTVEVQSEFO SUUgUjwvdGQ+PHRk SLQ4gAbjXCbwEIRjbR3s VECcY3u8SiWuZmS6ZFgj O4EzJLEfyedoVm49eQ2i QpWdPfH5YIthR0Zx gyG9AZWbtUXjTYwtNDZ1 K19vr9V9XWLgKAPtGTC2 vRH0jP0acJfsrurchBSp dDsgdmVydGljYWwt GVjpB809MZFayGekKaB4 EiM7IuC1Qqa7X0KjThm9 PDTtdXcuZM5aqFXvCBej Zb9ekHzmaVwjUE1w KCBbjphwPOJicE0mHZDc xAJhuAnxQN4xMLSbhbie x713OiFhBOI1LKPmoEGu F7ZphY6kEuVtIOJw AYRdC6CghWSjOEgfO529 NCqzFhL5KRXfnvRtH7Wc QXXrpKaoGyF1i4A7Up80 MiBZZWFyczwvdGQ+ VGUtLBI2zAvcUVlfRGAe oW6fIMFhO4j3UfTnDiR7 TLrbV4DfEJAfbfktTx46 zG3nXnFxPuG1ZHuv Q9VwnmT4JJZvzEYbJKoy RGV1J30iu5C8UJGbFYAe NEY0mZC5wJ3pvVomegev bGVmdDsgdmVydGlj BGrtVZadG867MTFuiVog PkZlbWFsZTwvdGQ+PHRk UXC1kGjvEYtgCXDlyZ8k BMSuY0z6KmYgWvJ8 BNxkC6HgSLUfpfwtXn38 rZ0bFdZpRhE4RAuiL5Xc fxJ4SVPdrMWcMJicOUU8 P56js5D8KHDoAMEw IKH0sAA7fI7ovWsbfuos bGVmdDsgdmVydGljYWwt YCisN749DCBjuLbrPhWm YEKgKP5dpEifqMY+ EO34ss06M2JwWlycOkx0 VSQbNCH2rMO6vB2dOMXh IWllq9T9zNQ8P9TwcjZw aa7bo9pjPSVtKRzs K71ehQFow3R5VVVttDK2 TKFwzGtcGwUroD37Tsm+ ICVakJxae1FrDuyxn9rr u0etqZf9RnUuHSTn dmUgmMlpMJI7q1GgTs69 P97yLOayXKUhHGBnPCSj LBCbnLgynd4nbP3sBo8+ ZJUixDN2vIJ1pK9h PxQsGrU3OOocL232MpTh yQHsImkpw5fgb8dgwIj3 IjIwJSIgdmFsaWduPSJ0 f4HaJq51X5ChbYsg q6TyHis0oz15tBUrc6I3 cLC9U1YoLKYhmffkjLAj eOsbUJ2nYZVmthtgVVZd lM3nYDVoV9r8EjMv PfU1HOjwK6OgwpV5DFAr sFZkJQDffLILxJ0nnqer e3mumovlOaEyBCXhZSl9 PTj8FEWfhEcvVcWw YOV3FsR5SOU1pPSedY7t fMiqgrkavC9hItu+UGh5 z7gsqYJtQI2yhNU9OP61 BZ07vARpn3P4oUI8 X9OqGZXkvedleskedEX5 ZPPrTFNwbK19Ka5wyDoi Yq8sDFOrYVV1PPVdrAYb Y4HsbB9nEnDpBXZr AYHfD5LlzLMxBGtpS680 XGrqQiG5QQCmrvAcC9Cj CVMdoPwsReK3q0Y4Sa2H AW84GW60GR71tNOc x6B1dIC1Q0VwGEFooemp khdiaAF0KYMwAYPjiA04 Ja4htGzfDh4sRVAmBUI7 OVRvySYqO3AwpE3i PlVwZMLeYXQyO2LymNPr FPgvZ761EMqwPgW3HQLp csNuP3TpXJEeeEftLzD9 j8A0Uy7SAd35AD06 AT18jVHmg8I4pJY7T8Fc PUWxffvzlqrmdPB2LUHz BYVumR02Ex0rnJipXg4y RGIcVPE8SSVwfOPx M3TnpJ4rJhUmGYKjPKIy B4VdxZDxJIvxJ280SXit AeQ9YEYbrjOlH0GtRAOy wXzpAnA8x7F4Ma0P WAogiya3A6YaJlhixPF+ UE71BOJpGR01nPSumUKm c3kgvNm3TaQkEZWmTWD1 vDjeFHgep0EoCAIs Y29s (more content not included)... [facility] Coding Summary.on 04-07-2021 Coding Summary. CD:[id number]:[id number] Gh0bWw+PGhlYWQ+PE1FV JTvD39bxYJduZ5ZI1zZK P6GUVFEHPDICB2JED6zl ZS5EKvbI9BhcgBx VnirrYWlRP22RZk3PHI3 bLzyHStqlA3tdBEwH7c2 LpEfRJ45lW16EZakFCHp AqH4TcXatvpwvRWq R0okGlEelYQnBxl+PHRh YmxlIHdpZHRoPScxMDAl XaAnrXifVP5qMl6cUJUt LWNvbGxhcHNlOiBj v6omKVShEAbtNK8vfEgi Q5HyfGY0HLIfu6e0Yp71 dHI+VANnQOL2kSzoSJjo b451JkCqu6vyZUN3 jSDcVUvbDCM5B76xy6Z0 QHJfYOKeAES8oKC1xA2i jHknmlwdL8MviWYnSwK4 RTZ2fLSiyB2ahFoe gldzpU3bQna+N38TVG5M NVPQCC3TWbf2X5OqFpef dHI+DC89IPIbFM03nDTj nWNnr3fkaUs7GpIx VPYdYVH6zJcdKBbgv7Kg TSOfW78rdZOgb1E0XNGm zXujkBSdDzXmrAJ4iN4p DLlzmstcz2ikcxvg Lbieo8foxi11aT68D06q LFyjYZYtRYR5UUXuKIAk tZjaxp5lqL3bGc1+IDxj m4dqi8udrVr7AvHx YLBocfBfzWkrWON5d5De Et80B5IxhTcba5EhZrc5 zg12aSTyz0Q9gQN7CQax HDMwzP6eMQltNcW8 OTJqZjNxtH09jCYuTZyn Zh1jfGgaiOmaPO9dXIUt uhoqXXPljY0dYYFwvTTn vTgbSU1lYYCnpgni u780TrCzUEK0CVXhlDUf U1OgnA9jDeXsCWXjQUEa N3TxwMPdZDvoH249ZRvb DzK6HNOwkzZcK9Ac NFCfjAizAcR7w5U0Dw4T w3XlvttfABN3XBksAKPy CxE1FvPbEgZ8V0TdJqt4 JXYgbOtwAO4eD9Ld HTLksfeosikgeLK9RKQk UXXilB19mBSzIJzzTt4n u2B5l143PVTwQTYmeQ52 Nz3qmDndTRGqeSLP dY6khquqh5baogahEzKm SRSgRCy2OTk0PGIrbNru NkFqQRB5RdF1RYS9zIVz fE1vsOffzurwgC1t Oyc+A91baZ5wIBS2HNW9 yqodITRxpgEuOJ88HQ52 L0BlDuaewAVchFM+PGRp yhHaiKtuFL6nYbSi n8nvb3OhUDhoJ0UlKVMh LOxnBov5FJPfHWQ4hPQ5 rD7dXGPwHTzsy6D7qUM6 Z7NpfpCcsh2bj3gt XDCzPTflS40wzUEyg8I6 WYIxyJU1MCLvrSezScDc dW26Oim+ZRNhsMppr7Ma Pqagx2wvq8khxFa8 IjMwJSIgdmFsaWduPSJ0 a4PmPl60V21pMNmcNFYf APBjNFYcBFTovBmdra0n hJ8nKd0+PGNvbCB3 zOW7hC6uWSUgPpV7XToc W522QnMzaINcLwwoi0hi x0zrmOa1QjXnGEBeyaUj jTtfOOI0i9FbBj67 N09hRZogIZXjZNZtUQLp NGNyiFcmnh6dmH2gRd6+ LZ5yd9dhsd64hZ72hCT+ MXHnBQP6uCifNLkc VYTdfH7qOXhqOgO2UIPe XaYgsH73pCCxOPrsGi9o aDiglHtkBO9nTCXkvxlb o258XaLqa4kfEFKd dWNjZDwpBKA2M55tq8U6 UEUgPZNyPZY9cQW1eZ0v bGlnbjogbGVmdDsgdmVy rAstINiuDMqbN566 IHRvcDsnPlBhdGllbnQg QxSxIAt1Q5BkCrg8LYZs mQsnFX7jfIUxFWgyDt7o fTddtLtzYI7wNTUd atlvp004YkCcp6gzTUDf lJAaJBbcMZE1G12na7J1 JCDtBAUhJAL9eTI2hU7a bGlnbjogbGVmdDsg nuGjeEpnHFmtTJrsF934 IHRvcDsnPkJpcnRoIERh yGG5NM46BP74oJIou6N9 pRU0X6VzQZBriott pxaqlPR5IFOjWALqlP21 Ro1tzZeaPk2gWHZoNCJ0 JXYizVSzA9KoiQ8vVlQe QBUqTPYaJ4YswGGc BOieQ316SXvaXfN2JCZc cwHnX1UvAPCvfIpfIvD0 q5Z0Qw1XB3P1WN64IY09 cKMds7Q0xCP8I7Yi DANxgwszmjdqnAZ6JYGg JINwbJ15Ai9gnYfsVe2o PWDkFYE8PVDgtRGeM0Qo aS3tUjPrEHHbVTFh M0DhjROpTMuaB570JSvy SgE7JSHjhoHhH3YdFXHu nGcpAhX2j7O5Sj7GCGn1 VG73HC79aCYpf3F6 hNG6J1HaWZWbwaahjeou bBK3UWGxBVRthB59Wk0r pPrwXl7dBGOeLUU7USOs vYShW7TzlX2eDhFs XXYqNUWrY9CgfGCqQSwu J491OZruMwX9RYYcvoQv C9IuHTUjzEplXzR4g5I6 Sd0NBJOzTG85GNC0 aNG5SI22FC75A4JeKmrp dGFibGU+PHRhYmxlIHdp ZHRoPScxMDAlJyBzdHls XQ0sYa7pHWBoFEBs iLbyxNAcPjKdm7ilYJAh YAmgCL3wvApbR3ByyIH5 HPAhl0f3Ik46Y84bF7Yw dXA+ODKdlMB9oOR0 aM4kSoBvMxX6ULkzQ093 OeZwyJXiJonpc6isp3dh sXq6UiR3UHVixbGfmEub TQM8p9EcPw33V88r IHdpZHRoPSIxNSUiIHZh gFywuh8zmX3iSi0+PGNv fQJ2lRX8xM4wKwYqVaU3 BOxsR737HgFmsVZh Ckljn5arr3miuEn2HuAa VUQxmbMfrRnnRPY5c0Im Ng12B8BjiOlew4FzQzf7 yu62mVAnr9F0xKL5 J5PjVFBsxbkwuZTxeMru FM9dFIEbmgglUJJgkX0o HBArL1i7VnVeDsZ4XSlm N2RywtV5UHPoyTNg IDyxZGI5F72wv3K3ZHVd OHBrRWW7rBC4pZ4doOvg bjogbGVmdDsgdmVydGlj JRazCFffW258ITDo nYniSMSmjP4nEJZupFAp zAfcJF5gOBKgadliJvdU RVNTTUFOLCBTVEVQSEFO SUUgUjwvdGQ+PHRk IDM1kFkrKJtdKUJvlL6z BNCsE8z6MvCaObX5JYmb K8OpKXQwdsspOl32xO4g KvXiTcG4GNeqR2Dh vpE5BVQkwHEuAViiQZF6 N64cl5Q2YOIpBUBmBKZ1 fXD9uE3hjRswcijaiWNk dDsgdmVydGljYWwt GMhrX528HNLgdCrnXlC3 JuS6OdP3Hre2U7LaXbs0 BANpyXshOP5owOLlOFgj Ys3noLqjhGzbGK1h SLMzvfteXAKzaL3nUWKt oCVltOnaSZ5cZSFylnow w708WxTfCRH3EONnvSLp D0CktT6rFfAtDQTi HHEnG2LmtZFvGWfhW570 RPhgXcQ2ZNGrgfHuH4Lf UGIkvQueHeJ2s7M7Bn57 MiBZZWFyczwvdGQ+ XEPfIPL6uZzfLUzvXVWh oS8rHBSpX0i4GgBkEkI3 XEotJ9HvQAZxmwekGk67 tD2dDvXiQgK6GPjx O3LpkoV4SORbeMMoGXjf FIE5F74bi4M4BBCwICUr LOI9bPK1aE1gdStnwhdu bGVmdDsgdmVydGlj QFyeDEyxY904VKAuwDiu PkZlbWFsZTwvdGQ+PHRk DPM6uMkcDNywNHFdvT2n TNJwF5h3NbRsEwU5 HOsrK2LgDVJhbvakBp73 wX6pXqTtCsP8ECmyO1Dk fgC3EQGkjPAaTDzuYSL0 D40bn5O5AEBnHUDt DPU1pRQ0wV3bnAmwgncr bGVmdDsgdmVydGljYWwt MVdgF412SXGhpRhwKaoj AoVBox8uAP5fKqua dGQ+AU78im49R3HcFbba Ocf0RQXyKJB5dUR5eL2g SEKxZYafd2T0aNX1E4Gv bsTscd6tv5mjSEJr EWiuF88ilPUcy1P7TVIv xLU5PFMafQdaHjYuyK56 Oyc+IROmuRncu4BzDmds d9uar6qirGh7UvNc ZSIqaiJbpAjhLCV8c9Pw Mk43M16rRElsZGWjRNRz VIPoZRMziOblty6quD3t Ii8+VYGkeNT4jTJ2 uG5zDcJvDuK8QDpeG602 SbRprVLdErpjr0aju4tv kWd1JbXaZJPjnjTbeMoy DAX7r8QaLd62H0Dc zLwoa6EjVkx1mh61nVDz d6V1xFI0E6PuPJBoiekv rVHuaQkvDK6oDNXshlqc UKKhvT0vYZCgX7s1 SaUhTsH7DTbcN6IiztZ8 CMHuuLIxGEJyqFXWeM3m mdgrf1kketqfDiXiGHUk RSn2NHs6CZUiqAtp KbHvZUP0OhN3MJM1zAIt cB8wsJiazyzefL4oSwo+ KBl6x2pycTNbSD3qwKR6 QZ16EB56mRUue1C9 jVM2K4BiKPOcrdwzwcyu iUM2HNCiPAIqwU09Fi6i qYmfJw9yRSXlSBI1ICLj hNSjP6IeiK3uOjSf MREnLUQkR4IssEFvGVzv Q517NKwiTiW6KLNigsIc Q2QvLHEtpPlnKwU7l5X0 Ce6TDC10XF56OR44 qFZae6X5iJG3H7YtYMIk rlictfqhwIT7SYDbRRGh xR99Yn4nbOlfWf9yGEOi QBS3FZQnaRFfZ0Lm qY0tAvBuAIYwYFExZ7Iy vFNnUTriV715JLhnSkT5 MFMaqtDcX1DeQYPfiGhf FjJ8d8C8Ct7XKn45 QG82OZ05nACvq4U9fTN8 M2JfVGYrdkynuufhwCD8 XNUnZJPgdI20Uj4agOqj Aq8cEEVtFQE4HLKy aKDuH2EjqU1fXxRnIIHy UFKgT5MvmPWxIQquX606 VGklRyA5QTMnrfTgD9Im BCRylTxrUmV3y8P0 Qi2YMZiwemp7M1UfHeod dHI+BM44JXSiDQ74pWFg eFEcg7wnyEp4LmUeBYPe NNN8fBjsGYsfk8Ix ZXIt (more content not included)... [facility] Consent for Treatmenton 03-25 Consent for Treatment [id number] #1.00CD:127 [facility] Physician Orderon 04-05-2021 Physician Order [id number] #1.00CD:127 [facility] XR Chest 2 Viewson XR [...] exam. FINAL REPORT Dictated: 04/05/2021 3:13 pm Romaroi Arce M.D. Signed (Electronic Signature): 04/05/2021 3:13 pm Signed by: Romario Arce M.D. Transcribed by: CALIN Technologist: TAYLOR [facility] C Urineon 04-04-2021 Bacteria identified Cx [...] Locations R1: This test was performed at: [facility], [address] [place] [address], [address]- , , [facility] Comment on above: Performed By: #### 1 [id number], [id number] #### [facility] [address] [place] [address] Consent for Treatmenton Consent for Treatment [id number] #1.00CD:127 [facility] Discharge Instructionson Discharge Instructions [id number]#1.00CD:127 [facility] ED Clinical Summaryon 2020 ED Clinical Summary [address] [address] ED Clinical Summary Person Information Name: DELIL[facility] Age[facility] 41 Years : 1980 Sex: Female Language: Scottish PCP: DIA HU Marital Status: Single Phone: [phone] Visit Id: Visit Reason: Cough; Dysuria; COUGH, [...] 04/02/2021 00:42:41 04/02/2021 00:42:41 04/02/2021 00:42:41 ADDRESS: [address] [place] [address] [address] [facility] [id number] PHYS DOC NOTES: MEDICAL INFORMATION: Prescriptions Given: New Medications [facility], [address] [facility] [place][Note 2] [place], [place] [id number], [phone] cephalexin (Keflex 500 mg Cap) 1 Capsules [...] In 3 days DIAGNOSIS: Acute UTI [facility] ED Note-Physicianon 04-02-20 ED Note-Physician [...] day(s), # 14 cap(s), Refills(s) 0, Pharmacy: [facility] 1986, 162, cm, 04/01/21 23:22:00 EDT, [...] Diagnostic Results No qualifying data available. [facility] Comment on above: Result Comment: [...] this condition includes: ? Antibiotic medicine. ? Rzdy-zqv-gldplcy medicines to treat discomfort. ? Drinking enough [...] these instructions at home: Medicines ? Take wdiu-hro-xfkliuq and prescription medicines only as told by [...] This in (more content not included)... [facility] ED Patient Summaryon 021 ED Patient Summary [place] [address] Patient Discharge Instructions Person Information Name: DELILAH SANDOVAL Age: 41 Years Arrival Date: 04/01/2021 23:05:18 Discharge Diagnosis: Acute UTI Primary Care Physician: DIA HU Provider Information Primary Provider: Aguilar Pino DO Advanced [employer] Supervisor:Jd The exam and treatment you received in the Emergency Department were for an urgent problem and are not intended as complete care. It is important that you follow up with a doctor, nurse practitioner, or physician?s photography assistant for ongoing care. If your symptoms [...] opioids can be used to help relieve kixazwfk-tf-wxxxqv pain and are often prescribed following a [...] be struggling with addiction, tell your health resident care spec and ask for guidance or call [facility]?S National Helpline at 2-848-101-ITVM. t Source: [place] Department of Health and Human Services/Center for Disease Control & Prevention Cuban H (more content not included)... [facility] UA With Cult Reflexon 2020 Bilirubin Ql (U) 1+ Abnormal Negative [facility] Comment on above: Performed By: #### 1 [id number], [id number] #### [facility] [address] [place] [address] Clarity (U) CLOUDY Abnormal Clear [facility] Comment on above: Performed By: #### 1 [id number], [id number] #### [facility] [address] [place] [address] Color (U) RED Abnormal Yellow [facility] Comment on above: Performed By: #### 1 [id number], [id number] #### [facility] [address] [place] [address] Epithelial cells.squamous LM.HPF (Urine sed) [#/Area] 0-2 Normal 0-2 [facility] Comment on above: Performed By: #### 1 [id number], [id number] #### [facility] [address] [place] [address] Glucose Test strip (U) [Mass/Vol] Negative Normal Negative [facility] Comment on above: Performed By: #### 1 [id number], [id number] #### [facility] [address] [place] [address] Hemoglobin Ql (U) 3+ Abnormal Negative [facility] Comment on above: Performed By: #### 1 [id number], [id number] #### [facility] [address] [place] [address] Ketones (U) [Mass/Vol] TRACE Invalid Interpretation Code Negative [facility] Comment on above: Performed By: #### 1 [id number], [id number] #### [facility] [address] [place] [address] [place].plasma/Lit hium.RBC (Bld) [Mass ratio] >75 Abnormal 0-3 [facility] Comment on above: Performed By: #### 1 [id number], [id number] #### [facility] [address] [place] [id number] Nitrite Ql (U) Positive Abnormal Negative [facility] Comment on above: Performed By: #### 1 [id number], [id number] #### [facility] [address] [place] [address] pH (U) 6.5 [pH] Invalid Interpretation Code 5.0-9.0 [facility] Comment on above: Performed By: #### 1 [id number], [id number] #### [facility] [address] [place] [address] Protein (U) [Mass/Vol] 3+ Abnormal Negative [facility] Comment on above: Performed By: #### 1 [id number], [id number] #### [facility] [address] [place] [address] Specific gravity (U) [Rel density] 1.025 Invalid Interpretation Code 1.005-1.030 [facility] Comment on above: Performed By: #### 1 [id number], [id number] #### [facility] [address] [place] [address] Type of Urine collection method Clean Catch Normal [facility] Comment on above: Performed By: #### 1 [id number], [id number] #### [facility] [address] [place] [address] Urobilinogen Qn (U) 0.2 {Yvonne'U}/dL Normal 0.0-1.0 [facility] Comment on above: Performed By: #### 1 [id number], [id number] #### [facility] [address] [place] [address] WBC Auto Ql (U) TRACE Abnormal Negative [facility] Comment on above: Performed By: #### 1 [id number], [id number] #### [facility] [address] [place] [address] WBC LM.HPF (Urine sed) [#/Area] 0-5 Normal 0-5 [facility] Comment on above: Performed By: #### 1 [id number], [id number] #### [facility] [address] [place] [address] COVID-19 ([facility])on 03-30-2021 SARS-CoV-2 (COVID-19) RNA EFRAIN+probe Ql (Unsp spec) Not detected Normal Not Detected [facility] Comment on above: Result Comment: This test result should be correlated with clinical presentations and medical history by a healthcare provider to determine its clinical significance. This assay was performed by a reverse transcriptase real-time polymerase chain reaction (rt PCR) method on the [employer] system. This test has been authorized only [...] or revoked sooner. Performed By: #### 2 [id number] ####[facility] [address] [place] [address] SARS-CoV-2 (COVID-19) RNA EFRAIN+probe Ql (Unsp spec) Pass Normal Pass [facility] Comment on above: Performed By: #### 2 [id number] ####[facility] [address] [facility] [place] [address] Specimen source Nom (Unsp spec) Nasal Normal [facility] Comment on above: Performed By: #### 2 [id number] ####[facility] [address] [facility] [place] [address] Consent for Treatmenton Consent for Treatment [id number]#1.00CD:127 Normal [facility] COVID-19 ([facility])on 03-29-2021 Employed in Healthcare NO [facility] Comment on above: Performed By: #### 2 [id number] ####[address] [address] First Test Unknown Normal [facility] Comment on above: Performed By: #### 2 [id number] ####[facility] [address] [facility] [place] [address] Hospitalized? NO [facility] Comment on above: Performed By: #### 2 [id number] ####[facility] [address] [facility] [place] [address] ICU NO [facility] Comment on above: Performed By: #### 2 [id number] ####[facility] [address] [facility] [place] [address] ? NO [facility] Comment on above: Performed By: #### 2 [id number] ####[facility] [address] [facility] [place] [address] Resides in a Congregate Care Setting NO [facility] Comment on above: Performed By: #### 2 [id number] ####[facility] [address] [facility] [place] [address] Symptomatic as defined by CDC YES [facility] Comment on above: Performed By: #### 2 [id number] ####[facility] [address] [place] [address] Vital Signs Date Time Vital Sign Value Performing Clinician Facility 05-28-2022 21:53-0500 Body height 162.56 cm HAND LENS POLISHER Dia Wu Work Phone: [facility] 05-28-2022 21:53-0500 Body temperature 98.1 [degF] HAND LENS POLISHER Dia Wu Work Phone: [facility] 05-28-2022 21:53-0500 Body weight 122.65 kg HAND LENS POLISHER Dia Wu Work Phone: [facility] 05-28-2022 21:53-0500 Diastolic blood pressure 81 mm[Hg] HAND LENS POLISHER Dia Wu Work Phone: [facility] 05-28-2022 21:53-0500 Heart rate 85 /min HAND LENS POLISHER Dia Wu Work Phone: [facility] 05-28-2022 21:53-0500 Respiratory rate 24 /min HAND LENS POLISHER Dia Wu Work Phone: [facility] 05-28-2022 21:53-0500 SaO2% (BldA) [Mass fraction] 95 % HAND LENS POLISHER Dia Wu Work Phone: [facility] 05-28-2022 21:53-0500 Systolic blood pressure 161 mm[Hg] HAND LENS POLISHER Dia Wu Work Phone: [facility] 05-26-2022 11:55-0500 Body height 162.56 cm Michael Jameson [facility] Other 05-26-2022 11:55-0500 Body mass index (BMI) [Ratio] 45.48 kg/m2 Michael Jameson [facility] Other 05-26-2022 11:55-0500 Body temperature 97.8 [degF] Michael Jameson [facility] Other 05-26-2022 11:55-0500 Body weight 120.2 kg Michael Jameson [facility] Other 05-26-2022 11:55-0500 Diastolic blood pressure 97 mm[Hg] Michael Jameson [facility] Other 05-26-2022 11:55-0500 SaO2% (BldA) [Mass fraction] 97 % Michael Jameson [facility] Other 05-26-2022 11:55-0500 Systolic blood pressure 143 mm[Hg] Michael Jameson [facility] Other 11-20-2021 10:26-0400 Body temperature 97.7 [degF] Raghavendra Rodriguez [facility] 11-20-2021 10:26-0400 Diastolic blood pressure 87 mm[Hg] Raghavendra Rodriguez [facility] 11-20-2021 10:26-0400 Heart rate 95 /min Raghavendra Rodriguez [facility] 11-20-2021 10:26-0400 Respiratory rate 20 /min Raghavendra Rodriguez [facility] 11-20-2021 10:26-0400 SaO2% (BldA) [Mass fraction] 98 % Raghavendra Rodriguez [facility] 11-20-2021 10:26-0400 Systolic blood pressure 185 mm[Hg] Raghavendra Rodriguez [facility] Encounters Encounter Date Encounter Type Care Provider Facility Start: 10-09-2023 End: 10-09-2023 ambulatory CAROLA LO Not Available Start: 09-04-2023 End: 09-04-2023 ambulatory Dia Wu Facility:[facility] Start: 09-04-2023 End: 09-04-2023 ambulatory HAND LENS POLISHER Dia Wu Work Phone: [facility] Work Phone: Start: 09-04-2023 End: 09-04-2023 Departed Referred HAND LENS POLISHER Dia Bryce Work Phone: [facility] Start: 08-22-2023 End: 08-22-2023 ambulatory CAROLA LO Not Available Start: 05-28-2022 End: 05-28-2022 Emergency department patient visit HAND LENS POLISHER Dia Wu Work Phone: [facility]gency [facility] Start: 05-26-2022 End: 05-26-2022 ambulatory Michael Jameson Other [facility] Other Start: 05-26-2022 Office outpatient ne w 20 minutes Michael Jameson [facility] Start: 02-16-2022 End: 02-16-[address] CAROLA LO Facility:[facility] Start: 12-02-2021 End: 12-02-[address] CAROLA LO Facility:[facility] Start: 11-29-[address] CAROLA LO Facility :[facility] Start: 11-20-2021 End: 11-20-2021 Emergency department patient visit Raghavendra Michael [facility] Start: 11-18-2021 End: 11-18-[address] CAROLA LO Facility:[facility] Start: 11-15-[address] CAROLA LO Facility :[facility] Start: 11-11-2021 Encounter for preprocedural cardiovascular examination DR CAROLA LO [facility] Start: 11-07-2021 End: 11-08-[address] CAROLA LO Facility:[facility] Start: 11-07-2021 End: 11-08-2021 Encounter for preprocedural cardiovascular examination DR CAROLA LO Facility:[facility] Start: 09-23-2021 End: 09-24-[address] CAROLA LO Facility:[facility] Start: 09-22-2021 End: 09-23-[address] CAROLA LO Facility:[facility] Plan of Treatment Date Care Activity Detail Author Patient referral Michael Cosme [facility] Work Phone: Payers Date Payer Category Payer Self-pay [id number] 2020 Unknown [id number] 1980 Unknown [id number] 2.16.84 [id number] 1979 Unknown [id number] 2.16.84 0.1.000689.3.579.2.593 1979 Unknown [id number] 2.16.84 0.1.833380.3.579.2.593 1979 Unknown [id number] 2.16.84 0.1.755426.3.579.2.593 1979 Unknown [id number] 2.16.84 0.1.341653.3.579.2.593 1979 Unknown [id number] 2.16.84 0.1.072092.3.579.2.593 1979 Unknown [id number] 2.16.84 0.1.995303.3.579.2.593 1979 Unknown [id number] 2.16.84 0.1.662250.3.579.2.593 1979 Unknown [id number] 2.16.84 0.1.540369.3.579.2.1259 1979 Unknown [id number] 2.16.84 0.1.662671.3.579.2.1259 1979 Unknown [id number] 2.16.84 0.1.360770.3.579.2.1259 1959 Self-pay [id number] Medicare Anthem MCR PFFS [id number] Unknown [id number] 2.16.8 [id number] Unknown HCAP/HFA/FAP Active [id number] Social History Date Type Detail Facility Tobacco [facility] Comment on above: Denies. Female [facility] Start: 05-28-2022 End: 05-28-2022 Tobacco smoking status NHIS Never smoked tobacco (finding) [facility] Start: 1980 Sex Assigned At Female [facility] Evaluation note 05-26-2022 Note Date & Type [...] (ICD-10 - R03.0) Follow up with pcp. [facility] Other Clinical Note 12-02-2021 Note Date & Type Note Facility 12-02-2021 Note OPERATIVE NOTE OPERATION DATE: 12/02/2021 PROCEDURE: Diandra endometrial ablation. PREOPERATIVE DIAGNOSIS: Menorrhagia. POSTOPERATIVE DIAGNOSIS: Menorrhagia. ANESTHESIA: General. SURGEON: Carola Lo D.O. VP PACKAGING: None. BLOOD LOSS: 5 mL. URINE OUTPUT: [...] Patient taken to recovery in stable condition. [facility] Signed and Approved by: DR CAROLA LO . 12/15/2021 10:48:00 [facility] Clinical Note 11-22-2021 Note Date & [...] Locations R1: [facility] [address] [place] [address], [id number] , , [facility] Comment on above: Performed By: #### [id number] ####[facility] [id number] [place] [address] Evaluation + Plan note 11-20-2021 Note Date & Type Note Facility 11-20-2021 Evaluation + Plan note Diagnostic Tests PendingStrep Screen Culture 11/20/21 [facility] Hospital Discharge instructions 11-20-2021 Note Date & Type Note Facility 11-20-2021 Hospital Discharg e instructions Patient Education 11/20/2021 11:31:01 Allergic Rhinitis, Adult, [id number]-tl-Vbeq Allergic Rhinitis, Adult Allergic rhinitis is a [...] are lowest. This is usually during the agricultural consultant or evening hours. ?If you do go [...] away after you touch household pets. Take quwa-zwl-lxqyria and prescription medicines only as told by [...] 10/11/2011 Document Revised: 09/30/2019 Document Reviewed: 12/31/2018 [employer] Patient Education 2020 [employer] 11/20/2021 11:31:01 Pharyngitis, Efva-bw-Atgq Pharyngitis Pharyngitis is a sore throat (pharynx). This is when there is redness, pain, and swelling in your throat. Most of the time, this condition gets better on its own. In some cases, you may need medicine. Follow these instructions at home: Take nqij-wna-tblsvdp and prescription medicines only as told by [...] 11/27/2008 Document Revised: 05/24/2018 Document Reviewed: 07/17/2017 [employer] Patient Education [address] 11/20/2021 11:31:01 Cough, Adult, Rzcp-ez-Cysj Cough, Adult A cough helps to clear [...] Follow these instructions at home: Medicines Take uden-fib-svyqgvg and prescription medicines only as told by [...] Many things can cause a cough. Take dktl-byq-ouobdve and prescription medicines only as told by [...] 02/22/2012 Document Revised: 06/30/2019 Document Reviewed: 06/30/2019 [employer] Patient Education 2020 [employer]hereTx 11/20/2021 11:31:01 Cool Mist Vaporizer Cool Mist [...] 03/08/2005 Document Revised: 06/28/2017 Document Reviewed: 09/09/2016 [employer] Patient Education [address] Follow Up Care 11/20/2021 10:25:19 With:Dia Wu Address: [address], [facility] [address] [place] [address]- [phone] Business (1) When:11/23/2021 11:10:20 [facility] Clinical Note 11-18-2021 Note Date & Type Note Facility 11-18-2021 Note OPERATIVE NOTE OPERATION DATE: 11/18/2021 PROCEDURE: D AND C, hysteroscopy with Myosure. PREOPERATIVE DIAGNOSIS: Menorrhagia, thickened endometrium. POSTOPERATIVE DIAGNOSIS: Menorrhagia, thickened endometrium. ANESTHESIA: General. SURGEON: Carola Lo D.O. VP PACKAGING: None. SPECIMEN: Endometrial curetting. FINDINGS: Thickened endometrial [...] to the Recovery Room in stable condition. [facility] Signed and Approved by: DR CAROLA LO . 11/25/2021 08:14:00 [facility] Evaluation note Note Date & Type Note Facility Evaluation note No assessment information [facility] Work Phone: History general Narrative - Reported Note Date & Type Note Facility History general Narrative - Reported Type Medical History hypertension Medical History chronic depression Medical History acid reflux Medical History pre-diabetes Surgical History D&C 2006 Surgical History ablasion Cause.it Other Hospital course Narrative Note Date & Type Note Facility Hospital course Narrative No data available for this section [facility] Hospital Discharge instructions Note Date & Type [...] may be related to your metformin dose [facility] Work Phone: Summary Purpose Family History No Family History Records Found Relationship Condition Age at Onset Recorded Date/T ledy father Unknown Not Specified Unknown Advance Directives No Advanced Directives Records Found Advance Directive Response Recorded Date/ Time Advance Directives No April 7:37pm Advance Directive Response Recorded Date/ Time Advance Directives No April 8:37pm Chief Complaint and Reason for Visit Chief Complaint vomiting Chief Complaint Unknown Additional Source Comments INFORMATION SOURCE (unrecogn ized section and content) DATE CREATED AUTHOR 12/01/2021 [facility] DATE CREATED AUTHOR AUTHOR'S ORGANIZ ATION 02/23/2022 [facility] DATE CREATED AUTHOR AUTHOR'S ORGANIZ ATION 09/06/2023 [facility] DATE CREATED AUTHOR AUTHOR'S ORGANIZ ATION 10/10/2023 [facility] EPIC Care Teams (unrecognized sec tion and content) [...] 2023 Carola Lo Attending Provider Active Start: [facility] 2023 End: September 04, 2023 Goals (unrecognized [...] BE BASED ON THE PRIMARY CLINICAL RECORDS. [facility]. provides no warranty or guarantee of the accuracy or completeness of information in this document.
[2023-11-07 06:09] LABS: Basophils Absolute Auto 0.1 10^3/uL (0.0-0.1); Basophils Percent Auto 0.4 % (0.2-2.0); Eosinophils Absolute Auto 0.3 10^3/uL (0.0-0.7); Eosinophils Percent Auto 2.5 % (0.9-7.0); Hematocrit 35.9 % (36.0-48.0); Hemoglobin 11.2 g/dL (12.0-16.0); Immature Granulocytes Abs Auto 0.04 10^3/uL (0.00-0.03); Immature Granulocytes Pct Auto 0.4 % (0.0-0.5); Lymphocytes Absolute Auto 3.4 10^3/uL (1.2-3.8); Lymphocytes Percent Auto 29.9 % (20.5-60.0); Mean Corpuscular HGB Conc 31.2 g/dL (29.9-35.2); Mean Corpuscular Hemoglobin 26.5 pg (26.7-34.0); Mean Corpuscular Volume 84.9 fL (81.0-99.0); Mean Platelet Volume 10.1 fL (9.5-13.5); Monocytes Percent Auto 8.6 % (1.7-12.0); Neutrophils Absolute Auto 6.6 10^3/uL (1.4-6.5); Neutrophils Percent Auto 58.2 % (43.0-75.0); Platelet Count 286 10^3/uL (150-450); Red Blood Count 4.23 10^6/uL (4.20-5.40); Red Cell Distribution Width 14.1 % (11.0-15.0); White Blood Count 11.4 10^3/uL (4.0-11.0)
[2023-11-07 06:27] LABS: HCG Quantitative <1 mIU/mL
[2023-11-07] MEDS: LACTATED RINGER'S SOLUTION 1,000 ML 50 ML IV ×2 (06:42→09:26)
[2023-11-07 07:16] LABS: Glucometer 114 mg/dL (74-106)
[2023-11-07] MEDS: CIPROFLOXACIN IN 5 % DEXTROSE 400 MG/200 ML PIGGYBACK 200 MG IV ×2 (07:21→20:36)
--- NOTE | 2023-11-07 07:27 | PC.NURSE ---
0705- Dr. Lo aware of WBC. No new orders received.
[2023-11-07] MEDS: METRONIDAZOLE/SODIUM CHLORIDE 500 MG/100 ML PREMIX 100 MG IV ×2 (08:03→16:14)
--- NOTE | 2023-11-07 10:37 | PM.ONB ---
Brief Operative Note Date of procedure: 11/07/23 Pre-op diagnosis general: pelvic pain, endometriosis posterior culdesac, menorrhagia, failed ablation, lt ovarian cyst Post-op diagnosis: same as pre-op Procedure: NAME OF PROCEDURE: ? Robotic assisted laparoscopic hysterectomy with cystoscopy, rt salpingectomy, lt ovarian cystotomy PROCEDURE:? The patient was taken back to the operating room, where she was prepped and draped in the normal sterile fashion after being placed in the dorsal lithotomy position.? Patient?s anesthesia was found to be adequate.? Surgical timeout was performed using two patient identifiers.? SCDs were on and in place.? Two grams of Ancef were given prior to the surgery.? Sterile Keen catheter was inserted.? Standard size VCare was secured to the uterine cervix and the surgeon changed gloves.? Attention then was turned to the patient's abdomen, where a supraumbilical incision was then made.? Two S retractors were used to identify the patient?s fascia.? The fascia was then tented up using Buffy clamps and the patient?s fascia was incised sharply.? Patient?s abdomen was identified and entered bluntly.? The patient had the trocar placed and a pneumoperitoneum was obtained.? Approximately 4 liters of CO2 gas was used.? The camera was then placed through the trocar.? At this time, two robot trocars were placed in the patient?s left and right side, two hand widths from the midline, and this was placed under direct visualization.? The patient?s tube on the right side was tented up and the vessel sealer was then used to come across the mesosalpinx, and this was carried down to the uterine ovarian ligament.? The vessel sealer was carried down serially to the broad ligament, to the area of the bladder flap, which was then created anteriorly, and the uterine arteries were skeletonized and sealed using the vessel sealer.?This was performed on contralateral side as well, but the lt tube was densely adhered to the bowel, so the vessl sealer came across the uteroovarian ligament and carried down serially. The colpotomy was made using the monopolar cautery on cut, and this was carried circumferentially, posteriorly to anteriorly, until the uterus was amputated.? The specimen was then removed intact through the vagina, without difficulty.? The vagina was then closed using two running V-Loc in a non-lock fashion.? The robot was undocked.? The abdomen was desufflated.? The skin defects were closed using 4-0 Vicryl.? Please note, the fascia was closed using 0 Vicryl.? Sponge, lap and needle counts were correct x2.? Patient was taken to recovery room in stable condition.? The patient was awakened by Anesthesia first.? Patient tolerated procedure well.??Please note left ovarian cystectomy was performed using the vessel sealer Anesthesia: MEI Surgeon: Anatoliy Lo Pouncing Lathe Operator: Lolly Nieto Estimated blood loss (mL): 100 Pathology: other (uterus cervix and rt tube) Condition: stable Disposition: PACU Urinary Catheter Management Urinary Catheter Management Urethral: Cath placed during this visit: no
[2023-11-07 11:25] LABS: Glucometer 150 mg/dL (74-106)
--- NOTE | 2023-11-07 11:36 | PC.NURSE ---
OXYCODONE/ACETAMINOPHEN AND IBUPROFEN SCRIPT ON PATIENT'S CHART UPON TRANSFER TO MED SURG.
[2023-11-07] MEDS: LACTATED RINGER'S SOLUTION 1,000 ML 125 ML IV ×2 (14:16→20:36)
[2023-11-07] MEDS: ONDANSETRON PF 4 MG/2 ML VIAL IV (14:16)
[2023-11-07 14:23] LABS: Glucometer 175 mg/dL (74-106)
[2023-11-07] MEDS: OXYCODONE HCL/ACETAMINOPHEN 5MG/325MG 1 TAB PO (20:35)
[2023-11-08] VITALS: BP 125/70; PULSE 97; TEMP 36.8; O2SAT 90
[2023-11-08] MEDS: OXYCODONE HCL/ACETAMINOPHEN 5MG/325MG 1 TAB PO (04:35)
[2023-11-08 04:37] VITALS: BP 110/60; PULSE 82; TEMP 36.2; O2SAT 95
[2023-11-08] MEDS: ENOXAPARIN SODIUM 40 MG/0.4 ML SYRINGE SUBQ (06:10)
[2023-11-08 06:20] LABS: Basophils Percent Auto 0.1 % (0.2-2.0); Hemoglobin 9.7 g/dL (12.0-16.0); Immature Granulocytes Abs Auto 0.13 10^3/uL (0.00-0.03); Immature Granulocytes Pct Auto 0.6 % (0.0-0.5); Lymphocytes Absolute Auto 1.5 10^3/uL (1.2-3.8); Lymphocytes Percent Auto 6.9 % (20.5-60.0); Mean Corpuscular HGB Conc 31.3 g/dL (29.9-35.2); Mean Corpuscular Hemoglobin 26.5 pg (26.7-34.0); Mean Corpuscular Volume 84.7 fL (81.0-99.0); Monocytes Absolute Auto 1.3 10^3/uL (0.3-0.8); Neutrophils Absolute Auto 18.8 10^3/uL (1.4-6.5); Neutrophils Percent Auto 86.4 % (43.0-75.0); Platelet Count 258 10^3/uL (150-450); Red Blood Count 3.66 10^6/uL (4.20-5.40); Red Cell Distribution Width 14.4 % (11.0-15.0); White Blood Count 21.7 10^3/uL (4.0-11.0)
[2023-11-08 07:17] VITALS: BP 120/70; PULSE 80; TEMP 36.9; O2SAT 93
[2023-11-08] MEDS: MAGNESIUM HYDROXIDE 2,400 MG/10 ML ORAL.SUSP 2400 MG PO (08:58)
[2023-11-08 11:31] VITALS: BP 116/67; PULSE 84; TEMP 36.7; O2SAT 93
[2023-11-08 12:23] LABS: Basophils Percent Auto 0.1 % (0.2-2.0); Hematocrit 32.4 % (36.0-48.0); Hemoglobin 10.2 g/dL (12.0-16.0); Immature Granulocytes Pct Auto 1.5 % (0.0-0.5); Lymphocytes Percent Auto 9.9 % (20.5-60.0); Mean Corpuscular HGB Conc 31.5 g/dL (29.9-35.2); Mean Corpuscular Hemoglobin 26.8 pg (26.7-34.0); Mean Platelet Volume 10.3 fL (9.5-13.5); Monocytes Absolute Auto 1.1 10^3/uL (0.3-0.8); Monocytes Percent Auto 5.5 % (1.7-12.0); Neutrophils Absolute Auto 16.8 10^3/uL (1.4-6.5); Platelet Count 257 10^3/uL (150-450); Red Blood Count 3.81 10^6/uL (4.20-5.40); Red Cell Distribution Width 14.7 % (11.0-15.0); White Blood Count 20.3 10^3/uL (4.0-11.0)
== END 2023-11-08 13:24 | disposition home or self-care (01) ==
LOC: SURGOUT 10:43 → MS 12:07
PROVIDERS: Visit Provider Obstetrics & Gynecology
PROC: (CPT 00840; principal; 2023-11-07 07:30)
DX: N92.0 Excessive and frequent menstruation with regular cycle (principal); R10.2 Pelvic and perineal pain; N94.6 Dysmenorrhea, unspecified; D64.9 Anemia, unspecified; N80.329 Endometriosis of the posterior cul-de-sac, unspecified depth; N83.202 Unspecified ovarian cyst, left side; N80.03 Adenomyosis of the uterus; Z79.84 Long term (current) use of oral hypoglycemic drugs; F32.A Depression, unspecified; E66.01 Morbid (severe) obesity due to excess calories; Z68.41 Body mass index [BMI] 40.0-44.9, adult; Q51.28 Other and unspecified doubling of uterus; R93.89 Abnormal findings on diagnostic imaging of other specified body structures; E11.9 Type 2 diabetes mellitus without complications; I10 Essential (primary) hypertension
CPT/HCPCS: 00840; 49322; 58571; 36415; 82948; 84702; 85025; 88307; 94667; J1094; J1170; J2704

== ENCOUNTER 2024-12-23 19:12 | Outpatient (REF) | payer MEDICARE, SELFPAY ==
--- OUTSIDE RECORDS SUMMARY | 2020-11-18 13:00 | XMS_ITS | Continuity of Care Document ---
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 [address], [place], [id number], . tel:[phone] [facility], [address] [place] [address], [id number], tel:[phone] COVID [facility] No Information Katie Vela. [address], [place], [id number], [place]. tel:[phone] Family History Family Member Type Diagnosis Age At Onset No Information Immunizations Vaccine Date Status Comments Pfizer COVID administered Source: New Imm unization Record Pfizer COVID administered Source: New Imm unization Record Payers Payer name Insurance type Covered libertarian ID Authoriza tion(s) Medicare PPS [id number] Medicare PPS [id number] [employer] Medicare Advantage [id number] Social History Type Description Quantity Date Captured Comments Alcohol Use Details Unknown Caffeine Use Details Unknown Tobacco Use Status No Information Smoking Status No Information Sex Female Sexual Orientation Straight or heterosexual Gender Identity Female Chief Complaint And Reason For Visit No Information Reason For Referral Reason For Referral No Information History Of Present Illness Encounter Date Complaint History Of Prese nt Illness No Information Functional Status Date Functional Assessmen t No Information Instructions Date Instruction Additional Infor mation No Information Assessments Type Assessment Date No Information Patient Care Teams Name Effective Dates (start - stop) Status Members No Information
--- OUTSIDE RECORDS SUMMARY | 2024-12-23 11:00 | XMS_ITS | Encounter Summary ---
Author Organization [facility] Address [address] [place] [address] Care Team Providers Care Mass Spectrometry Manager Name Role Phone Jordan Saul Primary Care Provider [phone] Reason for Visit * Reason Comments Gynecologic Exam Encounter Details Date Type Department Care Team (Late st Contact Info) Description 12/23/2024 11:00 AM EDT Office Visit [facility] [address] [place], [id number] Anatoliy Lo DO [address] [place] [id number] Well woman exam with routine gynecological exam; Breast cancer screening by mammogram Social History Tobacco Use Types Packs/Day Years Used Date Smoking Tobacco: Never Smokeless Tobacco: Never Alcohol Use Standard Drinks/Week Comments Not Currently 0 (1 standard drink = 0.6 oz pur e alcohol) caffeine: 24oz Pepsi daily Comments No Sex and Gender Information Value Date Recorded Sex Assigned at Female 08/15/2023 9:12 AM EST Legal Sex Female 9:28 PM EDT Gender Identity Female 08/15/2023 9:12 AM EST Sexual Orientation Not on file documented as of this encounter Last Filed Vital Signs Vital Sign Reading Time Taken Comments Blood Pressure 124/72 12/23/2024 11:41 AM EDT Pulse - - Temperature - - Respiratory Rate - - Oxygen Saturation - - Inhaled Oxygen Concentration - - Weight 111 kg (244 lb) 12/23/2024 11:41 AM EDT Height - - Body Mass Index 43.57 11/28/2018 12:00 PM EDT documented in this encounter Plan of Treatment Upcoming Encounters Date Type Department Care Team (Late st Contact Info) Description 12/29/2025 10:00 AM EDT Office Visit [facility] [address] [place] [address] Anatoliy Lo DO [address] [place] [address] Scheduled Orders Name Type Priority Associated Diagnoses Orde r Schedule Bilateral screening mammogram Imaging Routine Breast cancer screening by mammogram Expected: 12/23/2024 (Approximate), Expires: 02/23/2026 THIN PREP TIS PAP AND HR HPV DNA Pathology and Cytology Routine Well woman exam with routine gynecological exam Ordered: 12/23/2024 documented as of this encounter Visit Diagnoses Diagnosis Well woman exam with routine gynecological exam Routine gynecological examination Breast cancer screening by mammogram documented in this encounter Care Teams Mass Spectrometry Manager Relationship Specialty Start Date End Date Jordan Saul DO PCP - General Family Medicine 08/22/23 documented as of this encounter
--- OUTSIDE RECORDS SUMMARY | 2024-12-23 19:16 | XMS_ITS | Encounter Summary ---
Author Organization [facility] Address [address] [place] [address] Care Team Providers Care Telecommunication Engineer Name Role Phone Jordan Saul DO Primary Care Provider Encounter Details Date Type Department Care Team (Latest Contact Info) Description 12/21/2024 Travel Social History Tobacco Use Types Packs/Day Years [...] on file documented as of this encounter Plan of Treatment Upcoming Encounters Date Type Department Care Team (Late st Contact Info) Description 12/29/2025 10:00 AM EDT Office Visit [facility] [address] [place] [phone] Anatoliy Lo DO [address] [place] [address] documented as of this encounter Visit Diagnoses Not on filedocumented in this encounter Care Teams Telecommunication Engineer Relationship Specialty Start Date End Date Jordan Saul DO PCP - General Family Medicine 08/22/23 documented as of this encounter
--- OUTSIDE RECORDS SUMMARY | 2024-12-23 19:16 | XMS_ITS | Encounter Summary ---
Author Organization [facility] Address [address] [place] [address] Care Team Providers Care Mixing Supervisor Name Role Phone Jordan Saul DO Primary Care Provider [phone] Encounter Details Date Type Department Care Team (Late st Contact Info) Description 10/25/2023 Clinisync Result Encounter [facility] External Department Unsolicited Carola Lo, [facility] [place], [place] [id number] Social History Tobacco Use Types Packs/Day Years [...] 12/29/2025 10:00 AM EDT Office Visit [facility] [address] [place] [address] Carola Lo DO [facility] [place] [id number] documented as of this encounter Procedures Procedure Name Priority Date/Time Associated Diagnosis Comments ALL TYPE AND SCREEN Routine 10/25/2023 1 2:52 PM EDT ECG 12-LEAD 10/25/2023 12:47 PM EDT documented in this encounter Results * ALL TYPE AND SCREEN (10/25/2023 12:52 PM EDT) BLOOD TYPE A Positive [facility] ANTIBODY SCREEN NEGATIVE [facility] 10/25/2023 12:5 2 PM EDT 10/25/2023 12:57 PM EDT Narrative [facility] - 10/25/2023 2:53 PM EDT [facility] , [facility] Carola Lo DO [facility] Final Result [facility] TB * ECG 12-LEAD (10/25/2023 12:47 PM EDT) Anatomical Region Laterality Modality Other 10/25/2023 12:4 7 PM EDT Narrative 10/25/2023 2:50 [place] [address] Electrocardiograph Report Signed Patient: KERON LEVI MR#: [id number] : 1980 Acct:[id number] Age/Sex: 43 / F ADM Date: 10/25/23 Loc: [facility] Attending Dr: Carola Lo D.O. Ordering Physician: Carola Lo D.O. Date of Service: 10/25/23 Procedure(s): ECG 12 lead Accession Number(s): [id number] cc: [facility] Test Date: 2023-10-25 Pat Name: KERON LEVI Department: Room: - Gender: Female Operations Coordinator: : 1980 Requested By: CAROLA LO Order Number: [id number] Reading MD: VARINDER VALENZUELA Measurements Intervals [facility] Rate: 69 P: 47 CA: 151 QRS: 31 QRSD: 98 T: 48 QT: 425 QTc: 456 Interpretive Statements SINUS RHYTHM NONSPECIFIC T-WAVE ABNORMALITY Compared to ECG 11/07/2021 13:04:39 T-wave abnormality now present Short CA interval no longer present Electronically Signed On 10-25-2023 14:50:04 EDT by VARINDER VALENZUELA Dictated By: Varinder Valenzuela D.O. Signed By: 10/25/23 1450 DD/ 1247 TD/TT: Chief Projectionist: Procedure Note Radiology, Radiologist, - 10/25/2023 [place] [address] Electrocardiograph Report Signed Patient: KERON LEVI R#: [id number] : 1980Acct:[id number] Age/Sex: 43 / FADM Date: 10/25/23 Loc: [facility] Attending Dr: Carola Lo D.O. Ordering Physician: Carola Lo D.O. Date of Service: 10/25/23 Procedure(s): ECG 12 lead Accession Number(s): [id number] cc: [facility] Test Date: 2023-10-25 Pat Name: KERON LEVI Department: Room: - Gender: Female Operations Coordinator: : 1980 Requested By: CAROLA LO Order Number: [id number] Reading MD: VARINDER VALENZUELA Measurements Intervals [facility] Rate: 69 P: 47 CA: 151 QRS: 31 QRSD: 98 T: 48 QT: 425 QTc: 456 Interpretive Statements SINUS RHYTHM NONSPECIFIC T-WAVE ABNORMALITY Compared to ECG 11/07/2021 13:04:39 T-wave abnormality now present Short CA interval no longer present Electronically Signed On 10-25-2023 14:50:04 EDT by VARINDER VALENZUELA Dictated By: Varinder Valenzuela D.O. Signed By:10/25/23 1450 DD/ 1247 TD/TT: Chief Projectionist: us Carola Lo DO [facility] Final Result documented in this encounter Visit Diagnoses Not on filedocumented in this encounter Care Teams Mixing Supervisor Relationship Specialty Start Date End Date Jordan Saul DO PCP - General Family Medicine 08/22/23 documented as of this encounter
--- OUTSIDE RECORDS SUMMARY | 2024-12-23 19:16 | XMS_ITS | Encounter Summary ---
Author Organization [facility] Address [address] [place] [address] Care Team Providers Care Project Safety Manager Name Role Phone Jordan Saul DO Primary Care Provider [phone] Encounter Details Date Type Department Care Team (Late st Contact Info) Description 10/25/2023 Clinisync Result Encounter [facility] External Department Unsolicited Anatoliy Lo, [facility] [place], [place] [phone] Social History Tobacco Use Types Packs/Day Years [...] 12/29/2025 10:00 AM EDT Office Visit [facility] [address] [place] [address] Anatoliy Lo DO [facility] [place] [address] documented as of this encounter Procedures Procedure Name Priority Date/Time Associated Diagnosis Comments MM TOMOSYNTHESIS SCREENING BI 10/25/2023 2:36 PM EDT documented in this encounter Results * MM TOMOSYNTHESIS SCREENING BI (10/25/2023 2:36 PM EDT) Anatomical Region Laterality Modality Other 10/25/2023 2:36 PM EDT Narrative 10/25/2023 2:37 [place] [address] Mammography Report Signed Patient: KERON LEVI MR#: [id number] : 1980 Acct:[id number] Age/Sex: 43 / F ADM Date: 10/25/23 Loc: MAMMO Attending Dr: Anatoliy Lo D.O. Ordering Physician: Anatoliy Lo D.O. Results: Date of Service: 10/25/23 Follow Up: Procedure(s): MM tomosynthesis screening BI Accession Number(s): [id number] cc: Anatoliy Lo D.O.; Physician,Non-Staff Soumya Patient Name: KERON LEVI MR#: [id number] : 1980 Exam Date: 10/25/2023 Ordering Doctor: DR Anatoliy Lo . RADIOLOGY REPORT PROCEDURE: MM TOMOSYNTHESIS SCREENING BI COMPARISON: None. INDICATIONS: screening Calculator Name NCI Breast Cancer Risk Assessment Tool 5 Year Breast Cancer Risk 0.80% Lifetime Breast Cancer Risk 9.80% Personal Breast Cancer No Personal Ovarian Cancer No Treatments None Family Cancers None LOCATION: [facility] BREAST COMPOSITION: There are scattered areas of fibroglandular density. FINDINGS: DIAGNOSTIC CATEGORY 1--NEGATIVE. NO CHANGE FROM COMPARISON ASSESSMENT. RIGHT BREAST: No significant suspicious finding. LEFT BREAST: No significant suspicious finding. RECOMMENDATIONS: ROUTINE MAMMOGRAM AND CLINICAL EVALUATION IN 12 MONTHS. PLEASE NOTE: A NORMAL MAMMOGRAM DOES NOT EXCLUDE THE POSSIBILITY OF BREAST CANCER. A CLINICALLY SUSPICIOUS PALPABLE LUMP SHOULD BE BIOPSIED. Dictated by: Nicko Granda MD on 10/25/2023 at 14:35 Approved by: Nicko Granda MD on 10/25/2023 at 14:36 Dictated By: Nicko Granda M.D. Signed By: 10/25/23 1437 DD/ 35 TD/TT: Assembler [employer] Battery: Procedure Note Radiology, Radiologist, - 10/25/2023 [place] [address] Mammography Report Signed Patient: KERON LEVI RMR#: [id number] : 1980Acct:[id number] Age/Sex: 43 / FADM Date: 10/25/23 Loc: MAMMO Attending Dr: Anatoliy Lo D.O. Ordering Physician: Anatoliy Lo D.O.Results: Date of Service: 10/25/23Follow Up: Procedure(s): MM tomosynthesis screening BI Accession Number(s): [id number] cc: Anatoliy Lo D.O.; Physician,Non-Staff Soumya Patient Name: KERON LEVI MR#: [id number] : 1980 Exam Date: 10/25/2023 Ordering Doctor: DR Anatoliy Lo . RADIOLOGY REPORT PROCEDURE: MM TOMOSYNTHESIS SCREENING BI COMPARISON: None. INDICATIONS: screening Calculator Name NCI Breast Cancer Risk Assessment Tool 5 Year Breast Cancer Risk 0.80% Lifetime Breast Cancer Risk 9.80% Personal Breast Cancer No Personal Ovarian Cancer No Treatments None Family Cancers None LOCATION: [facility] BREAST COMPOSITION: There are scattered areas of fibroglandulardensity. FINDINGS: DIAGNOSTIC CATEGORY 1--NEGATIVE. NO CHANGE FROM COMPARISON ASSESSMENT. RIGHT BREAST: No significant suspicious finding. LEFT BREAST: No significant suspicious finding. RECOMMENDATIONS: ROUTINE MAMMOGRAM AND CLINICAL EVALUATION IN 12 MONTHS. PLEASE NOTE: A NORMAL MAMMOGRAM DOES NOT EXCLUDE THE POSSIBILITY OFBREAST CANCER. A CLINICALLY SUSPICIOUS PALPABLE LUMP SHOULD BE BIOPSIED. Dictated by: Nicko Granda MD on 10/25/2023 at 14:35 Approved by: Nicko Granda MD on 10/25/2023 at 14:36 Dictated By: Nicko Granda M.D. Signed By:10/25/23 1437 DD/ 35 TD/TT: Assembler [employer]: us Anatoliy Lo DO [facility] Final Result documented in this encounter Visit Diagnoses Not on filedocumented in this encounter Care Teams Project Safety Manager Relationship Specialty Start Date End Date Jordan Saul DO PCP - General Family Medicine 08/22/23 documented as of this encounter
--- OUTSIDE RECORDS SUMMARY | 2024-12-23 19:16 | XMS_ITS | Encounter Summary ---
Author Organization [facility] Address [address] [place] [address] Care Team Providers Care Body Welder Name Role Phone Jordan Saul DO Primary Care Provider [phone] Encounter Details Date Type Department Care Team (Late st Contact Info) Description 04/09/2023 Abstract [facility] [address] [place] [address] [place], [facility] Social History Tobacco Use Types Packs/Day Years Used Date Smoking Tobacco: Never Smokeless Tobacco: Never Alcohol Use Standard Drinks/Week Comments Not Currently 0 (1 standard drink = 0.6 oz pur e alcohol) caffeine: 24oz Pepsi daily Comments Unknown Sex and Gender Information Value Date Recorded Sex Assigned at Female 08/15/2023 9:12 AM EST Legal Sex Female 9:28 PM EDT Gender Identity Female 08/15/2023 9:12 AM EST Sexual Orientation Not on file documented as of this encounter Plan of Treatment Upcoming Encounters Date Type Department Care Team (Late st Contact Info) Description 12/29/2025 10:00 AM EDT Office Visit [facility] [address] [place] [address] Anatoliy Lo [facility] [place], [place] [id number] documented as of this encounter Visit Diagnoses Not on filedocumented in this encounter Care Teams Body Welder Relationship Specialty Start Date End Date Jordan Saul DO PCP - General Family Medicine 08/22/23 documented as of this encounter
--- OUTSIDE RECORDS SUMMARY | 2024-12-23 19:16 | XMS_ITS | Clinical Summary ---
Author Organization [facility] Address [address] [place] [address] Care Team Providers Care Clothing Trades Workers Name Role Phone Jordan Saul DO Primary Care Provider [phone] Allergies Active Allergy Reactions Criticality Noted Date Comments Penicillin G Unknown,Hives 03/14/2023 Penicillins Unknown 05/28/2022 Sulfa Antibiotics Unknown,Hives 05/28/2022 Sulfacetamide 05/26/2022 Medications albuterol HFA 90 mcg/act inhaler INHALE 1 PUFF BY MOUTH DIRECTED EVERY 4 TO 6 HOURS NEEDED FOR SHORTNESS OF BREATH 05/10/20 23 Active Blood Glucose Calibration (OT ULTRA/FASTTK CNTRL SOLN) solution USE DIRECTED FOR GLUCOMETER 01/16/20 23 Active Blood Glucose Monitoring Suppl (ONE TOUCH ULTRA 2) w/Device kit USE DIRECTED TO CHECK FASTING BLOOD SUGAR DAILY 01/13/20 23 Active Continuous Blood Gluc Contract Programmer (FreeStyle Alyssa 2 Grethel) device TO USE WITH CGM 05/22/20 23 Active Continuous Blood Gluc Sensor (FreeStyle Alyssa 2 Sensor) misc TO BE PLACED SUBCUTANEOUSLY EVERY 14 DAYS TO CHECK BLOOD SUGARS TWICE A DAY 05/22/20 23 Active escitalopram (Lexapro) 10 MG tablet 1 (one) time each day at the same time Active FLUoxetine (PROzac) 40 MG capsule Take 40 mg by mouth Daily 07/06/19 24 Active OneTouch Verio test strip 04/03/20 23 Active irbesartan (Avapro) 75 MG tablet Take 75 mg by mouth Daily Active Lancets (OneTouch Delica Plus [id number]) [facility] [place] USE 1 LANCET TO CHECK GLUCOSE ONCE DAILY 07/07/19 24 Active metFORMIN (Glucophage) 500 MG tablet Take 500 mg by mouth in the morning and 500 mg before bedtime. Active iron polysaccharides (ProFe) 391.3 (180 Fe) MG capsule 1 capsule 1 (one) time each day at the same time Active Semaglutide (OZEMPIC, 0.25 OR 0.5 MG/DOSE, SC) 04/10/20 23 Active ibuprofen 800 MG tablet Take 800 mg by mouth every 8 (eight) hours 11/08/19 24 Active oxyCODONE-acetamin ophen (Percocet) 5-325 MG tablet Take 1 tablet by mouth every 6 (six) hours if needed for moderate pain 11/08/19 24 Active metroNIDAZOLE (Flagyl) 500 MG tablet Take 500 mg by mouth in the morning and 500 mg before bedtime. 11/08/19 24 Active rosuvastatin (Crestor) 5 MG tablet Take 5 mg by mouth at bedtime 10/29/19 24 Active Encounters Date Type Department Care Team Description 12/23/2024 11:00 AM EDT Office Visit [facility] [address] [place] [address] Anatoliy Lo DO Well woman exam with routine gynecological exam; Breast cancer screening by mammogram 12/23/2024 Shanell flowsheet [facility] [address] [place] [address] Anatoliy Lo DO 12/21/2024 Travel from Last 3 Months Social History Tobacco Use Types Packs/Day Years Used Date Smoking Tobacco: Never Smokeless Tobacco: Never Tobacco Cessation:Counseling Given: Not Answered Alcohol Use Standard Drinks/Week Comments Not Currently 0 (1 standard drink = 0.6 oz pur e alcohol) caffeine: 24oz Pepsi daily Comments No Sex and Gender Information Value Date Recorded Sex Assigned at Female 08/15/2023 9:12 AM EST Legal Sex Female 9:28 PM EDT Gender Identity Female 08/15/2023 9:12 AM EST Sexual Orientation Not on file Last Filed Vital Signs Vital Sign Reading Time Taken Comments Blood Pressure 124/72 12/23/2024 11:41 AM EDT Pulse - - Temperature - - Respiratory Rate - - Oxygen Saturation - - Inhaled Oxygen Concentration - - Weight 111 kg (244 lb) 12/23/2024 11:41 AM EDT Height 159.4 cm (5' 2.75 ) 11/28/2018 12:00 PM E DT Body Mass Index 43.57 11/28/2018 12:00 PM EDT Plan of Treatment Upcoming Encounters Date Type Department Care Team (Late st Contact Info) Description 12/29/2025 10:00 AM EDT Office Visit [facility] [address] [facility] [place] [address] Anatoliy Lo, DO [address] [facility] [place] [address] Health Maintenance Due Date Last Done Comments CT Colonography 1979 Colonoscopy 1979 Colorectal Cancer Screening 1979 FIT-DNA 1979 FIT 1979 FOBT 1979 Sigmoidoscopy 1980 Mammogram 10/24/2024 10/25/2023 Influenza Vaccine (#1) 2025 4, 05/01/2023, 04/25/2022, Additional history exists Cervical Cancer Screening 10/13/2027 HPV/Cotest 10/13/2027 Pap Smear 10/13/2027 10/12/2022, 11/13/2018 Procedures Procedure Name Priority Date/Time Associated Diagnosis Comments MM TOMOSYNTHESIS SCREENING BI 10/25/2023 2:36 PM EDT PAP SMEAR Routine 10/12/2022 12:00 AM EDT from Last 3 Months or Most Recently Relevant to Health Maintenance Results * MM TOMOSYNTHESIS SCREENING BI (10/25/2023 2:36 PM EDT) Anatomical Region Laterality Modality Other 10/25/2023 2:36 PM EDT Narrative 10/25/2023 2:37 PM EDT The [address] [address] Mammography Report Signed Patient: KERON LEVI MR#: [id number] : 1980 Acct:[id number] Age/Sex: 43 / F ADM Date: 10/25/23 Loc: MAMMO Attending Dr: Anatoliy Lo D.O. Ordering Physician: Anatoliy Lo D.O. Results: Date of Service: 10/25/23 Follow Up: Procedure(s): MM tomosynthesis screening BI Accession Number(s): [id number] cc: Anatoliy Lo D.O.; Physician,Non-Staff Soumya Patient Name: KERON LEVI MR#: [id number] : 1980 Exam Date: 10/25/2023 Ordering Doctor: DR Anatoliy Lo . RADIOLOGY REPORT PROCEDURE: MM TOMOSYNTHESIS SCREENING BI COMPARISON: None. INDICATIONS: screening Calculator Name NCI Breast Cancer Risk Assessment Tool 5 Year Breast Cancer Risk 0.80% Lifetime Breast Cancer Risk 9.80% Personal Breast Cancer No Personal Ovarian Cancer No Treatments None Family Cancers None LOCATION: [facility] BREAST COMPOSITION: There are scattered areas [...] Granda M.D. Signed By: 10/25/23 1437 DD/ 1436 TD/TT: Accountancy Professor: Procedure Note Radiology, Radiologist, - 10/25/2023 [place] [address] Mammography Report Signed Patient: KERON LEVI RMR#: [id number] : 1980Acct:[id number] Age/Sex: 43 / FADM Date: 10/25/23 Loc: MAMMO Attending Dr: Anatoliy Lo D.O. Ordering Physician: Anatoliy Lo D.O.Results: Date of Service: 10/25/23Follow Up: Procedure(s): MM tomosynthesis screening BI Accession Number(s): [id number] cc: Anatoliy Lo D.O.; Physician,Non-Staff Soumya Patient Name: KERON LEVI MR#: [id number] : 1980 Exam Date: 10/25/2023 Ordering Doctor: DR Anatoliy Lo . RADIOLOGY REPORT PROCEDURE: MM TOMOSYNTHESIS SCREENING BI COMPARISON: None. INDICATIONS: screening Calculator Name NCI Breast Cancer Risk Assessment Tool 5 Year Breast Cancer Risk 0.80% Lifetime Breast Cancer Risk 9.80% Personal Breast Cancer No Personal Ovarian Cancer No Treatments None Family Cancers None LOCATION: The [facility] BREAST COMPOSITION: There are scattered areas [...] Nicko Granda M.D. Signed By:10/25/23 1437 DD/ 1436 TD/TT: Accountancy Professor: us Anatoliy Wally DO [facility] Final Result * Pap Smear (10/12/2022 12:00 AM EDT) Swab Cervical swab / Unknown us Anatoliy Wally DO LAB CYTOLOGY ORDERABLES Final Re sult EXTERNAL LAB from Last 3 Months or Most Recently Relevant to Health Maintenance Insurance [employer] Care Teams Clothing Trades Workers Relationship Specialty Start Date End Date Jordan Saul DO PCP - General Family Medicine 08/22/23
--- OUTSIDE RECORDS SUMMARY | 2024-12-23 19:16 | XMS_ITS | Encounter Summary ---
Author Organization [facility] Address [address] [place] [address] Care Team Providers Care Sparmaker Name Role Phone Jordan Saul DO Primary Care Provider [phone] Encounter Details Date Type Department Care Team (Late st Contact Info) Description 09/07/[address] [facility] [address] [facility] [place] [address] Denisse Forbes LPN [address] [facility] [place] [facility] Social History Tobacco Use Types Packs/Day Years [...] 12/29/2025 10:00 AM EDT Office Visit [facility] [address] [place] [address] Anatoliy Lo DO [address] [facility] [place], [place] [id number] documented as of this encounter Visit Diagnoses Not on filedocumented in this encounter Care Teams Sparmaker Relationship Specialty Start Date End Date Jordan Saul DO PCP - General Family Medicine 08/22/23 documented as of this encounter
--- OUTSIDE RECORDS SUMMARY | 2024-12-23 19:17 | XMS_ITS | Encounter Summary ---
Author Organization [facility] Address [address] [address] Care Team Providers Care Radio Installer Name Role Phone Jordan Saul DO Primary Care Provider [phone] Encounter Details Date Type Department Care Team (Late st Contact Info) Description 08/27/2023 Clinisync Result Encounter [facility] External Department Unsolicited Carola Lo, [facility] [place], [place] [id number] Social History Tobacco Use Types Packs/Day Years [...] EDT Office Visit [facility] [address] [place] [address] Carola Lo DO [facility] [place] [address] documented as of this encounter Procedures Procedure Name Priority Date/Time Associated Diagnosis Comments US PELVIS W/ TRANSVAGINAL 08/27/2023 11:15 AM EST documented in this encounter Results * US PELVIS W/ TRANSVAGINAL (08/27/2023 11:15 AM EST) Anatomical Region Laterality Modality Other 08/27/2023 11:1 5 AM EST Narrative 08/27/2023 11:18 [place] [address] Ultrasound Report Signed Patient: KERON LEVI MR#: [id number] : 1980 Acct:[id number] Age/Sex: 43 / F ADM Date: 08/27/23 Loc: [facility] Attending Dr: Carola Lo D.O. Ordering Physician: Carola Lo D.O. Date of Service: 08/27/23 Procedure(s): US pelvis w/ transvaginal Accession Number(s): [id number] cc: Carola Lo D.O.; Physician,Non-Staff M.DSadaf The [place] [address] Patient Name: KERON LEVI MRN: [id number] date: 1980 Sex: F Assigned Patient Location: [facility] Current Patient Location: [facility] Accession/Order Number: [id number] Exam Date: 08/27/2023 10:17 Report Date: 08/27/2023 11:15 At the request of: CAROLA LO Procedure: US pelvis w/ transvaginal EXAMINATION: US pelvis w/ transvaginal HISTORY: MENORRHAGIA COMPARISON: 09/23/2021 FINDINGS: The uterus is normal in size, contour and echotexture measuring 9.5 x 4.8 x 5.6 cm., Anteverted, anteflexed. The endometrium measures 6 mm, normal. Area of anechoic echogenicity measuring 8.3 x 5.2 x 5.1 mm, free fluid The right ovary measures 2.7 x 1.6 x 2.7 cm. Normal color Doppler flow. The left ovary was seen on transabdominal images measuring 3.1 x 2.4 x 3.0 cm. Normal color flow. Area of anechoic echogenicity measuring 2 cm, simple cyst Limited evaluation due to patient body habitus US/US pelvis w/ transvaginal IMPRESSION: 2 cm left ovarian simple cyst 8.3 mm area of anechoic echogenicity in the endometrial cavity, fluid versus cyst Electronically authenticated by: NICKO MONTELONGO Date: 08/27/2023 11:15 Dictated By: Nicko Montelongo M.D. Signed By: 08/27/23 1118 DD/ 1115 TD/TT: [employer] Quality Control Technician: Procedure Note Radiology, Radiologist, MD - 08/27/2023 [place] [address] Ultrasound Report Signed Patient: KERON LEVI RMR#: [id number] : 1980Acct:[id number] Age/Sex: 43 / FADM Date: 08/27/23 Loc: [facility] Attending Dr: Carola Lo D.O. Ordering Physician: Carola Lo D.O. Date of Service: 08/27/23 Procedure(s): US pelvis w/ transvaginal Accession Number(s): [id number] cc: Carola Lo D.O.; Physician,Non-Staff Soumya The [address] [id number] Patient Name: KERON LEVI MRN: [facility]:[id number] date: 1980 Sex: F Assigned Patient Location: [facility] Current Patient Location: [facility] Accession/Order Number: [id number] Exam Date: 08/27/2023 10:17 Report Date: 08/27/2023 11:15 At the request of: CAROLA LO Procedure: US pelvis w/ transvaginal EXAMINATION: US pelvis w/ transvaginal HISTORY: MENORRHAGIA COMPARISON: 09/23/2021 FINDINGS: The uterus is normal in size, contour and echotexture measuring 9.5 x 4.8x 5.6 cm., Anteverted, anteflexed. The endometrium measures 6 mm, normal. Area of anechoic echogenicitymeasuring 8.3 x 5.2 x 5.1 mm, free fluid The right ovary measures 2.7 x 1.6 x 2.7 cm. Normal color Doppler flow. The left ovary was seen on transabdominal images measuring 3.1 x 2.4 x 3.0cm. Normal color flow. Area of anechoic echogenicity measuring 2 cm, simplecyst Limited evaluation due to patient body habitus US/US pelvis w/ transvaginal IMPRESSION: 2 cm left ovarian simple cyst 8.3 mm area of anechoic echogenicity in the endometrial cavity, fluidversus cyst Electronically authenticated by: NICKO MONTELONGO Date: 08/27/2023 11:15 Dictated By: Nicko Montelongo M.D. Signed By:08/27/23 1118 DD/ 1115 TD/TT: [employer] Quality Control Technician: us Carola Wally DO [facility] Final Result documented in this encounter Visit Diagnoses Not on filedocumented in this encounter Care Teams Radio Installer Relationship Specialty Start Date End Date Jordan Saul DO PCP - General Family Medicine 08/22/23 documented as of this encounter
--- OUTSIDE RECORDS SUMMARY | 2024-12-23 19:17 | XMS_ITS | Encounter Summary ---
Author Organization [facility] Address [address] [place] [address] Care Team Providers Care Hand Cutter Apprentice Name Role Phone Jordan Saul DO Primary Care Provider [phone] Encounter Details Date Type Department Care Team (Late st Contact Info) Description 12/23/2024 Bamboo flowsheet [facility] [address] [place] [address] Anatoliy Lo [address] [place], [place] [address] Social History Tobacco Use Types Packs/Day Years [...] Visit [facility] [address] [place] [address] An[address]oliy Lo [address] [place] [id number] documented as of this encounter Visit Diagnoses Not on filedocumented in this encounter Care Teams Hand Cutter Apprentice Relationship Specialty Start Date End Date Jordan Saul DO PCP - General Family Medicine 08/22/23 documented as of this encounter
--- OUTSIDE RECORDS SUMMARY | 2024-12-23 19:35 | XMS_ITS | CCD ---
Author Organization [facility] Care Team Providers Care Product Safety Engineer Name Role Phone Dia Wu Primary Care Physician WALLY, DR SRIVASTAVA Consulting Unavailable MISC, DR SAINZ Primary Care Unavailable WALLY, DR SRIVASTAVA Admitting Unavailable WALLY, DR SRIVASTAVA Attending Unavailable BELINDA ISLAS Consulting Unavailable MCCORNACK, SANAZ Consulting Unavailable WALLY, DR SRIVASTAVA Admitting Unavailable MISC, DR SAINZ Primary Care Unavailable WALLY, DR SRIVASTAVA Attending Unavailable WALLY, DR SRIVASTAVA Attending Unavailable WALLY, DR SRIVASTAVA Admitting Unavailable MISC, DR SAINZ Primary Care Unavailable WALLY, DR SRIVASTAVA Consulting Unavailable NARDINI, SANAZ Consulting Unavailable WALLY, DR SRIVASTAVA Admitting Unavailable MISC, DR SAINZ Primary Care Unavailable WALLY, DR SRIVASTAVA Attending Unavailable WALLY, DR SRIVASTAVA Consulting Unavailable WALLY, DR SRIVASTAVA Admitting Unavailable MISC, DR SAINZ Primary Care Unavailable WALLY, DR SRIVASTAVA Attending Unavailable WALLY, DR SRIVASTAVA Consulting Unavailable WALLY, DR SRIVASTAVA Consulting Unavailable WALLY, DR SRIVASTAVA Admitting Unavailable WALLY, DR SRIVASTAVA Attending Unavailable REQUEST, DR STOCK LISTED Primary Care Unavaila ble WALLY, DR SRIVASTAVA Consulting Unavailable REQUEST, DR STOCK LISTED Primary Care Unavaila ble WALLY, DR SRIVASTAVA Admitting Unavailable WALLY, DR SRIVASTAVA Attending Unavailable WALLY, DR SRIVASTAVA Consulting Unavailable WALLY, DR SRIVASTAVA Admitting Unavailable WALLY, DR SRIVASTAVA Attending Unavailable REQUEST, DR NONE LISTED Primary Care Unavaila ble AGUBOSIM, CLARENCE Consulting Unavailable PRIYANK MILLER Consulting Unavailable LUIS Wu Primary Care Provider DO Ernie Vora Emergency Provider Michael Jameson Unavailable LUIS Wu Primary Care Provider [phone] Carola Lo Attending Provider [phone] WALLY, CAROLA Attending Unavailable WALLY, CAROLA Attending Unavailable WALLY, CAROLA Attending Unavailable GHADA BRAR Attending Unavailable WALLY, CAROLA Attending Unavailable NON STAFF Primary Care Provider UnavailFeliz Hale PA-C Emergency Provider NON STAFF Primary Care Unavailable Feliz Shepard Admitting Unavailable Feliz Shepard Attending Unavailable Wally, Carola Admitting Unavailable Wally, Carola Attending Unavailable Jordan Saul DO Primary Care Provider Allergies Allergy Classification Reported Allergen(s) Allergy Type Date of Onset Reaction(s) Facility (3 sources) Penicillin; Translations: [penicillin] Drug Allergy hives, Unknown [place] (1 source) Sulfonamides (Antibiotic); Translations: [sulfa drugs] Drug allergy [facility] [place] (1 source) Sulfonamides (Antibiotic) Drug allergy (disorder) [facility] Repository (5 sources) Penicillins; Translations: [Penicillins] Allergy to substance [address] [facility] (4 sources) Sulfonamides (Antibiotic); Translations: [Sulfa (Sulfonamide Antibiotics)] Allergy to substance [address] [facility] (4 sources) Sulfacetamide Drug Allergy 2 Unknown, Unknown Reaction [facility] (1 source) Sulfacetamide Drug Allergy 5 [facility] Repository (1 source) Penicillin G Drug Allergy 3 Unknown [facility] (1 source) Sulfonamides (Antibiotic) Drug Allergy 2 Unknown [facility] Healthcare Medications Current Medications Medication Drug Class(es) Dates Sig (Normalized) Sig (Original) acetaminophen 325 mg / oxyCODONE hydrochloride 5 mg oral tablet (1 source) Opioid Agonist Start: 11-08-2023 take 1 tablet by mouth every six hours as needed for pain oxyCODONE-acetamin ophen (Percocet) 5-325 MG tablet Take 1 tablet by mouth every 6 (six) hours if needed for moderate pain 11/08/2023 Active [id number] 200 actuat albuterol 0.09 mg/actuat metered dose inhaler (1 source) beta2-Adrenergic Agonist Start: 05-10-2023 take 1 puff(s) by mouth every four to six hours as needed albuterol HFA 90 mcg/act inhaler INHALE 1 PUFF BY MOUTH DIRECTED EVERY 4 TO 6 HOURS NEEDED FOR SHORTNESS OF BREATH 05/10/2023 Active benzonatate 200 mg oral capsule (1 source) Non-narcotic Antitussive Start: 05-26-2022 take 1 capsule by mouth three times daily as needed for cough Benzonatate 200 MG 1 capsule Orally Three times a day as needed for cough for 7 day(s) May, Active Blood Glucose Calibration (OT ULTRA/FASTTK CNTRL SOLN) solution (1 source) Start: 01-15-2023 Blood Glucose Calibration (OT ULTRA/FASTTK CNTRL SOLN) solution USE DIRECTED FOR GLUCOMETER 01/15/2023 Active Blood Glucose Monitoring Suppl (ONE TOUCH ULTRA 2) w/Device kit (1 source) Start: 01-12-2023 Blood Glucose Monitoring Suppl (ONE TOUCH ULTRA 2) w/Device kit USE DIRECTED TO CHECK FASTING BLOOD SUGAR DAILY 01/12/2023 Active Brompheniramine / Pseudoephedrine (1 source) alpha-Adrenergic Agonist Start: 11-20-2021 take 5 mL by mouth four times daily Bromfed DM oral syrup 5 mL, Oral, QID for cold symptoms, 120 mL, Refill(s) 0, [facility], cm, 11/20/21 10:28:00 EDT, Height/Length Dosing, 125, kg, 11/20/21 10:28:00 EDT, Weight Dosing Start Date: 11/20/21 Status: Ordered Continuous Blood Gluc Herb Digger (FreeStyle Alyssa 2 Tea) device (1 source) Start: 05-22-2023 Continuous Blood Gluc Herb Digger (FreeStyle Alyssa 2 Tea) device TO USE WITH CGM 05/22/2023 Active Continuous Blood Gluc Sensor (FreeStyle Alyssa 2 Sensor) misc (1 source) Start: 05-22-2023 Continuous Blood Gluc Sensor (FreeStyle Alyssa 2 Sensor) misc TO BE PLACED SUBCUTANEOUSLY EVERY 14 DAYS TO CHECK BLOOD SUGARS TWICE A DAY 05/22/2023 Active dicyclomine hydrochloride 10 mg oral capsule (3 sources) Anticholinergic Start: 05-28-2022 take 1 capsule by mouth twice daily Dicyclomine 10 mg capsule Active 10 MG PO Twice daily May 28, 2022 12:00am doxycycline hyclate 100 mg oral capsule (1 source) Tetracycline-class Drug Start: 11-20-2021 take 1 capsule by mouth twice daily doxycycline hyclate 100 mg Cap 100 mg = 1 cap(s), Oral, BID, # 20 cap(s), Refills(s) 0, Pharmacy: [address], cm, 11/20/21 10:28:00 EDT, Height/Length Dosing, 125, kg, 11/20/21 10:28:00 EDT, Weight Dosing Start Date: 11/20/21 Status: Ordered escitalopram 10 mg oral tablet (5 sources) Serotonin Reuptake Inhibitor Start: 02-10-2021 take 1 tablet by mouth once daily Escitalopram Oxalate 10 mg tablet Active 10 MG PO Daily February 09, 2021 11:00pm FLUoxetine 40 mg oral capsule (1 source) Serotonin Reuptake Inhibitor Start: 07-06-2023 take 1 capsule by mouth once daily FLUoxetine (PROzac) 40 MG capsule Take 40 mg by mouth Daily 07/06/2023 Active fluticasone propionate 0.05 mg/actuat metered dose nasal [...] Refill(s) 0 Start Date: 10/10/18 Status: Ordered ibuprofen 800 mg oral tablet (1 source) Nonsteroidal Anti-inflammatory Drug Start: 11-08-2023 take 1 tablet by mouth every eight hours ibuprofen 800 MG tablet Take 800 mg by mouth every 8 (eight) hours 11/08/2023 Active irbesartan 75 mg oral tablet (2 sources) Angiotensin 2 Receptor Eunice take 1 tablet by mouth once daily irbesartan (Avapro) 75 MG tablet Take 75 mg by mouth Daily Active lisinopril 10 mg oral tablet (3 sources) Angiotensin Converting Enzyme Inhibitor Start: 02-10-2021 take 1 tablet by mouth once daily Lisinopril 10 mg tablet Active 10 MG PO Daily February 09, 2021 11:00pm metFORMIN hydrochloride 500 mg oral tablet (2 sources) Biguanide take 1 tablet by mouth in the morning metFORMIN (Glucophage) 500 MG tablet Take 500 mg by mouth in the morning and 500 mg before bedtime. Active take 1 tablet by mouth once katheryn y metFORMIN HCl 500 MG 1 tablet with a meal Orally Once a day Active metroNIDAZOLE 500 mg oral tablet (1 source) Nitroimidazole Antimicrobial Start: 11-08-2023 take 1 tablet by mouth in the morning metroNIDAZOLE (Flagyl) 500 MG tablet Take 500 mg by mouth in the morning and 500 mg before bedtime. 11/08/2023 Active montelukast 10 mg oral tablet (1 [...] Active ondansetron 4 mg disintegrating oral tablet (3 sources) Serotonin-3 Receptor Antagonist Start: 05-28-2022 take 1 tablet by mouth every eight hours as needed for nausea and vomiting Ondansetron 4 mg tablet,disintegrati ng Active 4 MG PO Q8H as needed for nausea and vomiting 6 May 28, 2022 12:00am polysaccharide iron complex 391 mg oral capsule (1 source) iron polysaccharides (ProFe) 391.3 (180 Fe) MG capsule 1 capsule 1 (one) time each day at the same time Active predniSONE 20 mg oral tablet (4 sources) Start: 02-10-2021 take 60 mg by mouth once daily Prednisone Active 60 MG PO Daily 05 28February 10, 2021 12:00am Start: 10-10-2018 take 3 tablets by mo uth once daily Prednisone 20 mg tablet Active 60 MG PO Daily 05 28February 09, 2021 11:00pm rosuvastatin calcium 5 mg oral tablet (1 source) HMG-CoA Reductase Inhibitor Start: 10-29-2023 take 1 tablet by mouth at bedtime rosuvastatin (Crestor) 5 MG tablet Take 5 mg by mouth at bedtime 10/29/2023 Active Semaglutide (OZEMPIC, 0.25 OR 0.5 MG/DOSE, SC) (1 source) Start: 04-10-2023 Semaglutide (OZEMPIC, 0.25 OR 0.5 MG/DOSE, SC) 04/10/2023 Active Completed/Discontinued Medications Medication Drug Class(es) Dates Sig (Normalized) Sig (Original) naproxen 500 mg oral tablet (4 sources) Nonsteroidal Anti-inflammatory Drug Start: 05-07-2019 End: 02-10-2021 take 1 tablet by mouth twice daily as needed for pain Naproxen 500 mg tablet Discontinued 500 MG PO Twice daily as needed for pain May 07, 2019 12:00am February 10, 2021 8:54pm Problems Active Problems Problem Classification Problem Date Documented Da te Episodic/Chronic Chronic obstructive pulmonary disease and bronchiectasis (3 sources) Bronchitis; Translations: [Bronchitis, not specified as acute or chronic] 02-10-2021 Episodic Comment on above: Problem List clean-u p per request of Phys. EHR Cmte Immunizations and screening for infectious disease (1 source) Encounter for screening for human papillomavirus (HPV); Translations: [ENC SCREENING HUMAN PAPILLOMAVIRUS] Onset: 02-17-2022 Episodic Menstrual disorders (5 sources) Excessive and frequent menstruation with regular cycle; Translations: [EXCESS FREQ MENSTRUATION W/REG CYCL] Onset: 11-24-2021 Chronic Nausea and vomiting (3 sources) Nausea; Translations: [Nausea] 05-28-2022 Episodic Comment on above: Problem List clean-u p per request of Phys. 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 EHR Cmte Other female genital disorders (1 source) Abnormal uterine and vaginal bleeding, unspecified; Translations: [ABNORMAL UTERINE VAGINAL BLEED UNS] Onset: 12-06-2021 Chronic Other gastrointestinal disorders (3 sources) Diarrhea; Translations: [Diarrhea, unspecified] 05-28-2022 Episodic Comment on above: Problem List clean-u p per request of Phys. EHR Cmte Other injuries and conditions due to external causes (1 source) Foreign body in ear; Translations: [Foreign body in ear, unspecified ear, initial encounter] 08-17-2024 Episodic Other injuries and conditions due to external causes (1 source) Foreign body in left ear, initial encounter; Translations: [Foreign body in left ear, initial encounter] Onset: 08-17-2024 Episodic Other screening for suspected conditions (not [...] Test Name Value Interpretation Reference Range Facility [facility] 11-07-2023 L Specimen: [id number] Received: 11/08/23 Status: GURJIT Chaves Num: [id number] Spec Type: Surgical Subm Dr: Carola Lo Tissues: A Uterus w/ or w/o tubes ovaries except neoplastic or prolap (CERVIX, RT FT) Procedures: HE/12, Gross/Micro L5 Age/ Patient Sex Location Account Attending Physician Delilah Sandoval 43/F [facility] [id number] Carola Lo SPEC NUM: [id number] RECD: 11/08/23 STATUS: GURJIT CHAVES NUM: [id number] MARCO ANTONIO: 11/07/[address]: Carola Lo ENTERED: 11/08/23 [facility] DR: Litzy,Lab SPEC TYPE: Surgical DEPT: LARRY ORELLANA ORDERED: HE/12, Gross/Micro L5 ORDERED: HE/12, Gross/Micro L5 Pathological Diagnosis Uterus, cervix, right fallopian tube, total hysterectomy with right salpingectomy: -Cervix with marked denudation of squamous epithelium and patchy tubal metaplasia of the endocervical glands without dysplasia -Corpus with slightly disordered proliferative endometrium of the at least mid phase type without hyperplasia or atypia -Severe adenomyosis at anterior myometrium without secondary hyperplasia or atypia -Incidental at least 1 middle size fibroid leiomyoma at posterior myometrium without atypia -Unremarkable right fimbriated fallopian tube without significant histopathological findings Gross Description Received in formalin, labeled with the patient's name, date of and uterus, cervix, right fallopian tube is a 118 g uterus with attached cervix, and a detached fimbriated right fallopian tube, measuring 6.7 cm cornu to cornu, 8.4 cm fundus to os, 5.6 cm anterior- posterior, with hill-purple smooth serosa, with prominent subserosal bulging along the posterior aspect. The roughened brown cervix is 2.5 cm long and 2.7 cm wide, leading to a 3.1 x 2.7 cm ectocervix with a 0.5 cm slitlike os. The 2.5 cm long and 0.5-0.7 cm wide endocervical canal leads to a triangular 4.1 cm fundus to internal os and 1.9 cm cornu to cornu endometrial cavity. The pink-red and soft 0.1 cm thick endometrium overlies a 1.9 cm thick hill, coarsely trabeculated myometrium. There is a 1.7 x 1.3 cm fibrous, white and firm nodule located within the posterior myometrium. No additional nodules, polyps or masses are present. The fallopian tube measures 6.3 cm in length by 0.3 to 0.5 cm in diameter. Cut sections reveal an intact luminal center lined by unremarkable hill mucosa. -------- Specimen: [id number] Received: 11/08/23 Status: GURJIT Chaves Num: [id number] Spec Type: Surgical Subm Dr: Carola Lo Tissues: A Uterus w/ or w/o tubes ovaries except neoplastic or prolap (CERVIX, RT FT) Procedures: , Gross/Micro L5 -------- Patient: AmitaDelilah R [id number] (Continued) -------- Specimen: [id number] Received: 11/08/23 (Continued) Gross Description (Continued) Signed (signature on file) Mariana Milan MD 11/09/232040 -------- Specimen: [id number] Received: 11/08/23 Status: GURJIT Chaves Num: [id number] Spec Type: Surgical Subm Dr: Carola Lo Tissues: A Uterus w/ or w/o tubes ovaries except neoplastic or prolap (CERVIX, RT FT) Procedures: , Gross/Micro L5 -------- Patient: Delilah Sandoval [id number] (Continued) -------- Specimen: [id number] Received: 11/08/23 (Continued) Gross Description (Continued) Tractor Trailer Moving Van Driver sections submitted as follows: A1: Anterior cervix A2: Posterior cervix A3?A4: Anterior endomyometrium A5?A6: Posterior endomyometrium A7: Nodule A8: Fallopian tube Clinical history: Menorrhagia, pelvic pain, dyspareunia, dysmenorrhea TW CPT Codes 11111 -------- -------- Specimen: [id number] Received: 11/08/23 Status: GURJIT Andie Num: [id number] Spec Type: Surgical Subm Dr: Carola Lo Tissues: A Uterus w/ or w/o tubes ovaries except neoplastic or prolap (CERVIX, RT FT) Procedures: , Gross/Micro L5 -------- Patient: Delilah Sandoval [id number] (Continued) -------- Signed (signature on file) Mariana (more content not included)... Normal [facility] COVID/FLU RT-PCRon 2 SARS-CoV-2 (COVID-19) RNA EFRAIN+probe Ql (Unsp spec) Negative [facility] [employer] Other COVID/FLU RT-PCR Negative [facility] [employer] Other Quick Strepon 05-26-2022 S. pyogenes Org specific cx Ql (Throat) Negative [facility] [employer] Other Quick Strep [facility] [employer] Other PAP ACOG PANEL 2: 30 to 65on 02-23-2022 . . Normal [facility] Comment on above: Result Comment: Perf ormed at: WB Performed By: #### P T, PTT #### [facility] [address] [place] [address] Dr. Kimberley Milan Age Gdln ACOG Testing 30-[address] [facility] Comment on above: Performed By: #### P T, PTT #### [facility] [address] [address] [address] Kimberley Milan DIAGNOSIS: Comment Normal [facility] Comment on above: Result Comment: NEGA TIVE FOR INTRAEPITHELIAL LESION OR MALIGNANCY. Performed at: WB Performed By: #### P T, PTT #### [facility] [address] [address] [address] Kimberley Milan HPV Aptima Negative Normal Negative [facility] Comment on above: Result Comment: This nucleic acid amplification test detects fourteen high-risk HPV types (16,18,31,33,35,39,45,51,52,56,58,59,66,68) without differentiation. Performed at: =G Performed By: #### P T, PTT #### [facility] [address] [address] [address] Kimberley Milan Methodology: Comment Normal [facility] Comment on above: Result Comment: This liquid based ThinPrep(R) pap test was screened with the use of an image guided system. Performed at: WB Performed By: #### P T, PTT #### [facility] [address] [place] [address] Dr. Kimberley Milan Note: Comment Normal [facility] Comment on above: Result Comment: The Pap [...] Performed By: #### P T, PTT #### [facility] [address] [place] [address] Dr. Kimberley Milan Performed by: Comment Normal [facility] Comment on above: Result Comment: Deangelo Bach, Mechanical Equipment Sales Engineer (ASCP) Performed at: WB Performed By: #### P T, PTT #### [facility] [address] [place] [address] Dr. Kimberley Milan Specimen adequacy: Comment Normal [facility] Comment on above: Result Comment: Sati sfactory for evaluation. Endocervical and/or squamous metaplastic cells (endocervical component) are present. Performed at: WB Performed By: #### P T, PTT #### [facility] [address] [place] [address] Dr. Kimberley Milan CBC AUTO DIFFon 12-02-2021 BASO # 0.1 103/ul Normal 0.0-0.[address] [facility] Comment on above: Performed By: #### C BC #### [facility] [address] [place] [address] Dr. Kimberley Milan Basophils/100 WBC (Bld) 0.7 % Normal 0.2-2.[address] [facility] Comment on above: Performed By: #### C BC #### [facility] [address] [place] [address] Dr. Kimberley Milan EO # 0.4 103/ul Normal 0.0-0.[address] [facility] Comment on above: Performed By: #### C BC #### [facility] [address] [place] [address] Dr. Kimberley Milan Eosinophils/100 WBC (Bld) 3.6 % Normal 0.9-7.[address] [facility] Comment on above: Performed By: #### C BC #### [facility] [address] [place] [address] Dr. Kimberley Milan Erythrocyte distribution width (RBC) [Ratio] 16.1 % Critically high 11.0-15.[address] [facility] Comment on above: Performed By: #### C BC #### [facility] [address] [place] [address] Dr. Kimberley Milan Hematocrit (Bld) [Volume fraction] 33.7 % Critically low 36.0-48.[address] [facility] Comment on above: Performed By: #### C BC #### [facility] [address] [place] [address] Dr. Kimberley Milan Hemoglobin (Bld) [Mass/Vol] 10.2 g/dL Critically low 12.0-16.[address] [facility] Comment on above: Performed By: #### C BC #### [facility] [address] [place] [address] Dr. Kimberley Milan IG # 0.03 10e3/ul Normal 0.00-0.[address] [facility] Comment on above: Performed By: #### C BC #### [facility] [address] [place] [address] Dr. Kimberley Milan IG % 0.3 % Normal 0.0-0.[address] [facility] Comment on above: Performed By: #### C BC #### [facility] [address] [place] [address] Dr. Kimberley Milan LYMPH # 2.3 103/ul Normal 1.2-3.[address] [facility] Comment on above: Performed By: #### C BC #### [facility] [address] [place] [address] Dr. Kimberley Milan Lymphocytes/100 WBC (Bld) 23.2 % Normal 20.5-60.[address] [facility] Comment on above: Performed By: #### C BC #### [facility] [address] [place] [address] Dr. Kimberley Milan MANUAL DIFF REQ NO Normal [facility] Comment on above: Performed By: #### C BC #### [facility] [address] [place], [place] [id number] Dr. Kimberley Milan MCH (RBC) [Entitic mass] 24.8 pg Critically low 26.7-34.0 [facility] Comment on above: Performed By: #### C BC #### [facility] [address] [place] [address] Dr. Kimberley Milan MCHC (RBC) [Mass/Vol] 30.3 g/dL Normal 29.9-35.2 [facility] Comment on above: Performed By: #### C BC #### [facility] [address] [place] [address] Dr. Kimberley Milan MCV (RBC) [Entitic vol] 82.0 fL Normal 81.0-99.0 [facility] Comment on above: Performed By: #### C BC #### [facility] [address] [place] [address] Dr. Kimberley Milan MONO # 0.8 103/ul Normal 0.3-0.8 [facility] Comment on above: Performed By: #### C BC #### [facility] [address] [place] [address] Dr. Kimberley Milna Monocytes/100 WBC (Bld) 8.0 % Normal 1.7-12.0 [facility] Comment on above: Performed By: #### C BC #### [facility] [address] [place] [address] Dr. Kimberley Milan NEUT # 6.4 103/ul Normal 1.4-6.5 [facility] Comment on above: Performed By: #### C BC #### [facility] [address] [place] [address] Dr. Kimberley Milan Neutrophils/100 WBC (Bld) 64.2 % Normal 43.0-75.0 [facility] Comment on above: Performed By: #### C BC #### [facility] [address] [place] [address] Dr. Kimberley Milan Platelet mean volume (Bld) [Entitic vol] 9.9 fL Normal 9.5-13.5 [facility] Comment on above: Performed By: #### C BC #### [facility] [address] [address] [address] Kimberley Milan PLT 297 103/ul Normal 150-[address] [facility] Comment on above: Performed By: #### C BC #### [facility] Laboratory [address] [address] [address] Kimberley Milan RBC 4.11 106/ul Critically low 4.20-5.40 [facility] Comment on above: Performed By: #### C BC #### [facility] Laboratory [address] [address] [address] Kimberley Milan WBC 10.0 103/ul Normal 4.0-11.[address] [facility] Comment on above: Performed By: #### C BC #### [facility] Laboratory [address] [place] [address] Dr. Kimberley Milan POINT OF CARE GLUCOSEon 11-23 Glucose [Mass/Vol] 117 mg/dL Critically high 74-106 T [facility] Comment on above: Performed By: #### P OCGLUC #### [facility] Laboratory [address] [place] [address] Dr. Kimberley Milan PREG QUANT HCGon 12-02-2021 HCG QUANT <[address] [facility] Comment on above: Performed By: #### P REGQNT #### [facility] Laboratory [address] [place] [address] Dr. Kimberley Milan HCG RANGE SEE BELOW Normal [facility] Comment on above: Result Comment: 5-50 0-1 WEEK 40-300 1-2 WEEKS 100-1,000 2-3 WEEKS 500-6,000 3-4 WEEKS 5,000-200,000 1-2 MONTHS 10,000-100,000 2-3 MONTHS 3,000-50,000 2ND TRIMESTER 1,000-50,000 3RD TRIMESTER Performed By: #### P REGQNT #### [facility] Laboratory [address] [place] [address] Dr. Kimberley Milan ED Note-Physicianon 12-02-19 ED [...] concentrating, paranoia, anhedonia, lack of energy, vikas Hematologic/lymphatic : Denies any purpura, petechiae, excessive bleeding, bruising [...] 2. Pharyngitis (J02.9: Acute pharyngitis, unspecified) Orders: brompheniramine/dextr omethorphan/PSE, 5 mL, Oral, QID for cold symptoms, 120 mL, Refill(s) 0, [facility], 162, cm, 11/20/21 10:28:00 EDT, Height/Length Dosing, 125, kg, 11/20/21 10:28:00 EDT, Weight Dosing doxycycline, 100 mg = 1 cap(s), Oral, BID, # 20 cap(s), Refills(s) 0, Pharmacy: [facility], 162, cm, 11/20/21 10:28:00 EDT, Height/Length Dosing, 125, kg, 11/20/21 10:28:00 EDT, Weight Dosing triamcinolone nasal, 1 spray(s), Nasal, Daily, 1 EA, Refill(s) 0, [facility], 162, cm, 11/20/21 10:28:00 EDT, Height/Length Dosing, [...] 11/23/2021 EDT [address], [address], [facility] [address] [place] [address] [phone] Business (1) Additional Instructions: Patient Educatio (more content not included)... Normal [facility] Comment on above: Result Comment: Elec tronically Signed By: Dana Wong PA-C\.br\Date and Time Signed: 11/20/21 11:25 EDT\.br\Electronically Co-Signed By: Raghavendra Rodriguez MD\.br\Date and Time Co-Signed: 12/01/21 07:12 EDT Coding Summary.on 11-29-2021 Coding Summary. CD:[id number] G h0bWw+PGhlYWQ+MN2HQAF gC28avSWajY2UN2gCSG3J IVWLAHYUCP1MYE5ojZR1A OxmK9JbzlRe ZfwnoPNhAS09OSh7JFB6k TbcNSfbeJ1msEUeP1u1Fz ZxSG32kJ78XJicVCQcItF 3LjZpbjsgbWFy M7seIcMhhONkBeb+PHRhY mxlIHdpZHRoPScxMDAlJy UgyQjpZN9oKr8lZMNkUVC vbGxhcHNlOiBj u1isZUWjMOwrWF9lhBxjM 0XoeDT8DNNfs7z6Rp01yH I+VWSuIQR9oVixUTcfv08 0FkTvl7dsODU2 lBZiCWsoJXI6O08pg5R4S VTgWRVjNIB6iII0tN7ytI dnfhucL9JeqVLmEqU6ZCH 9zTWvbY0kiIrr ynzopZ0mOqu+E23MSZ8PW XCFZX2PAhe0G1NeLyebmH I+ZD78QZKfNK23aOJhmDF ht5pwxJf7NwUr UPSpIRE3gMmcPEihm3PuJ DHkO45ykUDkz4M6HVBseV vddADjXsTvjOI8mM0xUGu idtwng0wrjtcs Czgvl8uxfq82wO37M67qQ YqvSUQgFNR7FVDwEBPmfF zfro6ssT3zCx9+JHwfi3t hn8vdhTn9MuHy GZFvsbPmkMkpTVI6a7IlX s85H2LncGvlm6CvUdg6fk 09bILem4O5wYI4YSqwNKB ueB2yWYepCcD9 KDAnQvKeqO90xBZcFXcnL l1yaWlfwAulYT9kFNBspf uoCNDqwF9oKYMwpNAydUk wSW1pRRBjlmyv g763ZbFmSDM7JARfdVXtY 3IlaA4uLsLrNJYiZUHqE0 YmiIKmRVqzV952VJzjJkH 2TWVohyXqD7Ia EUYsyQhfPoY5h9J2Ax9Lj 8DbcyowPUQ1XQddRDK3Wa B2QtPeJgZ9Y5NqZgn6OSG qaDhbOX5pJ8Zh QVUxhobxbrnsaNP9WVJmM JSrwS75tMAoZFzaXn2ua1 C4k093TMMbQDVzaJ95Oj8 udDogMTBwdCBU pR2qjascf2zrniycLrNlB IEqEGb9ZId8MQXyqHieZq DcXTW1XgB0TUF7oURilZ4 yvYvamddsfV1r Oyc+M30yrC7rCCK9BWX0k kowDWSkxdXhCR09JJ18R1 RyPjwvdGFibGU+PGRpdiB ngKfwZC7hZbDm q8sct4AmZXtrO1EmOQGoT SkiVvw8FYUbZBT3cEX4rP 6zHTQhGTfsh2J9yXJ8E4S edzXivp5kz0mo UNPiQUvbQ41rvSEjd9F5O CSpoZI5FBOleEflYwZkjO 93Oyc+ZWHxoFtlr1MwLih wh2ola2ytqKu9 NxNtWRGsymRavCigRRQ0c 2YdDf04C35cRJyyNHDdQN YqACArYWDzmMtjbp4xgV6 wIi8+PGNvbCB3 lOA7uL2vKQWvLtU5JVfeC 289XmKrrEMoYwymx8ovz0 hgsTz7YxZeCICzpuOuePn xSPE1o8RuCf90 U08mUJhoMUBlBABxEPOsU HCmaBglir9ggT0fLj0+PC 6ba0ubwm37mS52lDP+PHR dXYJ6oAoiGZmn SDLbqK2aFQljAvN1OZUhH oWcrM78cAEqWOcsOz9hkJ uoiYueQD5fKYCzrccbk32 9RdDjp5zuRZYj xNOqHVnjRXK8O36ja2A7A HByRPXsXBM7bYH7dM6rpB lnbjogbGVmdDsgdmVydGl vOTsiLAqiP613 IHRvcDsnPlBhdGllbnQgT jThXPd6N7VuQap0GCQzpL pdHE7ybRYmGHnaSp4iqXc voEvuLL0mOARm vrcvf191WhIom2jaYIYih ICfIQpfDPK9I70fh5T5BI XwJKUpYTR7oWU6tO8rcQm nbjogbGVmdDsg sdAzpGgeKAaoFVkbW796Q HRvcDsnPkJpcnRoIERhdG X8QQ63FD73qCKwo4J6cSF 3A6MxXJIckofc ksfamGI3RUSmPFJheC02M z3piGueGu1aKWRkFYW7HT RwfVMzI6RhbJ0gGsIuEZS tHQTeT6IxrUSn TDpoG363TLapQfN3YVNog kNlY4SwEECzjCilIdX0s8 W1Wd5WI0G2VI22IH87hBL hp5G1kDV4Q3Zk XTQsbxpkljtpfVG0KISpJ GGcaE40Cq2zdIuuTs6kOG MvBWC4YZKwvMToZ1ZmuZ5 yOiAjMDAwMDAw N9LnmJJbEZfpV506NBfqP vX9LAZdmjKlT2IoOHJpeO sqPcP5i8O3Ie3VFNt9VO5 8PL41wFVzv0Q9 eOG2S5VmMSZlkwtbuqpam VZ4VCMlWXYvnM75Op2xcV jlFh5sUNLwLKA1KKJgzKO cQ8NzoK7gKmKl PZFbFZKdS1OhnLTqCCgbW 961NFkkMdX7EUDtssGzE6 NuZDHhrPmvIqV6f5V9Qi8 ODCEwJL67LZN9 gDT4YR95PP94I1MmCjiqo GFibGU+PHRhYmxlIHdpZH RoPScxMDAlJyBzdHlsZT0 tKu0bFWDfLQMf dSlwcFJfBzLdl1ekFUPxQ NixPY2ybZnxJ3JnkYH2XE Xxa7f4Fb63V19aE7PjyOH +XVHlfOY1vVN2 qF7zJtGbIqN9DXxlQ435W sOfsTGmTlfgw6rtj2bafZ k4AfJ2SOCcysKxiHghSPQ 6e6JkRq30F84f IHdpZHRoPSIxNSUiIHZhb Yfpwa5ucI2uYm8+PGNvbC J6vWF0pT8bFnCcJuY2DXq pG892WjSinNTp Jwfly4nsq5mraDk3PqGsS VJqesElnRbrRZB1o0JpZj 20I2MhbPaur7QjBcb9pz5 8gLSvy3G2vQU1 G7VgNYSeytgwwRNgrZnbK H3fIBUiilggAYNybO4yCQ UjI8l5NzOyUmW2FZspY0E vfzH1XQOazALj DAiuTAM5G57zm7K0AYSyO MOdMJT9gUC0oT4kcSeoma ogbGVmdDsgdmVydGljYWw yEDkyV188HLXd xTvcAECfvA2eMWGosYBjt OmtWU5yABVnppjbGtuOOH NTTUFOLCBTVEVQSEFOSUU gUjwvdGQ+PHRk RUM5xTirHQpaKEFtlG0sD VOuG8s3CrWzWhN3LIxgA9 OoCNRluarkEs16sT5xBoU xTmQ1AYjkF3Np vsA8NWBldBYnEOapGNI0X 01po3Z3SCNtQMLkWPD3wU F2tA0saTyxgawgaIDwtXt gdmVydGljYWwt HNcrN835FKRcvKzwRmW5Y eV9AnX3Yks4I6QhBrp4LI YdyXlhAB9bgKUkDObbHp7 vgBgyfUrrOR2d UNVtostsYTKanG5bZTIdz GWgpHafPU7bNDZkmiotv9 95EoDyENK8SJJwoQDoX3G hzP5sEkRlIXVx NLZhX8LolYMxTMnoZ235X YmlGnQ6GQFyerZqY1QqLS MkqGvcWwZ5m1Z4Ji14GsE ZZWFyczwvdGQ+ HYElAIH0nFwyBPpaKNJst S6nAXAzB6z5UlQmFpV0EV nuM2VqFLXizkhmRp91lM9 yBcYtHlY2XYpw H8LeihH5GUKtbACtUWjaK NM9N94cn6H3WLRjQWWiDO H8eQS5tB0vsAuqnusnoHA mdDsgdmVydGlj ONflSKhoN766NVCywQwlS kZlbWFsZTwvdGQ+PHRkIH N8tXenIZbiNRYfjF4xAUL gU7r3HsBcOaE7 POkvO6RmUHRbgwqxBj04b A4gBiEbFpJ7DHgoV0Mfdn G9ODOilQIwLYuiRMF4Z49 ta3Z0KOJeAFDw ILW3iLY9jC1zxRrwebahf GVmdDsgdmVydGljYWwtYW ojS196IVCpnVjfDhBfTXN bEK1ssMvkvKI+ OO72rl69W6ZxUhdxNvk0P FBtUNG8lWZ5sU0wEGJeJR njw6V0tPG2S2WjonRauu3 bp6icZIDuODiz U52dmRMwk0O4VTLwbLX6V OCnvYllKyOeoJ38Aaz+PG VwfCdnh5ThGwxho9bkm9s ymXj3RhDhBIYm vpGbpKabCSR7p8LjWi85T 29sIHdpZHRoPSIzMCUiIH UsjKrwmp9zbZ8bJx9+PGN kaCH3eDQ4hO2c SiRqHlX6KEzsB708KpZgo DDdFkdtl1mkd4mbiKl1Ne SmDGHdqyAmrPdfWWD2f5Z fTu33U0ZwkTwe q4YmEdl0jh35nLTud0J4b YW3N3NzDRQamdhfeUWrtT tiRW6oYMPuigvcZRIcfK7 bLGNhA6j0EjTb IpE9JGrmB5UtqqL6ZNZqx MZeRQAjwMDAfD8xggibo0 rptlbjAwMlLZFkSTz1GEk 0LWFsaWduOiBs TQZ6LlD0JFF9kSDnxM3og QffrbmsiW2cNyv+UGh5c2 yejMPeAA9jmKK5DG11VI4 7aBKos3A5wTG4 X5TrGMWsulycayfwbIC4N MHjSIRryM22Og3odJypAz 8sIAKkTSW2BCKwzQVgA1B wnQ1sSmNlNSIp TJQqS9RxtUBcIYlgO688Y XzrVtQ8GGImyiYrO4ZmBB PiqTzjBhF5n9F3Jw8OGS1 4QC72AW09rIBs s2K2xWB1U0TqMNYfacuyz ybmcKS8DKKcHKBcnB12Pb 7abXumVl8eGAPxMBK5PFK bwCUnJ9YxsU2i ArTiUBUfYKFoM6WaxQXjQ CnmE023ZJvcEdZ7FPBylp DpD6ZhIFAjvCmuUxP0t1E 8Xz5IEv84OK97 XG46mSZzp8V9xIY1S0PmV XHxgrgqzpxkeFY2ZHBkKQ YwtX48Ll3riWjtGn5dXYX zYVN6RUTztCRj L0TcjN9zKkGpKTZeZKHdN 4VatWLeSNhuU472YIczJx P0AFAajgCpE1LyFSYjtGx rXlP4g1E7Ke7M WByuzjj6W1AjVzznrIX+P O53DGFcZQ04yHOuqSLew2 yqoFs2EnWdDHJxANJ5wHm yAEbhq9UgISHk Y29s (more content not included)... Normal [facility] Consent for Treatmenton 10-24 Consent for Treatment [id number] .00CD:127 Normal [facility] Discharge Instructionson Discharge Instructions [id number] 1.00CD:127 Normal [facility] ED Clinical Summaryon 2021 ED Clinical Summary [address] [address] ED Clinical Summary Person Information Name: DELILAH SANDOVAL[place] Age: 41 Years : 1980 Sex: Female Language: Nigerian PCP: Dia Wu CNP Marital Status: Single Phone: [phone] Visit Id: Visit Reason: Sinus Pain/Congestion; Throat [...] 11/20/2021 11:31:01 11/20/2021 11:31:01 11/20/2021 11:31:01 ADDRESS: [address] [place] [address] [address] [facility] [phone] PHYS DOC NOTES: MEDICAL INFORMATION: Prescriptions Given: New Medications [facility], [address] [id number], [phone] brompheniramine/dextr omethorphan/PSE (Bromfed DM oral syrup) 5 Milliliter By [...] PATIENT EDUCATION INFORMATION: Instructions: Allergic Rhinitis, Adult, Fdcy-ml-Erzf; Pharyngitis, Ukaw-vw-Swtu; Cough, Adult, Mklj-kj-Haiv; Cool Mist Vaporizer Follow up: With: Address: When: Dia Bryce [address], [facility] [place] [address] [phone] [employer] (1) In 3 days 11/23/2021 DIAGNOSIS: 1:Acute rhinitis; 2:Pharyngitis Normal [facility] ED Patient Education Noteon 11-20-2021 ED [...] are lowest. This is usually during the cloth neutralizer or evening hours. ? If you do [...] after you touch household pets. ? Take tmvd-prl-fscjzoy and prescription medicines only as told by [...] 10/11/2011 Document Revised: 09/30/2019 Document Reviewed: 12/31/2018 [employer] Patient Education ? 2019 [employer] Cough, Adult A cough helps to [...] lung ( (more content not included)... Normal [facility] ED Patient Summaryon 022 ED Patient Summary [address] [id number] Patient Discharge Instructions Person Information Name: DELILAH SANDOVAL Age: 41 Years Arrival Date: 11/20/2021 10:24:38 Discharge Diagnosis: 1:Acute rhinitis; 2:Pharyngitis Primary Care Physician: Dia Wu CNP Provider Information Primary Provider: Advanced Conductor/Brakeman:None The exam and treatment you received in the Emergency Department were for an urgent problem and are not intended as complete care. It is important that you follow up with a doctor, nurse practitioner, or physician?s mobile sales assistant for ongoing care. If your symptoms become worse or you do not improve as expected and you are unable to reach your usual health care provider, you should return to the Emergency Department. We are available 24 hours a day. DELILAH SANDOVAL has been given the following list of patient education materials, prescriptions and follow-up instructions: Follow-up Instructions: With: Address: When: Dia [address] [place] [address] [phone] Business (1) In 3 days 11/23/2021 In the event that this physician does not participate in your insurance network, please consult with your insurance company to find a nearby participating provider. Patient Education Materials: Allergic Rhinitis, Adult, Obsy-nx-Hjff; Pharyngitis, Zzxh-jm-Rsvi; Cough, Adult, Zbpz-yt-Mbkd; Cool Mist Vaporizer A MESSAGE TO ALL PATIENTS REGARDING OPIOIDS PRESCRIPTION OPIOIDS: WHAT YOU NEED TO KNOW Prescription opioids can be used to help relieve donkamir-ra-thmcml pain and are often prescribed following a [...] guidance from the Food and Drug Administration (www.fda.gov/Drugs/Re sourcesForYou). ? Visit www.cdc.gov/drugoverd ose to learn about the risks of opioids abuse and overdose. ? If you believe you may be struggling with addiction, tell your health certified caregiver and ask fo (more content not included)... Normal [facility] MICRO OTHER TESTSOrdered By: Keyanna Nguyen on 11-20-2021 S. pyogenes Ag IA.rapid Ql (Throat) Negative (11/20/21 10:35 AM) Normal Negative [facility] Man Sero Rapid Strep w/rfxon 11-21-19 S. pyogenes Ag IA.rapid Ql (Throat) Negative Normal Negative [facility] Comment on above: Performed By: #### 2 [id number] ####[facility] [address] [place] [address] CBC AUTO DIFFon 11-18-2021 BASO # 0.1 103/ul Normal 0.0-0.[address] [facility] Comment on above: Performed By: #### C BC #### [facility] Laboratory [address] [place] [address] Dr. Kimberley Milan Basophils/100 WBC (Bld) 0.6 % Normal 0.2-2.[address] [facility] Comment on above: Performed By: #### C BC #### [facility] Laboratory [address] [place] [address] Dr. Kimberley Milan EO # 0.3 103/ul Normal 0.0-0.7 [facility] Comment on above: Performed By: #### C BC #### [facility] Laboratory [address] [place] [address] Dr. Kimberley Milan Eosinophils/100 WBC (Bld) 3.3 % Normal 0.9-7.[address] [facility] Comment on above: Performed By: #### C BC #### [facility] Laboratory [address] [place] [address] Dr. Kimberley Milan Erythrocyte distribution width (RBC) [Ratio] 16.5 % Critically high 11.0-15.[address] [facility] Comment on above: Performed By: #### C BC #### [facility] Laboratory [address] [place] [address] Dr. Kimberley Milan Hematocrit (Bld) [Volume fraction] 35.7 % Critically low 36.0-48.[address] [facility] Comment on above: Performed By: #### C BC #### [facility] Laboratory [address] [place] [address] Dr. Kimberley Milan Hemoglobin (Bld) [Mass/Vol] 10.7 g/dL Critically low 12.0-16.[address] [facility] Comment on above: Performed By: #### C BC #### [facility] Laboratory [address] [place] [address] Dr. Kimberley Milan IG # 0.02 10e3/ul Normal 0.00-0.[address] [facility] Comment on above: Performed By: #### C BC #### [facility] Laboratory [address] [place] [address] Dr. Kimberley Milan IG % 0.2 % Normal 0.0-0.5 [facility] Comment on above: Performed By: #### C BC #### [facility] Laboratory [address] [address] [address] Kimberley Milan LYMPH # 2.2 103/ul Normal 1.2-3.8 [facility] Comment on above: Performed By: #### C BC #### [facility] Laboratory [address] [address] [address] Kimberley Milan Lymphocytes/100 WBC (Bld) 27.2 % Normal 20.5-60.[address] [facility] Comment on above: Performed By: #### C BC #### [facility] Laboratory [address] [place] [address] Dr. Kimberley Milan MANUAL DIFF REQ NO Normal [facility] Comment on above: Performed By: #### C BC #### [facility] Laboratory [address] [place] [address] Dr. Kimberley Milan MCH (RBC) [Entitic mass] 24.9 pg Critically low 26.7-34.[address] [facility] Comment on above: Performed By: #### C BC #### [facility] Laboratory [address] [place] [address] Dr. Kimberley Milan MCHC (RBC) [Mass/Vol] 30.0 g/dL Normal 29.9-35.2 [facility] Comment on above: Performed By: #### C BC #### [facility] Laboratory [address] [place] [address] Dr. Kimberley Milan MCV (RBC) [Entitic vol] 83.0 fL Normal 81.0-99.0 [facility] Comment on above: Performed By: #### C BC #### [facility] Laboratory [address] [place] [address] Dr. Kimberley Milan MONO # 0.7 103/ul Normal 0.3-0.8 [facility] Comment on above: Performed By: #### C BC #### [facility] Laboratory [address] [place] [address] Dr. Kimberley Milan Monocytes/100 WBC (Bld) 8.6 % Normal 1.7-12.[address] [facility] Comment on above: Performed By: #### C BC #### [facility] Laboratory [address] [address] [address] Kimberley Milan NEUT # 5.0 103/ul Normal 1.4-6.[address] [facility] Comment on above: Performed By: #### C BC #### [facility] Laboratory [address] [place] [address] Dr. Kimberley Milan Neutrophils/100 WBC (Bld) 60.1 % Normal 43.0-75.[address] [facility] Comment on above: Performed By: #### C BC #### [facility] Laboratory [address] [place] [address] Dr. Kimberley Milan Platelet mean volume (Bld) [Entitic vol] 9.9 fL Normal 9.5-13.5 [facility] Comment on above: Performed By: #### C BC #### [facility] Laboratory [address] [place] [address] Dr. Kimberley Milan PLT 341 103/ul Normal 150-450 [facility] Comment on above: Performed By: #### C BC #### [facility] Laboratory [address] [place] [address] Dr. Kimberley Milan RBC 4.30 106/ul Normal 4.20-5.[address] [facility] Comment on above: Performed By: #### C BC #### [facility] Laboratory [address] [place] [address] Dr. Kimberley Milan WBC 8.3 103/ul Normal 4.0-11.[address] [facility] Comment on above: Performed By: #### C BC #### [facility] Laboratory [address] [place] [address] Dr. Kimberley Milan POINT OF CARE GLUCOSEon 10-24 Glucose [Mass/Vol] 125 mg/dL Critically high 74-106 [facility] Comment on above: Performed By: #### P OCGLUC #### [facility] Laboratory [address] [place] [address] Dr. Kimberley Milan PREG HCG QUALon 11-18-2021 , QUAL Negative Normal NEGATIVE [facility] Comment on above: Performed By: #### P T, PTT #### [facility] Laboratory [address] [place] [address] Dr. Kimberley Milan US PELVIS TRANSVAGon 022 [...] SANAZ BELL Date: 2021-09-24 11:58 Normal [facility] CBC W MANUAL DIFFon 09-23-19 22 ATYPICAL LYMPH # Normal [facility] Comment on above: Performed By: #### P T, PTT #### [facility] Laboratory [address] [address] [address] Kimberley Milan ATYPICAL LYMPH % Normal [facility] Comment on above: Performed By: #### P T, PTT #### [facility] Laboratory [address] [address] [address] Kimberley Milan BAND # 0.0 103/ul Normal 0.0-0.3 [facility] Comment on above: Performed By: #### P T, PTT #### [facility] Laboratory [address] [address] [address] Kimberley Milna BAND % 0 % Normal 0-5 [facility] Comment on above: Performed By: #### P T, PTT #### [facility] Laboratory [address] [place] [address] Dr. Kimberley Milan BASOM # 0.00 103/ul Normal 0.00-0.10 [facility] Comment on above: Performed By: #### P T, PTT #### [facility] Laboratory [address] [place] [address] Dr. Kimberley Milan BASOM % 0.0 % Critically low 0.2-2.0 [facility] Comment on above: Performed By: #### P T, PTT #### [facility] Laboratory [address] [place] [address] Dr. Kimberley Milan BLAST # Normal [facility] Comment on above: Performed By: #### P T, PTT #### [facility] Laboratory [address] [place] [address] Dr. Kimberley Milan BLAST % Normal [facility] Comment on above: Performed By: #### P T, PTT #### [facility] Laboratory [address] [place] [address] Dr. Kimberley Milan CORRECTED WBC Normal 4.0-11.0 [facility] Comment on above: Performed By: #### P T, PTT #### [facility] Laboratory [address] [place] [address] Dr. Kimberley Milan EOS # 0.12 103/ul Normal 0.00-0.70 [facility] Comment on above: Performed By: #### P T, PTT #### [facility] Laboratory [address] [place] [address] Dr. Kimberley Milan EOS% 2.0 % Normal 0.9-7.[address] [facility] Comment on above: Performed By: #### P T, PTT #### [facility] Laboratory [address] [place] [address] Dr. Kimberley Milan HCT 33.9 % Critically low 36.0-48.0 [facility] Comment on above: Performed By: #### P T, PTT #### [facility] Laboratory [address] [place] [address] Dr. Kimberley Milan HGB 10.2 g/dl Critically low 12.0-16.0 [facility] Comment on above: Performed By: #### P T, PTT #### [facility] [address] [address] [address] Kmiberley Milan LYMPHM # 1.51 103/ul Normal 1.20-3.[address] [facility] Comment on above: Performed By: #### P T, PTT #### [facility] [address] [address] [address] Kimberley Milan LYMPHM% 26.0 % Normal 20.5-60.[address] [facility] Comment on above: Performed By: #### P T, PTT #### [facility] [address] [address] [address] Kimebrley Milan MCH 24.3 pg Critically low 26.7-34.0 [facility] Comment on above: Performed By: #### P T, PTT #### [facility] [address] [place] [address] Dr. Kimberley Milan MCHC 30.1 g/dl Normal 29.9-35.[address] [facility] Comment on above: Performed By: #### P T, PTT #### [facility] [address] [address] [address] Kimberley Milan MCV 80.9 fL Critically low 81.0-99.0 [facility] Comment on above: Performed By: #### P T, PTT #### [facility] [address] [place] [address] Dr. Kimberley Milan METAMYELOCYTE # Normal [facility] Comment on above: Performed By: #### P T, PTT #### [facility] [address] [address] [address] Kimberley Milan METAMYELOCYTE % Normal [facility] Comment on above: Performed By: #### P T, PTT #### [facility] [address] [place] [address] Dr. Kimberley Milan MONOM# 0.58 103/ul Normal 0.30-0.[address] [facility] Comment on above: Performed By: #### P T, PTT #### [facility] [address] [place] [address] Dr. Kimberley Milan MONOM% 10.0 % Normal 1.7-12.[address] [facility] Comment on above: Performed By: #### P T, PTT #### [facility] [address] [place] [address] Dr. Kimberley Milan MPV 9.8 fL Normal 9.5-13.[address] [facility] [address] [facility] Comment on above: Performed By: #### P T, PTT #### [facility] [address] [place] [address] Dr. Kimberley Milan MYELOCYTE # Normal [facility] Comment on above: Performed By: #### P T, PTT #### [facility] [address] [place] [address] Dr. Kimberley Milan MYELOCYTE % Normal [facility] Comment on above: Performed By: #### P T, PTT #### [facility] [address] [place] [address] Dr. Kimberley Milan NRBC Normal [facility] Comment on above: Performed By: #### P T, PTT #### [facility] [address] [place] [address] Dr. Kimberley Milan PLT 346 103/ul Normal 150-[address] [facility] Comment on above: Performed By: #### P T, PTT #### [facility] [address] [place] [address] Dr. Kimberley Milan RBC 4.19 106/ul Critically low 4.20-5.40 [facility] Comment on above: Performed By: #### P T, PTT #### [facility] [address] [place] [address] Dr. Kimberley Milan RDW 14.9 % Normal 11.0-15.[address] [facility] Comment on above: Performed By: #### P T, PTT #### [facility] [address] [place] [address] Dr. Kimberley Milan SEG # 3.60 103/ul Normal 1.40-6.[address] [facility] Comment on above: Performed By: #### P T, PTT #### [facility] [address] [address] [address] Kimberley Milan SEG % 62.0 % Normal 43.0-75.[address] [facility] Comment on above: Performed By: #### P T, PTT #### [facility] [address] [place] [address] Dr. Kimberley Milan WBC 5.8 103/ul Normal 4.0-11.[address] [facility] Comment on above: Performed By: #### P T, PTT #### [facility] [address] [place] [address] Dr. Kimberley Milan PREG QUANT HCGon 09-22-2021 HCG QUANT <1 Normal [facility] Comment on above: Performed By: #### T SH, PREGQNT #### [facility] [address] [place] [address] Dr. Kimberley Milan HCG RANGE SEE BELOW Normal [facility] Comment on above: Result Comment: 5-50 0-1 WEEK 40-300 1-2 WEEKS 100-1,000 2-3 WEEKS 500-6,000 3-4 WEEKS 5,000-200,000 1-2 MONTHS 10,000-100,000 2-3 MONTHS 3,000-50,000 2ND TRIMESTER 1,000-50,000 3RD TRIMESTER Performed By: #### T SH, PREGQNT #### [facility] [address] [place] [address] Dr. Kimberley Milan PROTIMEon 09-22-2021 INR Coag (PPP) [Relative time] 1.00 {INR} Normal [facility] Comment on above: Performed By: #### P T, PTT #### [facility] [address] [place] [address] Dr. Kimberley Milan INR GUIDELINES SEE BELOW Normal [facility] Comment on above: Result Comment: [place] RED INR: 2.0 - 3.0 CONDITIONS NOT LISTED BELOW 2.5 - 3.5 FOR PROSTHETIC HEART VALVE REPLACEMENT 2.5 - 3.5 RECURRENT THROMBOSIS Performed By: #### P T, PTT #### [facility] [address] [place] [address] Dr. Kimberley Milan PT Coag (PPP) [Time] 10.8 s Normal 9.0-11.[address] [facility] Comment on above: Performed By: #### P T, PTT #### [facility] [address] [place] [address] Dr. Kimberley Milan PTTon 09-22-2021 aPTT Coag (Bld) [Time] 24.2 s Normal 22.3-36.[address] [facility] Comment on above: Performed By: #### P T, PTT #### [facility] [address] [place] [address] Dr. Kimberley Milan TSHon 09-22-2021 TSH 1.697 uIU/mL Normal 0.470-4.680 [facility] Comment on above: Performed By: #### T SH, PREGQNT #### [facility] [address] [place] [address] Dr. Kimberley Milan TSH RANGE SEE BELOW Normal [facility] Comment on above: Result Comment: <0.3 4 UIU/ml HYPERTHYROID 0.34-5.60 UIU/ml EUTHYROID >5.60 UIU/ml HYPOTHYROID Performed By: #### T SH, PREGQNT #### [facility] [address] [place] [address] Dr. Kimberley Milan Coding Summary.on 06-10-2021 Coding Summary. CD:[id number] G h0bWw+PGhlYWQ+IO5NUZL sY91lzSIhmT8WC4pCSV9X KEZLCBHSAE3SJE1vsNF2H CprT9NytiVs GqflkWLjKD56GSd5XJN6j OtrWZamkS0zeDDzU8o8Af RkSZ04cY46RNskPZZwHlB 3LjZpbjsgbWFy W7vtEfZstWPqHeg+PHRhY mxlIHdpZHRoPScxMDAlJy SyjBxrXH6tJq1tLWUoXFY vbGxhcHNlOiBj z0eqUUErNDmqEW1zlHnzE 9YqgZO1AEMwx9z4Vf27aL I+ZIFkUJJ3bPcsSHndd13 7PsFju1qbLAI3 dEAvFMhmCQJ1Y72so8G0Z OGnUFIjNVC9kFP2vM7zwS sqrmlmW3WqySKwZzG2WLT 8hQTcxR8kvEwl ooceqY7yCbk+Q98OQM4QO GBRXA2OAwl0U5ZjJhyysL I+WN35YPEsDG69yLEnyII cz8chzSd3GgIl QXKyIQY1vYmrQKcar3TeB SBoT55gmXKft3V9LPGtsD yipBXfDbZtlDZ0fY8sGIi crwhje6preoss Mtylq5ujnb86gQ65G34vJ GseOFWfVGE0YXEiTYEqkJ uakl0qeF4sPm1+QGazg7t yc4pjbZm6PlGu JGMrwbKbmZvlABG4d1ThM r51C6SyyNslz8FxBzy9gw 40kRDhy2D0pKY3DBwaVVU brM6dAAheBxC6 URSiHpDweJ77pHKdPCczU d8eiAwkmSzkKW1oJKIbtf bdAZAzbP8qGIPbvXLdeKy eKC4zDJKpjaxv c328FuIrPJI2QFOnrAYfK 3UzyF5aPkTcDGRnERSuN1 OyhLKdVAofB223AGnsHqB 6ULLqagCnS5Pr XVAwhNkdRfB0u8V4Ob9Og 3MmxuubUAX8PCobYZFvXd Q9MzXkIuL6E8WqRiu8OEW vhHtuNJ4aG7Tl TZTqtiscpgaqnQY4FAZkO JTclY13eMJsDPeyUe7zf1 R6d826ZECsCNSesI95Bq1 udDogMTBwdCBU eR5jcrfjt7ekwcroTtMgQ ZLzBIu8YSx1YOYasFjoFe GqHPN2TwQ8RJZ9iHBbgN8 taOislwxllU0d Oyc+L31ayN3eBMV8XUO7x dzcSVWvuuZlIE51UZ18M9 RyPjwvdGFibGU+PGRpdiB tjDtbBD8qAsEa b1fmd5WvEMlmP5EaKCUrX PmuQyh1GTAaRSH5aMT4qO 6oABSnBSqjw2J5kZC5W7Y nxhCvsl1gt6tf XFVkEUgoH29pvXPzy0Z4B GBnjSS9TRVdvHfcBnRxvY 93Oyc+MCYchEjlp3ZqWnt br6foh0zbwRq1 UhKtEWCpqjBtkFtuWEL1a 2GuZp56U85nHAfhKYAvDK YqHIEhCWEbmFfxtm5uoC6 wIi8+PGNvbCB3 mRS2wW3mDDIdEiJ9XEoeX 000ZsMhsLXyEvvye1sfv6 fokXn9XwFjPSPqzsKgeOy wDMP4k3VvZg19 S44wBUggOVZfMQDwJTDlG RNajLxwaj8hrV9rIc7+PC 1al2twcc55sC77yLF+PHR lFQI1wFplPBxx GLYfzH8gTNwxTzU0GIRkQ aZzdL29iESqYLdhCh8ceK nzmFaoJA3tOKNutbtez81 5XyGsu9yxHTSu zDUtQWunPLO5Q14zd2M9E ZAbLKPsTAY6tOX1rX2mxC lnbjogbGVmdDsgdmVydGl kGAahAVvyJ551 IHRvcDsnPlBhdGllbnQgT fJwPQx5Z5JeOnq0BGZqtC qwFJ2tdELhAZfsYf8seNy mqZnaRU7kEXKb klgni582HuLqt2dkMPQnv WWfRUohMMH4Z15ul1O0TU WkUZXbITF1tKX6xS7jlLa nbjogbGVmdDsg xhItmAfdHJytXKsyA346O HRvcDsnPkJpcnRoIERhdG G0IK26TK17wLXtp6H3wXR 2S4CwYGCdpozf zfsthGT3MGQmUOIdmB22E q4kzNexBx5dAKSbFVE1KR GvfQXbA4YvqY6hKfZmEHG dRUSpK3BzjAWf YMxcI342BChsSoD2KUKzg gTgL6CtHAJvyCmcUlN8u1 M7Gk6WM2C9PD99TS07vNX ns3R9rKF7B4Gs IJCqjqweqtifzZQ4SJCeN TGwyC48Kt4ynQwaAb7yDZ XnGXR6VKMenBAqL2GpiU5 yOiAjMDAwMDAw B1DmlWJpRJjkN277OZucN uV8XMXhbkLdW6ZyFAYfmJ myBbF8d6Q7Ze5WOJm1BM4 1TV23vEAge5V7 hXR0U4ZjPIMcojhuqgdlo UX1ELLuEISkvB13Lm6ncX tyJb1sEZGkZBQ8VBYhxRM jJ9KjxT6iPdNp RGZqHCGoV6ThqKQcHAliM 603ECuyBfP0OPDrhbQgI1 NiNJMkyHtlCeR8j5Q8Gm9 IXDJfGY98JTN4 bAR5XC77NE52G8GcYwlmf GFibGU+PHRhYmxlIHdpZH RoPScxMDAlJyBzdHlsZT0 gMe8zDJIyAFJm iBdyxDJbEnPgo4ekHDTpS FmsXP7bpCwnN0WgcWZ2OR Kjs2b2Ks62N20dZ4VsrPL +KHOwxXX0bZW7 xC8hQrDxCeD5YYbgJ105H tSapSTdTuxqd3vri5gjpY u1SbO7FRAigbJgcRamYBP 0c9DdRs71A22c IHdpZHRoPSIxNSUiIHZhb Nxslk2raA0qOv8+PGNvbC C0mUC0uE5yPlExIjL8USb xO123TrZvoQEb Binoh1hxo8nmwGw9RaCpR NLyxtUaaTnoAFU1z8ImGo 87V7JwwIiaj2AlCoq0xc0 7jHLig9R6fIR6 M0JuTUIrzfjigECfdCdtL F0vQDSdfvdtEQFrxO9nHX TjE6n8HuReBrQ4HZumG9T ovjS9IISceVGs SLqkKTV9R29sh1K9LAFfB VRdNOD4pDK8gR5foCvcdf ogbGVmdDsgdmVydGljYWw bPNncU798AUAu mIjpVRAtjY9aTGWpuCDth MhkIO9ySNJvbtxaYsnNIK NTTUFOLCBTVEVQSEFOSUU gUjwvdGQ+PHRk ZNZ7hPkcPNnwNQHhvO7bT IKzO9b6KwBtIvE8FQrrV0 EuROKigskyIv46aB2tJiE sFcK5BYpwH6Xe zoM2NJOfrBVeNIctKYR2G 34pj1S8VVHjEUJyGDM5oE X9eZ2npGbgshdzzVTejVi gdmVydGljYWwt DMmtD031YSGaxPerJvY8R zP6OvT8Mee9U5HjZwh3ML TszIkxVF0boXYnUBusOw9 cmPjluOxbQI3q JWDroixgCTYpbP2rKGSht RUmbMooOA2kWSZrtsgfx1 41AoHuOZU2JTMnmEXjR4T qqJ2aVlYoTHUk IBPgO2BvnRUfDMpzT950N UazFaQ8IOInwjAiR8BoFL WofIlxGqG5e6J7Lo07BjL ZZWFyczwvdGQ+ UQSrINM1gZriZKuwKMCuk M5zJCQlK2k6XiAmGuB5UM bxN4IoXVGqgbiuJn30xI5 hWlXbKhS7GBss U5VqgiM1ZRUurHCbNTevV BC1S05dv8D2ZXSfNTAhIH Y9hXY4zZ8ieJggwhkpqNR mdDsgdmVydGlj KXaxWAcfU075MHCgeFnkL kZlbWFsZTwvdGQ+PHRkIH X9nAlxYSzbVSRjaW8zCUT jE8v8BwRtCrJ1 OEwpK1AxCVFksmfeFk81h T5fKcAgDpX0ZIolR8Yaip U5CYEfmJVkCTpyLMZ7Y16 ui2U5FBIfCKYr PUV6lHU1lP8ieXmjlekdd GVmdDsgdmVydGljYWwtYW phB233GLUhjVflIu19jLS cbWnppwE7K9Bd PjwvdHI+QK73NSEwEK66g FRzlHYpx6bcsDa7EqGfQZ LuGTN5bFqlRDdat6IfXJR zB06qjMEcp9W3 ZOFrfRrtcYNfZnHoiNT0a Y5eRDowhzcjx7btqqbpFr hxz7ewbx12qK89V41aZAg pZHRoPSIzMCUi AUEtdFnhoz9wrR1tGp7+P BRvwLH4nFI8qG1eVoJmQo Y3BYthN096YzWykTQsEwq oj6lqp3xqgOe1 OlJzEHRwetNezWoySZF7x 7RfCt76K61nCLtvBLDsHX ZeLGDcVVCglVtvov7fvV4 wIi8+JO9qx9ij fr18rI40dSS+LBDcEHM2z FluKAfuKFJztW8vCIjtJw T1GODwMrKviG30bIRfSCf sQt5qcAykiJut UM2rRLJavtvjn579KnOtn 8ruTPKwfWLgUFvlZJN6P3 6um6K8KGCpMYHwLCV3wRK 5oK2qkTbwcifw bGVmdDsgdmVydGljYWwtY BerI265IXBxkNoqMwZtzQ XzN9musnCLUM1jOdccxWD +GIImCTT3dQfp DPkwZDMlwE0qKVBoS7e2W tBfCbT6RNtpA3TkwgS6XX HruCFdBJXdxVREkP0fulp uq6jqdycvTsId SNYePOd7ZFe2XGUcnCyxD sFqIIC7ZsO1ZRD1xOSphK 6wfMdmeqwrnD1kIgp+Rkl OOjwvdGQ+PHRk YSG5vZjjWZxbWABqxJ2cW KMjV9z9SfUaRhE0JUbgS3 KcpjA0JSAygQScGBPreZB RwY6qlvmca9gh yplqZcSjHPEjXZw1YZp7X DMwjHnqSuXnLKW8ZdC5OI Z2pGIwwR0ipSnzrxxxvR6 wOyc+TVJOOjwv dGQ+OJHrEDU0zGfwNTvmC GFjhD7pRCIhC3h1ZvYlWn X4YUqmV7WsivK0CUTeaWT mNRCyxVIGfM3p wibmf7sclnnyQzXbPMMqZ Zt0DYp2PLJnlPqeQuTjOB R4YmQ9GHT2kAIzvZ3cpDk iutiflP3dJfa+ CGW4TBK5ZA12QE12Z7IeC jwvdGFibGU+PHRhYmxlIH dpZHRoPScxMDAlJyBzdHl gMT8zAe9rPURh LWNv (more content not included)... Normal [facility] Pulmonary Function Studieson 05-28-2021 Pulmonary Function [...] test. READ BY: Soumya Mathews Dictated: 05/26/2021 [id number] Transcribed: 05/27/2021 cc:Dia Wu, CUSTOMER [employer] ANALYST [facility] Comment on above: Result Comment: Elec tronically Signed By: Lexie PADILLA, Kenya Macias\.br\Date and Time Signed: 05/28/21 08:32 EST Consent for Treatmenton 04-26 Consent for Treatment [id number]#1 .00CD:127 [facility] Pulmonary Function Testson 1 07-23-2020 Pulmonary Function Tests [id number]# 1.00CD:127 [facility] Physician Orderon 05-06-2021 Physician Order [id number]#1 .00CD:127 [facility] Coding Summary.on 04-18-2021 Coding Summary. CD:[id number] G h0bWw+PGhlYWQ+IP0BOKI eY61qsVBauV8KN0gJWL8W STGWWMATVR0KWT2ozRO0S HirM4BhwzSj XxbfxNIwXI63XMd8JOE0u ZvdZEapfS2plIFtV5j4Gg SnHA91kH74SIbdBUVcGxD 3LjZpbjsgbWFy F4heZkUbsJPcRnq+PHRhY mxlIHdpZHRoPScxMDAlJy QyiLbhPI2yNa9qKZObWLA vbGxhcHNlOiBj y0eyMWOcNBdaGQ7vnNyuF 7BdoMC9OYJvt5z5Mx33tO I+QNOwJJC1rGqsLUezf43 9AaDct1pjUFA3 bDXrNYspHBE4X52cf5B0E CRpMXVpYMK9pIE0hW1qlT rgsnsdV8YrcNTfKqU0DKK 0eSSubY3zxIcz eheonD6zTpg+E20PIH3ZH MKFPH8XUsl1C9VqIhzlbN I+YN67AOHpRX62nZVtwVH yj5wvnBq0PyXr RMLoNDH1hCqwASsmc0BwG OFzV60gfBEnl3L5FGSzlM okeGXoPiZzwCY0wP4jLEs olcuii4bqhvto Lutaf5lxss56lH28N31qG GjjJMDjFWK9MBNwSFCkeH fzro8tdT6dXn9+UUldv9m am0pxaBa3JqQe TKRyryXctUioLMJ8w1CkB u40B5AupMteh3OyMgo6fv 17tVRmc6Q6qHX5GDtpICQ duR1mKBvuVfW5 XXOrJoAcvS85pTDuDNfnD t2vdBkfvZznFU1aLSJbnh zhRJJuwI7xNMOcqVRnzJa dRH0zERYmcgdu q556ElWzRAS5SNCthMIxT 0KgnW9mBjXlZVVpHLNpW7 FeuGBlMIlhD465OLsyNxM 6YXMitmBdX0Ro XZZupQcxGwQ3n2R5Gu3Wc 7UuzvyiHSS4XPweGGStSh T8UfEuAtZ6L5SyCoe6GOT chJnyNZ5tH5Nj TJBfflplgqebhXX6EPCoT QVleY17rYRvLAtmXo7sa4 W1a168TCDwDRYgtO85Kt3 udDogMTBwdCBU hK3rjzsje3jsikjhZnHjD GBkNXb2YZr4RYIogCxsQh EfMBO4GyV1LTU5zOOtnN5 prQfdfsribB3j Oyc+C67mmK3pISE7PCU0h odgNBBfiiIcNU89WN24X7 RyPjwvdGFibGU+PGRpdiB ipOrfDE6tZkWw x9rwk7CpCWwxU6HoROQaR LoxOhi1ZJTbJAA1iCN8mK 1nKTEtALepi8W7cNH2C3M nbtNgis7qs7fu TSXyLPzpY56seGCaa4M9A SEftIJ5RMJonLgqNkIyeK 93Oyc+UWXiiUwgm3FhDai ad3fub9cqpIw2 XwKuHQOzsgItjYelCYP4p 9NtWp58W92gQThsGYIjPI RvKLQuXWOvtIustm2sfC2 wIi8+PGNvbCB3 hLC4eG6tSPZqTpE9AMhwS 130CgSbdXMfIawku6hxl4 epcKh9WmWxBVGyabPzsNa bDHV5k9UcHv50 J21yBMoaISZqXNSiDFFsH ZWtzXimbw1ghA3dBw8+PC 7cl7dpol86yV86qTK+PHR oNYP8mHeeWXqd VDOweE2gOQjfUdK2OFCwQ qCsiQ73gVFsIHflXa9raL ydcVyxJF8kQQRxrmdaq02 1TsHlm6upWUYa fSRgHFcvYKG4F86wp2R6B MYiKCYfSAP4oFE0oT0fmQ lnbjogbGVmdDsgdmVydGl lCMazFYawM541 IHRvcDsnPlBhdGllbnQgT oWsDXt4I6YqXvg5QKWclT gtAD0mxUJbCBrkWa4plPt kaRmsDF7yHOSb wnkfl884WiFth4hhMMPzu MLcZXzrFFZ8K42vp6A7QE CnGUMwXXI8lCB9dR3ieDq nbjogbGVmdDsg zsKtyDaqYNdnWMhqC223R HRvcDsnPkJpcnRoIERhdG V1ZV51KW25wNPme1G7qBL 5T7BvSJOyubhp kqxqkEU2CVFlLRQxfN54D r0vlAhpVw5aDBDvZHW7QZ SgmUOmZ3QkmI3hToYeDFT kOJMfG5JyzBHf YQxdO583LQnxYxT3TUXom zKfK2NkXJSvkCetWkP8p2 Y1Ku6WC9U9SZ58QU78kOD ph6A1lNN2C7Hy UYWnyhsmkmfotTI2UQFbO DEduP31Ol1ltUrpXz3lQY MsTWE5WURtoCQoA4PusQ9 yOiAjMDAwMDAw D0LszCAmTVozJ108XCphT vA0IMDnglOcS2LxVCKdtZ vgJeI7r3Z7En5JCVo0NU8 4AM12tORrk9Z8 nPM5W5IhNYJmxytxkamaz MQ6UECqQVWrxI12Ty8kuJ ueNj4sRSWpNIJ1WLLnvCC eY6MjzV6bQfLp OTCuGQNoB9KouCNsKYpbW 759NMmdPzG2PYOcbrXgS1 XqNQGdePkyQcG6t6M8Nq4 DQKCuLO07XIV5 wTX2CW64IR14K5BgBypiu GFibGU+PHRhYmxlIHdpZH RoPScxMDAlJyBzdHlsZT0 pQn5aVKKcJMAh zZkisLTqYvSjp1mxSYUmJ NibYO9lnBocU1EarOJ8YT Fck9e8Ll16V32iN0SisJI +IWRgbZY4nPO4 pY9qVvZrEoJ4IZiqG415M zNojMCwOopng3myu2bhrT v5IbI1EOCrcgXudAorXPF 3r1MrFs90W23j IHdpZHRoPSIxNSUiIHZhb Ievaz0ctN3jOu4+PGNvbC T9nWA9zU2uEnJkNjX3DYk iF613XkZndQZm Boeme1knn6ezdWb0LyGiA SAakvDdaDciRXV3h7MaAj 21P4TmhHwaj5YsNyu5re0 0kOEhs4I4aAS0 V8TzVPJsnuwaxCIumTpuJ A9uBFKofznmPOVoxJ5xRS XkH0q9PoJhZwG0JTqfN3A ryvT2GCYuyZZx TYhuZOJ3W13yx3V4FWHyC QXgODJ4yMY1wR4myXdipc ogbGVmdDsgdmVydGljYWw tWZttR399VPLy vOupVICocG8sQCXtxGWta MwzRA2xCUBkqmroGvkEWE NTTUFOLCBTVEVQSEFOSUU gUjwvdGQ+PHRk AGI4aSkpBUsxORCwbL9tY PBuW3o9YkAlSqR6OXbkM1 IvZJWebfdgMy67sA9hZgK qIaE4WLbyS3Ru pwV9YHAdlIAqNNkeOPF4R 08lg1T7OUSrULUwYVK4iI J7zX7ovIhmoywcfIXrsXb gdmVydGljYWwt JIhgF750ICGquZsmNgK4X nH2NkD4Dig4Z9ZlVmf6ZZ BmdRjfZU2dfQJqCNvtPp6 eiAlnoXyaGT9s AEOpmtvbTKGaoD6cPCGzb BZudSrqPO2dXABvjjgng9 21DxVyBZU1HJBwbUZaE7C xaL7qNeJqXOPq YDCxC2KtqXGpVSusE423Z EmdEdK5HRAdnjAeM1DfHO FnuRbrPaC5i9Q0Uc79JiP ZZWFyczwvdGQ+ IHTzLUE8uGsiSJdwVAEoh G4dZLRgI7n0ShNcOyJ8ZH ipH9SnQXWcejgzQa08uJ2 mMyQsGbF1VSla A8VlipG8WUPctDGxTDytO GM0G43ga4V1BKFwROFmCQ D1kVP6gW6vbFfsssxcfYO mdDsgdmVydGlj KSkoIZsqV351TWWarXxjK kZlbWFsZTwvdGQ+PHRkIH P1xIxkSVkiHILupQ0gOZR aP2i7OiJhCxN5 RCxhG0AiAAXuuzirXk27z N1yCdEjPwL9WXbxC2Kcps R2SGLwyOLaELlyFWO5R92 uf8G0KDYhOEGo XKQ2rAQ5kB3ygGamzchpu GVmdDsgdmVydGljYWwtYW npA346GOIhqXeiXk15lZA lqDmkjzA7K7Cr PjwvdHI+OJ16IAIkNY67f THjsTJwl4ofmKg0WePcGX CkEZK3vWrhWWqir4DyMYO rU82zaZWua5H8 ZYUlnPqgoTObLgYlbJH1v C8xLVangpjym4fclsojWh rim0pwyi53jI20F82hNBw pZHRoPSIzMCUi YEJhmPhljh6ryC5jOr4+P HTwrOO4vCR5pD9yDlJtBj E7HMzrJ185MtEygAAxDrx jf3wnx6ovbXe3 FoOqJYEdiqAtyDxtYYS4c 6SfQz89E44rIZxyMAXwWP DmASToPEPgqMolfh5bzV9 wIi8+LG2ku0hw ow01hD83mSZ+NMYdRPR1m RfxBMvaCUSpnK4qBZsvQk D3PTJfIaJmlJ00uVPwQLx wUq0xjJkhcVgs OB9zAPXvhysmw082ViQiq 6tqBFFzpRXaTSgkGLO2X1 1gy0Q8YIIyGUMkUAH5vUI 8hJ6krOejygxu bGVmdDsgdmVydGljYWwtY JaoP160OHQjkVbjKzTlyQ TiE6eektOHCG4rWdooiJG +EVJnFFY8fQgv YYdoQHOfcR7uHWGpJ0f0W vFyPgS4GFthT3YyjgN0BJ XmqNHkEVHtqUBMmZ5wlbr qm8aunindTkKb TDZnEFp7HTl2MZFokIycN sXwVPK2LsX7PZU2mMYvxH 1wiVkltpycoA7iHyi+Rkl OOjwvdGQ+PHRk SUT0gKauWAqsDHAxtB2pQ PXaW7z7KfJpDhT5UAjhE9 LumlH9YXCujUPyTBOkoBI GiK5iegsgu0ps hpnfCyRnDNFbTId9VYg3X ACrlYciYfXmEOI3ZmZ5IY N5fULotL2ukBjgqpbhiW5 wOyc+TVJOOjwv dGQ+MMBdAWI2zSnuXIlrD NLliH8pKAIvM9q8NpJeJb K3NYdaI5VyaiT7ISTjwPL dGIJsdSSScV0v qetbv2yrhadnEvDgUQMrC Po9THm3EPYhqBqsZhBxMX U4BiI7TAB2eWKdyM3dgZl zsziieW6bKry+ DVK8CAL4OE97NC81Z0NfU jwvdGFibGU+PHRhYmxlIH dpZHRoPScxMDAlJyBzdHl mMJ3oRm5kZTZc LWNv (more content not included)... Normal [facility] Coding Summary.on 04-12-2021 Coding Summary. CD:[id number] G h0bWw+PGhlYWQ+NS8BLQZ oR04ppDEnfI6ZW0aOZJ0P QAYIBRXZSR0YLH0jpUU8B ZqdO1FbdbAg YbhqiNNbZF75SNb7NAJ4i OfqGJnebI5dxTJdC7v4Bj PaWR93dQ27SSwiXMReYwM 3LjZpbjsgbWFy Q7yfFhPbpODrMgt+PHRhY mxlIHdpZHRoPScxMDAlJy VxiKdlUB2eNu1qADBsDZN vbGxhcHNlOiBj f4wzSJQyCFmjGO5qqGsnB 5XevIF8GEScj6e2Py28wQ I+GLSxTEW2pTeaYHscl37 2QvKmy7xsEHX2 nHCxJUgnZDM3S54gg8P9H EAyJWHgRPA5iJN7hA9jkS uxoxxnE0RlcOOlLjA6QNA 2cZTltD8zmCem fbapuJ0fYas+U06TML2JG PZAVW6VYgb0B2CcPnbbjA I+TJ83NGOmHI73sNRogUY gh9clyPm3MfHh VJOvQVK4uJnlBHpdm1SxK FYkQ02zoOIyk7N6BVPwnJ avgYRuOwXmsCL1tA3yGAn atxedh6gzgreg Anosa0zktk42nL72M15dR JfmTUIgQYS3ZUNzVOIivS jicu4puF7rPf4+HQjpu0z ec0gbyAj0WxPc JNRoxgVqoEqaNMZ4b3CrG i33Y4HwuIlfr4OrWed1py 12qVHsg5M7oXR7UTrpBMA fmV9tDYopTuI4 MIFoYfRdiY63bNMaQGgkW n3ubZbmlLhaAN3vOSDbas mtZWZunD5cFQLliIVpoXb lRF0cQVVlguys v669WzHdRBC2NAZiyKNrC 3KowA0iByEbJTFvAINsE3 QdhUHqCCcvW069VNiaPbG 4PITqhmKbE9Lp QMXhuZgtHgD5x9E8Vv1Qe 2JcczzwSTB6CYtbCPDeUz L1PvZbHdL0Z9LpNiz3ZYS htFijCB6yV5Zo XUKguujnsskrqZZ5RHJsN RZgvP94yVCgZDzhCp4be9 G1p197QNEgQEYysA47Jl3 udDogMTBwdCBU oB4cezuah7zdrpzoKwAfC QHlZFg8XEm0HAUreNshIf AzBMX2QzS3KRM5oAVuyK9 wjMwmatavkK1q Oyc+O83ssY4hPHH6BJY0l mvkZKOxphSyRW83AT34F2 RyPjwvdGFibGU+PGRpdiB irIjwVL4hHgSp m8jlm8LgNVnbP8QmEMBeN OwuMqm8MIMbRMV9uJQ7bK 5mEJVsQNdej9V6qAM7U2J lnjRvtr7ps2wu BWSjPLzdM86yeVVkw3Z1A MRkaYF5HXXbvMutXgYkgR 93Oyc+HZXssIvbv9TrJok iu4sok0ujlWz0 FuMsKZEptwYfwZefLZF4t 3CiKu35G81yKPlxFJCrOF QxKBYcGIWthAgvvz7lvF5 wIi8+PGNvbCB3 nRH2vB7zFOGgMgZ9BKwoY 917YnUfdJSfZhats9zqc1 vyfGe6UfQgZWUgmgIigRb kMRO3v0DhNb66 Z29cIPtbOZZmQDZgVLNbW GPsuOeflu1pqH9yLu7+PC 4wb8cnpc22jV26dWE+PHR rIGP7kXxiQAln EPPmeI0aXLyeHlK1OIGqT yYtcY23fBKbIEgkVv7cqV rxmHoeSG8uYDKfzcvio76 1FwZqy4fvYYMr oXCwBNejRFB5M60ui3H9N DBoAYCrZTC2vFJ3dU1wpL lnbjogbGVmdDsgdmVydGl hYTvhYAeqT338 IHRvcDsnPlBhdGllbnQgT iMzESs0H8NkLzi4WHGbiR mgUS8qwTSeJKwtVl8wkOh sdRqnCH2mOCVs vzxtd983PjExh8ncWILxl ZGrXBwzHXV5B25jq1U6WI VfWQLkUNZ0iIG7pQ9meGz nbjogbGVmdDsg neUhkRsmGAzxMQcrE980Q HRvcDsnPkJpcnRoIERhdG K9QX03TL49pNXmd1S7dAU 7A3SkUXKmjzcw zixubIX6DPPbYRBlwZ57V e5deBlyBy4pJFSkWTV0KG HgzFYbD8FvhS8vFxOiJRS qEAEyI7EzxCUx WVlaQ632PDwaHhG0BYXge sLaU1VfJMAzyWcgRgV0k6 F8Lt0UE9N0XL23TZ25wYB fq0F3nTM2S7Pk NTYiktooonhzvGH3OIVtM NXfvP13Do2psCbmUs1gAD AeKFP3HXZqpPTeO8JufJ8 yOiAjMDAwMDAw M3LdsETrJQevZ972IYzfK iS7FRFzljKzI9IpBFDuzO xaOyO1o5D2Tv7RGIq2CO4 7KT87zTJio4P3 cIP4J9NqMFXzpeaprikjt CB9WJIqLRXenI51Je1qiR qoZc7dDSIzTFU7LMPzlCP gB2QafK8jRaQu QYNqPKQkU2IkvVNuXNejS 376XXavLrR5TJGynvOtK4 ZxDNSayQiePmT4w9P7Sc6 PJRMtWP49PXM3 yZN8SP77PF98N4NzFhpet GFibGU+PHRhYmxlIHdpZH RoPScxMDAlJyBzdHlsZT0 nJt7qVYCyUUUa qPtrxIFoAzOda6pgKXVhY DqdCM6jnUajO5MroTK9UA Naj9j2Jy53D99uV9KaaMZ +TSZycAJ3fIW5 bN9tXeOtHzD5JVywC706I iUxqQDnHyoxi1vdw6kmaK m6MxB9ZBQtuwOgoTdvAZZ 2x4MrGc43M19m IHdpZHRoPSIxNSUiIHZhb Mvhzl7evS2lUe9+PGNvbC A4zHH5vZ9nOzVaUlJ5HZw pO865LlUkxXPv Rpjem8vzi3ybySa9HkPgN OFlgvKiiOxiKZA8g4TgKn 72B8RrtIofv5CcCaj2ho7 7vKIag2C3iUB4 W4WfXMApsgtzbPOywQvzB G8bFFHifxvhUNPlcZ7vPZ HaR7m4GxKiXwL6WRnmJ4R xxrP4JMTfrVRq GAexJAS2O15tm0H8UDRjX EQsDSS6fJM1yA9ycZqwag ogbGVmdDsgdmVydGljYWw sPWvuO688CBGb pExgAAUjfQ2cYNZexWIwy LreGP6wNFOqgeizEcpAHR NTTUFOLCBTVEVQSEFOSUU gUjwvdGQ+PHRk DBB6uZyjQYffFWDnzK9jX HJpT7g3BtNtCpI6NStoR4 WnAKJeswwfUn04zW5lWbU jMjG3XVnrL3Ei twK5XSQzkMJgJArhJSM8N 89ti9C0NUMnBEHjKLV3iH U0jV2pmPperasmxRPwkTw gdmVydGljYWwt BJhsZ342POAjpAdbGsZ7Y fR4AwC7Gzx5T2RpVfz8HS PgtFqhWO6ytJHxKImnMb3 yuXsksIftMO0g ZKGtoihbJVFdgC2xANWcx EDzsKexBK1gXDTobaghh7 67CfHxAPJ2MXQseEGvY4I suS8kEaZxVVYo VARyY4GgxENwTJjxU694Z PhaBmO5UTSbidSpE1GyKQ FyqUzjMkL6n7A3Ql63OtS ZZWFyczwvdGQ+ WIVsSGN1zHqwCOfmUGSjh Y9zHAKcL1j7CaCsMqQ6HG yrJ8FkFSGtrrarXg91nI8 bUtUjKqS0CRad C0MzyrW3XDCozSZtQFqyR WV3Z90cz1K0OCKgNMUiYH J0qIX6kM7ioUlnaohdfHJ mdDsgdmVydGlj DVmxXLaxT892DWFnsGpoE kZlbWFsZTwvdGQ+PHRkIH H7sZhbLZlyPWTxpU6vDFQ tM7d3OdPyZeU9 BPbkL4NtTUAhrlpzIg63v Y8iQdBlDzI0VLgzZ3Qqkb C8KKWfbQOtOGvbFLN1E41 zn4I0FJBvCXFu UKH6eRA7tV0suKsrveala GVmdDsgdmVydGljYWwtYW anP890HLDfnUcdSsStMWC zJA6nrTwfuYB+ DJ00bh88R2LbNvdvNrw0L SXdWOQ9sDV7oG5bSAIzXK egz1S1vSM3H9RvppZowm3 fh8trFINwRIvf G79jiKNyc2G2ZQTauIK4I ONtpTcjPrQdtR25Uyd+PG NbaMqlk0GjLpqfq4nxl8f spNa0UdKzFQSn yyOkbNnxKYF3s0FkIu77V 29sIHdpZHRoPSIzMCUiIH ExiWpkdf1dvD5oNh1+PGN lfFF6zXH8mK2a ZuYiGbN2OKhjL546SaDia ASqCoykz7muw9pmuZx3Tf RfINFzgsVemJlrDIL5y1Z tPs53K9SxpAsy s5VbPbw0qp10gEGtz6B6f QK9U9OiKZPorgesoROrwZ euPR5iWFChqfgtQLHyvF6 eNZNeY6r4TqQg CwR1FScrF0TudkK5UKIbn MOrCSXndDHRlF4jeqfds8 stpuieAjUrHOPhGFp9LSb 0LWFsaWduOiBs KKM9GxM5NZR9eWOjsK8pm EofuxzagP6zVwr+UGh5c2 nyaTExFO6uaEO9GM99MK9 3wDUni3J7jRW9 X6XqDGSqwlqhqtwopDY0P KCaFSIyqF86We0zoHdwZq 5qCFIcONT6TSMapWUuO2P ggC2zRgLbXODk WQMaM2NzaVSpPBpmT880P WxeIuX6DRFlrgVfY3GdKD WsrLgqZjC1j0F0Yr5RDJ4 8ZW67HB72dTVk d5L4tNG8E5RrBHFdawieu dbfqFK8VJGkFMQkpY50Nz 5vvWbtHq8yJUCuWRQ0UAW srDAvS2UqcZ9t AfLcCFSoGJXxE6UqaTYnB LbdZ215ILbxNcU0GUGgnr OwO3VuCJIynEqmHwC1l2F 4Wt5BKn84WR18 VJ64iOUxt8L1sLM1I3ItH FNaxpathycntWI9LRPzVJ GhrY04Vk4kiFpkQr4zAZF sZDB5CFHbtWEd G5ZyxT3cNuAwOLSzUKXxX 7TpqXGjTPawP437UJpiEq V1EVRqgaIlK6FtZSIysHr iQqI1g0S6Nh6U RVeqhoj8Y0JvIugbbUJ+P U53JWHiPD56pOHhuWOih0 twnYr8AhJzKHNcMPS8pXn gTYedq8TkJWQh Y29s (more content not included)... Normal [facility] Coding Summary.on 04-07-2021 Coding Summary. CD:[id number]:[id number] G h0bWw+PGhlYWQ+PH6SANU mV01zbSCrsP7PH8vBIL1U EPACNBUVCB1MKR3jxHD8R HsvC6ExjgYh LqirlNNpQQ66EDx0VXW4o PoxIStubL7uzGPgL7b6Hm BpDZ07hJ22LPkmNDMjPpT 3LjZpbjsgbWFy Q9yzFjLlgCRkVdd+PHRhY mxlIHdpZHRoPScxMDAlJy QpjQjgTL6yQz7nEQMgLTH vbGxhcHNlOiBj s5wyXBWkMAivTA8noPdxU 1WkzQL3OAWsw6d3Iu84lE I+LAKuEGJ0wTcdVGirl59 8WgDeq3mlEIL9 xYFgFTfpAIM6X06xy3B9N MQnVCPiPSD9aEN8mQ5dsK yqnzjzZ4RobLEwXsB6ZJP 2lZJneF5ovCkc srhgdY5gEti+T27HAI2RS EVJLM3YOjr4N4RbIngymS I+KD79JKWdHD69aQHooNA ny9tzgFw8MjRk IIOxEFJ7xAqkUVige6BrZ FYvO33dgCHbz1S9KAZudS oihGBjFtElpSX0qF8eICk llpxih0xterda Mosfe7nzxp66iM49N43mQ MjrIJYeVQD4YXWrEQZzwR oiyd4piJ9lMi1+PClir9b fx3zcjFu1FuEi KDAfluUglSprPKH1q0AxI n90N3XxcDgto7YzZrs0wn 39jOWoa3P5tYH2DJrvFUR ugA8nYTeuErI1 JCDdNcRiaY51oNBiVQvxE a6vaJqcdRgcYJ9nLTOrkv zhNIPofH5dGSKonEYuoWk gOJ5nTCIbpvrr o700KuSgDMR7CRFejBFdU 8UwiJ5bChArFYQpJKWhJ9 WooCMvBNuxU856CEkxPzK 6IXQyvqRgM4Be JQYmnYdfVfV6v5L7Jk6Zc 8NflcxaJQT6UCteTRXuBp Z2LwOoIxU6E9OlRws9GLW ohQnhJT8eG0Sc LQYdrphxmgwzbLD0BZYiY TJosN59sOQoHPccHz1jg2 E7y375NFDcMEOulL71Cn6 udDogMTBwdCBU lA5upkmip5npbkxeNhUwQ EEmJBz5EIl3MLNjyNsjJp BhHWM0EbW2ATL8gKSjbC6 nqHuipalefT8t Oyc+L34qvF3oXBD3VTO8k cccQTAolvAaXY71QP79M3 RyPjwvdGFibGU+PGRpdiB qjStdKF4uFcWj c2obu0JkKJceO6AhEFHbD TnsQih1QQUaTEI7bTJ1pW 7xJSJoRKqhs0A3pYB5C5L nwuOmmc6oq3vs GIHaZGodS05ymIRkx9M8G XWkuJH4XKAeaRmvIyBbiE 93Oyc+WZWtqIjkw6AlVqu sk4tbc3isyTx3 ReIwBFOshhOedDsvOQY1j 5XkOj06S83sSXvtXPVqQT AxWVTlFCPqjNhlhv2eqI6 wIi8+PGNvbCB3 hNI6bH3kEGNzAnX5NMioK 581ZxCzuZZmSqoiz9bjf2 xpnPf5XxSlADDoqiUmdNm kCHF6a9BoXn85 A96pLEufDLVcUGWxKXCeM JLknFvneq5jbH0aWj7+PC 4mb0sixp40wL85iCP+PHR cRKT0yTsmHLgw UWOpaM4mCDgyRnC6XVGbX iXnuI08eZFkCTbgBk4keO tysPigWX6kLDQxtnzom51 4BuEve9fuETCh jBDnLHxqFFQ6U04nf1K1U GIzULFlJNA1lBP6zP1fsL lnbjogbGVmdDsgdmVydGl sBJmhQCinL641 IHRvcDsnPlBhdGllbnQgT dIvAFu9S0BxKtk6GEDnaL xjBS2mpVFaROhqOw9lkOa byKvxGX6wHERi nxjpl130SeQkm8diTMMbg XWrKPplLIC5D56fg3E5SC OgIEWjFTM9nEI7bN6asTr nbjogbGVmdDsg ofXxxVjwDWknPWsaT868S HRvcDsnPkJpcnRoIERhdG C3FT92KJ97oWBnc6C7vDN 3A6LsAJDeqamh cyyicGJ2OLAkRTOhgX49Q q8knQixVz6bTUMzAZS8PX SdiKQuW0CyzH8fVoYjDYK mPMUuO6MgwQSg SAcfK309MWkdUbM3FDGcq vKgQ6OqOCWtqQwpVmY0p2 Y9Vx0FL1T0CI68DG54tJT xp0B9qBA5Y0Ax LZYbwvqfhyehkBA3TFGuS NKfeQ78Jc6ubZrxFy6iNA ZqPJP3FNPxyCThO4IdhT5 yOiAjMDAwMDAw K2CjqCPjWWocS645LCmxF aR9IYOewcVgP9OcOFFdiZ haUlK3p1S7Ee4VUYg4YE0 7CO76bXLgc6M1 iWY0O3KoJHBtrizafbgzl OA9XGUoTYXcgJ12Vo0ihZ hiVb7bOEMvSVV9OUBufCQ rP8UkqW9fKiYh NEJwUGAtA2KuuSVpBPhvK 848FIgfEaR4DMHcljByA4 HcWVQtlDnbUzZ3a9X2Nx7 RDFLoTN80DCM7 pVL1RF52NO99Q7NjFluve GFibGU+PHRhYmxlIHdpZH RoPScxMDAlJyBzdHlsZT0 hRg5rWVKzIZSb vYyncYXqSeRvk9suEJLmA ZhnJR6rlZlpN6JwlAF8AR Jxe1b9Xd89H01oD7SoeLP +LHUgiTH9xVU9 vS2wMeRgOdM0SKdtY362O zOnzGOpRcjhl2jqn6arrA b7MrM3ZXWpxyItcEkdGHG 1y0DjXl02I52d IHdpZHRoPSIxNSUiIHZhb Samtl7vaZ5eQf4+PGNvbC I5xNU5fJ0yNtLrVuA1QWf pX806RzCwrDXd Qhuco7qcp2qsfGr9NqPfB CJchkTamTflHOC8v6NnCb 21Z5SqiQose4HsJtl6ep9 1yWNjj8L4rKG7 Q9RnHTCxwovgyORkvIqeL O1yOHOyvnwnUQKshU4fYV VcL8a4SfNmQhL5YNwaX2Z ehsS2NNAptLCl ZVuwOYE9U76ao2L6FXAqJ CUxSXN7jVI6aG3zjPrxkx ogbGVmdDsgdmVydGljYWw eDIawS601IGOs zZjzGRUrlM0eANVkqTVkq AymUT2cFBCjmhcxMiyYWB NTTUFOLCBTVEVQSEFOSUU gUjwvdGQ+PHRk VIB7nSrlYDurYZLpsB7iW DDvB7v5XsJtDhP1NUagA0 AcNBDlnjefDe50jF2wLzL cZfB4WDzeN3Vv ryB1KITykOZzVMxqDJG3S 00zt6C7ZLElDQZhXLD2bL T4iG8gaIzppaytpFYwvLi gdmVydGljYWwt DIwlE984IBQfwRbeOgA4O pJ4JmK2Gbx7B2ObWur4WW AbnAipYU2wvJFfECahNy2 lyHelaGypAZ6z DXCfcohdLRDjrV2aDWEdp OVijNlnPL7yCYFxwpaom4 07FfNbDLO9WSOwbDSkD8N frA3kPqEdVPLd VLBoP0IveVZfINgyT221Y PxtNqR4BGSyotKhM8AmCM SrjDgdNsS2f6Y7Mr77VlE ZZWFyczwvdGQ+ SWIjBFE1zKpaSJtjWAXlz Z8rJWIeP0x0DnThNoH6PS wsG7VjWNXlvtpeLt63xG3 mHiLsPvL2QAcl Y9OjimA7MNQutVNsLIkpZ BU7M07ki6P4SIItXPXoEP S7vVV9oU7pnMiacthibLZ mdDsgdmVydGlj VRisVOofT735KVBcoRliA kZlbWFsZTwvdGQ+PHRkIH D7vYhuBMkyNYKuoN4aBHG zW1q9HqXqZuL3 YWqxP0UyBVHbeygjEc08t Z4jQrVqYuP1FCcjZ0Jzex O9UIFrkALxDUtxNYE8Q30 bl2C0RSBaWEDp ISQ2mFX0wR9lcFdvuzfyz GVmdDsgdmVydGljYWwtYW ngP164XSAvwXmqFbvpVhT Ufl0nEB5xJcba dGQ+VZ48wv05H6OyHfnuM hy9AVSiASD6gMQ6zS0xFB DtHAipc2N2jJX1L2IpasP gvh4uj1emMWMc SSjhW92gxGUro7A9QAVld NI0MJEctQyqAuTgpE59Nf c+OPSdpZewn5GfZguld3n ot7dbvTj0GlMs PTWvdxYzjZjeCUF6o5TnQ i74K38wEDrlBKWfCDZsWK PyFWZbvUgttk8vfV5aYl8 +FCEhiYX0mUZ5 vC5hZtPqWjY0QKbsH060U sTplNHlFqzme3xna9clfY p4IaQjQWGyzgDunYqwEQJ 5l0UvXh90H1Az hHxbu7ToTib4nv47vVLjc 8C9wUD2M5WkMPWbvhlurC NmkJzyBG7tTOKpmuurRSA wdJ5wWQIgV7l2 FcVfMkI0ZLupR6HqncB5E JZanTCcBAZehRIPeW9eom kxx5cbkrejMxPlNPVxXGz 2BWx1ROVrxZof VxIqRFT6VfY3ULG2hVHop C3raChvxqkqyK9qWxw+UG u0i7pdtRCsXP2wrAN9FK4 4ON65fXEto2V5 pSV9V3McKNBieahvjrdtd PW6VCBqUVYgwH05Qd5yfC enYg5tLJCfBER4FROhgDD bU8BdkB7jZoRw GVRfOMQaD3QlnOEmMDhlD 614BAjqYcY5BIYuqpLdB3 EyNMUqxLqjEzF6m1Q2Dx5 LFA15TE90DO87 tAXrn2E8jQN0J0RbBWHuq sclnwobcZC7STBcHMXegA 76Ql2kgNtuAn0qNQHeHZV 9WFVveUKoD6Ab dC9cCcUsDAVnPLYjU6Qoe LRoZFtpV340APeaJjM5IK NzpnKtJ9PoZFRfaPchYlV 0k7X4Jn8CIx92 BW07RH47mMPpe2C7tDZ6T 9PhVXKfqpzcmsgfzJG8ZY XbTYHdyF83Dk1eqRtnLq1 qUGAlIFO1KRAq qSElY6GuiI5oCoQvEIXyP VTcV1YrtFQiGNvwU203FW siUaJ8MYKiuyBgS6KoNVJ ohPfdQlP2d0B2 Mu0KSBlmeqg6N8OtProks MA+ES89NGFxUJ61vPPtgD Oug8kfrCv8KsVzJSHaMTF 3dUhyAHdyv3Mn ZXIt (more content not included)... [facility] Consent for Treatmenton 03-25 Consent for Treatment [id number] .00CD:127 [facility] Physician Orderon 04-05-2021 Physician Order [id number]#1 .00CD:127 [facility] XR Chest 2 Viewson XR Chest 2 [...] Arce M.D. Transcribed by: CALIN Technologist: TAYLOR [facility] C Urineon 04-04-2021 Bacteria identified Cx Nom [...] Locations R1: This test was performed at: [facility], [address] [place] [address], [address]- , [place], Normal [facility] Comment on above: Performed By: #### 1 [id number] #### [facility] [address] [place] [address] Consent for Treatmenton Consent for Treatment [id number] .00CD:127 Normal [facility] Discharge Instructionson Discharge Instructions [id number]# 1.00CD:127 Normal [facility] ED Clinical Summaryon 2020 ED Clinical Summary [address] [address] ED Clinical Summary Person Information Name: DELILAH SANDOVAL Danielle/[facility] Age: 41 Years : 1980 Sex: Female Language: Nigerian PCP: DIA HU Marital Status: Single Phone: [phone] Visit Id: Visit Reason: Cough; Dysuria; COUGH, [...] 04/02/2021 00:42:41 04/02/2021 00:42:41 04/02/2021 00:42:41 ADDRESS: [address] [place] [address] [address] [place] [id number] PHYS DOC NOTES: MEDICAL INFORMATION: Prescriptions Given: New Medications [facility] 1986, [address] [place], [place] [id number], [phone] cephalexin (Keflex 500 mg Cap) 1 Capsules [...] In 3 days DIAGNOSIS: Acute UTI Normal [facility] ED Note-Physicianon 04-02-20 ED Note-Physician Basic [...] day(s), # 14 cap(s), Refills(s) 0, Pharmacy: [facility] 1985, 162, cm, 04/01/21 23:22:00 EDT, [...] Diagnostic Results No qualifying data available. Normal [facility] Comment on above: Result Comment: Elec [...] this condition includes: ? Antibiotic medicine. ? Txfm-jfq-gbauvfl medicines to treat discomfort. ? Drinking enough [...] these instructions at home: Medicines ? Take lzev-gvd-taixdac and prescription medicines only as told by [...] This in (more content not included)... Normal [facility] ED Patient Summaryon 021 ED Patient Summary [place] [id number] Patient Discharge Instructions Person Information Name: DELILAH SANDOVAL Age: 41 Years Arrival Date: 04/01/2021 23:05:18 Discharge Diagnosis: Acute UTI Primary Care Physician: DIA HU Provider Information Primary Provider: Aguilar Pino DO Advanced Conductor/Brakeman:None The exam and treatment you received in the Emergency Department were for an urgent problem and are not intended as complete care. It is important that you follow up with a doctor, nurse practitioner, or physician?s mobile sales assistant for ongoing care. If your symptoms [...] opioids can be used to help relieve dtkokyll-ow-bkoxzv pain and are often prescribed following a [...] guidance from the Food and Drug Administration (www.fda.gov/Drugs/Re sourcesForYou). ? Visit www.cdc.gov/drugoverd ose to learn about the risks of opioids abuse and overdose. ? If you believe you may be struggling with addiction, tell your health certified caregiver and ask for guidance or call SAMHSA?S National Helpline at 3-580-821-PUGJ. v Source: [place] Department of Health and Human Services/Center for Disease Control & Prevention [place] H (more content not included)... [facility] UA With Cult Reflexon 2020 Bilirubin Ql (U) 1+ Abnormal Negative [facility] Comment on above: Performed By: #### 1 [id number], [id number] #### [facility] [address] [place] [address] Clarity (U) CLOUDY Abnormal Clear [facility] Comment on above: Performed By: #### 1 [id number], [id number] #### [facility] [address] [place] [address] Color (U) RED Abnormal Yellow [facility] Comment on above: Performed By: #### 1 [id number], [id number] #### [facility] [address] [place] [address] Epithelial cells.squamous LM.HPF (Urine sed) [#/Area] 0-2 Normal 0-2 [facility] Comment on above: Performed By: #### 1 [id number], [id number] #### [facility] [address] [place] [address] Glucose Test strip (U) [Mass/Vol] Negative Normal Negative [facility] Comment on above: Performed By: #### 1 [id number], [id number] #### [facility] [address] [place] [address] Hemoglobin Ql (U) 3+ Abnormal Negative [facility] Comment on above: Performed By: #### 1 [id number], [id number] #### [facility] [address] [place] [id number] Ketones (U) [Mass/Vol] TRACE Invalid Interpretation Code Negative [facility] Comment on above: Performed By: #### 1 [id number], [id number] #### [facility] [address] [place] [address] [place].plasma/Lit hium.RBC (Bld) [Mass ratio] >75 Abnormal 0-3 [facility] Comment on above: Performed By: #### 1 [id number], [id number] #### [facility] [address] [place] [address] Nitrite Ql (U) Positive Abnormal Negative [facility] Comment on above: Performed By: #### 1 [id number], [id number] #### [facility] [address] [place] [address] pH (U) 6.5 [pH] Invalid Interpretation Code 5.0-9.0 [facility] Comment on above: Performed By: #### 1 [id number], [id number] #### [facility] [address] [place] [address] Protein (U) [Mass/Vol] 3+ Abnormal Negative [facility] Comment on above: Performed By: #### 1 [id number], [id number] #### [facility] [address] [place] [address] Specific gravity (U) [Rel density] 1.025 Invalid Interpretation Code 1.005-1.030 [facility] Comment on above: Performed By: #### 1 [id number], [id number] #### [facility] [address] [place] [address] Type of Urine collection method Clean Catch Normal [facility] Comment on above: Performed By: #### 1 [id number], [id number] #### [facility] [address] [place] [address] Urobilinogen Qn (U) 0.2 {Yvonne'U}/dL Normal 0.0-1.0 [facility] Comment on above: Performed By: #### 1 [id number], [id number] #### [facility] [address] [place] [address] WBC Auto Ql (U) TRACE Abnormal Negative [facility] Comment on above: Performed By: #### 1 [id number], [id number] #### [facility] [address] [place] [address] WBC LM.HPF (Urine sed) [#/Area] 0-5 Normal 0-5 [facility] Comment on above: Performed By: #### 1 [id number], [id number] #### [facility] [address] [place] [address] COVID-19 ([facility])on 03-30-2021 SARS-CoV-2 (COVID-19) RNA EFRAIN+probe Ql (Unsp spec) Not detected Normal Not Detected [facility] Comment on above: Result Comment: This test result should be correlated with clinical presentations and medical history by a healthcare provider to determine its clinical significance. This assay was performed by a reverse transcriptase real-time polymerase chain reaction (rt PCR) method on the [employer] system. This test has been authorized only [...] or revoked sooner. Performed By: #### 2 [id number] ####[place] [address] SARS-CoV-2 (COVID-19) RNA EFRAIN+probe Ql (Unsp spec) Pass Normal Pass [facility] Comment on above: Performed By: #### 2 [id number] ####[place] [id number] Specimen source Nom (Unsp spec) Nasal Normal [facility] Comment on above: Performed By: #### 2 [id number] ####[address] [address] Consent for Treatmenton Consent for Treatment [id number]# 1.00CD:127 Normal [facility] COVID-19 ([facility])on 03-29-2021 Employed in Healthcare NO Normal [facility] Comment on above: Performed By: #### 2 [id number] ####[place] [id number] First Test Unknown Normal [facility] Comment on above: Performed By: #### 2 [id number] ####[place] [id number] Hospitalized? NO Normal [facility] Comment on above: Performed By: #### 2 [id number] ####[facility] [address] [place] [address] ICU NO Normal [facility] Comment on above: Performed By: #### 2 [id number] ####[facility] [address] [place] [address] ? NO Normal [facility] Comment on above: Performed By: #### 2 [id number] ####[facility] [address] [facility] [place] [address] Resides in a Congregate Care Setting NO Normal [facility] Comment on above: Performed By: #### 2 [id number] ####[facility] [address] [place] [address] Symptomatic as defined by CDC YES Normal [facility] Comment on above: Performed By: #### 2 [id number] ####[facility] [address] [place] [address] Vital Signs Date Time Vital Sign Value Performing Clinician Facility 08-17-2024 14:40-0500 Body height 162.56 cm [facility] 08-17-2024 14:40-0500 Body temperature 97.9 [degF] [facility] 08-17-2024 14:40-0500 Body weight 111.13 kg [facility] 08-17-2024 14:40-0500 Diastolic blood pressure 89 mm[Hg] [facility] 08-17-2024 14:40-0500 Heart rate 79 /min [facility] 08-17-2024 14:40-0500 Respiratory rate 16 /min [facility] 08-17-2024 14:40-0500 SaO2% (BldA) [Mass fraction] 96 % [facility] 08-17-2024 14:40-0500 Systolic blood pressure 164 mm[Hg] [facility] 05-28-2022 21:53-0500 Body height 162.56 cm LUIS Wu Work Phone: [facility] 05-28-2022 21:53-0500 Body temperature 98.1 [degF] [employer] Dia Wu Work Phone: [facility] 05-28-2022 21:53-0500 Body weight 122.65 kg [employer] Dia Wu Work Phone: [facility] 05-28-2022 21:53-0500 Diastolic blood pressure 81 mm[Hg] [employer] Dia Wu Work Phone: [facility] 05-28-2022 21:53-0500 Heart rate 85 /min [employer] Dia Wu Work Phone: [facility] 05-28-2022 21:53-0500 Respiratory rate 24 /min [employer] Dia Wu Work Phone: [facility] 05-28-2022 21:53-0500 SaO2% (BldA) [Mass fraction] 95 % [employer] Dia Wu Work Phone: [facility] 05-28-2022 21:53-0500 Systolic blood pressure 161 mm[Hg] [employer] Dia Wu Work Phone: [facility] 05-26-2022 11:55-0500 Body height 162.56 cm Michael Jameson Other [facility] Other 05-26-2022 11:55-0500 Body mass index (BMI) [Ratio] 45.48 kg/m2 Michael Jameson Other [facility] Other 05-26-2022 11:55-0500 Body temperature 97.8 [degF] Michael Jameson Other [facility] Other 05-26-2022 11:55-0500 Body weight 120.2 kg Michael Jameson Other [facility] Other 05-26-2022 11:55-0500 Diastolic blood pressure 97 mm[Hg] Michael Jameson Other [facility] Other 05-26-2022 11:55-0500 SaO2% (BldA) [Mass fraction] 97 % Michael Jameson Other [facility] Other 05-26-2022 11:55-0500 Systolic blood pressure 143 mm[Hg] Michael Jameson Other [facility] Other 11-20-2021 10:26-0400 Body temperature 97.7 [degF] Raghavendra Rodriguez [facility] 11-20-2021 10:26-0400 Diastolic blood pressure 87 mm[Hg] Raghavendra Rodriguez [facility] 11-20-2021 10:26-0400 Heart rate 95 /min Raghavendra Rodriguez [facility] 11-20-2021 10:26-0400 Respiratory rate 20 /min Raghavendra Rodriguez [facility] 11-20-2021 10:26-0400 SaO2% (BldA) [Mass fraction] 98 % Raghavendra Rodriguez [facility] 11-20-2021 10:26-0400 Systolic blood pressure 185 mm[Hg] Raghavendra Rodriguez [place] Encounters Encounter Date Encounter Type Care Provider Facility Start: 12-23-2024 End: 12-23-2024 Bamboo flowsheet Carola Wally DO Work Phone: [facility] Start: 12-23-2024 End: 12-23-2024 Bamboo flowsheet Carola Wally DO Work Phone: [facility] Start: 08-17-2024 End: 08-17-2024 Emergency department patient visit [facility] Work Phone: Start: 12-19-2023 End: 12-19-2023 ambulatory CAROLA WALLY Not Available Start: 11-14-2023 End: 11-14-2023 ambulatory GHADA BRAR Not Available Start: 11-07-2023 End: 11-07-2023 ambulatory Carola Wally Facility:[facility] Start: 10-09-2023 End: 10-09-2023 ambulatory CAROLA WALLY Not Available Start: 09-04-2023 End: 09-04-2023 ambulatory [employer] Dia Wu Work Phone: [facility] Work Phone: Start: 09-04-2023 End: 09-04-2023 Departed Referred [employer] Dia Wu Work Phone: [facility] Start: 09-04-2023 End: 09-04-2023 ambulatory CAROLA WALLY Not Available Start: 08-22-2023 End: 08-22-2023 ambulatory CAROLA WALLY Not Available Start: 05-28-2022 End: 05-28-2022 Emergency department patient visit [employer] Dia Bryce Work Phone: [facility] Start: 05-26-2022 End: 05-26-2022 ambulatory Michael Jameson Other [employer] Other Start: 05-26-2022 Office outpatient ne w 20 minutes Michael Jameson [facility] Start: 02-16-2022 End: 02-16-[address] CAROLA LO Facility:[facility] Start: 12-02-2021 End: 12-02-[address] CAROLA LO Facility:[facility] Start: 11-29-[address] CAROLA LO Facility :[facility] Start: 11-20-2021 End: 11-20-2021 Emergency department patient visit Raghavendra Rodriguez [facility] Start: 11-18-2021 End: 11-18-[address] CAROLA LO Facility:[facility] Start: 11-15-[address] CAROLA LO Facility :[facility] Start: 11-11-2021 Encounter for preprocedural cardiovascular examination DR CAROLA LO [facility] Start: 11-07-2021 End: 11-08-[address] CAROLA LO Facility:[facility] Start: 11-07-2021 End: 11-08-2021 Encounter for preprocedural cardiovascular examination DR CAROLA LO Facility:[facility] Start: 09-23-2021 End: 09-24-[address] CAROLA LO Facility:[facility] Start: 09-22-2021 End: 09-23-[address] CAROLA LO Facility:[facility] Procedures Date Procedure Procedure Detail Performing Clinician Start: 10-25-2023 Mammography Carola cali DO Work Phone: Start: 10-12-2022 Microscopic observat ion [Identifier] in Cervix by Cyto stain Carola Lo DO Work Phone: Plan of Treatment Date Care Activity Detail Author Start: 10-13-2027 Screening for malign ant neoplasm of cervix [facility] Start: 02-23-2025 Influenza vaccination Influenz a Vaccine (Season Ended) [facility] Start: 12-23-2024 End: 12-23-2024 Patient encounter procedure 12/23/2024 11:00 AM EDT Office Visit [facility] [address] [address] Carola Lo, DO [address] [place] [address] Arrived [facility] Comment on above: Arrived Start: 10-24-2024 Screening for malign ant neoplasm of breast Mammogram [facility] Start: 1980 Screening for malign ant neoplasm of colon [facility] Patient Education Foreign Body in Ear [facility] Work Phone: Patient referral [facility] Work Phone: Immunizations Immunization Date Immunization Notes Care Provider René mg 07-01-2023 influenza virus vacc ine, unspecified formulation Carola Lo DO Work Phone: [facility] Payers Date Payer Category Payer Unknown [id number] 2024 Unknown [id number] 2024 Medicare (Managed Care) [employer]ICARE [employer]VANTAGE [id number] 2023 Self-pay [id number] 2020 Unknown [id number] 1980 Unknown [id number] 2.16.840.1.733292.3.579.2. 593 1980 Unknown [id number] 2.16.840.1.142284.3.579.2. 59 1980 Unknown [id number] 2.16.840.1.984217.3.579.2. 593 1979 Unknown [id number] 2.16.840.1.793744.3.579.2. 59 1979 Unknown [id number] 2.16.840.1.645299.3.579.2. 593 1979 Unknown [id number] 2.16.840.1.381144.3.579.2. 593 1979 Unknown [id number] 2.16.840.1.551814.3.579.2. 593 1979 Unknown [id number] 2.16.840.1.992315.3.579.2. 593 1979 Unknown [id number] 2.16.840.1.613820.3.579.2. 9 1980 Unknown [id number] 2.16.840.1.345721.3.579.2. 9 1979 Unknown [id number] 2.16.840.1.691940.3.579.2. 1259 1979 Unknown [id number] 2.16.840.1.188330.3.579.2. 1258 1979 Unknown [id number] 2.16.840.1.599300.3.579.2. 1259 1960 Self-pay [id number] Medicare Anthem MCR PFFS [id number] Unknown [id number] 2.16.840.1.140870.3.579.2. 531 Unknown [id number] 2.16.840.1.534376.3.579.2. 531 Social History Date Type Detail Facility Tobacco [facility] Comment on above: Denies. Start: 08-22-2023 Female [facility] Start: 05-28-2022 End: 03-05-2023 Tobacco smoking status NHIS Never smoked tobacco (finding) [facility] Start: 1980 Sex Assigned At Female [facility] Start: 08-17-2024 Sex Female (finding) [facility] Start: 03-05-2023 Tobacco use and exposure Smokeless tobacco non-user [facility] Start: 12-19-2023 Alcoholic beverage intake Ex-drinker (finding) [facility] Start: 08-22-2023 History of Social function [facility] Start: 03-05-2023 Alcohol Comment caffeine: 24oz Pepsi daily [facility] Start: 08-15-2023 Gender identity Identifies as female gender (finding) [facility] NEGATED: Highlighted row [facility] Medical Equipment Procedure Code Equipment Code Equipment Origin al Text Equipment Identifier Dates Start: 04-03-2023 Evaluation note 05-26-2022 Note Date & Type [...] (ICD-10 - R03.0) Follow up with pcp. [facility] Other Clinical Note 12-02-2021 Note Date & Type Note Facility 12-02-2021 Note OPERATIVE NOTE OPERATION DATE: 12/02/2021 PROCEDURE: Diandra endometrial ablation. PREOPERATIVE DIAGNOSIS: Menorrhagia. POSTOPERATIVE DIAGNOSIS: Menorrhagia. ANESTHESIA: General. SURGEON: Carola Lo D.O. DIRECTOR OF SEARCH ENGINE OPTIMIZATION: None. BLOOD LOSS: 5 mL. URINE OUTPUT: [...] Patient taken to recovery in stable condition. [facility] Signed and Approved by: DR CAROLA LO . 12/15/2021 10:48:00 [facility] Clinical Note 11-22-2021 Note Date & Type [...] Locations R1: This test was performed at: [facility], [address] [place] [address], [facility]- , , [facility] Comment on above: Performed By: #### 2 [id number] ####[facility] [address] [place] [address] Evaluation + Plan note 11-20-2021 Note Date & Type Note Facility 11-20-2021 Evaluation + Plan note Diagnostic Tests PendingStrep Screen Culture 11/20/21 [facility] Discharge instructions 11-20-2021 Note Date & Type Note Facility 11-20-2021 Hospital Discharg e instructions Patient Education 11/20/2021 11:31:01 Allergic Rhinitis, Adult, Hoix-ak-Kgci Allergic Rhinitis, Adult Allergic rhinitis is a [...] are lowest. This is usually during the cloth neutralizer or evening hours. ?If you do go [...] away after you touch household pets. Take bhol-xcf-qfkkwma and prescription medicines only as told by [...] 10/11/2011 Document Revised: 09/30/2019 Document Reviewed: 12/31/2018 [employer] Patient Education 2020 [employer]. 11/20/2021 11:31:01 Pharyngitis, Awin-ka-Cvbb Pharyngitis Pharyngitis is a sore throat (pharynx). This is when there is redness, pain, and swelling in your throat. Most of the time, this condition gets better on its own. In some cases, you may need medicine. Follow these instructions at home: Take eyri-xck-vaeyvae and prescription medicines only as told by [...] 11/27/2008 Document Revised: 05/24/2018 Document Reviewed: 07/17/2017 [employer] Patient Education 2020 [employer]. 11/20/2021 11:31:01 Cough, Adult, Iirw-hw-Xjma Cough, Adult A cough helps to clear [...] Follow these instructions at home: Medicines Take ssmg-axv-hidxxqu and prescription medicines only as told by [...] Many things can cause a cough. Take ytla-qqk-uanafdg and prescription medicines only as told by [...] 02/22/2012 Document Revised: 06/30/2019 Document Reviewed: 06/30/2019 [employer] Patient Education 2020 [employer] 11/20/2021 11:31:01 Cool Mist Vaporizer Cool Mist [...] 03/08/2005 Document Revised: 06/28/2017 Document Reviewed: 09/09/2016 [employer] Patient Education 2020 [employer] Follow Up Care 11/20/2021 10:25:19 With:Dia Wu Address: [address], [address] [phone] Business (1) When:11/23/2021 11:10:20 [facility] Clinical Note 11-18-2021 Note Date & Type Note Facility 11-18-2021 Note OPERATIVE NOTE OPERATION DATE: 11/18/2021 PROCEDURE: D AND C, hysteroscopy with Myosure. PREOPERATIVE DIAGNOSIS: Menorrhagia, thickened endometrium. POSTOPERATIVE DIAGNOSIS: Menorrhagia, thickened endometrium. ANESTHESIA: General. SURGEON: Carola Lo D.O. DIRECTOR OF SEARCH ENGINE OPTIMIZATION: None. SPECIMEN: Endometrial curetting. FINDINGS: Thickened endometrial [...] to the Recovery Room in stable condition. [facility] Signed and Approved by: DR CAROLA LO . 11/25/2021 08:14:00 [facility] Evaluation note Note Date & Type Note Facility Evaluation note No assessment information availa [facility] Work Phone: History general Narrative - Reported Note Date & Type Note Facility History general Narrative - Reported Type Medical History hypertension Medical History chronic depression Medical History acid reflux Medical History pre-diabetes Surgical History D&C 2006 Surgical History ablasion [facility] Other Hospital course Narrative Note Date & Type Note Facility Hospital course Narrative No data available for this section [facility] Discharge instructions Note Date & Type [...] may be related to your metformin dose [facility] Work Phone: Summary Purpose Family History Relationship Condition Age at Onset Recorded Date/T ledy father Unknown Not Specified Unknown Relationship Condition Age at Onset Recorded Date/T ledy father Unknown mother Unknown Advance Directives Advance Directive Response Recorded Date/ Time Advance Directives No April 7:37pm Advance Directive Response Recorded Date/ Time Advance Directives No April 8:37pm Chief Complaint and Reason for Visit Chief Complaint vomiting Chief Complaint Unknown Chief Complaint Admit Date fob stuck in lt ear August 17, 2024 2:04pm Additional Source Comments INFORMATION SOURCE (unrecogn ized section and content) DATE CREATED AUTHOR 12/01/2021 [facility] DATE CREATED AUTHOR AUTHOR'S ORGANIZ ATION 02/23/2022 [facility] DATE CREATED AUTHOR AUTHOR'S ORGANIZ ATION 12/20/2023 [facility] EPIC DATE CREATED AUTHOR AUTHOR'S ORGANIZ ATION 09/26/2024 [facility] Care Teams (unrecognized sec tion and content) [...] 2023 Carola Lo Attending Provider Active Start: [facility] 2023 End: September 04, 2023 Team Status: Active Member Role Status Dates NON STAFF Primary Care Provider Active Team Status: Inactive Member Role Status Dates NON STAFF Primary Care Provider Active Start: August 17, 2024 End: August 17, 2024 Feliz Shepard PA-C Emergency Provider Active Start: August 17, 2024 End: August 17, 2024 Product Safety Engineer Relationship Specialty Start Date End Date Jordan Saul DO PCP - General Family Medicine 08/22/23 Goals (unrecognized section and content) Goals may [...] BE BASED ON THE PRIMARY CLINICAL RECORDS. [facility] [employer] [facility]. provides no warranty or guarantee of the accuracy or completeness of information in this document.
[2024-12-29 14:08] LABS: Age Gdln ACOG Testing Note (.); IGP, Aptima HPV, rfx 16/18,45 Note (.)
== END 2024-12-23 19:13 | disposition home or self-care (01) ==
LOC: LAB 19:12
PROVIDERS: Visit Provider Obstetrics & Gynecology
DX: Z01.419 Encounter for gynecological examination (general) (routine) without abnormal findings (principal)
CPT/HCPCS: 87624; 88175

== ENCOUNTER 2025-05-13 10:59 | Outpatient (OUT) | payer MEDICARE, SELFPAY ==
--- OUTSIDE RECORDS SUMMARY | 2025-05-06 07:04 | XMS_ITS | Continuity of Care Document ---
Author Organization [facility] Address [address] [place] [address] Phone Care Team Providers Care Director Check Name Role Phone NON STAFF Primary Care Provider Lorri Pina APRN Attending Provider Care Teams Patient Care Team Team Status: Active Member Role/Relationship Status Dates NON STAFF Primary Care Provider Active Patient Care Team Team Status: Inactive Member Role/Relationship Status Dates NON STAFF Primary Care Provider Active Start: May 06, 2025 End: May 06Snehal Calvin ProviderActiveStart: May 06, 2025 End: May 06, 2025 Chief Complaint and Reason for Visit Chief Complaint Admit Date R hip/back pain May 06, 2025 11:27am Allergies, Adverse Reactions, Alerts Allergen Type Severity Reaction Last Updated Verified Status Penicillins Allergy Severe Rash April 11:37am Yes Active Sulfa (Sulfonamide Antibiotics) Allergy Severe Rash May 06, 025 11:37am Yes Active sulfacetamide Allergy Severe Rash May 062024 11:37am Yes Active Social History Smoking Status Status Start Date End Date Date of Observa tion Never smoked tobacco (finding) August 17, 2024 3:06pm Observation Status Observation Response Date of Response Legal Sex Female (finding) Sex Assigned At BirthFemaleSeptember 1979 Family History Relationship Condition Age at Onset Recorded Date/T ledy father Unknown motherDeceasedUnknown Problems Inactive/Resolved Problems Problem Diagnosis/Recorded Date Onset Date Status C omments Wallace's cyst of knee May 07, 2019 8:19pm Unknown Resolved Probl em List clean-up per request of Phys. EHR Cmte Foreign body in ear August 17, 2024 3:12pm Unknown Resolved DiarrheaDecember 2021 10:17pmUnknownResolvedProblem List clean-up per request of Phys. EHR CmteBronchitisAugust 2020 9:08pmUnknownResolved Problem List clean-up per request of Phys. EHR CmteNauseaDecember 2021 10:17pmUnknownResolvedProblem List clean-up per request of Phys. EHR Cmte Medications Medication Status Dose Units Route Directions Qty Days Refills S tart Date Stop Date End Date Reason(s) Instructions Adherence Naproxen 500 mg tablet Discontinued 500 MG PO Twic e daily as needed for pain 14 2018 12:00amAugust 2020 8:54pmLisinopril 10 mg tablet Coyubr48XGPBWfhosIfmpjj 2020 11:00pmComplies with drug therapyEscitalopram Oxalate 10 mg ilmkqnLbaauk26DBFKLaswzXhcskx 2020 11:00pmComplies with drug therapyPrednisone 20 mg fryyiyPcxtecvnmltg03TRUSWpeza3034Jdgccf 2020 11:00pmMay 06, 2025 11:37amOndansetron 4 mg tablet,disintegrating Mkweimuemxkj6LKAIN2P as needed for nausea and sctehbdc393Wryblpco 4th, 2022 12:00amNove2024 11:38amDicyclomine 10 mg oajftkjGvgpqkuusaqn97UMQC Twice rkuty419QtmdsxwsMay 28, 2022 12:00amNove2024 11:37amMetformin 500 mg bvculyWxcype774HPZPJzsxw daily with mealsMay 06, 2025 12:00amComplies with drug therapyAtorvastatin 10 mg xiywcmZbwobd68BMEVLnocbSdzutmfw 12th, 2025 12:00amComplies with drug therapySemaglutide (Ozempic) 0.25 mg or 0.5 mg (2 mg/3 mL) pen injectorActive0.25MGSUBCUTevery weekMay 06, 2025 12:00amfor 4 weeksComplies with drug therapyFluoxetine 40 mg gadvwivVbfzup84QYAHZosghCcrykrer 12th, 2025 12:00amComplies with drug therapy Vital Signs Vital Reading Result Reference Range Collection Date/Time Height 64 [in_i] May 06, 2025 11:37pnQqozyw456.05 kgNov2024 11:41amBody Jzeslweqccp59.2 [degF]97.6-99.0May 06, 2025 11:41amHeart Rate76 /min 60-100May 06, 2025 11:41amRespiratory rate18 /frv01-54KrayjxqqMay 06, 2025 11:41amOxygen saturation by Pulse vrecqjjf70 %95-100May 06, 2025 11:41am BP Vvyrnipm491 mm[Hg]100-140May 06, 2025 11:41amBP Wfrufvwux02 mm[Hg] 60-100May 06, 2025 11:41amBMI (Body Mass Index)38.6 kg/g7CvtmlryfMay 06, 2025 11:41am Advance Directives Advance Directive Response Recorded Date/ Time Advance Directives No April 7:37pm Insurance Providers Guarantor Delilah Levi Address [address] [facility] [address]Ihdjbbr Info.Home Phone: Coverage Status Update:2024 Payer Group Member ID Coverage Type Subscriber Relationship to Subscriber Effective Date Expiration Date Marti [facility] [employer] Id: [id number] R [place] Id: [id number] [address] [facility] [address] Home Phone: [employer] [facility] [employer] Id: [id number] R [place] Id: [id number] [address] [facility] [address] Home Phone: SelfHCAP/HFA/FAP Active 100% from 24 to 25 [facility] [address] Work Phone: [phone] [id number] R [place] Id: [id number] [address] [facility] [address] Home Phone: SelfJuly 2024Self Pay [id number] 2024 Encounters Encounter Location(s) Arrival/Admit Date Discharge/Departure Date Discharge/Departure Disposition Provider(s) Departed Physician/ Provider Office Visit -[facility] Sonja May 06, 2025 11:27am May 06, 2025 12:04pm Discharged to home care or self care (routine discharge) Eleonora Tilley CERAMIST Plan of Treatment Future Tests Future scheduled test information is unavailable Pending Tests Pending diagnostic test information is unavailable Future Visits Future appointment information is unavailable Future Procedures Future procedure information is unavailable Future Medications Future medication information is unavailable Patient Instructions Instruction Admit Date Muscle, joint, and bone pain - Discharge instructions May 06, 2025 11:27am
--- NOTE | 2025-05-13 11:04 | MM_ITS ---
Patient Name: KERON SANDOVAL MR#: [id number] : 1980 Exam Date: 05/13/2025 Ordering Doctor: DR CAROLA MOORE . RADIOLOGY REPORT PROCEDURE: MM TOMOSYNTHESIS SCREENING BI COMPARISON: MM TOMOSYNTHESIS SCREENING BI, 10/25/2023. INDICATIONS: Screening Calculator Name NCI Breast Cancer Risk Assessment Tool 5 Year Breast Cancer Risk 0.90% Lifetime Breast Cancer Risk 9.60% Personal Breast Cancer No Personal Ovarian Cancer No Treatments None Family Cancers None LOCATION: [facility] BREAST COMPOSITION: There are scattered areas of fibroglandular density. FINDINGS: RIGHT BREAST: No significant suspicious finding. LEFT BREAST: No significant suspicious finding. DIAGNOSTIC CATEGORY 1--NEGATIVE. NO CHANGE FROM COMPARISON ASSESSMENT. RECOMMENDATIONS: ROUTINE MAMMOGRAM AND CLINICAL EVALUATION IN 12 MONTHS. Dictated by: William Connolly MD on 05/13/2025 at 16:29 Approved by: William Connolly MD on 05/13/2025 at 16:39
--- OUTSIDE RECORDS SUMMARY | 2025-05-13 11:05 | XMS_ITS | CCD ---
Author Organization [facility] Care Team Providers Care Cal[employer] Equipment Operator Name Role Phone Natasha Wu Primary Care Physician WALLY, DR SRIVASTAVA [...] WALLY, DR SRIVASTAVA Consulting Unavailable WALLY, DR SIRVASTAVA Admitting Unavailable WALLY, DR SRIVASTAVA Attending Unavailable [...] Jameson Unavailable LUIS Wu Primary Care Provider Anatoliy Lo Attending Provider [phone] NON STAFF Primary Care Provider UnavailFeliz Hale PA-C Emergency Provider NON STAFF Primary Care Unavailable Feliz Shepard Admitting Unavailable Feliz Shepard Attending Unavailable Anatoliy Lo Admitting Unavailable Anatoliy Lo Attending Unavailable Kg GLEASON Jordan Primary Care Provider ANATOLIY LO Attending Unavailable Allergies Allergy ClassificationReported Allergen(s)Allergy TypeDate of OnsetReaction(s) Facility (3 sources)Penicillin; Translations: [penicillin]Drug Allergyhives, Unknown [facility] (1 source)Sulfonamides (Antibiotic); Translations: [sulfa drugs]Drug allergy [facility] (1 source)Sulfonamides (Antibiotic)Drug allergy (disorder)[facility] Repository (11 sources)Penicillins; Translations: [Penicillins]Allergy to substance 20-53-9903YeijxhgWsjwxskqbC[facility] (4 sources)Sulfonamides (Antibiotic); Translations: [Sulfa (Sulfonamide Antibiotics)]Allergy to kmequzdrd78-78-8633Reorcsx ReactionSelect [facility] (10 sources)SulfacetamideDrug Rucknmk81-12-5293Ktckplo, Unknown Reaction [facility] (1 source)SulfacetamideDrug Wrcrbhn41-26-7138DpngfmoyqSelect Medical [facility]ty [facility] (7 sources)Penicillin GDrug Rijuuhy47-39-9753Hjzwslw, [facility] (7 sources)Sulfonamides (Antibiotic)Drug Zvjirgx52-66-5810Cenmwjt, [facility] Medications Current Medications MedicationDrug Class(es)DatesSig (Normalized)Sig (Original)acetaminophen 325 mg / oxyCODONE hydrochloride 5 mg oral tablet (4 sources)Opioid AgonistStart: 13-18-7892mvbh 1 tablet by mouth every six hours as needed for painoxyCODONE-acetaminophen (Percocet) 5-325 MG tablet Take 1 tablet by mouth every 6 (six) hours if needed for moderate pain 11/08/2023 Wriiiangk411651 200 actuat albuterol 0.09 mg/actuat metered dose inhaler (7 sources)beta2-Adrenergic AgonistStart: 87-64-7243pblf 1 puff(s) by mouth every four to six hours as neededalbuterol HFA 90 mcg/act inhaler INHALE 1 PUFF BY MOUTH DIRECTED EVERY 4 TO 6 HOURS NEEDED FOR SHORTNESS OF BREATH 05/10/2023 Activebenzonatate 200 mg oral capsule (1 source)Non-narcotic AntitussiveStart: 15-09-2616yhzt 1 capsule by mouth three times daily as needed for coughBenzonatate 200 MG 1 capsule Orally Three times a day as needed for cough for 7 day(s) May,ctiveBlood Glucose Calibration (OT ULTRA/FASTTK CNTRL SOLN) solution (7 sources)Start: 53-60-4466Ifzdl Glucose Calibration (OT ULTRA/FASTTK CNTRL SOLN) solution USE DIRECTED FOR GLUCOMETER 01/15/2023 ActiveBlood Glucose Monitoring Suppl (ONE TOUCH ULTRA 2) w/Device kit (7 sources)Start: 15-42-3540Awsrd Glucose Monitoring Suppl (ONE TOUCH ULTRA 2) w/Device kit USE DIRECTED TO CHECK FASTING BLOOD SUGAR DAILY 01/12/2023 ActiveBrompheniramine / Pseudoephedrine (1 source)alpha-Adrenergic AgonistStart: 63-51-1576mnhn 5 mL by mouth four times dailyBromfed DM oral syrup 5 mL, Oral, QID for cold symptoms, 120 mL, Refill(s) 0, [facility], cm, 11/20/21 10:28:00 EDT, Height/Length Dosing, 125, kg, 11/20/21 10:28:00 EDT, Weight Dosing Start Date: 11/20/21 Status: OrderedContinuous Blood Gluc Hypnotherapist (FreeStyle Alyssa [address] [place]) device (7 sources)Start: 84-67-8554Twjftooeun Blood Gluc Hypnotherapist (FreeStyle [place] [address] [place]) device TO USE WITH CGM 05/22/2023 ActiveContinuous Blood Gluc Sensor (FreeStyle Alyssa 2 Sensor) mis (7 sources)Start: 40-02-3556Yjyobkdiej Blood Gluc Sensor (FreeStyle Alyssa 2 Sensor) misc TO BE PLACED SUBCUTANEOUSLY EVERY 14 DAYS TO CHECK BLOOD SUGARS TWICE A DAY 05/22/2023 Activedicyclomine hydrochloride 10 mg oral capsule (3 sources)AnticholinergicStart: 68-22-9827galh 1 capsule by mouth twice daily Dicyclomine 10 mg capsule Active 10 MG PO Twice daily May 28, 2022 12:00amdoxycycline hyclate 100 mg oral capsule (1 source)Tetracycline-class DrugStart: 56-36-5936irjf 1 capsule by mouth twice dailydoxycycline hyclate 100 mg Cap 100 mg = 1 cap(s), Oral, BID, # 20 cap(s), Refills(s) 0, [facility], [facility], cm, 11/20/21 10:28:00 EDT, Height/Length Dosing, 125, kg, 11/20/21 10:28:00 EDT, Weight Dosing Start Date: 11/20/21 Status: Orderedescitalopram 10 mg oral tablet (11 sources)Serotonin Reuptake InhibitorStart: 61-48-0806qvwp 1 tablet by mouth once dailyEscitalopram Oxalate 10 mg tablet Active 10 MG PO Daily February 09, 2021 11:00pmFLUoxetine 40 mg oral capsule (7 sources)Serotonin Reuptake InhibitorStart: 77-78-5518wcab 1 capsule by mouth once dailyFLUoxetine (PROzac) 40 MG capsule Take 40 mg by mouth Daily 07/06/2023 Activefluticasone propionate 0.05 mg/actuat metered dose nasal spray (1 source)CorticosteroidStart: 75-08-7996ebnq 1 spray(s) nasal route twice daily Fluticasone Propionate 50 MCG/ACT 1 spray in each nostril Nasally Twice a day for 14 days May, ActiveHydrocortisone 1% In Absorbase topical ointment (1 source)Start: 48-73-1325Jgnqihrlqpdomp 1% In Absorbase topical ointment 1 bartolo, Topical, BID, 110 gram, Refill(s) 0 Start Date: 10/10/18 Status: Ordered ibuprofen 800 mg oral tablet (4 sources)Nonsteroidal Anti-inflammatory DrugStart: 56-12-5774ayar 1 tablet by mouth every eight hoursibuprofen 800 MG tablet Take 800 mg by mouth every 8 (eight) hours 11/08/2023 Activeirbesartan 75 mg oral tablet (8 sources)Angiotensin 2 Receptor Blockertake 1 tablet by mouth once daily irbesartan (Avapro) 75 MG tablet Take 75 mg by mouth Daily Activelisinopril 10 mg oral tablet (3 sources)Angiotensin Converting Enzyme InhibitorStart: 83-70-3284tbpn 1 tablet by mouth once dailyLisinopril 10 mg tablet Active 10 MG PO Daily February 09, 2021 11:00pmmetFORMIN hydrochloride 500 mg oral tablet (8 sources)Biguanidetake 1 tablet by mouth in the morningmetFORMIN (Glucophage) 500 MG tablet Take 500 mg by mouth in the morning and 500 mg before bedtime. Activetake 1 tablet by mouth once dailymetFORMIN HCl 500 MG 1 tablet with a meal Orally Once a day ActivemetroNIDAZOLE 500 mg oral tablet (4 sources)Nitroimidazole AntimicrobialStart: 41-13-2074mkvk 1 tablet by mouth in the morningmetroNIDAZOLE (Flagyl) 500 MG tablet Take 500 mg by mouth in the morning and 500 mg before bedtime.11/08/2023 Activemontelukast 10 mg oral tablet (1 source)Leukotriene Receptor Antagonisttake 1 tablet by mouth every twenty- four hoursMontelukast Sodium 10 MG 1 tablet Orally Once a day ActiveNasacort Allergy 24HR nasal spray (1 source)Start: 00-03-5389Uhkbmroh Allergy 24HR nasal spray 1 spray(s), Nasal, Daily, 1 EA, Refill(s) 0, [facility], [address], cm, 11/20/21 10:28:00 EDT, Height/Length Dosing, 125, kg, 11/20/21 10:28:00 EDT, Weight Dosing Start Date: 11/20/21 Status: Orderedomeprazole 20 mg delayed release oral capsule (1 source)Proton Pump Inhibitortake 1 capsule by mouth once dailyOmeprazole 20 MG 1 capsule 30 minutes before morning meal Orally Once a day Activeondansetron 4 mg disintegrating oral tablet (3 sources)Serotonin-3 Receptor AntagonistStart: 99-24-1527byjv 1 tablet by mouth every eight hours as needed for nausea and vomitingOndansetron 4 mg tablet,disintegrating Active 4 MG PO Q8H as needed for nausea and vomiting 6 May 28, 2022 12:00ampolysaccharide iron complex 391 mg oral capsule (7 sources)iron polysaccharides (ProFe) 391.3 (180 Fe) MG capsule 1 capsule 1 (one) time each day at the same time ActivepredniSONE 20 mg oral tablet (4 sources)Start: 30-01-8055fokm 60 mg by mouth once dailyPrednisone Active 60 MG PO Daily 12 February 10, 2021 12:00amStart: 59-69-7729miwi 3 tablets by mouth once dailyPrednisone 20 mg tablet Active 60 MG PO Daily 12 February 09, 2021 11:00pmrosuvastatin calcium 5 mg oral tablet (4 sources)HMG-CoA Reductase InhibitorStart: 30-77-8319rjcg 1 tablet by mouth at bedtimerosuvastatin (Crestor) 5 MG tablet Take 5 mg by mouth at bedtime 10/29/2023 ActiveSemaglutide (OZEMPIC, 0.25 OR 0.5 MG/DOSE, SC) (7 sources)Start: 38-86-7942Gkkwpgmtamf (OZEMPIC, 0.25 OR 0.5 MG/DOSE, SC) 04/10/2023 Active Completed/Discontinued Medications MedicationDrug Class(es)DatesSig (Normalized)Sig (Original)naproxen 500 mg oral tablet (4 sources)Nonsteroidal Anti-inflammatory DrugStart: 05-07-2019 End: 36-13-6421dras 1 tablet by mouth twice daily as needed for painNaproxen 500 mg tablet Discontinued 500 MG PO Twice daily as needed for pain May 07, 201912:00am February 10, 2021 8:54pm Problems Active Problems Problem ClassificationProblemDateDocumented DateEpisodic/ChronicChronic obstructive pulmonary disease and bronchiectasis (3 sources)Bronchitis; Translations: [Bronchitis, not specified as acute or chronic]36-22-7335NtwqrmusXjaavqa on above:Problem List clean-up per request of Phys. EHR CmteImmunizations and screening for infectious disease (1 source)Encounter for screening for human papillomavirus (HPV); Translations: [ENC SCREENING HUMAN PAPILLOMAVIRUS]Onset: 43-66-5308WnsanyqoAsjeguyky disorders (5 sources)Excessive and frequent menstruation with regular cycle; Translations: [EXCESS FREQ MENSTRUATION W/REG CYCL]Onset: 29-33-2233HjecjivSlohlh and vomiting (3 sources)Nausea; Translations: [Nausea]94-22-3256EtvhuzbmQlsnaiq on above: Problem List clean-up per request of Phys. 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 EHR CmteOther female genital disorders (1 source)Abnormal uterine and vaginal bleeding, unspecified; Translations: [ABNORMAL UTERINE VAGINAL BLEED UNS]Onset: 79-89-9101UjutllzVoazk gastrointestinal disorders (3 sources)Diarrhea; Translations: [Diarrhea, unspecified]80-50-5623Xegrdvtt Comment on above:Problem List clean-up per request of Phys. EHR CmteOther injuries and conditions due to external causes (1 source)Foreign body in ear; Translations: [Foreign body in ear, unspecified ear, initial encounter]17-85-1728LyxgbyqsHpsqp injuries and conditions due to external causes (1 source)Foreign body in left ear, initial encounter; Translations: [Foreign body in left ear, initial encounter]Onset: 16-86-7206LxcoycrtIgieh screening for suspected conditions (not mental disorders or infectious disease) (1 source)Abnormal findings on diagnostic imaging of other specified body structures; Translations: [ABNORML FIND DX IMG OTH BODY STRUC]Onset: 12-06-2021 ChronicOther screening for suspected conditions (not mental disorders or infectious disease) (6 sources)Encounter for screening for malignant neoplasm of cervix; Translations: [Patient encounter status]Onset: 02-74-3414WhvpsrruMbmnl upper respiratory infections (4 sources)Common cold; Translations: [Acute nasopharyngitis [common cold]] Onset: 44-59-5266Kzggmfkf Past or Other Problems Problem ClassificationProblemDateDocumented DateEpisodic/ChronicOther female genital disorders (1 source)Polyp of corpus uteri; Translations: [POLYP OF CORPUS UTERI]Onset: 88-48-0526WbgpdjxpNgawklctlytw (1 source)Cough R05.9 Results Test NameValueInterpretationReference RangeFacilityIGP,APTIMA HPV,AGE GDLNon 17-48-4961FEJ GDLN ACOG TESTINGNote.NOMS HealthcareComment on above:TESTS RESULT FLAG UNITS REF RANGE LAB Clinician Provided Cytology Information Source.............Vagina No. of containers..01 ThinPrep Vial Age Algo ACOG Scarlett... 30-65 01 FLAG LEGEND: L-Low Normal,H-High Normal,LL-Alert Low,HH-Alert High <-Panic Low,>-Panic High,A-Abnormal,AA-Critical Abnormal Performed at: 01 =[facility] [address] Enedelia Choudhary MD, HPV APTIMANegativeNegativeNOMS HealthcareComment on above:This nucleic acid amplification test detects fourteen high- risk HPV types (16,18,31,33,35,39,45,51,52,56,58,59,66,68) without differentiation. Performed at: =[facility], [place] [id number] Director Retirement: Enedelia Choudhary MD, Phone: [phone] Performed at: [facility] [address] [place], [place] [id number] Director Retirement: Panchito Marquez MD, Phone: [phone] IGP, APTIMA HPV, RFX 16/18,45Note.NOMS HealthcareComment on above:TESTS RESULT FLAG UNITS REF RANGE LAB DIAGNOSIS: 02 NEGATIVE FOR INTRAEPITHELIAL LESION OR MALIGNANCY. Specimen adequacy: 02 Satisfactory for evaluation. Performed by: 02 Lemuel Umanzor, Director Pharmacology ([facility]) . 02 Note: Note 03 The Pap smear is a screening test designed to aid in the detection of premalignant and malignant conditions of the uterine cervix. It is not a diagnostic procedure and should not be used as the sole means of detecting cervical cancer. Both false-positive and false-negative reports do occur. Test Methodology: Note 03 This liquid based ThinPrep(R) pap test was screened with the use of an image guided system. HPV Genotype Reflex Note 02 Criteria not met, HPV Genotype not performed. FLAG LEGEND: L-Low Normal,H-High Normal,LL-Alert Low,HH-Alert High <-Panic Low,>-Panic High,A-Abnormal,AA-Critical Abnormal Performed at: [address] [place] [address] [facility] [address] [place] [address] Panchito Marquez MD, 03 [facility] [address] [place] [address] Enedelia Choudhary MD, SPATULA-ALONE VAGINA CLINISYNCNOMS [facility] CompanyLon 57-13-7737ZZvlcuuoa: [id number] Received: 11/08/23752 Status: GURJIT Christensen Num: [id number] Spec Type: Surgical Subm Dr: Anatoliy Lo Tissues: A Uterus w/ or w/o tubes ovaries except neoplastic or prolap (CERVIX, RT FT) Procedures: HE/12, Gross/Micro L5 Age/ Patient Sex Location Account Attending Physician Delilah Levi 43/F LABELL [id number] Anatoliy Lo SPEC NUM: [id number] RECD: 11/08/23 STATUS: GURJIT CHRISTENSEN NUM: [id number] MARCO ANTONIO: 11/07/[address]: Anatoliy Lo ENTERED: 11/08/[address] [facility] [address]: Litzy,Lab SPEC TYPE: Surgical DEPT: [...] luminal center lined by unremarkable hill mucosa. Specimen: [id number] Received: 11/08/23 Status: GURJIT Christensen Num: [id number] Spec Type: Surgical Subm Dr: Anatoliy Lo Tissues: A Uterus w/ or w/o tubes ovaries except neoplastic or prolap (CERVIX, RT FT) Procedures: , Gross/Micro L5 Patient: Delilah Levi [id number] (Continued) Specimen: [id number] Received: 11/08/23 (Continued) Gross Description (Continued) Signed (signature on file) Mariana Milan MD 11/09/232040 Specimen: [id number] Received: 11/08/23 Status: GURJIT Christensen Num: [id number] Spec Type: Surgical Subm Dr: Anatoliy Lo Tissues: A Uterus w/ or w/o tubes ovaries except neoplastic or prolap (CERVIX, RT FT) Procedures: Gross/Micro L5 Patient: Delilah Levi [id number] (Continued) Specimen: [id number] Received: 11/08/23 (Continued) Gross Description (Continued) Rewinder Operator sections submitted as follows: A1: Anterior cervix A2: Posterior cervix A3?A4: Anterior endomyometrium A5?A6: Posterior endomyometrium A7: Nodule A8: Fallopian tube Clinical history: Menorrhagia, pelvic pain, dyspareunia, dysmenorrhea TW CPT Codes 55250 Specimen: [id number] Received: 11/08/23 Status: GURJIT Christensen Num: [id number] Spec Type: Surgical Subm Dr: Anatoliy Lo Tissues: A Uterus w/ or w/o tubes ovaries except neoplastic or prolap (CERVIX, RT FT) Procedures: Gross/Micro L5 Patient: Delilah Levi [id number] (Continued) Signed (signature on file) Mariana (more content not included)...NormalPalm Springs General Hospital Physician GroupALL TYPE AND SCREENon 10-25-2023 ABO and Rh group Nom (Bld)Blood group A Rh(D) positiveParkview Health ,[facility] 12-LEADon 52-17-5165Y[place] [address] Electrocardiograph Report Signed Patient: DELILAH LEVI MR#: [id number] : 1980 Acct:[id number] Age/Sex: 43 / F ADM Date: 10/25/23 Loc: [facility] Attending Dr: Anatoliy Lo D.O. Ordering Physician: Anatoliy Lo D.O. 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 Signed By: 10/25/23 1450 DD/ 1247 TD/TT: Turf Farm Worker:TBHRadiology, Radiologist, - 10/25/[address] [address] Electrocardiograph Report Signed Patient: DELILAH LEVI MR#: [id number] : 1980 Acct:[id number] Age/Sex: 43 / F ADM Date: 10/25/23 Loc: PST Attending Dr: Anatoliy Lo D.O. Ordering Physician: Anatoliy Lo D.O. 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 Signed By: 10/25/23 1450 DD/ 1247 TD/TT: Turf Farm Worker: BRENDON HealthcareRadiology Study observation (narrative)BRENDON HealthcareECG 12-LEAD Ordered By: Radiologist Radiology on 41-02-6199UM[facility] Work Phone: mm TOMOSYNTHESIS SCREENING BIon 74-08-1651[place] [id number] Mammography Report Signed Patient: DELILAH LEVI MR#: [id number] : 1980 Acct:[id number] Age/Sex: 43 / F ADM Date: 10/25/23 Loc: MAMMO Attending Dr: Anatoliy Lo D.O. Ordering Physician: Anatoliy Lo D.O. Results: Date of Service: 10/25/23 Follow Up: Procedure(s): MM tomosynthesis screening BI Accession Number(s): [id number] cc: Anatoliy Lo D.O.; Physician,Non-Staff Soumya Patient Name: DELILAH LEVI MR#: [id number] : 1980 Exam Date: 10/25/2023 Ordering Doctor: DR Anatoliy Lo . RADIOLOGY REPORT PROCEDURE: MM TOMOSYNTHESIS SCREENING BI COMPARISON: None. INDICATIONS: screening Calculator Name NCI Breast Cancer Risk Assessment Tool 5 Year Breast Cancer Risk 0.80% Lifetime Breast Cancer Risk 9.80% Personal Breast Cancer No Personal Ovarian Cancer No Treatments None Family Cancers None LOCATION: [facility] BREAST COMPOSITION: There are scattered areas of fibroglandular density. FINDINGS: DIAGNOSTIC CATEGORY 1--NEGATIVE. NO CHANGE FROM COMPARISON ASSESSMENT. RIGHT BREAST: No significant suspicious finding. LEFT BREAST: No significant suspicious finding. RECOMMENDATIONS: ROUTINE MAMMOGRAM AND CLINICAL EVALUATION IN 12 MONTHS. PLEASE NOTE: A NORMAL MAMMOGRAM DOES NOT EXCLUDE THE POSSIBILITY OF BREAST CANCER. A CLINICALLY SUSPICIOUS PALPABLE LUMP SHOULD BE BIOPSIED. Dictated by: Aimee Granda MD on 10/25/2023 at 14:35 Approved by: Aimee Granda MD on 10/25/2023 at 14:36 Dictated By: Aimee Granda M.D. Signed By: 10/25/23 1437 DD/ 1436 TD/TT: Turf Farm Worker:JOHNSONHRadiology, Radiologist, - 10/25/2023 [place] [address] Mammography Report Signed Patient: DELILAH LEVI MR#: [id number] : 1980 Acct:[id number] Age/Sex: 43 / F ADM Date: 10/25/23 Loc: MAMMO Attending Dr: Anatoliy Lo D.O. Ordering Physician: Anatoliy Lo D.O. Results: Date of Service: 10/25/23 Follow Up: Procedure(s): MM tomosynthesis screening BI Accession Number(s): [id number] cc: Anatoliy Lo D.O.; Physician,Non-Staff Soumya Patient Name: DELILAH LEVI MR#: [id number] : 1980 Exam Date: 10/25/2023 Ordering Doctor: DR Anatoliy Lo . RADIOLOGY REPORT PROCEDURE: MM TOMOSYNTHESIS SCREENING BI COMPARISON: None. INDICATIONS: screening Calculator Name NCI Breast Cancer Risk Assessment Tool 5 Year Breast Cancer Risk 0.80% Lifetime Breast Cancer Risk 9.80% Personal Breast Cancer No Personal Ovarian Cancer No Treatments None Family Cancers None LOCATION: [facility] BREAST COMPOSITION: There are scattered areas of fibroglandular density. FINDINGS: DIAGNOSTIC CATEGORY 1--NEGATIVE. NO CHANGE FROM COMPARISON ASSESSMENT. RIGHT BREAST: No significant suspicious finding. LEFT BREAST: No significant suspicious finding. RECOMMENDATIONS: ROUTINE MAMMOGRAM AND CLINICAL EVALUATION IN 12 MONTHS. PLEASE NOTE: A NORMAL MAMMOGRAM DOES NOT EXCLUDE THE POSSIBILITY OF BREAST CANCER. A CLINICALLY SUSPICIOUS PALPABLE LUMP SHOULD BE BIOPSIED. Dictated by: Aimee Granda MD on 10/25/2023 at 14:35 Approved by: Aimee Granda MD on 10/25/2023 at 14:36 Dictated By: Aimee Granda M.D. Signed By: 10/25/23 1437 DD/ 143 TD/TT: Turf Farm Worker: BR[facility]ON [facility] CompanyRadiology Study observation (narrative)[facility] TOMOSYNTHESIS SCREENING BIOrdered By: Radiologist Radiology on 63-42-0584XABA [employer] Work Phone: us PELVIS W/ TRANSVAGINALon 63-49-5373[place]fe[place], [place] [address] Ultrasound Report Signed Patient: DELILAH LEVI MR#: [id number] : 1980 Acct:[id number] Age/Sex: 43 / F ADM Date: 08/27/23 Loc: [facility] Attending Dr: Anatoliy Lo D.O. Ordering Physician: Anatoliy Lo D.O. Date of Service: 08/27/23 Procedure(s): US pelvis w/ transvaginal Accession Number(s): [id number] cc: Anatoliy Lo D.O.; Physician,Non-Staff M.Juan Diego The [address] [address] Patient Name: DELILAH LEVI MRN: [id number] date: 1980 Sex: F Assigned Patient Location: [facility] Current Patient Location: [facility] Accession/Order Number: [id number] Exam Date: 08/27/2023 10:17 Report Date: 08/27/2023 11:15 At the request of: ANATOLIY LO Procedure: US pelvis w/ transvaginal EXAMINATION: [...] cavity, fluid versus cyst Electronically authenticated by: AIMEE GRANDA Date: 08/27/2023 11:15 Dictated By: Aimee Granda M.D. Signed By: 08/27/23 1118 DD/ 1115 TD/TT: Turf Farm Worker:TBHRadiology, Radiologist, MD - 08/27/2023 [place] [address] Ultrasound Report Signed Patient: DELILAH LEVI MR#: [id number] : 1980 Acct:[id number] Age/Sex: 43 / F ADM Date: 08/27/23 Loc: [facility] Attending Dr: Anatoliy Lo D.O. Ordering Physician: Anatoliy Lo D.O. Date of Service: 08/27/23 Procedure(s): US pelvis w/ transvaginal Accession Number(s): [id number] cc: Anatoliy Lo D.O.; Physician,Non-Staff Soumya [address] [address] Patient Name: DELILAH LEVI MRN: [id number] date: 1980 Sex: F Assigned Patient Location: [facility] Current Patient Location: [facility] Accession/Order Number: [id number] Exam Date: 08/27/2023 10:17 Report Date: 08/27/2023 11:15 At the request of: ANATOLIY LO Procedure: US pelvis w/ transvaginal EXAMINATION: [...] cavity, fluid versus cyst Electronically authenticated by: AIMEE GRANDA Date: 08/27/2023 11:15 Dictated By: Aimee Granda M.D. Signed By: 08/27/23 1118 DD/ 1115 TD/TT: Turf Farm Worker: BRENDON HealthcareRadiology Study observation (narrative)BRENDON HealthcareUS PELVIS W/ TRANSVAGINALOrdered By: Radiologist Radiology on [id number] Work Phone: cOVID/FLU RT-PCRon [id number]-CoV-2 (COVID-19) RNA EFRAIN+probe Ql (Unsp spec)NegativeKonawa Paratek Other COVID/FLU RT-PCRNegativeKonawa [facility] Other Quick Strepon 05-26-2022. pyogenes Org specific cx Ql (Throat)NegativeKonawa Parate[facility] Other quick StrepFresh Nation [facility] Other PAK ACOG PANEL 2: 30 to 65on 02-23-2022..NormalThe [facility] Geneva Medical CenterComment on above:Result Comment: Performed at: WBPerformed By: #### PT, PTT #### [facility] [address] [place] [address] Dr. Kimberley MilanAge Gdln ACOG Dzkvyyc30-90EmivecWdzDoctors HospitalComment on above:Performed By: #### PT, PTT #### [facility] [address] [place] [address] Dr. Kimberley MilanDIAGNOSIS:CommentParma Community General HospitalComment on above: Result Comment: NEGATIVE FOR INTRAEPITHELIAL LESION OR MALIGNANCY. Performed at: WBPerformed By: #### PT, PTT #### [facility] [address] [place] [address] Dr. Kimberley MilanHPV AptimaNegativeNormalNegativeFirelands Regional Medical Center South CampusComment on above:Result Comment: This nucleic acid amplification test detects fourteen high-risk HPV types (16,18,31,33,35,39,45,51,52,56,58,59,66,68) without differentiation. Performed at: =GPerformed By: #### PT, PTT #### [facility] [address] [place] [address] Dr. Kimberley MilanMethodology:CommentParma Community General HospitalComment on above: Result Comment: This liquid based ThinPrep(R) pap test was screened with the use of an image guided system. Performed at: WBPerformed By: #### PT, PTT #### [facility] [address] [place] [address] Dr. Kimberley MilanNote:CommentWyandot Memorial Hospital on above:Result Comment: The Pap smear is a screening test designed to aid in the detection of premalignant and malignant conditions of the uterine cervix. It is not a diagnostic procedure and should not be used as the sole means of detecting cervical cancer. Both false-positive and false-negative reports do occur. . Performed at: WBPerformed By: #### PT, PTT #### [facility] [address] [place] [address] Dr. Kimberley MilanPerformed by:CommentNoSouthview Medical Center on above: Result Comment: Kem Bach, Swimming Pool Plasterer Helper (ASCP) Performed at: WBPerformed By: #### PT, PTT #### [facility] [address] [place] [address] Dr. Kimberley MilanSpecimen adequacy:CommentWyandot Memorial Hospital on above:Result Comment: Satisfactory for evaluation. Endocervical and/or squamous metaplastic cells (endocervical component) are present. Performed at: WBPerformed By: #### PT, PTT #### [facility] [address] [place] [address] Dr. Kimberley Metcalf AUTO DIFFon 70-00-5525TYVG #0.1 103/ulNormal0.0-0.1Fire[facility] Medical Center South CampusComment on above:Performed By: #### CBC #### [facility] [address] [place] [address] Dr. Kimberley MilanBasophils/100 WBC (Bld)0.7 %Normal0.2-2.0The [facility] Comment on above:Performed By: #### CBC #### [facility] [address] [place] [address] Dr. Kimberley Fink #0.4 103/ulNormal0.0-0.7The [facility] Medical CenterComment on above: Performed By: #### CBC #### [facility] [address] [place] [address] Dr. Kimberley Latifosinophils/100 WBC (Bld)3.6 %Normal0.9-7.0The [facility] Comment on above:Performed By: #### CBC #### [facility] [address] [place] [address] Dr. Kimberley Latifrythrocyte distribution width (RBC) [Ratio]16.1 %Critically high 11.0-15.0The [facility] Medical CenterComment on above:Performed By: #### CBC #### [facility] [address] [place] [address] Dr. Kimberley MilanHematocrit (Bld) [Volume fraction]33.7 %Critically low36.0-48.0 The [facility] Bluffs HospitalComment on above:Performed By: #### CBC #### [facility] [address] [place] [address] Dr. Kimberley MilanHemoglobin (Bld) [Mass/Vol]10.2 g/dLCritically low12.0-16.0The [facility] CenterComment on above:Performed By: #### CBC #### [facility] [address] [place] [address] Dr. Kimberley Aviles #0.03 10e3/ulNormal0.00-0.03The [facility] CenterComment on above:Performed By: #### CBC #### [facility] [address] [place] [address] Dr. Kimberley Aviles %0.3 %Normal0.0-0.5The [facility] CenterComment on above: Performed By: #### CBC #### [facility] [address] [place] [address] Dr. Kimberley CrumpH #2.3 103/ulNormal1.2-3.8The [facility] Medical CenterComment on above:Performed By: #### CBC #### [facility] [address] [place] [address] Dr. Kimberley Martinezmphocytes/100 WBC (Bld)23.2 %Dveogk66.5-60.0The [facility] Medical CenterComment on above:Performed By: #### CBC #### [facility] [address] [place] [address] Dr. Kimberley Sevilla DIFF REQNONormalThe [facility]als Geneva Medical CenterComment on above: Performed By: #### CBC #### [facility] [address] [place] [address] Dr. Kimberley Osullivan (RBC) [Entitic mass]24.8 pgCritically low26.7-34.0The [facility]uffs HospitalComment on above:Performed By: #### CBC #### [facility] [address] [place] [address] Dr. Kimberley Osullivan (RBC) [Mass/Vol]30.3 g/zLLbcokm38.9-35.2The [facility] CenterComment on above:Performed By: #### CBC #### [facility] [address] [place] [address] Dr. Kimberley Osullivan (RBC) [Entitic vol]82.0 dULdbhwm70.0-99.0The [facility] CenterComment on above:Performed By: #### CBC #### [facility] [address] [place] [address] Dr. Kimberley Hickey #0.8 103/ulNormal0.3-0.8The [facility] Medical CenterComment on above:Performed By: #### CBC #### [facility] [address] [place] [address] Dr. Kimberley Chávezocytes/100 WBC (Bld)8.0 %Normal1.7-12.0The [facility] Comment on above:Performed By: #### CBC #### [facility] [address] [place] [address] Dr. Kimberley Palafox #6.4 103/ulNormal1.4-6.5The [facility] Medical CenterComment on above:Performed By: #### CBC #### [facility] [address] [place] [address] Dr. Kimberley Leeutrophils/100 WBC (Bld)64.2 %Pkhpni53.0-75.0The [facility] Medical CenterComment on above:Performed By: #### CBC #### [facility] [address] [place] [address] Dr. Kimberley Issa mean volume (Bld) [Entitic vol]9.9 fLNormal9.5-13.5The [facility] Medical CenterComment on above:Performed By: #### CBC #### [facility] [address] [place] [address] Dr. Kimberley MilanPLT297 103/ipCjzyff892-649Bpd [facility] CenterComment on above: Performed By: #### CBC #### [facility] [address] [address] [address] Kimberley MilanRBC4.11 106/ulCritically low4.20-5.40Fire[facility] Center South CampusComment on above:Performed By: #### CBC #### [facility] [address] [place] [address] Dr. Kimberley MilanWBC10.0 103/ulNormal4.0-11.0Fire[facility] Center South CampusComment on above:Performed By: #### CBC #### [facility] [address] [place] [address] Dr. Kimbelrey MilanPOINT OF CARE GLUCOSEon 91-63-5982Ygjydgz [Mass/Vol]117 mg/dL Critically hhxg73-669RddFirelands Regional Medical Center South CampusComment on above:Performed By: #### POCGLUC #### [facility] [address] [place] [address] Dr. Kimberley MilanPRESolo QUANT HCGon 32-64-5177RXF QUANT<1NormalThe [facility] Comment on above:Performed By: #### PREGQNT #### [facility] [address] [place] [address] Dr. Kimberley MilanHCG RANGESEE BELOWNoalThPaulding County HospitalComment on above: Result Comment: 5-50 0-1 WEEK 40-300 1-2 WEEKS 100-1,000 2-3 WEEKS 500-6,000 3-4 WEEKS 5,000-200,000 1-2 MONTHS 10,000-100,000 2-3 MONTHS 3,000-50,000 2ND TRIMESTER 1,000-50,000 3RD TRIMESTERPerformed By: #### PREGQNT #### [facility] [address] [address] [address] Chu ChangED Note-Physicianon [id number] Note-PhysicianBasic Information Time Seen: Marvin GOFFDanaSadaf 11/20/2021 10:50 Chief Complaint pt states she woke up with a sore throat and stuffy nose yesterday. History of Present Illness This patient presents emergency department with chief complaint of stuffy nose and sore throat. Shestates this has been going on for the [...] pain, ringing in ears, tooth ache. +sore throat,pain with swallowing, stuffy nose Cardiovascular: Denies chest pain, shortness of breath, orthopnea, edema, palpitations, loss of consciousness, claudication Respiratory: Denies cough, sputum production, wheezing, hemoptysis, shortness of breath, dyspnea onexertion Gastrointestinal: Denies abdominal pain, unintentional weight loss, difficulty swallowing, indigestion, bloating, cramping, loss of appetite, nausea, vomiting, diarrhea, constipation, hematochezia, melena Genitourinary: Denies any incontinence of urine, dysuria, hematuria, nocturia, polyuria, hesitancy,frequency, urgency, burning Musculoskeletal: Denies joint pain, morning stiffness, joint swelling, decreased range of motion, crepitus Integumentary: Denies any pruritus, rashes, lesions, wounds, petechiae Neurologic: Denies any changes in sight, smell, hearing, taste, seizures, headache, paresthesia, numbness, weakness, balance disturbance Psychiatric denies any depression, change in sleep patterns, anxiety, difficulty concentrating, paranoia, anhedonia, lack of energy, vikas Hematologic/lymphatic: Denies any purpura, petechiae, excessive bleeding, bruising [...] are clear bilaterally. Nares are congested bilaterally. Oralmucosa is pink and moist. No lesions noted. [...] 2. Pharyngitis (J02.9: Acute pharyngitis, unspecified) Orders: brompheniramine/dextromethorphan/PSE, 5 mL, Oral, QID for cold symptoms, 120 mL, Refill(s) 0, [facility], 162, cm, 11/20/21 10:28:00 EDT, Height/Length Dosing, 125, kg, 11/20/21 10:28:00 EDT, Weight Dosing doxycycline, 100 mg = 1 cap(s), Oral, BID, # 20 cap(s), Refills(s) 0, Pharmacy: [facility], 162, cm, 11/20/21 10:28:00 EDT, Height/Length Dosing, 125, kg, 11/20/21 10:28:00 EDT, Weight Dosing triamcinolone nasal, 1 spray(s), Nasal, Daily, 1 EA, Refill(s) 0, [facility], 162, cm, 11/20/21 10:28:00 EDT, [...] Nasal, Daily Follow-up With When Contact Information Natasha Wu In 3 days 11/23/2021 EDT [address], Harriet C, [facility] [address] [place] [address]- [phone] Business (1) Additional Instructions: Patient Educatio (more content not included)...[facility] Comment on above:Result Comment: Electronically Signed By: Dana Wong PA-C\.br\Date and Time Signed: 11/20/21 11:25 EDT\.br\Electronically Co- Signed By: Raghavendra Rodriguez MD\.br\Date and Time Co-Signed: 12/01/2206:12 EDTCoding Summary.on 44-88-6050Aowqik Summary. CD:[id number] [file] Y29s (more content not included)...[facility] LimaConsent for Treatmenton 40-16-0123Gqqcrid for Treatment [id number]:127[facility] LimaDischarge Instructionson 55-77-8003Uwizhyaga Instructions [id number]:127NoMet[facility]Health [facility] Clinical Summaryon [id number] Clinical Summary [place] [id number] ED Clinical Summary Person Information Name: DELILAH LEVI Danielle/[facility] Age: 41 Years : 1980 Sex: Female Language: Citizen Of [place] PCP: Natasha Wu CNP Marital Status: Single Phone: [phone] Visit Id: Visit Reason: Sinus Pain/Congestion; Throat [...] 11/20/2021 11:31:01 11/20/2021 11:31:01 11/20/2021 11:31:01 ADDRESS: [address] [place] [address] [address] [facility] [phone] PHYS DOC NOTES: MEDICAL INFORMATION: Prescriptions Given: New Medications [facility], [address] [place], [place] [id number], [phone] brompheniramine/dextromethorphan/PSE (Bromfed DM oral syrup) 5 Milliliter By Mouth 4 times a day asneeded for cold symptoms. Refills: 0. doxycycline (doxycycline [...] PATIENT EDUCATION INFORMATION: Instructions: Allergic Rhinitis, Adult, Urwn-as-Zkln; Pharyngitis, Viei-fu-Ovfx; Cough, Adult, Fozb-yl-Uzfb; CoolMist Vaporizer Follow up: With: Address: When: Natasha Wu [address] [place], [place] [address]dict Sudha, [facility], [facility] [address] [place] [phone] Business (1) In 3 days 11/23/2021 DIAGNOSIS: 1:Acute rhinitis; 2:PharyngitisNormalFisher [facility] Patient Education Noteon 71-70-7118RI Patient Education NoteENT Allergic Rhinitis, Adult Allergic rhinitis is a [...] lowest. This is usually during the medical customer service representative or evening hours. ? If you do [...] after you touch household pets. ? Take yliw-slw-qdyjzce and prescription medicines only as told by [...] 10/11/2011 Document Revised: 09/30/2019 Document Reviewed: 12/31/2018 [employer] Patient Education ? 2019 [employer] Cough, Adult A cough helps to [...] in the lung ( (more content not included)...[facility] Patient Summaryon [id number] Patient Summary [address] [address] Patient Discharge Instructions Person Information Name: DELILAH LEVI Age: 41 Years Arrival Date: 11/20/2021 10:24:38 Discharge Diagnosis: 1:Acute rhinitis; 2:Pharyngitis Primary Care Physician: Natasha Wu CNP Provider Information Primary Provider: Advanced Leadership Development Consultant:None The exam and treatment you received in the Emergency Department were for an urgent problem and are not intended as complete care. It is important that you follow up with a doctor, nurse practitioner,or physician?s tax accounting assistant for ongoing care. If your symptoms become worse or you do not improve as expected and you are unable to reach your usual health care provider, you should return to the Emergency Department. We are available 24 hours a day. DELILAH LEVI has been given the following list of patient education materials, prescriptions and follow-up instructions: Follow-up Instructions: With: Address: When: Natasha Wu [address] [facility], [facility] C, [facility] [address] [place] [phone] [facility] (1) In 3 days 11/23/2021 In the event that this physician does not participate in your insurance network, please consult with your insurance company to find a nearby participating provider. Patient Education Materials: Allergic Rhinitis, Adult, Xhdb-sw-Lvyq; Pharyngitis, Cund-ne-Fddt; Cough, Adult, Ltzb-qh-Njhw; CoolMist Vaporizer A MESSAGE TO ALL PATIENTS REGARDING OPIOIDS PRESCRIPTION OPIOIDS: WHAT YOU NEED TO KNOW Prescription opioids can be used to help relieve ssblrbgc-yk-sgunqh pain and are often prescribed following a [...] and have fewer risks and side effects. Optionsmay include: ? Pain relievers such as acetaminophen, [...] unused prescription opioids: Find your community drug take- back program or [facility] mail-back program, or flush them down the toilet, following guidance from the Food and Drug Administration (www.fda.gov/Drugs/ResourcesForYou). ? Visit www.cdc.gov/drugoverdose to learn about the risks of opioids abuse and overdose. ? If you believe you may be struggling with addiction, tell your health rn home care and ask fo (more content not included)...[facility] OTHER TESTSOrdered By: Keyanna Nguyen on 11-20-2021. pyogenes Ag IA.rapid Ql (Throat)Negative (11/20/21 10:35 AM)NormalNegativeAMG [facility]TY [facility] Man SeroRapid Strep w/rfxon 11-20-2021. pyogenes Ag IA.rapid Ql (Throat)NegativeNormalNegativeFisher [facility] Cross HospitalComment on above:Performed By: #### [id number] ####[facility] [address] [place], [place] [address]KGB AUTO DIFFon 26-09-7586ETYE #0.1 103/ulNormal0.0-0.1Fire[facility] South CampusComment on above:Performed By: #### CBC #### [facility] [address] [address] [address] Kimberley MilanBasophils/100 WBC (Bld)0.6 %Normal0.2-2.0[facility] Comment on above:Performed By: #### CBC #### [facility] [address] [place] [address] Dr. Kimberley Fink #0.3 103/ulNormal0.0-0.7The [facility] Medical CenterComment on above: Performed By: #### CBC #### [facility] [address] [place] [address] Dr. Kimberley Latifosinophils/100 WBC (Bld)3.3 %Normal0.9-7.0[facility] Comment on above:Performed By: #### CBC #### [facility] [address] [place] [address] Dr. Kimberley Latifrythrocyte distribution width (RBC) [Ratio]16.5 %Critically high 11.0-15.0[facility] South CampusComment on above:Performed By: #### CBC #### [facility] [address] [place] [address] Dr. Kimberley MilanHematocrit (Bld) [Volume fraction]35.7 %Critically low36.0-48.0 [facility] South CampusComment on above:Performed By: #### CBC #### [facility] [address] [place] [address] Dr. Kimberley MilanHemoglobin (Bld) [Mass/Vol]10.7 g/dLCritically low12.0-16.0[facility] South CampusComment on above:Performed By: #### CBC #### [facility] [address] [place] [address] Dr. Kimberley Aviles #0.02 10e3/ulNormal0.00-0.03The [facility] on above:Performed By: #### CBC #### [facility] [address] [place] [address] Dr. Kimberley Aviles %0.2 %Normal0.0-0.5The [facility] Medical CenterComtrinity health [facility] on above: Performed By: #### CBC #### [facility] [address] [place] [address] Dr. Kimberley Kaye #2.2 103/ulNormal1.2-3.8The [facility] CenterComtrinity health [facility] on above:Performed By: #### CBC #### [facility] [address] [place] [address] Dr. Kimberley Crumphocytes/100 WBC (Bld)27.2 %Vpbnri68.5-60.0The [facility] on above:Performed By: #### CBC #### [facility] [address] [place] [address] Dr. Kimberley GambinoUAL DIFF REQNONormalThe [facility] Medical CenterComtrinity health [facility] on above: Performed By: #### CBC #### [facility] [address] [place] [address] Dr. Kimberley Osullivan (RBC) [Entitic mass]24.9 pgCritically low26.7-34.0The [facility] on above:Performed By: #### CBC #### [facility] [address] [place] [address] Dr. Kimberley Osullivan (RBC) [Mass/Vol]30.0 g/rLPkhtof58.9-35.2The [facility] on above:Performed By: #### CBC #### [facility] [address] [place] [address] Dr. Kimberley Osullivan (RBC) [Entitic vol]83.0 zFVlpxvq02.0-99.0The [facility] Hospitalment on above:Performed By: #### CBC #### [facility] [address] [address] [address] Kimberley Hickey #0.7 103/ulNormal0.3-0.8The [facility] CenterComment on above:Performed By: #### CBC #### [facility] [address] [address] [address] Kimberley Chávezocytes/100 WBC (Bld)8.6 %Normal1.7-12.0The [facility] Comment on above:Performed By: #### CBC #### [facility] [address] [place] [address] Dr. Kimberley Palafox #5.0 103/ulNormal1.4-6.5The [facility] CenterComment on above:Performed By: #### CBC #### [facility] [address] [place] [address] Dr. Kimberley Leeutrophils/100 WBC (Bld)60.1 %Ttwdeo19.0-75.0The [facility] CenterComment on above:Performed By: #### CBC #### [facility] [address] [place] [address] Dr. Kimberley Issa mean volume (Bld) [Entitic vol]9.9 fLNormal9.5-13.5The [facility] CenterComment on above:Performed By: #### CBC #### [facility] [address] [place] [address] Dr. Kimberley MilanPLT341 103/mjVqvast877-638Yew [facility] CenterComment on above: Performed By: #### CBC #### [facility] [address] [place] [address] Dr. Kimberley MilanRBC4.30 106/ulNormal4.20-5.40The [facility] CenterComment on above:Performed By: #### CBC #### [facility] [address] [place] [address] Dr. Kimberley MilanWBC8.3 103/ulNormal4.0-11.0The [facility] CenterComment on above: Performed By: #### CBC #### [facility] [address] [address] [address] Kimberley MilanPOINT OF CARE GLUCOSEon 68-01-2688Qeopjtd [Mass/Vol]125 mg/dL Critically emie24-733Viw [facility] CenterComment on above:Performed By: #### POCGLUC #### [facility] [address] [address] [address] Kimberley MilanPREG HCG QUALon 70-24-7080BGWCMHCZB, QUALNegativeNormalNEGATIVE The [facility] CenterComment on above:Performed By: #### PT, PTT #### [facility] [address] [address] [address] Kimberley MilanUS PELVIS TRANSVAGon [id number] PELVIS TRANSVAGEXAM: US PELVIS TRANSVAG HISTORY: Excessive and frequent [...] Electronically authenticated by: SANAZ BELL Date: 2021-09-24 11:58NormMorrow County Hospital W MANUAL DIFFon 77-17-0205DZLPEVRQ LYMPH #NormalThe University Hospitals Geneva Medical CenterComment on above:Performed By: #### PT, PTT #### [facility] [address] [place] [address] Dr. Kimberley Chen LYMPH %NormalThe Pine Bluffs HospitalComment on above: Performed By: #### PT, PTT #### [facility] [address] [place] [address] Dr. Kimberley Emerson #0.0 103/ulNormal0.0-0.3The [facility]uffs HospitalComment on above:Performed By: #### PT, PTT #### [facility] [address] [place] [address] Dr. Kimberley Emerson %0 %Normal0-5The [facility] Geneva Medical CenterComment on above:Performed By: #### PT, PTT #### [facility] [address] [place] [address] Dr. Kimberley Rasmussen #0.00 103/ulNormal0.00-0.10The [facility] Geneva Medical CenterComment on above:Performed By: #### PT, PTT #### [facility] [address] [place] [address] Dr. Kimberley Rasmussen %0.0 %Critically low0.2-2.0The [facility] Geneva Medical CenterComment on above:Performed By: #### PT, PTT #### [facility] [address] [place] [address] Dr. Kimberley Sorto #NormalUc Health HospitalComment on above:Performed By: #### PT, PTT #### [facility] [address] [place] [address] Dr. Kimberley Sorto %NormalThe [facility] Bluffs HospitalComment on above:Performed By: #### PT, PTT #### [facility] [address] [place] [address] Dr. Kimberley MilanCORRECTED WBCNormal4.0-11.0The [facility] CenterComment on above: Performed By: #### PT, PTT #### [facility] [address] [place] [address] Dr. Kimberley Madrigal #0.12 103/ulNormal0.00-0.70The [facility] Medical CenterComment on above:Performed By: #### PT, PTT #### [facility] [address] [address] [address] Kimberley Madrigal%2.0 %Normal0.9-7.0The [facility] CenterComtrinity [facility] on above: Performed By: #### PT, PTT #### [facility] [address] [place] [address] Dr. Kimberley MilanHCT33.9 %Critically low36.0-48.0The [facility] CenterComment on above:Performed By: #### PT, PTT #### [facility] [address] [place] [address] Dr. Kimberley MilanHGB10.2 g/dlCritically low12.0-16.0The [facility] CenterComtrinity health [facility] on above:Performed By: #### PT, PTT #### [facility] [address] [place] [address] Dr. Kimberley Nails #1.51 103/ulNormal1.20-3.80The [facility] on above:Performed By: #### PT, PTT #### [facility] [address] [place] [address] Dr. Kimberley Nails%26.0 %Vhxcwc28.5-60.0The [facility] on above:Performed By: #### PT, PTT #### [facility] [address] [place] [address] Dr. Kimberley MilanMCH24.3 pgCritically low26.7-34.0The [facility] on above:Performed By: #### PT, PTT #### [facility] [address] [place] [address] Dr. Kimberley OsullivanHC30.1 g/ueYuxopn65.9-35.2The [facility] CenterComtr[facility] on above:Performed By: #### PT, PTT #### [facility] [address] [place] [address] Dr. Kimberley OsullivanV80.9 fLCritically low81.0-99.0The [facility] Medical CenterComment on above:Performed By: #### PT, PTT #### [facility] [address] [place] [address] Dr. Kimberley Charles #NormalFirelands Regional Medical Center South CampusComtrinity health [facility] on above: Performed By: #### PT, PTT #### [facility] [address] [place] [address] Dr. Kimberley ValdezOCYTE %NormalFirelands Regional Medical Center South CampusComtrinity health [facility] on above: Performed By: #### PT, PTT #### [facility] [address] [place] [address] Dr. Kimberley Burns#0.58 103/ulNormal0.30-0.80The [facility] CenterComtr[facility] on above:Performed By: #### PT, PTT #### [facility] [address] [place] [address] Dr. Kimberley Burns%10.0 %Normal1.7-12.0[facility] on above: Performed By: #### PT, PTT #### [facility] [address] [place] [address] Dr. Kimberley HernandezV9.8 fLNormal9.5-13.5ThMiddletown Hospital on above: Performed By: #### PT, PTT #### [facility] [address] [place] [address] Dr. Kimberley Hussein #NormalC[facility] on above:Performed By: #### PT, PTT #### [facility] [address] [place] [address] Dr. Kimberley Hussein %NormalFirelands Regional Medical Center South CampusComtrinity health [facility] on above:Performed By: #### PT, PTT #### [facility] [address] [place] [address] Dr. Kimberley MilanNRBCNoalThPaulding County HospitalComtrinity health [facility] on above:Performed By: #### PT, PTT #### [facility] [address] [place] [address] Dr. Kimberley MilanPLT346 103/dxOvkuip346-036Ulq [facility] CenterComtr[facility] on above: Performed By: #### PT, PTT #### [facility] [address] [address] [address] Kimberley LinnC4.19 106/ulCritically low4.20-5.40[facility] on above:Performed By: #### PT, PTT #### [facility] [address] [address] [address] Kimberley MilanRDW14.9 %Olxtfo42.0-15.0The [facility] on above: Performed By: #### PT, PTT #### [facility] [address] [address] [address] Kimberley Matos #3.60 103/ulNormal1.40-6.50The [facility] on above:Performed By: #### PT, PTT #### [facility] [address] [place] [address] Dr. Kimberley Matos %62.0 %Uieteh88.0-75.0The [facility] on above: Performed By: #### PT, PTT #### [facility] [address] [place] [address] Dr. Kimberley DonovanBC5.8 103/ulNormal4.0-11.0[facility] CampusComtr[facility] on above: Performed By: #### PT, PTT #### [facility] [address] [place] [address] Dr. Kimberley Briscoe QUANT HCGon 26-81-5473SYS QUANT<1NormalThe [facility] Comment on above:Performed By: #### TSH, PREGQNT #### [facility] [address] [place] [address] Dr. Kimberley Murrell [facility] Medical CenterComment on above: Result Comment: 5-50 0-1 WEEK 40-300 1-2 WEEKS 100-1,000 2-3 WEEKS 500-6,000 3-4 WEEKS 5,000-200,000 1-2 MONTHS 10,000-100,000 2-3 MONTHS 3,000-50,000 2ND TRIMESTER 1,000-50,000 3RD TRIMESTERPerformed By: #### TSH, PREGQNT #### [facility] [address] [place] [address] Dr. Kimberley Sargent 78-17-6504QGB Coag (PPP) [Relative time]1.00 {INR} NormalCleveland Clinic Union Hospital on above:Performed By: #### PT, PTT #### [facility] [address] [place] [address] Dr. Kimberley Baez [facility] UPMCE BELOWParma Community General HospitalComtrinity health [facility] on above:Result Comment: DESIRED INR: 2.0 - 3.0 CONDITIONS NOT LISTED BELOW 2.5 - 3.5 FOR PROSTHETIC HEART VALVE REPLACEMENT 2.5 - 3.5 RECURRENT THROMBOSIS Performed By: #### PT, PTT #### [facility] [address] [place] [address] Dr. Kimberley Shea Coag (PPP) [Time]10.8 sNormal9.0-11.6The [facility] Comment on above:Performed By: #### PT, PTT #### [facility] [address] [place] [address] Dr. Kimberley Hill 86-62-1392oURN Coag (Bld) [Time]24.2 kAgkord59.3-36.2The [facility] on above:Performed By: #### PT, PTT #### [facility] [address] [place] [address] Dr. Kimberley Vanessa 20-82-9026YJB5.697 uIU/mLNormal0.470-4.680The [facility] on above:Performed By: #### TSH, PREGQNT #### [facility] [address] [place] [address] Dr. Kimberley Reilly [facility] CenterCom[facility] on above: Result Comment: <0.34 UIU/ml HYPERTHYROID 0.34-5.60 UIU/ml EUTHYROID >5.60 UIU/ml HYPOTHYROIDPerformed By: #### TSH, PREGQNT #### [facility] [address] [place] [address] Dr. Kimberley Wilks Summary.on 17-58-4953Mydane Summary. CD:[id number]:[id number]+PGhlYWQ+RH7TFZYzW55agPWfpI6BB1pTDM1TTEJTGIWFAL0BLZ6lc ZL6KCsdU3VwitGw [file] LWNv (more content not included)...[facility] LimaPulmonary Function Studieson 56-46-6595Fejmbarlb Function StudiesPULMONARY FUNCTION TESTS: 05/23/2021 REFERRING PHYSICIAN: Natasha Wu CNP REASON FOR TESTING: This is [...] test. READ BY: Soumya Mathews Dictated: 05/26/2021 [id number] Transcribed: 05/27/2021 cc:Natasha Wu CNPSCCI Hospital LimaComment on above: Result Comment: Electronically Signed By: Lexie PADILLA, [place] Macias\.br\Date and Time Signed: 05/28/21 08:32 ESTConsent for Treatmenton 26-77-6586Zknoyji for [id number]#1.00CD:127[facility] LimaPulmonary Function Testson 41-71-4894Qeyvxqxiz Function Tests [id number]#1.00CD:127[facility] LimaPhysician Orderon 75-39-9751Aobjiadgk Order [id number]#1.00CD:127[facility] LimaCoding Summary.on 37-06-3469Uueoac Summary. CD:678570AQ:[id number]+PGhlYWQ+JX3XKFPyF05wpOIvkW3VE6rNKA3AYNZWTPSLTD7TPK2kj CV5IWnfG1DhmwVr [file] LWNv (more content not included)...NormalFishMeritus Medical CenterCoding Summary.on 00-78-1051Shzzhd Summary. CD:250054HO:8164937JGg9vHw+PGhlYWQ+LF0PVJJnW16shQPxjZ6PD9mNQH4NUVJJRYJEKS0SDE4bc QN7NLkdG6DtmeQs [file] Y29s (more content not included)...[facility] LimaCoding Summary.on 59-74-7465Esinjp Summary. CD:485895YH:3821199XHi9kGh+PGhlYWQ+JH4CWGKhF29tbHLhnW1HE2uTEP5FKTEINNXUSD4LXK2wr YR2JRxvC7PbcoYz [file] ZXIt (more content not included)...[facility] Hospital LimaConsent for Treatmenton 56-63-1313Fqjnrvq for Treatment [id number]#1.00CD:127[facility] LimaPhysician Orderon 65-39-5145Rhmzmiayf Order [id number]#1.00CD:[address] [place], [place] [address]XR Chest 2 Viewson 35-50-6679MT Chest 2 ViewsExam Date/Time: 04/05/2021 12:49 EDT Reason for Exam: [...] Romario Arce M.D. Transcribed by: CALIN Technologist: TAYLORWright-Patterson [facility] Urineon 95-43-8375Sqesixcv identified Cx Nom (U)Microbiology PROCEDURE: Urine Culture [R1] SOURCE: U CleanCatch BODY SITE: COLLECTED DATE/TIME: 04/01/2021 22:54 EDT RECEIVED DATE/TIME: 04/02/2021 06:25 EDT START DATE/TIME: 04/02/2021 06:25 EDT FREE TEXT SOURCE: Aguilar Pino DO, DO, Noah S. FINAL REPORTS Final Report [] Verified Date/Time: 04/04/2021 10:14 EDT <10,000 cfu/ml Mixed skin contaminants Performing Locations R1: This test was performed at: [facility], [address] [place] [address], [address] [place] [address], AcddnkQkjvjcSCCI Hospital LimaComment on above:Performed By: #### [id number], [id number] #### [facility] [address] [place], [place] [address]Consent for Treatmenton 61-30-2123Xmlyvss for Treatment [id number]#1.00CD:127[facility] Hospital LimaDischarge Instructionson 32-81-6443Crhvlomsv Instructions [id number]#1.00CD:127[facility] Clinical Summaryon 04-11-3925DT Clinical Summary [address] [address] ED Clinical Summary Person Information Name: DELILAH LEVI/NewLuan Age: 41 Years : 1980 Sex: Female Language: Citizen Of [place] PCP: NATASHA HU Marital Status: Single Phone: [phone] Visit Id: Visit Reason: Cough; Dysuria; COUGH, [...] 04/02/2021 00:42:41 04/02/2021 00:42:41 04/02/2021 00:42:41 ADDRESS: [address] [place] [address] [address] [facility] [id number] PHYS DOC NOTES: MEDICAL INFORMATION: Prescriptions Given: New Medications [facility] 1986, [address] [place], [place] [id number], [phone] cephalexin (Keflex 500 mg Cap) 1 Capsules [...] Infection, Adult Follow up: With: Address: When: NATASHA HU In 3 days DIAGNOSIS: Acute UTINormalFisher Tulio Medical CenterED Note-Physicianon 00-44-5530YX Note-PhysicianBasic Information Time Seen: Aguilar Pino DO 04/01/2021 [...] the ED for burning with urination. Patient statesthat she has stress incontinence especially with coughing. She states that lately she has had a very mild dry cough. She denies any shortness of breath or fevers. She states that she has noticed thatshe is starting to have some burning when [...] distress. She is having some burning and foul- smelling urine. Will obtain a urinalysis. Urinalysis is [...] day(s), # 14 cap(s), Refills(s) 0, Pharmacy: [facility], 162, cm, 04/01/21 23:22:00 EDT, Height/Length Dosing, 125, kg, 04/01/21 23:22:00 EDT, Weight Dosing UA With Cult Reflex Urine Culture Medications Administered Given Keflex 500 mg Cap, 500 mg, Oral Disposition Plan Discharge Prescription List Prescriptions Keflex 500 mg Cap, 500 mg= 1 cap(s), Oral, q12hr Follow-up With When Contact Information NATASHA HU In 3 days Additional Instructions: Patient [...] (04/01/21 22:54:00) Diagnostic Results No qualifying data available.[facility] Hospital LimaComment on above: Result Comment: Electronically Signed By: Aguilar Pino DO\.br\Date and Time Signed: 04/02/21 00:49 EDTED Patient Education Noteon 67-19-4484JZ Patient Education NoteObstetrics and Gynecology Urinary Tract Infection, Adult A urinary tract infection (UTI) is an infection of any part of the urinary tract. The urinary tractincludes the kidneys, ureters, bladder, and urethra. These organs make, store, and get rid of urinein the body. Your health care provider may [...] this condition includes: ? Antibiotic medicine. ? Akau-ems-gzdpzrv medicines to treat discomfort. ? Drinking enough water to stay hydrated. If you have frequent infections or have other conditions such as a kidney stone, you may need to see a health care provider who specializes in the urinary tract (urologist). In rare cases, urinary tract infections can cause sepsis. Sepsis is a life- threatening condition that occurs when the body responds to an infection. Sepsis is treated in the hospital with IV antibiotics, fluids, and other medicines. Follow these instructions at home: Medicines ? Take rowc-xnc-whwucdm and prescription medicines only as told by [...] in your genital area, around the entrance toyour urinary tract (urethra). ? Treatment for this condition often includes antibiotic medicines. ? If you were prescribed an antibiotic medicine, take it as told by your health care provider. Do not stop using the antibiotic even if you start to feel better. ? Keep all follow-up visits as told by your health care provider. This is important. This in (more content not included)...[facility] Patient Summaryon 40-10-8578YF Patient Summary [address] [place] [address] Patient Discharge Instructions Person Information Name: DELILAH LEVI Age: 41 Years Arrival Date: 04/01/2021 23:05:18 Discharge Diagnosis: Acute UTI Primary Care Physician: NATASHA HU Provider Information Primary Provider: Aguilar Pino DO Advanced Leadership Development Consultant:None The exam and treatment you received in the Emergency Department were for an urgent problem and are not intended as complete care. It is important that you follow up with a doctor, nurse practitioner,or physician?s tax accounting assistant for ongoing care. If your symptoms become worse or you do not improve as expected and you are unable to reach your usual health care provider, you should return to the Emergency Department. We are available 24 hours a day. JOSE ADONNELLGIO DELILAH Ba has been given the following list of patient education materials, prescriptions and follow-up instructions: Follow-up Instructions: With: Address: When: NATASHA HU In 3 days In the event that this physician does not participate in your insurance network, please consult with your insurance company to find a nearby participating provider. Patient Education Materials: Urinary Tract Infection, Adult A MESSAGE TO ALL PATIENTS REGARDING OPIOIDS PRESCRIPTION OPIOIDS: WHAT YOU NEED TO KNOW Prescription opioids can be used to help relieve gadlqpqb-kq-yivvsy pain and are often prescribed following a [...] and have fewer risks and side effects. Optionsmay include: ? Pain relievers such as acetaminophen, [...] unused prescription opioids: Find your community drug take- back program or [employer] mail-back program, or flush them down the toilet, following guidance from the Food and Drug Administration (www.fda.gov/Drugs/ResourcesForYou). ? Visit www.cdc.gov/drugoverdose to learn about the risks of opioids abuse and overdose. ? If you believe you may be struggling with addiction, tell your health rn home care and ask for guidance or call [facility]?S National Helpline at 8-708-650-PLMF. g Source: [place] Department of Health and Human Services/Center for Disease Control & Prevention [place] H (more content not included)...NormalCleveland Clinic Euclid HospitalUA With Cult Reflexon 60-35-6318Krzxfyiiw Ql (U)1+AbnormalNegativeCleveland Clinic Euclid HospitalComment on above:Performed By: #### [id number], [id number] #### [facility] [address] [place], [place] [address]Negwewy (U)CLOUDYAbnormalClearFOhioHealth Grant Medical Center Comment on above:Performed By: #### [id number], [id number] #### [facility] [address] [place], [place] [address]Mtemt (U)REDAbnormalYellowCleveland Clinic Euclid HospitalComment on above:Performed By: #### [id number], [id number] #### [facility] [address] [place], [place] [address]Uetduretxn cells.squamous LM.HPF (Urine sed) [#/Area]0-2Normal 0-2Fisher [facility] Cross HospitalComment on above:Performed By: #### [id number], [id number] #### [facility] [address], [place] [address]Nuquwew Test strip (U) [Mass/Vol]NegativeNormalNegativeCleveland Clinic Euclid HospitalComment on above:Performed By: #### [id number], [id number] #### [facility] [address] [place] [address]Hoodhekwhz Ql (U)3+AbnormalNegativeC[facility] Clinic Euclid Hospital Comment on above:Performed By: #### [id number], [id number] #### [facility] [address] [place] [address]Nxofzqd (U) [Mass/Vol]TRACEInvalid Interpretation CodeNegative [facility]ucl[facility] HospitalComment on above:Performed By: #### [id number], [id number] #### [facility] [address] [place] [address]Saphiln.plasma/[place].RBC (Bld) [Mass ratio]>96Ydoyojxv2-1 [facility] HospitalComment on above:Performed By: #### [id number], [id number] #### [facility] [address] [place] [address]Xkicglh Ql (U)PositiveAbnormalNegTriHealth Bethesda North HospitalComment on above:Performed By: #### [id number], [id number] #### [facility] [address] [place] [address]29[address]jN (U)6.5 [pH]Invalid Interpretation Code5.0-9.0[facility] HospitalComment on above:Performed By: #### [id number], [id number] #### [facility] [address] [place] [address]Gyxxbql (U) [Mass/Vol]3+AbnormalNegativeCleveland Clinic Euclid HospitalComment on above:Performed By: #### [id number], [id number] #### [facility] [address] [place] [address]Jqywngam gravity (U) [Rel density]1.025Invalid Interpretation Code1.005-1.030C[facility]uclid HospitalComment on above:Performed By: #### [id number], [id number] #### [facility] [address] [place], [place] [address]Yoik of Urine collection methodClean CatchNormalCleveland Clinic Euclid HospitalComment on above:Performed By: #### [id number], [id number] #### Guevara [facility] [address] [place], [place] [address]Dznjdygfgahu Qn (U)0.2 {Yvonne'U}/dLNormal0.0-1.0[facility]ucl[facility] HospitalComment on above:Performed By: #### [id number], [id number] #### [facility] [address] [place] [address]GSN Auto Ql (U)TRACEAbnormalNegativeC[facility] Clinic [facility]ucl[facility] Comment on above:Performed By: #### [id number], [id number] #### [facility] [address] [place] [address]WBO LM.HPF (Urine sed) [#/Area]6-4Csmaen1-5Zczdun [facility] Cross HospitalComment on above:Performed By: #### [id number], [id number] #### [facility] [address] [place] [address]ZUHBD-19 ([facility])on 39-98-6840ONQN-CoV-2 (COVID-19) RNA EFRAIN+probe Ql (Unsp spec)Not detectedNormalNot DetectedCleveland Clinic Euclid HospitalComment on above:Result Comment: This test result should be correlated with clinical presentations and medical history by a healthcare provider to determine its clinical significance. This assay was performed by a reverse transcriptase real-time polymerase chain reaction (rt PCR) method on the [employer] system. This test has been authorized only [...] (1), unless authorization is terminated or revoked sooner.Performed By: #### [id number] ####[facility] [address] [facility], [id number]-JcJ-5 (COVID-19) RNA EFRAIN+probe Ql (Unsp spec)PassNoDetwiler Memorial HospitalComment on above:Performed By: #### [id number] ####[address], [id number] source Nom (Unsp spec)NasalNoUniversity Hospitals TriPoint Medical CenterComment on above:Performed By: #### [id number] ####[address], [id number] for Treatmenton 14-36-6328Kjhlwry for Treatment [id number]#1.00CD:127[facility]I Hospital LimaCOVID-19 ([facility])on 60-20-7754Mplrmbwl in HealthcareNONOhio State Harding HospitalComment on above:Performed By: #### [id number] ####[address], [id number] TestUnknownNormal [facility]ucl[facility] HospitalComment on above:Performed By: #### [id number] ####[address], LT[address] Hospitalized?NONOhio State Harding HospitalComment on above:Performed By: #### [id number] ####[address], [id number]rsity Hospitals TriPoint Medical CenterComment on above: Performed By: #### [id number] ####[address], OU[address]Mvcsfgud?[facility]utheran HospitalComment on above:Performed By: #### [id number] ####Guevara [facility] Zaqhftrozu033 Osceola AveNyahairakristen, [place]Btpijtx in a Freeman Neosho Hospitalega Care SettingToledo HospitalComment on above:Performed By: #### [id number] ####[facility] [address] [place] [place] Symptomatic as defined by CDCYESSCCI Hospital LimaComment on above:Performed By: #### [id number] ####[facility] [address] [place], [place] Vital Signs Date TimeVital SignValuePerforming QpangciykQzeaczig37-07-0774 11:41-0400Body mass index (BMI) [Ratio]43.57 kg/z7Bqokk Fazio DO Work Phone: [facility] CenterOyuhnfarxq98-34-1677 11:41-0400Body sifkdq999.68 kgCoreSofTech DO Work Phone: [facility] CenterQeaezufldt65-68-1089 11:41-0400Diastolic blood hlpfncsi53 mm[Hg][employer] Work Phone: [facility] CenterVlinhsynlr53-59-9008 11:41-0400Systolic blood bvipavik144 mm[Hg][employer] Work Phone: [facility] CenterRqjwckxxvq12-52-9031 14:40-0500Body .56 cm[facility]-23-2025 14:40-0500Body egysxrpnnge05.9 [degF][facility]02-23-2025 14:40-0500Body uauwvk230.13 kg [facility]02-23-2025 14:40-0500Diastolic blood bwrdimtv98 mm[Hg][facility]02-23-2025 14:40-0500Heart rate79 /min [facility]02-23-2025 14:40-0500Respiratory rate16 /min [facility]02-23-2025 14:40-3764GyF9% (BldA) [Mass fraction]96 %[facility]02-23-2025 14:40-0500Systolic blood uthgbfnw076 mm[Hg][facility]12-04-2022 21:53-0500 Body vjtidc802.56 cmNP Natasha Wu Work Phone: [phone] [place], [place] [address]12-04-2022 21:53-0500 Body rigzspmsvjw41.1 [degF]MEDICAL INFORMATION OFFICER Natasha Wu Work Phone: [phone]12-04-2022 21:53-0500 Body .65 kgNP Natasha Wu Work Phone: [phone]12-04-2022 21:53-0500 Diastolic blood ovphjxuv66 mm[Hg]MEDICAL INFORMATION OFFICER Natasha Wu Work Phone: [phone]12-04-2022 21:53-0500 Heart rate85 /minNP Natasha Wu Work Phone: [phone] [place], [place] [address]2212-04-2022 21:53-0500 Respiratory rate24 /minNP Natasha Wu Work Phone: 1([phone])276-[address] [place], [place] [address]12-04-2022 21:53-0500 SaO2% (BldA) [Mass fraction]95 %MEDICAL INFORMATION OFFICER Natasha Wu Work Phone: [phone] [place], [place] 6062212-04-2022 21:53-0500 Systolic blood pdbpsijg792 mm[Hg]MEDICAL INFORMATION OFFICER Natasha Wu Work Phone: 1([phone])216-[address] [place], [place] 6062212-02-2022 11:55-0500 Body oqxywh205.56 cmThomas [place] Other [employer] Other 12-02-2022 11:55-0500Body mass index (BMI) [Ratio] 45.48 kg/x6Czxtck [place] Other [facility] [employer] Other 12-02-2022 11:55-0500Body .8 [degF]Michael Jameson Other [employer] Other 12-02-2022 11:55-0500Body zyfoao863.2 kgThdeidre Jameson Other [employer] Other 12-02-2022 11:55-0500Diastolic blood jhyibjez03 mm[Hg] Michael Jameson Other [facility] [employer] Other 12-02-2022 11:55-4178ScX7% (BldA) [Mass fraction]97 % Michael Jameson Other [place] Nation [employer] Other 12-02-2022 11:55-0500Systolic blood vkttivei048 mm[Hg] Michael Jameson Other [facility] [employer] Other 05-29-2022 10:26-0400Body uyramlradbe13.7 [degF]Raghavendra Rodriguez [facility]05-29-2022 10:26-0400 Diastolic blood grooofwx52 mm[Hg]Raghavendra Rodriguez [facility]05-29-2022 10:26-0400Heart rate95 /minTim Michael [facility]05-29-2022 10:26-0400 Respiratory rate20 /minTim Michael [facility]05-29-2022 10:26-8517EpG3% (BldA) [Mass fraction]98 %Raghavendra Rodriguez [facility]05-29-2022 10:26-0400 Systolic blood mm[Hg]Raghavendra Michael [address] [place] [address] Encounters Encounter DateEncounter TypeCare ProviderFacilityStart: 12-23-2024 End: 92-00-0653Htkqtz flowsheetCorey Wally DO Work Phone: [facility] BCP OBStart: 12-23-2024 End: 58-72-9905Gkewym flowsheetCorey Wally DO Work Phone: [facility] BCP OBStart: 12-23-2024 End: 67-38-7588Rkbjgdyvg Result EncounterCorey Wally DO Work Phone: noms External Department UnsolicitedStart: 12-23-2024 End: 71-06-6354Oaskdtx encounter procedureCorey Wally DO Work Phone: noms HealthcareStart: 12-23-2024 End: 38-83-7141Mqhlcawa preventive med est patient 40-64yrsCorey Wally DO Work Phone: [facility] OBComment on above:Well woman exam with routine gynecological exam; Breast cancer screening by mammogramStart: 12-23-2024 End: 51-01-8570kvfufqcqaeXNIQV FAZIONot AvailableStart: 08-17-2024 End: 35-92-8038Wecfnsrbj department [facility]White [facility] Work Phone: Start: 11-07-2023 End: 40-97-0063uuiguonwskCxdhq FazioFacility:[facility] Start: 10-25-2023 End: 97-83-3465Aekgdxhat Result EncounterCorey Wally DO Work Phone: noms External Department UnsolicitedStart: 10-25-2023 End: 59-82-6811Tfhxbxhfh Result EncounterCorey Wally DO Work Phone: noms External Department UnsolicitedStart: 09-04-2023 End: 25-80-5768uplqqcwlcxFV Natasha Wu Work Phone: [facility] Work Phone: Start: 09-04-2023 End: 73-70-7662Dpopoomd ReferredNP Natasha Wu Work Phone: [facility] HospStart: 08-27-2023 End: 98-54-5557Pkleltyjf Result EncounterCorey Wally DO Work Phone: noms External Department UnsolicitedStart: 08-27-2023 End: 12-34-0398Hjrjzdnuz Result EncounterCorey Wally DO Work Phone: noms External Department UnsolicitedStart: 05-28-2022 End: 85-22-7744Vezsmpwve department patient visitNP Natasha Wu Work Phone: [facility]-Emergency RoomStart: 05-26-2022 End: 33-45-4012nptwemcrseNtpcvx Trino Other [employer] Other Start: 69-14-0153Yjfvra outpatient new 20 minutes [facility] [address] RoadStart: 02-16-2022 End: 70-96-8695fqijpdmmfgLX ANATOLIY FAZIOFacility:K3Cestr: 12-02-2021 End: 34-13-2713bcweeklsduXN ANATOLIY FAZIOFacility:Q9Mfogv: 76-17-8956lzvkztuumfNN ANATOLIY FAZIOFacility:Q2Nqahg: 11-20-2021 End: 81-39-0886Ywxsvwpid department patient visitTim Michael [facility] Start: 11-18-2021 End: 27-32-6929zioydkwwpmKG ANATOLIY FAZIOFacility:S7Mjfhs: 12-19-6888wornboosaqAX ANATOLIY FAZIOFacility:V4Uzjmc: 91-79-6738Jgudddnta for preprocedural cardiovascular examinationDR ANATOLIY FAZIOThe [facility] HospitalStart: 11-07-2021 End: 81-21-4323sjvzlskkkgQT ANATOLIY FAZIOFacility:E6Gtaqo: 11-07-2021 End: 03-01-1341Vgmoaiqff for preprocedural cardiovascular examinationDR ANATOLIY FAZIOFacility:S3Fzxcs: 09-23-2021 End: 21-91-1111hkkbjfdbdxKQ ANATOLIY FAZIOFacility:V8Aurgu: 09-22-2021 End: 50-83-3091oemjgxporpWW ANATOLIY FAZIOFacility:H1 Procedures DateProcedureProcedure DetailPerforming ClinicianStart: 51-85-1875JWV,APTIMA HPV,AGE GDLNCorey Wally DO Work Phone: Start: 57-16-6259Mlwdydnolak observation [Identifier] in Cervix by Cyto stainCorey Wally DO Work Phone: Start: 26-86-0690Fvytdndv screenCorey Wally DO Work Phone: Start: 10-72-4659VQ TOMOSYNTHESIS SCREENING BICorey Wally DO Work Phone: Start: 08-44-0053TDB TYPE AND SCREENCorey Wally DO Work Phone: Start: 11-50-8973RQF 12-LEADCorey Wally DO Work Phone: Start: 15-74-1729RnkmpdgjvdeXgbxz Wally DO Work Phone: Start: 01-57-9101AF PELVIS W/ TRANSVAGINALCorey Wally DO Work Phone: Start: 30-67-9631Tdmliobveuk observation [Identifier] in Cervix by Cyto stainCorey Wally DO Work Phone: Plan of Treatment DateCare ActivityDetailAuthorStart: 19-32-3658Qtizdgdoq for malignant neoplasm of cervixNOMS HealthcareStart: 78-80-2667Euladnupo for malignant neoplasm of cervixNOMS HealthcareStart: 12-29-2025 End: 60-07-3019Esahkon encounter procedureNOMS BCP OBStart: 20-90-0399Npahwtsrh vaccinationST. GEORGE REGIONAL [facility] HealthcareStart: 12-23-2024 End: 84-66-4709EC Breast - bilateral ScreeningBilateral screening mammogram Imaging Routine Breast cancer screening by mammogram Expected: 12/23/2024 (Approximate), Expires: 02/23/2026[facility] Work Phone: comment on above:Expected: 12/23/2024 (Approximate), Expires: 02/23/2026Start: 12-23-2024 End: 65-85-1043Uibiavn encounter ipwyzbuhv40/01/2025 11:00 AM EDT Office Visit [facility] [address] [place] [phone] Anatoliy Lo, DO [address] [place] [address] ArrivedCHONC P[facility] OBComment on above:ArrivedStart: 89-76-8283Mvrdsvsxo for malignant neoplasm of breastMammogramMissouri Rehabilitation Center Start: 68-19-0395Ihgaxhrdh for malignant neoplasm of colonST. GEORGE REGIONAL [facility]OSPITAL HealthcarePatient EducationForeign Body in [facility] Work Phone: Patient [facility] Work Phone: THIN PREP TIS PAP AND HR HPV DNATHIN PREP TIS PAP AND HR HPV DNA Pathology and Cytology Routine Well woman exam with routine gynecol ogical exam Ordered: 12/23/2024[facility] HealthcareComment on above:Ordered: 12/23/2024 Immunizations Immunization DateImmunizationNotesCare AzktxyeuZqpnsowx53-14-8602pnjaoaxxl virus vaccine, unspecified formulationCorey Wally DO Work Phone: [facility] Payers DatePayer CategoryPayerPolicy [id number] (Managed Care)[employer] Member Subscriber Plan / Payer (Effective 2024-Present) Name: Delilah Levi Relation to Subscriber: Self Name: Delilah Levi Payer ID: Not on file Type: Not on file Address: [address] [place] [id number] [id number] [id number] 2018MedicareMEDICARE .[id number] .1.708515.3.57[id number] 2..1.394075.3.57[id number] .1.932189.3.57[id number] ..1.711911.3.57[id number] 2..1.067323.3.57[id number] 2.1.973324.3.57[id number] 2.16.840.1.359548.3.57[id number] 2.16.840.1.107247.3.57[id number] 2.16.840.1.216890.3.579.2.1259 1960Self-[id number] [facility] [id number] 2.160.1.0[id number] 2.160.1.572430.3.579.2.531 Social History DateTypeDetailFaRiverside Methodist HospitalComment on above: Denies.Start: 08-22-2023 End: 88-70-1989IdoqysNirgacThe Jewish Hospitaltart: 05-28-2022 End: 21-12-4519Qpwfvwd smoking status NHISNever smoked tobacco (finding) Centervilletart: 05-23-3252Ibf Assigned At BirthFeThe Surgical Hospital at Southwoodstart: 46-54-8827JjyFqjfef (finding)Centervilletart: 04-26-0987Ajtsjni use and exposureSmokeless tobacco non-userNOMS HealthcareStart: 08-22-2023 End: 86-52-5198Epbugnbpp beverage intakeEx-drinker (finding)[facility] Start: 08-22-2023 End: 33-68-8862Gwptpaq of Social functionNOMS HealthcareStart: 98-56-3185Dtpilad Commentcaffeine: 24oz Pepsi dailyNOMS HealthcareStart: 37-24-0758Iqeaso identityIdentifies as female gender (finding)NOMS HealthcareStart: 62-95-2523Xax FemaleNOMS HealthcareNEGATED: Highlighted rowFirelands Regional Medical Center Medical Equipment Procedure CodeEquipment CodeEquipment Original TextEquipment IdentifierDates Start: 04-03-2023 Clinical Notes 11-18-2021 to 12-23-2024 Note Date & BodeQoucOngehbbb95-22-4081 History of Present illness Narrative* Unique Navarrete, AWNING HANGER HELPER - 12/23/2024 11:00 AM EDT Reason for Appointment: Patient ID: Delilah Levi is a 44 y.o. female who presents for Gynecologic Exam Patient presents today for Annual Exam. MEDICATIONS Current Outpatient Medications Medication Instructions albuterol HFA 90 mcg/act inhaler INHALE 1 PUFF BY MOUTH DIRECTED EVERY 4 TO 6 HOURS NEEDED FOR SHORTNESS OF BREATH Blood Glucose Calibration (OT ULTRA/FASTTK CNTRL SOLN) solution USE DIRECTED FOR GLUCOMETER Blood Glucose Monitoring Suppl (ONE TOUCH ULTRA 2) w/Device kit USE DIRECTED TO CHECK FASTING BLOOD SUGAR DAILY Continuous Blood Gluc Hypnotherapist (FreeStyle Alyssa 2 [place]) device TO USE WITH CGM Continuous Blood Gluc Sensor (FreeStyle Alyssa 2 Sensor) misc TO BE PLACED SUBCUTANEOUSLY EVERY 14 DAYS TO CHECK BLOOD SUGARS TWICE A DAY escitalopram (Lexapro) 10 MG tablet Every 24 hours FLUoxetine (PROZAC) 40 mg, Oral, Daily ibuprofen 800 mg, Oral, Every 8 hours irbesartan (AVAPRO) 75 mg, Oral, Daily iron polysaccharides (ProFe) 391.3 (180 Fe) MG capsule 1 capsule, Every 24 hours Lancets (OneTouch Delica Plus Vwdsui05Z) misc USE 1 LANCET TO CHECK GLUCOSE ONCE DAILY metFORMIN (GLUCOPHAGE) 500 mg, Oral, 2 times daily metroNIDAZOLE (FLAGYL) 500 mg, Oral, 2 times daily OneTouch Verio test strip oxyCODONE-acetaminophen (Percocet) 5-325 MG tablet 1 tablet, Oral, Every 6 hours PRN rosuvastatin (CRESTOR) 5 mg, Oral, Nightly Semaglutide (OZEMPIC, 0.25 OR 0.5 MG/DOSE, SC) ALLERGIES Allergies Allergen Reactions Penicillin G Unknown and Hives Penicillins Unknown Sulfa Antibiotics Unknown and Hives Sulfacetamide PROBLEMS Active Ambulatory Problems Diagnosis Date Noted No Active Ambulatory Problems Resolved Ambulatory Problems Diagnosis Date Noted No Resolved Ambulatory Problems Past Medical History: Diagnosis Date Anemia Breast cancer screening by mammogram Depression Menorrhagia Miscarriage ([facility]) 2006 Morbid obesity with BMI of 40.0-44.9, adult ([facility]) Obesity Subseptate uterus Thickened endometrium Well woman exam HISTORY PAST MEDICAL HISTORY SOCIAL HISTORY Past Medical History: Diagnosis Date Anemia Breast cancer screening by mammogram Depression Menorrhagia Miscarriage ([facility]) 2006 Morbid obesity with BMI of 40.0-44.9, adult ([facility]) Obesity Subseptate uterus Thickened endometrium Well woman exam Social History Tobacco Use Smoking status: Never Smokeless tobacco: Never Substance Use Topics Alcohol use: Not Currently Comment: caffeine: 24oz Pepsi daily Drug use: Never FAMILY HISTORY No family history on file. SURGICAL HISTORY Past Surgical History: Procedure Laterality Date DILATION AND CURETTAGE 2006 ENDOMETRIAL ABLATION 2021 MOUTH SURGERY PAP SMEAR 11/13/2018 nilm ROBOTIC ASSISTED HYSTERECTOMY 11/07/2023 TONSILLECTOMY REVIEW OF SYSTEMS Review of Systems: Review of Systems Constitutional: Negative. HENT: Negative. Eyes: Negative. Respiratory: Negative. Cardiovascular: Negative. Gastrointestinal: Negative. Genitourinary: Negative. Musculoskeletal: Negative. Skin: Negative. Neurological: Negative. All other systems reviewed and are negative. Hematological: Negative. Endocrine: Negative. Allergic/Immunologic: Negative. OBJECTIVE Objective: Physical Exam Constitutional: Appearance: Normal appearance. She is well-developed. Genitourinary: Vulva normal. Vaginal cuff intact. Cervix is absent. Uterus is absent. Breasts: Breasts are soft. Right: Normal. Left: Normal. Cardiovascular: Rate and Rhythm: Normal rate and regular rhythm. Abdominal: General: Bowel sounds are normal. There is no distension. Palpations: Abdomen is soft. Tenderness: There is no abdominal tenderness. There is no guarding or rebound. Musculoskeletal: General: No swelling. Normal range of motion. Right lower leg: No edema. Left lower leg: No edema. Neurological: Mental Status: She is alert and oriented to person, place, and time. Skin: General: Skin is warm and dry. Psychiatric: Mood and Affect: Mood normal. Behavior: Behavior normal. Vitals and nursing note reviewed. Exam conducted with a therapy manager present. Vitals: Estimated body mass index is 43.57 kg/m as calculated from the following: Height as of 11/28/18: 5' 2.75 . Weight as of this encounter: 244 lb. BP: 124/72 No LMP recorded (lmp unknown). Patient has had a hysterectomy. ASSESSMENT & PLAN ICD-10-CM 1. Well woman exam with routine gynecological exam Z01.419 THIN PREP TIS PAP AND HR HPV DNA 2. Breast cancer screening by mammogram Z12.31 Bilateral screening mammogram Bilateral screening mammogram Orders Placed This Encounter Procedures Bilateral screening mammogram Annual Wellness Exam (Post Hysterectomy): Patient presents today for routine annual exam. Patient states she has no current complaints. Patients vitals were reviewed and within normal limits. Growth and development is noted to be appropriate for age. Menstrual history is noted to be obsolete due to patients history of hysterectomy. No mental health concerns was expressed. Pap Smear: Speculum was inserted into the vagina and pap was obtained without difficulty. HPV testing was performed per guidelines. Patient was advised that pap results could take anywhere from 7 to 10 days to receive and our office will reach out to the patient with those once we have them. Patient can also view results via [employer]. I reinforced importance of condom use for STI prevention. Patient declined cultures to be performed with today's visit. Breast Exam: Upon examination, clinical breast exam was noted to be normal. Patient was counseled on breast self-awareness, including the importance of knowing what is normal for her own breasts and promptly reporting any changes such as new lumps, skin dimpling, nipple discharge, or pain. Screening mammogram recommended annually beginning at age 40 or earlier if risk factors are present. Discussed signs and symptoms of breast cancer and when to seek medical attention. Answered all patient questions. Follow Up: Patient is to return to our office in one year for annual exam unless needed otherwise. Documented by Unique Navarrete LPN on behalf of: Anatoliy Lo DO documented in this encounterMissouri Rehabilitation CenterPfdqvwragc70-75-0634 Evaluation note* Encounter Date Diagnosis Assessment Notes Treatment Notes Treatment Clinical Notes May, Sore throat (ICD-10 - J02.9) May,Viral URI (ICD-10 - J06.9)Drink plenty of fluids and get plenty of [...] She understands and agrees with the plan. May,ough (ICD-10 - R05.9) May,Elevated blood pressure reading (ICD-10 - R03.0)Follow up with pcp. [employer] Other 06-10-2022 NoteOPERATIVE NOTE OPERATION DATE: 12/02/2021 PROCEDURE: Diandra endometrial ablation. PREOPERATIVE DIAGNOSIS: Menorrhagia. POSTOPERATIVE DIAGNOSIS: Menorrhagia. ANESTHESIA: General. SURGEON: Anatoliy Lo D.O. COMMERCIAL CENSUS TAKER: None. BLOOD LOSS: 5 mL. URINE OUTPUT: [...] Patient taken to recovery in stable condition. [facility] Signed and Approved by: DR ANATOLIY LO . 12/15/2021 10:48:00[facility] NoteMicrobiology PROCEDURE: Strep Screen Culture [R1] SOURCE: Throat BODY SITE: COLLECTED DATE/TIME: 11/20/2021 10:32 EDT RECEIVED DATE/TIME: 11/20/2021 10:57 EDT START DATE/TIME: 11/20/2021 10:57 EDT FREE TEXT SOURCE: Michael PADILLA, Raghavendra Rodriguez MD, Raghavendra FINAL REPORTS Final Report [] Verified Date/Time: 11/22/2021 12:24 EDT No Pathogenic Streptococcus Isolated Performing Locations R1: This test was performed at: [facility], [address] [place] [address], [address] , , TmglynCleveland Clinic Euclid HospitalComment on above:Performed By: #### [id number] ####[facility] [address] [place], [place] [phone] Evaluation + Plan note Diagnostic Tests Pending * Strep Screen Culture 11/20/21 [facility]05-29-2022 Hospital Discharge instructions Patient Education 11/20/2021 11:31:01 Allergic Rhinitis, Adult, Foad-mc-Xlre Allergic Rhinitis, Adult Allergic rhinitis is a [...] lowest. This is usually during the medical customer service representative orevening hours. ?If you do go outdoors when [...] away after you touch household pets. Take zrlv-cwq-uyooqhd and prescription medicines only as told by [...] tearing eyes. You may also have trouble sleepingor feel sleepy during the day. Treatment includes taking medicines and avoiding allergens. You may also get shots or take strongermedicines. Get help if you have a fever or a cough that does not stop. Get help right away if you are short ofbreath. This information is not intended to replace advice given to you by your health care provider. Make sure you discuss any questions you have with your health care provider. Document Released: 10/11/2011 Document Revised: 09/30/2019 Document Reviewed: 12/31/2018 [email or web address] Patient Education 2020 [employer]. 11/20/2021 11:31:01 Pharyngitis, Knhn-pm-Segx Pharyngitis Pharyngitis is a sore throat (pharynx). This is when there is redness, pain, and swelling in your throat. Most of the time, this condition gets better on its own. In some cases, you may need medicine. Follow these instructions at home: Take sqyw-iwt-nkvobwy and prescription medicines only as told by [...] 11/27/2008 Document Revised: 05/24/2018 Document Reviewed: 07/17/2017 [email or web address] Patient Education 2020 [employer]. 11/20/2021 11:31:01 Cough, Adult, Ycad-zf-Acsx Cough, Adult A cough helps to clear [...] Follow these instructions at home: Medicines Take jpcr-zzj-oiauuih and prescription medicines only as told by [...] Many things can cause a cough. Take lzqm-bpb-glfdoto and prescription medicines only as told by [...] 02/22/2012 Document Revised: 06/30/2019 Document Reviewed: 06/30/2019 [email or web address] Patient Education 2020 [employer]. 11/20/2021 11:31:01 Cool Mist Vaporizer Cool Mist Vaporizer A cool mist vaporizer is a device that releases a cool mist into the air. If you have a cough or a cold, using a vaporizer may help relieve your symptoms. The mist adds moisture to the air, which mayhelp thin your mucus and make it less [...] 03/08/2005 Document Revised: 06/28/2017 Document Reviewed: 09/09/2016 [email or web address] Patient Education 2020 [email or web address] Follow Up Care 11/20/2021 10:25:19 With:Natasha Wu Address: [address] [facility] [address] [place] [phone] Business (1) When:11/23/2021 11:10:20 [facility]05-27-2022 NoteOPERATIVE NOTE OPERATION DATE: 11/18/2021 PROCEDURE: D AND C, hysteroscopy with Myosure. PREOPERATIVE DIAGNOSIS: Menorrhagia, thickened endometrium. POSTOPERATIVE DIAGNOSIS: Menorrhagia, thickened endometrium. ANESTHESIA: General. SURGEON: Anatoliy Lo D.O. COMMERCIAL CENSUS TAKER: None. SPECIMEN: Endometrial curetting. FINDINGS: Thickened endometrial [...] to the Recovery Room in stable condition. [facility] Signed and Approved by: DR ANATOLIY LO . 11/25/2021 08:14:00[facility] CampusEvaluation noteNo assessment information availableCleveland Clinic [facility]tr Work Phone: Evaluation note* Diagnosis Well woman exam with routine gynecological exam Routine gynecological examination Breast cancer screening by mammogram documented in this encounter [facility] HealthcareHistory general Narrative - Reported* Type Description Date Medical History hypertension Medical Historychronic depressionMedical Historyacid refluxMedical History pre-diabetesSurgical [id number] Historyablasion [employer] Other Hospital course Narrative No data available for this section [facility] Additional Instructions Take the Bentyl [...] this may be related to your metformin doseCleveland Clinic Mentor Hospital Ctr Work Phone: Summary Purpose Family History Relationship Condition Age at Onset Recorded Date/T ledy father Unknown Not SpecifiedDeceasedUnknown Relationship Condition Age at Onset Recorded Date/T ledy father Unknown motherDeceasedUnknown Advance Directives Advance Directive Response Recorded Date/ [...] content) DATE CREATED AUTHOR 12/01/2021 [facility] DATE CREATED AUTHOR AUTHOR'S ORGANIZ ATION 02/23/2022 [facility] DATE CREATED AUTHOR AUTHOR'S ORGANIZ ATION 09/26/2024 [facility] Group DATE CREATED AUTHOR AUTHOR'S ORGANIZ ATION 12/25/2024 [facility] EPIC Care Teams (unrecognized sec tion and content) Team Status: Inactive Member Role Status Dates Natasha Wu , MEDICAL INFORMATION OFFICER Primary Care Provider Active Michael Min ProviderActive Team Status: Active Member Role Status Dates Natasha Wu MEDICAL INFORMATION OFFICER Primary Care Provider Active Team Status: Inactive Member Role Status Dates Natasha Wu MEDICAL INFORMATION OFFICER Primary Care Provider Active Start: September 04, 2023 End: September 03orey FazioAttending ProviderActiveStart: September 04, 2023 End: September 04, 2023 Team Status: Active Member Role Status Dates NON STAFF Primary Care Provider Active Team Status: Inactive Member Role Status Dates NON STAFF Primary Care Provider Active Start: August 17, 2024 End: August 17, 2024TEODORA Rojas-CEmergero ProviderActiveStart: August 17, 2024 End: August 17, 2024Team MemberRelationshipSpecialtyStart DateEnd Date Jordan Saul DO PCP - [facility]08/22/23Team MemberRelationshipSpecialtyStart DateEnd Date Jordan Saul DO PCP - [facility] Medicine08/22/23Team MemberRelationshipSpecialtyStart DateEnd Date Jordan [facility] - [facility]Team MemberRelationshipSpecialtyStart DateEnd Date Jordan Saul DO PCP - [facility] Medicine08/22/23 Goals (unrecognized section and content) Goals may be documented in a n alternate section REASON FOR VISIT (unrecogniz ed section and content) ReasonCommentsGynecologic Exam FOR RECORDS PERTAINING TO PATIENTS WHO ARE [...] BE BASED ON THE PRIMARY CLINICAL RECORDS. [facility] provides no warranty or guarantee of the accuracy or completeness of information in this document.
== END 2025-05-13 11:00 | disposition home or self-care (01) ==
LOC: MAMMO 10:59
PROVIDERS: Visit Provider Obstetrics & Gynecology
DX: Z12.31 Encounter for screening mammogram for malignant neoplasm of breast (principal)
CPT/HCPCS: 77063; 77067